=== PATIENT | female | born 2000 | race Caucasian/White ===

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

== ENCOUNTER → 2025-09-30 | Outpatient (CLI) | payer BC, SELFPAY | END | disposition home or self-care (01) | LOC: LABSPEC 15:58 | PROVIDERS: Referring Provider Urology; Visit Provider Urology | DX: N20.1 Calculus of ureter (principal) ==

== ENCOUNTER → 2025-09-30 | Outpatient (CLI) | payer BC, SELFPAY ==
--- NOTE | 2025-09-30 12:00 | CALC_PTH ---
PATIENT: MALIKA NAPOLES LOC: [facility] U#:[id number] AGE/SX: 24/F ROOM: RE09/30/[address]: Dr. Juan Mccarthy MD : 2000 BED: DIS: 09/30/2025 SPEC #: [id number] RECD: 09/30/25 15:07 STATUS: LYNDSEY REGucci #: [id number] SUSANNE: 09/30/25 12:[address]: Juan Mccarthy DEPT: SURGICAL PATHOLOGY RECD BY: Cliff Richardson ENTERED: 09/30/25 15:56 SP TYPE: Calculi OTHR DR: Justine Primary Care Phys Tissues: A - CALCULI Procedures: Surgery Specimen Level I HEADER OPERATION: Right ureteroscopy, laser of stone, possible ureteral stent placement PRE-OP DIAGNOSIS: Calculus of ureter, right TISSUE SUBMITTED: A- Right ureteral stone GROSS DIAGNOSIS A. Calculus, ureter, right, removal: - Urolithiasis (gross examination only), sent for stone analysis. COMMENT The calculus is submitted in its entirety for chemical stone analysis. The results from this study will be reported separately. GROSS DESCRIPTION A. Received fresh labeled the patient's name and date of . Designated as "R ureteral stone" is a 0.2 cm alston to light brown irregular calculus. No sections are submitted. The specimen is for gross examination only. The specimen is sent for stone analysis. RI 09/30/2025 CPT:84902
--- OUTSIDE RECORDS SUMMARY | 2025-09-30 16:48 | XMS RPT_ITS | CCD ---
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 MDW, ANEU, ADIFF, CMP #### [address] [address] MCH (RBC) [Entitic mass] 29.3 pg Normal 27.0-33.0 [facility] Comment on above: Performed By: #### G FR, CBC, LIP, MDW, ANEU, ADIFF, CMP #### [address] [address] MCHC 34.1 G/dL Normal 32.0-36.0 [facility] Comment on above: Performed By: #### G FR, CBC, LIP, MDW, ANEU, ADIFF, CMP #### [address] [address] MCV (RBC) [Entitic vol] 85.8 fL Normal 80.0-99.0 [facility] Comment on above: Performed By: #### G FR, CBC, LIP, MDW, ANEU, ADIFF, CMP #### [address] [address] Platelet 357 10 3/mcL Normal 150-450 [facility] Comment on above: Performed By: #### G FR, CBC, LIP, MDW, ANEU, ADIFF, CMP #### [address] [address] Platelet mean volume (Bld) [Entitic vol] 6.8 fL Normal 6.6-10.5 [facility] Comment on above: Performed By: #### G FR, CBC, LIP, MDW, ANEU, ADIFF, CMP #### [address] [address] RBC 4.63 10 6/mcL Normal 4.10-5.30 [facility] Comment on above: Performed By: #### G FR, CBC, LIP, MDW, ANEU, ADIFF, CMP #### [address] [address] WBC 10.8 10 3/mcL Normal 4.5-10.8 [facility] Comment on above: Performed By: #### G FR, CBC, LIP, MDW, ANEU, ADIFF, CMP #### [place] [address] [place], [place] [address] CMPon 09-16-2025 Albumin Level 3.8 G/dL Normal 3.5-5.0 [facility] Comment on above: Performed By: #### G FR, CBC, LIP, MDW, ANEU, ADIFF, CMP ####[facility] [place], [place] [address] Albumin/Globulin [Mass ratio] 1.0 {ratio} Low 1.1-2.5 [facility] Comment on above: Performed By: #### G FR, CBC, LIP, MDW, ANEU, ADIFF, CMP ####[facility] [place], [place] [address] ALP [Catalytic activity/Vol] 88 U/L Normal 40-135 [facility] Comment on above: Performed By: #### G FR, CBC, LIP, MDW, ANEU, ADIFF, CMP ####[facility] [place] [address] ALT [Catalytic activity/Vol] 23 U/L Normal 14-59 [facility] Comment on above: Performed By: #### G FR, CBC, LIP, MDW, ANEU, ADIFF, CMP ####[facility] [place], [place] [address] AST [Catalytic activity/Vol] 16 U/L Normal 10-40 [facility] Comment on above: Performed By: #### G FR, CBC, LIP, MDW, ANEU, ADIFF, CMP ####[place] [address] [place] [id number] Bili Total 0.4 mg/dL Normal 0.2-1.0 [facility] Comment on above: Result Comment: Use of this assay is not recommended for patients undergoing treatment with eltrombopag due to the potential for falsely elevated results. Performed By: #### G FR, CBC, LIP, MDW, ANEU, ADIFF, CMP ####[facility] [place], [place] [address] BUN/Creatinine Ratio 10 ratio Normal 7-27 [facility] Comment on above: Performed By: #### G FR, CBC, LIP, MDW, ANEU, ADIFF, CMP ####[place] [address] [place], [place] [address] Calcium [Mass/Vol] 9.1 mg/dL Normal 8.4-10.2 [facility] Comment on above: Performed By: #### G FR, CBC, LIP, MDW, ANEU, ADIFF, CMP ####[place] [address] [place] [phone] Chloride [Moles/Vol] 104 mmol/L Normal 98-107 [facility] Comment on above: Performed By: #### G FR, CBC, LIP, MDW, ANEU, ADIFF, CMP ####[place] [address] CO2 [Moles/Vol] 24 mmol/L Normal 22-29 [facility] Comment on above: Performed By: #### G FR, CBC, LIP, MDW, ANEU, ADIFF, CMP ####[place] [address] Creatinine [Mass/Vol] 0.77 mg/dL Normal 0.51-0.95 [facility] Comment on above: Performed By: #### G FR, CBC, LIP, MDW, ANEU, ADIFF, CMP ####[place] [id number] Electrolyte Balance 11.0 mEq/L Normal 4.0-15.0 [facility] Comment on above: Performed By: #### G FR, CBC, LIP, MDW, ANEU, ADIFF, CMP ####[place] [address] [place] [address] Globulin 3.7 G/dL Normal 2.7-4.4 [facility] Comment on above: Performed By: #### G FR, CBC, LIP, MDW, ANEU, ADIFF, CMP ####[facility] [place], [place] [address] Glucose [Mass/Vol] 93 mg/dL Normal 70-105 [facility] Comment on above: Performed By: #### G FR, CBC, LIP, MDW, ANEU, ADIFF, CMP ####[address] [place], [place] [address] Potassium [Moles/Vol] 3.2 mmol/L Low 3.5-5.1 [facility] Comment on above: Performed By: #### G FR, CBC, LIP, MDW, ANEU, ADIFF, CMP ####[address] [place], [place] [address] Sodium [Moles/Vol] 139 mmol/L Normal 136-145 [facility] Comment on above: Performed By: #### G FR, CBC, LIP, MDW, ANEU, ADIFF, CMP ####[address] [place], [place] [address] Total Protein 7.5 G/dL Normal 6.4-8.2 [facility] Comment on above: Performed By: #### G FR, CBC, LIP, MDW, ANEU, ADIFF, CMP ####[address] [place], [place] [address] Urea nitrogen [Mass/Vol] 8 mg/dL Normal 7-18 [facility] Comment on above: Performed By: #### G FR, CBC, LIP, MDW, ANEU, ADIFF, CMP ####[facility] [place], [place] [address] CT ABD/PELVIS W/ IV CONTRAST ONLYon 09-16-2025 CT ABD/PELVIS W/ IV CONTRAST ONLY ORIGINAL EXAMINATION: CT OF THE ABDOMEN AND PELVIS WITH HQJMEFLU72/7/2025 1:18 pm TECHNIQUE: CT of the abdomen and pelvis was performed with the administration of intravenous contrast. Multiplanar reformatted images are provided for review. Automated exposure control, iterative reconstruction, and/or weight based adjustment of the mA/kV was utilized to reduce the radiation dose to as low as reasonably achievable. COMPARISON: 08/23/2025 HISTORY: ORDERING SYSTEM PROVIDED HISTORY: Reason for Exam: Rt flank pain, N+V, burning pain with urination. Hx renal stone 3 weeks ago which pt believes she passed. SCANNED ADDITIONAL SERIES TO INCLUDE ALL LIVER. Abdominal pain, acute, nonlocalized FINDINGS: No acute abnormality in the visualized portions of the lower thorax. No aggressive osseous lesions. The liver, gallbladder, spleen, pancreas, and adrenal glands are unremarkable. Delayed right nephrogram with mild to moderate hydronephrosis. There is mild to moderate right-sided ureteral dilatation with a 3 mm stone still seen at the distal right ureter/UVJ. There is no left-sided hydronephrosis. There is no intra-abdominal free air or fluid. No pathologically enlarged lymph nodes. Thick the abdominal aorta is normal in caliber. No acute GI tract abnormality. The appendix is normal. No other contributory finding. IMPRESSION: 1. Similar appearing mild to moderate right hydroureteronephrosis which is due to a 3 mm obstructive stone at the distal right ureter/UVJ. I have personally reviewed the images of this examination and agree with the resident's finding and interpretation. Interpreted by: Oseas Bunch MD Preliminary Report By: Fabiano Busch Electronically signed By Oseas Bunch MD Dictated Date: 09/16/2025 1:23:37 PM Prelim Date: 09/16/2025 1:29:34 PM Sign Date: 09/16/2025 2:20:26 PM Ordering Provider: JAVAD RAMACHANDRAN Normal [facility] LABORATORYOrdered By: Rodrigo dickens on 09-16-2025 Color (U) Shackelford 2 *ABN* (09/16/25 12:54 PM) Invalid Interpretation Code Yellow AO Auto Urine SS Comment on above: Result Comment: Drug s given that cause changes in urine color may cause chemical analysis to demonstrate false positives. Glucose (U) [Mass/Vol] 100 mg/dL Invalid Interpretation Code Negative AO Auto Urine SS Ketones Ql (U) Negative Normal Negative AO Auto Urine SS UA Appear Slightly Cloudy *ABN* (09/16/25 12:54 PM) Invalid Interpretation Code Clear AO Auto Urine SS UA Bacteria Trace /HPF Invalid Interpretation Code Negative AO Auto Urine SS UA Bili Negative (09/16/25 12:54 PM) Normal Negative AO Auto Urine SS UA Blood Negative (09/16/25 12:54 PM) Normal Negative AO Auto Urine SS UA Leuk Est Trace (09/16/25 12:54 PM) Normal Negative AO Auto Urine SS UA Nitrite Positive *ABN* (09/16/25 12:54 PM) Invalid Interpretation Code Negative AO Auto Urine SS UA pH 6.0 (09/16/25 12:54 PM) Normal 5.0 - 8.0 AO Auto Urine SS UA Protein Trace mg/dL Normal Negative AO Auto Urine SS UA RBC 0-2 /HPF Normal 0-2 AO Auto Urine SS UA Spec Grav <=1.005 *ABN* (09/16/25 12:54 PM) Invalid Interpretation Code 1.015-1.02 5 AO Auto Urine SS UA Specimen Type Clean Catch (09/16/25 12:54 PM) Normal AO Auto Urine SS UA Squam Epithelial 10-20 /HPF Normal 0-20 AO Au to Urine SS UA Urobilinogen 4.0 E.U./dL Invalid Interpretation Code 0.2-1.0 AO Auto Urine SS UA WBC 3-5 /HPF Normal 0-5 AO Auto Urine SS HCG ( test) Ql Negative (09/16/25 12:30 PM) Normal AO Manual Urine SS test (u) int Not detected Invalid Interpretation Code AO Manual Urine SS LABORATORYOrdered By: SYSTEM SYSTEM on 09-16-2025 Albumin BCP dye [Mass/Vol] 3.8 G/dL Normal 3.5 - 5.0 G/dL AO ADM SS Albumin/Globulin [Mass ratio] 1.0 {ratio} Low 1.1 - 2.5 ratio AO ADM SS ALP [Catalytic activity/Vol] 88 U/L Normal 40 - 135 U/L AO ADM SS ALT With P-5'-P [Catalytic activity/Vol] 23 U/L Normal 14 - 59 U/L AO ADM SS AST With P-5'-P [Catalytic activity/Vol] 16 U/L Normal 10 - 40 U/L AO ADM SS Basophils (Bld) [#/Vol] 0.1 103/mcL Normal 0.0 - 0.3 10^3/mcL AO Workflow SS Basophils/100 WBC (Bld) 0.7 % Normal 0.0 - 2.5 % AO Workflow SS Bilirubin [Mass/Vol] 0.4 mg/dL Normal 0.2 - 1.0 mg/dL AO ADM SS Comment on above: Interpretive Data: U se of this assay is not recommended for patients undergoing treatment with eltrombopag due to the potential for falsely elevated results. Calcium [Mass/Vol] 9.1 mg/dL Normal 8.4 - 10. 2 mg/dL AO ADM SS Chloride [Moles/Vol] 104 mmol/L Normal 98 - 107 mmol/L AO ADM SS CO2 [Moles/Vol] 24 mmol/L Normal 22 - 29 mmol/L AO ADM SS Creatinine [Mass/Vol] 0.77 mg/dL Normal 0.51 - 0.95 mg/dL AO ADM SS Electrolyte Balance 11.0 mEq/L Normal 4.0 - 15 .0 mEq/L AO ADM SS Eosinophil, Absolute 0.1 103/mcL Normal 0.0 - 0.7 10^3/mcL AO Workflow SS Eosinophils/100 WBC (Bld) 0.8 % Normal 0.0 - 6.0 % AO Workflow SS Erythrocyte distribution width (RBC) [Ratio] 12.8 % Normal 11.5 - 15.5 % AO Workflow SS Globulin 3.7 G/dL Normal 2.7 - 4.4 G/dL AO ADM SS GLOMERULAR FILTRATION RATE/1.73 SQ M.PREDICTED:ARVRAT: PT:SER/PLAS/BLD:QN: CREATININE-BASED FORMULA (CKD-EPI 2020) 111 ml/min/1.73sqm Invalid Interpretation Code AO Chemistry S Comment on above: Interpretive Data: Stages of Chronic Kidney Disease (CKD) Stage Description eGFR(ml/min/1.73 sq.m.) CKD 1 Normal kidney function or >=90 normal kindney function with possible kidney damage (ex. Proteinuria) CKD 2 Kidney damage with mild loss 60-89 of kidney function CKD 3a Mild to moderate loss of kidney 45-59 function CKD 3b Moderate to severe loss of 30-44 of kindey function CKD 4 Severe loss of kidney function 15-29 CKD 5 Kidney failure <15 Note: (go live 2024) the eGFR calculation was updated to the 2020 CKD-EPI creatinine equation without a race factor to calculate the eGFR results. Glucose [Mass/Vol] 93 mg/dL Normal 70 - 105 mg/dL AO ADM SS Hematocrit (Bld) [Volume fraction] 39.7 % Normal 34.0 - 46.0 % AO Workflow SS Hemoglobin (Bld) [Mass/Vol] 13.5 G/dL Normal 12.0 - 16.0 G/dL AO Workflow SS Lipase [Catalytic activity/Vol] 43 U/L Normal 16 - 77 U/L AO ADM SS Lymphocytes (Bld) [#/Vol] 2.7 103/mcL Normal 0.9 - 4.3 10^3/mcL AO Workflow SS Lymphocytes/100 WBC (Bld) 25.1 % Normal 20.0 - 40.0 % AO Workflow SS MCH (RBC) [Entitic mass] 29.3 pg Normal 27.0 - 33.0 pg AO Workflow SS MCHC 34.1 G/dL Normal 32.0 - 36.0 G/dL AO Workflow SS MCV (RBC) [Entitic vol] 85.8 fL Normal 80.0 - 99.0 fL AO Workflow SS Monocyte distribution width Auto (Bld) [Entitic vol] 17.11 1 Normal 0.00 - 20.00 AO Workflow SS Comment on above: Result Comment: For ED adult patients suspected of sepsis, MDW<=20.0 does not rule out sepsis or risk of sepsis Monocytes (Bld) [#/Vol] 0.7 103/mcL Normal 0.1 - 1.4 10^3/mcL AO Workflow SS Monocytes/100 WBC (Bld) 6.8 % Normal 2.0 - 13.0 % AO Workflow SS Neutrophils (Bld) [#/Vol] 7.2 103/mcL Normal 2.3 - 8.1 10^3/mcL AO Workflow SS Neutrophils/100 WBC (Bld) 66.6 % Normal 50.0 - 75.0 % AO Workflow SS Platelet mean volume (Bld) [Entitic vol] 6.8 fL Normal 6.6 - 10.5 fL AO Workflow SS Platelets (Bld) [#/Vol] 357 103/mcL Normal 150 - 450 10^3/mcL AO Workflow SS Potassium [Moles/Vol] 3.2 mmol/L Low 3.5 - 5.1 mmol/L AO ADM SS Protein [Mass/Vol] 7.5 G/dL Normal 6.4 - 8.2 G/dL AO ADM SS RBC (Bld) [#/Vol] 4.63 106/mcL Normal 4.10 - 5.30 10^6/mcL AO Workflow SS Sodium [Moles/Vol] 139 mmol/L Normal 136 - 145 mmol/L AO ADM SS Urea nitrogen [Mass/Vol] 8 mg/dL Normal 7 - 18 mg/dL AO ADM SS Urea nitrogen/Creatinine [Mass ratio] 10 ratio Normal 7 - 27 ratio AO ADM SS WBC (Bld) [#/Vol] 10.8 103/mcL Normal 4.5 - 10.8 10^3/mcL AO Workflow SS LIPon 09-16-2025 Lipase Level 43 U/L Normal 16-77 [facility] Comment on above: Performed By: #### G FR, CBC, LIP, MDW, ANEU, ADIFF, CMP ####[facility] [place], [place] [address] PREGUon 09-16-2025 HCG ( test) Ql (U) Negative Normal [facility] Comment on above: Performed By: #### P REGU ####[facility] [place], [place] [address] test (u) int Not detected Invalid Interpretation Code [facility] Comment on above: Performed By: #### P REGU ####[facility] [place], [place] [address] SURESWAB(R) ADVANCED VAGINIT IS PLUS, TMAon 09-16-2025 BALBIR GLABRATA Not detected Normal NOT DETECTED [facility] Comment on above: Order Comment: 0 0 Result Comment: Balbir species C. albicans, C. tropicalis, C. parapsilosis, and/or C. dubliniensis can be detected, but not differentiated, in the Balbir spp. result. Performed By: #### 1 0120 #### [facility] [address] Cheese Maker: Terry Raya MD BALBIR SPECIES Not detected Normal NOT DETECTED [facility] Comment on above: Order Comment: 0 0 Performed By: #### 1 0120 #### [place] [address] Cheese Maker: Terry Raya MD CHLAMYDIA TRACHOMATIS RNA, TMA, UROGENITAL Not detected Normal NOT DETECTED [facility] Comment on above: Order Comment: 0 0 Performed By: #### 1 0120 #### [facility] [address] Cheese Maker: Terry Raya MD NEISSERIA GONORRHOEAE RNA, TMA, UROGENITAL Not detected Normal NOT DETECTED [facility] Comment on above: Order Comment: 0 0 Result Comment: For additional information, please refer to https://education.ImmusanT/faq/CPQ476 (This link is being provided for information/ educational purposes only.) Performed By: #### 1 0120 #### [facility] [address], [address] [place] [address] Cheese Maker: Terry Raya MD SURESWAB(R) ADV BACTERIAL VAGINOSIS (BV), TMA Negative Normal NEGATIVE [facility] Comment on above: Order Comment: 0 0 Performed By: #### 1 0120 #### [facility] [place] [address] Cheese Maker: Terry Raya MD TRICHOMONAS VAGINALIS (TV), TMA Not detected Normal NOT DETECTED [facility] Comment on above: Order Comment: 0 0 Performed By: #### 1 0120 #### [facility] [place] [address] Cheese Maker: Terry Raya MD [facility] 09-16-2025 Color (U) Shack[place]ord Abnormal Yellow [facility] Comment on above: Result Comment: Drug s given that cause changes in urine color may cause chemical analysis to demonstrate false positives. Performed By: #### U AMIC, UA ####[address] [place], [place] [address] Glucose (U) [Mass/Vol] 100 mg/dL Abnormal Negative [facility] Comment on above: Performed By: #### U AMIC, UA ####[address] [place], [place] [address] Ketones Ql (U) Negative Normal Negative [facility] Comment on above: Performed By: #### U AMIC, UA ####[address] [place], [place] [address] UA Appear Slightly Cloudy Abnormal Clear [facility] Comment on above: Performed By: #### U AMIC, UA ####[address] [place], [place] [address] UA Blood Negative Normal Negative [facility] Comment on above: Performed By: #### U AMIC, UA ####[address] [place] [place], [place] [address] UA Leuk Est Trace Normal Negative [facility] Comment on above: Performed By: #### U AMIC, UA ####[address] [place] [place] [address] UA Nitrite Positive Abnormal Negative [facility] Comment on above: Performed By: #### U AMIC, UA ####[address] [place] [address] UA pH 6.0 Normal 5.0 - 8.0 [facility] Comment on above: Performed By: #### U AMIC, UA ####[address] [place] [place] [address] UA Protein Trace Normal Negative [facility] Comment on above: Performed By: #### U AMIC, UA ####[address] [place] [place] [address] UA Spec Grav <=1.005 Abnormal 1.015-1.02 5 [facility] Comment on above: Performed By: #### U AMIC, UA ####[address] [place] [place], [place] [address] UA Specimen Type Clean Catch Normal [facility] Comment on above: Performed By: #### U AMIC, UA ####[address] [place] [place] [address] UA Urobilinogen 4.0 E.U./dL Abnormal 0.2-1.0 [facility] Comment on above: Performed By: #### U AMIC, UA ####[address] [place] [place] [address] Urobilinogen (U) [Mass/Vol] Negative Normal Negative [facility] Comment on above: Performed By: #### U AMIC, UA ####[address] [place] [address] UAMICon 09-16-2025 UA Bacteria Trace Abnormal Negative [facility] Comment on above: Performed By: #### A SYMONE PECK, ANEU, GFR, CMP, CBC, LIP #### [place] [address] [place], [place] [address] UA RBC 0-2 Normal 0-2 [facility] Comment on above: Performed By: #### A SYMONE PECK, ANEU, GFR, CMP, CBC, LIP #### [place] [address] [place], [place] [address] UA Squam Epithelial 10-20 Normal 0-20 [facility] Comment on above: Performed By: #### A SYMONE PECK, ANEU, GFR, CMP, CBC, LIP #### [place] [address] [place], [place] [address] UA WBC 3-5 Normal 0-5 [facility] Comment on above: Performed By: #### A SYMONE PECK, ANEU, GFR, CMP, CBC, LIP #### [place] [address] [place], [place] [address] No Panel Informationon 09-05 No significant sonog raphic abnormality of the kidneys. CLINICAL INFORMATION: Secondary amenorrhea. Transabdominal and transvaginal pelvic ultrasound with spectral color Doppler: The examination is limited by poor penetration of sound secondary to body habitus. The uterus is within normal limits in size and echogenicity measuring 8.8 x 5.8 x 3.5 cm (length, AP, width). The endometrial stripe measures 5 mm which is within normal limits.. There is a small amount of fluid in the endometrial canal. The right ovary is normal in size and echogenicity measuring 3.7 x 2.3 cm and contains a 1.9 x 1.3 x 1.6 cm follicle. The left ovary is mildly enlarged measuring 4.4 x 2.4 x 2.3 cm. No other cystic, solid or complex adnexal masses are identified. There is no free fluid within the cul-de-sac. IMPRESSION: 1. Nonspecific mild enlargement of the left ovary. 2. Small amount nonspecific fluid in the endometrial canal. 3. No other significant sonographic abnormality. Report Dictated on Electronically Signed By: Nehemias Peraza MD Electronically Signed Date/Time: 09/05/2025 4:00 PM EDT [facility] No Panel InformationOrdered By: Nehemias Peraza on 09-05-2025 [facility] Phone: US Kidney limitedon 09-05-20 Patient Name: RAMIRO KULKARNI : 2000 Exam Date/Time: 09/05/2025 13:05 Procedure: US RENAL LIMITED Ordering Provider: DE OLIVEIRA RACHEL Reason For Exam: hydroureteronephrosis CLINICAL INFORMATION: History of hydronephrosis. Ultrasound kidneys: The kidneys are within normal limits in size and cortical echogenicity. The right measures 11.5 x 6.3 x 5.8 cm and the left 12.1 x 6.5 x 6.4 cm. No hydronephrosis, calculus or solid renal mass is seen on either side. There is a well distended urinary bladder without obvious sonographic abnormality. Bilateral ureteral jets are demonstrated. [facility] Nehemias Peraza MD - 09/05/2025 Patient Name: RAMIRO NAPOLES : 2000 Exam Date/Time: 09/05/2025 13:05 Procedure: US RENAL LIMITED Ordering Provider: DE OLIVEIRA RACHEL Reason For Exam: hydroureteronephrosis CLINICAL INFORMATION: History of hydronephrosis. Ultrasound kidneys: The kidneys are within normal limits in size and cortical echogenicity. The right measures 11.5 x 6.3 x 5.8 cm and the left 12.1 x 6.5 x 6.4 cm. No hydronephrosis, calculus or solid renal mass is seen on either side. There is a well distended urinary bladder without obvious sonographic abnormality. Bilateral ureteral jets are demonstrated. IMPRESSION: No significant sonographic abnormality of the kidneys. CLINICAL INFORMATION: Secondary amenorrhea. Transabdominal and transvaginal pelvic ultrasound with spectral color Doppler: The examination is limited by poor penetration of sound secondary to body habitus. The uterus is within normal limits in size and echogenicity measuring 8.8 x 5.8 x 3.5 cm (length, AP, width). The endometrial stripe measures 5 mm which is within normal limits.. There is a small amount of fluid in the endometrial canal. The right ovary is normal in size and echogenicity measuring 3.7 x 2.3 cm and contains a 1.9 x 1.3 x 1.6 cm follicle. The left ovary is mildly enlarged measuring 4.4 x 2.4 x 2.3 cm. No other cystic, solid or complex adnexal masses are identified. There is no free fluid within the cul-de-sac. IMPRESSION: 1. Nonspecific mild enlargement of the left ovary. 2. Small amount nonspecific fluid in the endometrial canal. 3. No other significant sonographic abnormality. Report Dictated on Electronically Signed By: Nehemias Peraza MD Electronically Signed Date/Time: 09/05/2025 4:00 PM EDT [facility] Radiology Study observation (narrative) [facility] US NON-OB PELVIS TRANS ABD/V AGon 09-05-2025 US NON-OB PELVIS TRANS ABD/VAG Patient [facility] [place] : 2000 [id number] Exam Date/Time: 09/05/2025 12:30 Procedure: US NON-OB PELVIS TRANS ABD/VAG Ordering Provider: DE OLIVEIRA RACHEL Reason For Exam: amenorrhea CLINICAL INFORMATION: History of hydronephrosis. Ultrasound kidneys: The kidneys are within normal limits in size and cortical echogenicity. The right measures 11.5 x 6.3 x 5.8 cm and the left 12.1 x 6.5 x 6.4 cm. No hydronephrosis, calculus or solid renal mass is seen on either side. There is a well distended urinary bladder without obvious sonographic abnormality. Bilateral ureteral jets are demonstrated. IMPRESSION: No significant sonographic abnormality of the kidneys. CLINICAL INFORMATION: Secondary amenorrhea. Transabdominal and transvaginal pelvic ultrasound with spectral color Doppler: The examination is limited by poor penetration of sound secondary to body habitus. The uterus is within normal limits in size and echogenicity measuring 8.8 x 5.8 x 3.5 cm (length, AP, width). The endometrial stripe measures 5 mm which is within normal limits.. There is a small amount of fluid in the endometrial canal. The right ovary is normal in size and echogenicity measuring 3.7 x 2.3 cm and contains a 1.9 x 1.3 x 1.6 cm follicle. The left ovary is mildly enlarged measuring 4.4 x 2.4 x 2.3 cm. No other cystic, solid or complex adnexal masses are identified. There is no free fluid within the cul-de-sac. IMPRESSION: 1. Nonspecific mild enlargement of the left ovary. 2. Small amount nonspecific fluid in the endometrial canal. 3. No other significant sonographic abnormality. Report Dictated on Electronically Signed By: Nehemias Peraza MD Electronically Signed Date/Time: 09/05/2025 4:00 PM EDT [facility] US Pelvis transabdominal and transvaginalon 09-05-2025 Patient Name: RAMIRO KULKARNI : 2000 Exam Date/Time: 09/05/2025 12:30 Procedure: US NON-OB PELVIS TRANS ABD/VAG Ordering Provider: DE OLIVEIRA RACHEL Reason For Exam: amenorrhea CLINICAL INFORMATION: History of hydronephrosis. Ultrasound kidneys: The kidneys are within normal limits in size and cortical echogenicity. The right measures 11.5 x 6.3 x 5.8 cm and the left 12.1 x 6.5 x 6.4 cm. No hydronephrosis, calculus or solid renal mass is seen on either side. There is a well distended urinary bladder without obvious sonographic abnormality. Bilateral ureteral jets are demonstrated. [facility] Nehemias Peraza MD - 09/05/2025 Patient Name: RAMIRO NAPOLES : 2000 Exam Date/Time: 09/05/2025 12:30 Procedure: US NON-OB PELVIS TRANS ABD/VAG Ordering Provider: DE OLIVEIRA RACHEL Reason For Exam: amenorrhea CLINICAL INFORMATION: History of hydronephrosis. Ultrasound kidneys: The kidneys are within normal limits in size and cortical echogenicity. The right measures 11.5 x 6.3 x 5.8 cm and the left 12.1 x 6.5 x 6.4 cm. No hydronephrosis, calculus or solid renal mass is seen on either side. There is a well distended urinary bladder without obvious sonographic abnormality. Bilateral ureteral jets are demonstrated. IMPRESSION: No significant sonographic abnormality of the kidneys. CLINICAL INFORMATION: Secondary amenorrhea. Transabdominal and transvaginal pelvic ultrasound with spectral color Doppler: The examination is limited by poor penetration of sound secondary to body habitus. The uterus is within normal limits in size and echogenicity measuring 8.8 x 5.8 x 3.5 cm (length, AP, width). The endometrial stripe measures 5 mm which is within normal limits.. There is a small amount of fluid in the endometrial canal. The right ovary is normal in size and echogenicity measuring 3.7 x 2.3 cm and contains a 1.9 x 1.3 x 1.6 cm follicle. The left ovary is mildly enlarged measuring 4.4 x 2.4 x 2.3 cm. No other cystic, solid or complex adnexal masses are identified. There is no free fluid within the cul-de-sac. IMPRESSION: 1. Nonspecific mild enlargement of the left ovary. 2. Small amount nonspecific fluid in the endometrial canal. 3. No other significant sonographic abnormality. Report Dictated on Electronically Signed By: Nehemias Peraza MD Electronically Signed Date/Time: 09/05/2025 4:00 PM EDT [facility] Radiology Study observation (narrative) [facility] RENAL LIMITEDon 5 US RENAL LIMITED Patient Name: RAMIRO KULKARNI : 2000 Exam Date/Time: 09/05/2025 13:05 Procedure: US RENAL LIMITED Ordering Provider: DE OLIVEIRA RACHEL Reason For Exam: hydroureteronephrosis CLINICAL INFORMATION: History of hydronephrosis. Ultrasound kidneys: The kidneys are within normal limits in size and cortical echogenicity. The right measures 11.5 x 6.3 x 5.8 cm and the left 12.1 x 6.5 x 6.4 cm. No hydronephrosis, calculus or solid renal mass is seen on either side. There is a well distended urinary bladder without obvious sonographic abnormality. Bilateral ureteral jets are demonstrated. IMPRESSION: No significant sonographic abnormality of the kidneys. CLINICAL INFORMATION: Secondary amenorrhea. Transabdominal and transvaginal pelvic ultrasound with spectral color Doppler: The examination is limited by poor penetration of sound secondary to body habitus. The uterus is within normal limits in size and echogenicity measuring 8.8 x 5.8 x 3.5 cm (length, AP, width). The endometrial stripe measures 5 mm which is within normal limits.. There is a small amount of fluid in the endometrial canal. The right ovary is normal in size and echogenicity measuring 3.7 x 2.3 cm and contains a 1.9 x 1.3 x 1.6 cm follicle. The left ovary is mildly enlarged measuring 4.4 x 2.4 x 2.3 cm. No other cystic, solid or complex adnexal masses are identified. There is no free fluid within the cul-de-sac. IMPRESSION: 1. Nonspecific mild enlargement of the left ovary. 2. Small amount nonspecific fluid in the endometrial canal. 3. No other significant sonographic abnormality. Report Dictated on Electronically Signed By: Nehemias Peraza MD Electronically Signed Date/Time: 09/05/2025 4:00 PM EDT formerly [facility]) ADVANCED VAGINIT IS PLUS, [facility] BALBIR GLABRATA Not detected Normal NOT DETECTED [facility] Comment on above: Order Comment: 0 Result Comment: Balbir species C. albicans, C. tropicalis, C. parapsilosis, and/or C. dubliniensis can be detected, but not differentiated, in the Balbir spp. result. Performed By: #### 1 0120 #### [facility] [address], [address] [place] [id number] Cheese Maker: Terry Raya MD BALBIR SPECIES Not detected Normal NOT DETECTED [facility] Comment on above: Order Comment: 0 Performed By: #### 1 0120 #### [facility] [place] [address] Cheese Maker: Terry Raya MD CHLAMYDIA TRACHOMATIS RNA, TMA, UROGENITAL Detected Abnormal NOT DETECTED [facility] Comment on above: Order Comment: 0 Result Comment: If results do not correlate with clinical findings, testing using an alternate molecular target which amplifies different genetic sequences can be performed on the same sample for result confirmation within 7 days of sample receipt or per performing laboratory specimen retention policy. Alternate target testing is available; [address] (C. trachomatis) [place] [address] (N. gonorrhoeae). Performed By: #### 1 0120 #### [facility] [place] [address] Cheese Maker: Terry Raya MD NEISSERIA GONORRHOEAE RNA, TMA, UROGENITAL Not detected Normal NOT DETECTED [facility] Comment on above: Order Comment: 0 Result Comment: For additional information, please refer to https://education.ImmusanT/faq/JJM108 (This link is being provided for information/ educational purposes only.) Performed By: #### 1 0120 #### [facility] [place] [address] Cheese Maker: Terry Raya MD SURESWAB(R) ADV BACTERIAL VAGINOSIS (BV), TMA Negative Normal NEGATIVE [facility] Comment on above: Order Comment: 0 Performed By: #### 1 0120 #### [facility] [place] [address] Cheese Maker: Terry Raya MD TRICHOMONAS VAGINALIS (TV), TMA Not detected Normal NOT DETECTED [facility] Comment on above: Order Comment: 0 Performed By: #### 1 0120 #### [facility] [place] [address] Cheese Maker: Terry Raya MD .Auto Diffon 08-23-2025 Basophil, Absolute 0.0 10 3/mcL Normal 0.0-0.3 [facility] Comment on above: Performed By: #### A DIFF, MDW, ANEU, GFR, CMP, CBC, LIP #### [address] [address] Basophils/100 WBC (Bld) 0.5 % Normal 0.0-2.5 [facility] Comment on above: Performed By: #### A DIFF, MDW, ANEU, GFR, CMP, CBC, LIP #### [address] [address] Eosinophil, Absolute 0.1 10 3/mcL Normal 0.0-0.7 [facility] Comment on above: Performed By: #### A DIFF, MDW, ANEU, GFR, CMP, CBC, LIP #### [address] [address] Eosinophils/100 WBC (Bld) 1.4 % Normal 0.0-6.0 [facility] Comment on above: Performed By: #### A DIFF, MDW, ANEU, GFR, CMP, CBC, LIP #### [address] [address] Lymphocyte, Absolute 1.9 10 3/mcL Normal 0.9-4.3 [facility] Comment on above: Performed By: #### A DIFF, MDW, ANEU, GFR, CMP, CBC, LIP #### [address] [address] Lymphocytes/100 WBC (Bld) 24.4 % Normal 20.0-40.0 [facility] Comment on above: Performed By: #### A DIFF, MDW, ANEU, GFR, CMP, CBC, LIP #### [address] [address] Monocyte, Absolute 0.4 10 3/mcL Normal 0.1-1.4 [facility] Comment on above: Performed By: #### A DIFF, MDW, ANEU, GFR, CMP, CBC, LIP #### [address] [address] Monocytes/100 WBC (Bld) 5.4 % Normal 2.0-13.0 [facility] Comment on above: Performed By: #### A DIFF, MDW, ANEU, GFR, CMP, CBC, LIP #### [address] [address] Neutrophils/100 WBC (Bld) 68.3 % Normal 50.0-75.0 [facility] Comment on above: Performed By: #### A DIFF, MDW, ANEU, GFR, CMP, CBC, LIP #### [address] [address] .GFRon 08-23-2025 Estimated Glomerular Filtration Rate 108 ml/min/1.73sqm Normal [facility] Comment on above: Result Comment: Stages of Chronic Kidney Disease (CKD) Stage Description eGFR(ml/min/1.73 sq.m.) CKD 1 Normal kidney function or >=90 normal kindney function with possible kidney damage (ex. Proteinuria) CKD 2 Kidney damage with mild loss 60-89 of kidney function CKD 3a Mild to moderate loss of kidney 45-59 function CKD 3b Moderate to severe loss of 30-44 of kindey function CKD 4 Severe loss of kidney function 15-29 CKD 5 Kidney failure <15 Note: (go live 2024) the eGFR calculation was updated to the 2020 CKD-EPI creatinine equation without a race factor to calculate the eGFR results. Performed By: #### A DIFF, MDW, ANEU, GFR, CMP, CBC, LIP #### [address] [address] .MDWon 08-23-2025 Monocyte Distribution Width 20.64 High 0.00-20.00 [facility] Comment on above: Result Comment: For adults in ED, MDW>20.0 may be associated with a higher risk of sepsis during the first 12hrs of hospital admission Performed By: #### A DIFF, MDW, ANEU, GFR, CMP, CBC, LIP #### [address] [address] .NEUABSon 08-23-2025 Neutrophil, Absolute 5.2 10 3/mcL Normal 2.3-8.1 [facility] Comment on above: Performed By: #### A DIFF, MDW, ANEU, GFR, CMP, CBC, LIP #### [address] [address] CBCon 08-23-2025 Erythrocyte distribution width (RBC) [Ratio] 12.7 % Normal 11.5-15.5 [facility] Comment on above: Performed By: #### A SYMONE PECK, ANEU, GFR, CMP, CBC, LIP #### [place] [address] Hematocrit (Bld) [Volume fraction] 39.0 % Normal 34.0-46.0 [facility] Comment on above: Performed By: #### A DIFFSYMONE, ANEU, GFR, CMP, CBC, LIP #### [place] [address] Hgb 13.8 G/dL Normal 12.0-16.0 [facility] Comment on above: Performed By: #### A SYMONE EPCK, ANEU, GFR, CMP, CBC, LIP #### [address] [address] MCH (RBC) [Entitic mass] 30.1 pg Normal 27.0-33.0 [facility] Comment on above: Performed By: #### A SYMONE PECK, ANEU, GFR, CMP, CBC, LIP #### [address] [address] MCHC 35.3 G/dL Normal 32.0-36.0 [facility] Comment on above: Performed By: #### A SYMONE PECK, ANEU, GFR, CMP, CBC, LIP #### [address] [address] MCV (RBC) [Entitic vol] 85.3 fL Normal 80.0-99.0 [facility] Comment on above: Performed By: #### A DIFFSYMONE, ANEU, GFR, CMP, CBC, LIP #### [address] [address] Platelet 330 10 3/mcL Normal 150-450 [facility] Comment on above: Performed By: #### A DIFFSYMONE, ANEU, GFR, CMP, CBC, LIP #### [address] [address] Platelet mean volume (Bld) [Entitic vol] 7.4 fL Normal 6.6-10.5 [facility] Comment on above: Performed By: #### A SYMONE PECK, ANEU, GFR, CMP, CBC, LIP #### [address] [address] RBC 4.57 10 6/mcL Normal 4.10-5.30 [facility] Comment on above: Performed By: #### A SYMONE PECK, ANEU, GFR, CMP, CBC, LIP #### [address] [address] WBC 7.7 10 3/mcL Normal 4.5-10.8 [facility] Comment on above: Performed By: #### A SYMONE PECK, ANEU, GFR, CMP, CBC, LIP #### [address] [address] CMPon 08-23-2025 Albumin Level 3.8 G/dL Normal 3.5-5.0 [facility] Comment on above: Performed By: #### A SYMONE PECK, ANEU, GFR, CMP, CBC, LIP #### [address] [address] Albumin/Globulin [Mass ratio] 1.0 {ratio} Low 1.1-2.5 [facility] Comment on above: Performed By: #### A SYMONE PECK, ANEU, GFR, CMP, CBC, LIP #### [address] [address] ALP [Catalytic activity/Vol] 90 U/L Normal 40-135 [facility] Comment on above: Performed By: #### A SYMONE PECK, ANEU, GFR, CMP, CBC, LIP #### [address] [address] ALT [Catalytic activity/Vol] 36 U/L Normal 14-59 [facility] Comment on above: Performed By: #### A SYMONE PECK, ANEU, GFR, CMP, CBC, LIP #### [address] [address] AST [Catalytic activity/Vol] 15 U/L Normal 10-40 [facility] Comment on above: Performed By: #### A SYMONE PECK, ANEU, GFR, CMP, CBC, LIP #### [address] [address] Bili Total 0.5 mg/dL Normal 0.2-1.0 [facility] Comment on above: Result Comment: Use of this assay is not recommended for patients undergoing treatment with eltrombopag due to the potential for falsely elevated results. Performed By: #### A SYMONE PECK, ANEU, GFR, CMP, CBC, LIP #### [place] [id number] BUN/Creatinine Ratio 10 ratio Normal 7-27 [facility] Comment on above: Performed By: #### A SYMONE PECK, ANEU, GFR, CMP, CBC, LIP #### [place] [address] Calcium [Mass/Vol] 9.2 mg/dL Normal 8.4-10.2 [facility] Comment on above: Performed By: #### A SYMONE PECK, ANEU, GFR, CMP, CBC, LIP #### [address] [address] Chloride [Moles/Vol] 104 mmol/L Normal 98-107 [facility] Comment on above: Performed By: #### A SYMONE PECK, ANEU, GFR, CMP, CBC, LIP #### [address] [address] CO2 [Moles/Vol] 26 mmol/L Normal 22-29 [facility] Comment on above: Performed By: #### A SYMONE PECK, ANEU, GFR, CMP, CBC, LIP #### [address] [address] Creatinine [Mass/Vol] 0.79 mg/dL Normal 0.51-0.95 [facility] Comment on above: Performed By: #### A DIFF, MDW, ANEU, GFR, CMP, CBC, LIP #### [address] [address] Electrolyte Balance 7.0 mEq/L Normal 4.0-15.0 [facility] Comment on above: Performed By: #### A DIFF, MDW, ANEU, GFR, CMP, CBC, LIP #### [address] [address] Globulin 3.9 G/dL Normal 2.7-4.4 [facility] Comment on above: Performed By: #### A DIFF, MDW, ANEU, GFR, CMP, CBC, LIP #### [address] [address] Glucose [Mass/Vol] 102 mg/dL Normal 70-105 [facility] Comment on above: Performed By: #### A SYMONE PECK, ANEU, GFR, CMP, CBC, LIP #### [address] [address] Potassium [Moles/Vol] 3.7 mmol/L Normal 3.5-5.1 [facility] Comment on above: Performed By: #### A MD LIVW, ANEU, GFR, CMP, CBC, LIP #### [address] [address] Sodium [Moles/Vol] 137 mmol/L Normal 136-145 [facility] Comment on above: Performed By: #### A DIFFSYMONE, ANEU, GFR, CMP, CBC, LIP #### [address] [address] Total Protein 7.7 G/dL Normal 6.4-8.2 [facility] Comment on above: Performed By: #### A DIFFMDW, ANEU, GFR, CMP, CBC, LIP #### [address] [address] Urea nitrogen [Mass/Vol] 8 mg/dL Normal 7-18 [facility] Comment on above: Performed By: #### A DIFFMDW, ANEU, GFR, CMP, CBC, LIP #### [facility] [address] [place], [place] [address] CT ABD/PELVIS W/ IV CONTRAST ONLYon 08-23-2025 CT ABD/PELVIS W/ IV CONTRAST ONLY ORIGINAL EXAMINATION: CT OF THE ABDOMEN AND PELVIS WITH CONTRAST 08/23/2025 7:29 am TECHNIQUE: CT of the abdomen and pelvis was performed with the administration of intravenous contrast. Multiplanar reformatted images are provided for review. Automated exposure control, iterative reconstruction, and/or weight based adjustment of the mA/kV was utilized to reduce the radiation dose to as low as reasonably achievable. COMPARISON: None HISTORY: ORDERING SYSTEM PROVIDED HISTORY: Reason for Exam: RLQ pain sudden onset this morning Abdominal pain, acute, nonlocalized FINDINGS: Lower Chest: No acute abnormality is present at the lung bases. Organs: The liver, biliary tree, pancreas, spleen, adrenal glands, and the left kidney are normal. There is moderate left hydroureteronephrosis caused by a 3 mm stone obstructing the distal right ureter. No other urinary tract stone is detected. GI/Bowel: There is no intestinal obstruction or inflammation. The appendix is normal. There is no free intraperitoneal air or abnormal fluid collection in the abdomen. Pelvis: The urinary bladder is nearly empty and contains no stones. The uterus and adnexal structures are unremarkable. There is no abnormal fluid collection in the pelvis. Peritoneum/Retroperitoneum: No retroperitoneal lymph node enlargement is present. Abdominal aorta and inferior vena cava are normal. Bones/Soft Tissues: No acute findings. IMPRESSION: Moderate right hydroureteronephrosis caused by a 3 mm stone obstructing the distal right ureter. Interpreted by: Reji Marin MD Preliminary Report By: Reji Marin MD Electronically signed By Reji Marin MD Dictated Date: 08/23/2025 7:32:44 AM Prelim Date: 08/23/2025 7:36:44 AM Sign Date: 08/23/2025 7:36:44 AM Ordering Provider: JAVAD RAMACHANDRAN RP Normal [facility] LABORATORYOrdered By: SYSTEM SYSTEM on 08-23-2025 Albumin BCP dye [Mass/Vol] 3.8 G/dL Normal 3.5 - 5.0 G/dL AO ADM SS Albumin/Globulin [Mass ratio] 1.0 {ratio} Low 1.1 - 2.5 ratio AO ADM SS ALP [Catalytic activity/Vol] 90 U/L Normal 40 - 135 U/L AO ADM SS ALT With P-5'-P [Catalytic activity/Vol] 36 U/L Normal 14 - 59 U/L AO ADM SS AST With P-5'-P [Catalytic activity/Vol] 15 U/L Normal 10 - 40 U/L AO ADM SS Basophils (Bld) [#/Vol] 0.0 103/mcL Normal 0.0 - 0.3 10^3/mcL AO Workflow SS Basophils/100 WBC (Bld) 0.5 % Normal 0.0 - 2.5 % AO Workflow SS Bilirubin [Mass/Vol] 0.5 mg/dL Normal 0.2 - 1.0 mg/dL AO ADM SS Comment on above: Interpretive Data: U se of this assay is not recommended for patients undergoing treatment with eltrombopag due to the potential for falsely elevated results. Calcium [Mass/Vol] 9.2 mg/dL Normal 8.4 - 10. 2 mg/dL AO ADM SS Chloride [Moles/Vol] 104 mmol/L Normal 98 - 107 mmol/L AO ADM SS CO2 [Moles/Vol] 26 mmol/L Normal 22 - 29 mmol/L AO ADM SS Creatinine [Mass/Vol] 0.79 mg/dL Normal 0.51 - 0.95 mg/dL AO ADM SS Electrolyte Balance 7.0 mEq/L Normal 4.0 - 15 .0 mEq/L AO ADM SS Eosinophil, Absolute 0.1 103/mcL Normal 0.0 - 0.7 10^3/mcL AO Workflow SS Eosinophils/100 WBC (Bld) 1.4 % Normal 0.0 - 6.0 % AO Workflow SS Erythrocyte distribution width (RBC) [Ratio] 12.7 % Normal 11.5 - 15.5 % AO Workflow SS Globulin 3.9 G/dL Normal 2.7 - 4.4 G/dL AO ADM SS GLOMERULAR FILTRATION RATE/1.73 SQ M.PREDICTED:ARVRAT: PT:SER/PLAS/BLD:QN: CREATININE-BASED FORMULA (CKD-EPI 2020) 108 ml/min/1.73sqm Invalid Interpretation Code AO Chemistry S Comment on above: Interpretive Data: Stages of Chronic Kidney Disease (CKD) Stage Description eGFR(ml/min/1.73 sq.m.) CKD 1 Normal kidney function or >=90 normal kindney function with possible kidney damage (ex. Proteinuria) CKD 2 Kidney damage with mild loss 60-89 of kidney function CKD 3a Mild to moderate loss of kidney 45-59 function CKD 3b Moderate to severe loss of 30-44 of kindey function CKD 4 Severe loss of kidney function 15-29 CKD 5 Kidney failure <15 Note: (go live 2024) the eGFR calculation was updated to the 2020 CKD-EPI creatinine equation without a race factor to calculate the eGFR results. Glucose [Mass/Vol] 102 mg/dL Normal 70 - 105 mg/dL AO ADM SS Hematocrit (Bld) [Volume fraction] 39.0 % Normal 34.0 - 46.0 % AO Workflow SS Hemoglobin (Bld) [Mass/Vol] 13.8 G/dL Normal 12.0 - 16.0 G/dL AO Workflow SS Lipase [Catalytic activity/Vol] 41 U/L Normal 16 - 77 U/L AO ADM SS Lymphocytes (Bld) [#/Vol] 1.9 103/mcL Normal 0.9 - 4.3 10^3/mcL AO Workflow SS Lymphocytes/100 WBC (Bld) 24.4 % Normal 20.0 - 40.0 % AO Workflow SS MCH (RBC) [Entitic mass] 30.1 pg Normal 27.0 - 33.0 pg AO Workflow SS MCHC 35.3 G/dL Normal 32.0 - 36.0 G/dL AO Workflow SS MCV (RBC) [Entitic vol] 85.3 fL Normal 80.0 - 99.0 fL AO Workflow SS Monocyte distribution width Auto (Bld) [Entitic vol] 20.64 1 High 0.00 - 20.00 AO Workflow SS Comment on above: Result Comment: For adults in ED, MDW>20.0 may be associated with a higher risk of sepsis during the first 12hrs of hospital admission Monocytes (Bld) [#/Vol] 0.4 103/mcL Normal 0.1 - 1.4 10^3/mcL AO Workflow SS Monocytes/100 WBC (Bld) 5.4 % Normal 2.0 - 13.0 % AO Workflow SS Neutrophils (Bld) [#/Vol] 5.2 103/mcL Normal 2.3 - 8.1 10^3/mcL AO Workflow SS Neutrophils/100 WBC (Bld) 68.3 % Normal 50.0 - 75.0 % AO Workflow SS Platelet mean volume (Bld) [Entitic vol] 7.4 fL Normal 6.6 - 10.5 fL AO Workflow SS Platelets (Bld) [#/Vol] 330 103/mcL Normal 150 - 450 10^3/mcL AO Workflow SS Potassium [Moles/Vol] 3.7 mmol/L Normal 3.5 - 5.1 mmol/L AO ADM SS Protein [Mass/Vol] 7.7 G/dL Normal 6.4 - 8.2 G/dL AO ADM SS RBC (Bld) [#/Vol] 4.57 106/mcL Normal 4.10 - 5.30 10^6/mcL AO Workflow SS Sodium [Moles/Vol] 137 mmol/L Normal 136 - 145 mmol/L AO ADM SS Urea nitrogen [Mass/Vol] 8 mg/dL Normal 7 - 18 mg/dL AO ADM SS Urea nitrogen/Creatinine [Mass ratio] 10 ratio Normal 7 - 27 ratio AO ADM SS WBC (Bld) [#/Vol] 7.7 103/mcL Normal 4.5 - 10.8 10^3/mcL AO Workflow SS LABORATORYOrdered By: Tiffanie Bonner on 08-23-2025 Color (U) Yellow (08/23/25 6:32 AM) Normal Yellow AO Auto Urine SS Glucose (U) [Mass/Vol] Negative Normal Negative AO Auto Urine SS HCG ( test) Ql Negative (08/23/25 6:32 AM) Normal AO Manual Urine SS Ketones Ql (U) Negative Normal Negative AO Auto Urine SS test (u) int Not detected Invalid Interpretation Code AO Manual Urine SS UA Appear Clear (08/23/25 6:32 AM) Normal Clear AO Auto Urine SS UA Bili Small *ABN* (08/23/25 6:32 AM) Invalid Interpretation Code Negative AO Auto Urine SS UA Blood Negative (08/23/25 6:32 AM) Normal Negative AO Auto Urine SS UA Leuk Est Trace (08/23/25 6:32 AM) Normal Negative AO Auto Urine SS UA Nitrite Negative (08/23/25 6:32 AM) Normal Negative AO Auto Urine SS UA pH 6.0 (08/23/25 6:32 AM) Normal 5.0 - 8.0 AO Auto Urine SS UA Protein Negative Normal Negative AO Auto Urine SS UA Spec Grav 1.025 (08/23/25 6:32 AM) Normal 1.015-1.02 5 AO Auto Urine SS UA Specimen Type Clean Catch (08/23/25 6:32 AM) Normal AO Auto Urine SS UA Urobilinogen 0.2 E.U./dL Normal 0.2-1.0 AO Auto Urine SS LIPon 08-23-2025 Lipase Level 41 U/L Normal 16-77 [facility] Comment on above: Performed By: #### A DIFF, MDW, ANEU, GFR, CMP, CBC, LIP #### [place] [facility] [address] [place], [place] [address] PREGUon 08-23-2025 HCG ( test) Ql (U) Negative Normal [facility] Comment on above: Performed By: #### P REGU, UA ####[address] [place], [place] [address] test (u) int Not detected Invalid Interpretation Code [facility] Comment on above: Performed By: #### P REGU, UA ####[address] [place], [place] [address] UAon 08-23-2025 Color (U) Yellow Normal Yellow [facility] Comment on above: Performed By: #### P REGU, UA ####[address] [place], [place] [address] Glucose (U) [Mass/Vol] Negative Normal Negative [facility] Comment on above: Performed By: #### P REGU, UA ####[address] [address] Ketones Ql (U) Negative Normal Negative [facility] Comment on above: Performed By: #### P REGU, UA ####[place] [address] [place], [place] [address] UA Appear Clear Normal Clear [facility] Comment on above: Performed By: #### P REGU, UA ####[address] [place], [place] [address] UA Bili Small Abnormal Negative [facility] Comment on above: Performed By: #### P REGU, UA ####[address] [place] [address] UA Blood Negative Normal Negative [facility] Comment on above: Performed By: #### P REGU, UA ####[address] [place] [address] UA Leuk Est Trace Normal Negative [facility] Comment on above: Performed By: #### P REGU, UA ####[address] [place] [address] UA Nitrite Negative Normal Negative [facility] Comment on above: Performed By: #### P REGU, UA ####[address] [place] [address] UA pH 6.0 Normal 5.0 - 8.0 [facility] Comment on above: Performed By: #### P REGU, UA ####[address] [address] UA Protein Negative Normal Negative [facility] Comment on above: Performed By: #### P REGU, UA ####[address] [place] [address] UA Spec Grav 1.025 Normal 1.015-1.02 5 [facility] Comment on above: Performed By: #### P REGU, UA ####[address] [address] UA Urobilinogen 0.2 E.U./dL Normal 0.2-1.0 [facility] Comment on above: Performed By: #### P REGU, UA ####[address] [address] UA Specimen Type Clean Catch Normal [facility] Comment on above: Performed By: #### P REGU, UA ####[address] [address] CBC W Auto Differential pane l (Bld)on 04-07-2025 Basophils (Bld) [#/Vol] 0.1 10*3/uL 0.0 - 0.2 10*3/uL [facility] Basophils/100 WBC (Bld) 0.5 % 0.0 - 2.0 % [facility] Eosinophils (Bld) [#/Vol] 0.1 10*3/uL 0.0 - 0.5 10*3/uL [facility] Eosinophils/100 WBC (Bld) 1.2 % 0.0 - 6.0 % [facility] Erythrocyte distribution width (RBC) [Ratio] 12.1 % 11.5 - 15.0 % [facility] Hematocrit (Bld) [Volume fraction] 40.1 % 35.0 - 47.0 % [facility] Hemoglobin (Bld) [Mass/Vol] 14 g/dL 11.7 - 16.0 g/dL [facility] Immature granulocytes (Bld) [#/Vol] 0 10*3/uL NINF - 0.1 10*3/uL [facility] Immature granulocytes/100 WBC (Bld) 0.4 % 0.0 - 2.0 % [facility] Interpretation and review of laboratory results Abnormal [facility] Lymphocytes (Bld) [#/Vol] 3.2 10*3/uL 1.0 - 4.3 10*3/uL [facility] Lymphocytes/100 WBC (Bld) 30.9 % 15.0 - 45.0 % [facility] MCH (RBC) [Entitic mass] 29.8 pg 26.0 - 34.0 pg [facility] MCHC (RBC) [Mass/Vol] 34.9 % 30.5 - 36.0 % [facility] MCV (RBC) [Entitic vol] 85.3 fL 77.0 - 99.0 fL [facility] Monocytes (Bld) [#/Vol] 0.7 10*3/uL 0.0 - 0.9 10*3/uL [facility] Monocytes/100 WBC (Bld) 6.2 % 5.0 - 13.0 % [facility] Neutrophils (Bld) [#/Vol] 6.3 10*3/uL 1.8 - 7.5 10*3/uL [facility] Neutrophils/100 WBC (Bld) 60.8 % 38.0 - 82.0 % [facility] Nucleated RBC/100 WBC (Bld) [Ratio] 0 % [facility] Platelet mean volume (Bld) [Entitic vol] 8.8 fL Low 9.0 - 12.7 fL [facility] Comment on above: MPV is a calculated measurement using platelet volume ratio Platelets (Bld) [#/Vol] 379 10*3/uL 140 - 440 10*3/uL [facility] RBC (Bld) [#/Vol] 4.7 10*6/uL 3.80 - 5.20 10*6/uL [facility] WBC (Bld) [#/Vol] 10.4 10*3/uL 3.6 - 10.7 10*3/uL [facility] CBC WITH AUTO DIFFERENTIALon 04-07-2025 Basophils (Bld) [#/Vol] 0.1 10*3/uL Normal 0.0-0.2 [facility] Comment on above: Performed By: #### L [id number] ####Cheese Maker: MONICA JO ([phone])[facility] (SWRL[facility])[address] [place] [address] [place] Basophils/100 WBC (Bld) 0.5 % Normal 0.0-2.0 [facility] Comment on above: Performed By: #### L [id number] ####Cheese Maker: MONICA JO ([phone])[facility] ([facility])[address] [place] [address] [place] Eosinophils (Bld) [#/Vol] 0.1 10*3/uL Normal 0.0-0.5 [facility] Comment on above: Performed By: #### L [id number] ####Cheese Maker: MONICA JO ([phone])[facility] ([facility])[address] [place] [address] [place] Eosinophils/100 WBC (Bld) 1.2 % Normal 0.0-6.0 [facility] Comment on above: Performed By: #### L [id number] ####Cheese Maker: MONICA JO ([phone])[facility] ([facility])[address] [place] [address] [place] Erythrocyte distribution width (RBC) [Ratio] 12.1 % Normal 11.5-15.0 [facility] Comment on above: Performed By: #### L [id number] ####Cheese Maker: MONICA JO ([phone])[facility] [place] (SWRLAB)[address] [place] [address] Hematocrit (Bld) [Volume fraction] 40.1 % Normal 35.0-47.0 [facility] Comment on above: Performed By: #### L [id number] ####Cheese Maker: MONICA JO ([phone])[facility] [place] (SWRLAB)[address] [place] [address] Hemoglobin (Bld) [Mass/Vol] 14.0 g/dL Normal 11.7-16.0 [facility] Comment on above: Performed By: #### L [id number] ####Cheese Maker: MONICA JO ([phone])[facility] [place] (SWRL[place])[address] [place] [address] IMMATURE GRANS % 0.4 % Normal 0.0-2.0 [facility] Comment on above: Performed By: #### L [id number] ####Cheese Maker: MONICA JO ([phone])[facility] [place] (SWRL[place])[address] [place] [address] IMMATURE GRANS ABSOLUTE 0.0 10*3/uL Normal <0.1 [facility] Comment on above: Performed By: #### L [id number] ####Cheese Maker: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 Capillary Refill: Capillary refill takes less than 2 seconds. Neurological: Mental Status: She is alert and oriented to person, place, and time. Cranial Nerves: Cranial nerves 2-12 are intact. Sensory: Sensation is intact. Motor: Motor function is intact. Coordination: Coordination is intact. Gait: Gait is intact. Deep Tendon Reflexes: Reflexes are normal and symmetric. Psychiatric: Behavior: Behavior normal. Thought Content: Thought content normal. SCREENINGS Medical decision making DIAGNOSTIC RESULTS Procedures/EKG: Physician EKG interpretation can be found in [facility] if done RADIOLOGY : Radiologist results reviewed: CT maxillofacial wo IV contrast Final Result Normal maxillofacial CT. Report Dictated on Electronically Signed By: Thomas Briones MD Electronically Signed Date/Time: 12/19/2024 10:33 AM EST LABS: Labs Reviewed BASIC METABOLIC PANEL - Abnormal Result Value SODIUM 138 POTASSIUM 3.7 CHLORIDE 107 CARBON DIOXIDE 22 UREA NITROGEN 11 CREATININE 0.79 GLUCOSE 117 (*) CALCIUM 9.3 ANION GAP 9 eGFR >90.0 CBC WITH AUTO DIFFERENTIAL - Abnormal Auto WBC 12.4 (*) RBC 4.83 Hemoglobin 14.3 Hematocrit 41.0 MCV 84.9 MCH 29.6 MCHC 34.9 RDW 12.8 Platelets 322 MPV 9.0 nRBC 0.0 Neutrophils Relative 91.4 (*) Lymphocytes Relative 4.9 (*) Monocytes Relative 2.6 (*) Eosinophils Relative 0.8 Basophils Relative 0.1 Immature Grans % 0.2 Neutrophils Absolute 11.3 (*) Lymphocytes Absolute 0.6 (*) Monocytes Absolute 0.3 Eosinophils Absolute 0.1 Basophils Absolute 0.0 Immature Grans Absolute 0.0 BLOOD CULTURE - Normal Blood Culture Blood culture incubation started Narrative: Blood Collection Site: Right Arm MAGNESIUM - Normal MAGNESIUM 1.9 Narrative: Higher values can be expected in females during menses. THYROID STIMULATING HORMONE - Normal THYROID STIMULATING HORMONE 0.41 GASTROINTESTINAL PCR PANEL Medications ordered: Medications lactated ringers bolus 2,000 mL (0 mL IntraVENous Stopped 12/19/24 1220) prochlorperazine (Compazine) injection 5 mg (5 mg IntraVENous Given 12/19/24 1001) ketorolac (Toradol) injection 30 mg (30 mg IntraVENous Given 12/19/24 1001) lactated ringers bolus 1,000 mL (0 mL IntraVENous Stopped 12/19/24 1505) Diagnoses as of 12/19/24 1849 Vomiting and diarrhea * No order type specified * Our workup consisted of ordering/reviewing: Orders Placed This Encounter Procedures Blood culture Site #1 - Suspected Infection Gastrointestinal PCR Panel CT maxillofacial wo IV contrast Magnesium Basic metabolic panel TSH CBC auto differential Insert peripheral IV MDM: 23 y.o. presented with fever. Jaw pain The differential diagnosis considered: Viral illness, bacteremia, maxillofacial infection, TMJ dislocation, TMJ sprain, electrolytes derangement, thyroid problem,. CT ma (more content not included)... Normal [facility] Laboratory - Chemistry and C hemistry - challengeon 12-19-2024 TSH Qn 0.41 m[IU]/L [facility] Magnesium [Mass/Vol] 1.9 mg/dL 1.6 - 2.6 mg/dL [facility] MAGNESIUMon 12-19-2024 Magnesium [Mass/Vol] 1.9 mg/dL Normal 1.6-2.6 [facility] Comment on above: Result Comment: JACOB Barrett COMMENTS: Higher values can be expected in females during menses. Performed By: #### L [id number], [id number], [id number] ####Cheese Maker: MONICA JO ([id number])[facility] ([facility])[address] [place] [address] Magnesium [Mass/Vol]on 12-19 Interpretation and review of laboratory results Normal [facility] Higher values can be expected in females during menses. [facility] No Panel Informationon 12-19 [facility] THYROID STIMULATING HORMONEo n 12-19-2024 THYROID STIMULATING HORMONE 0.41 uIU/mL Normal 0.35-4.94 [facility] Comment on above: Performed By: #### L [id number], [id number], LAB15 ####Cheese Maker: MONICA JO ([id number])[facility] PABLITO Cloud TakeoffWEIS[facility] ([facility])[address] [place] [address] TSH Qnon 12-19-2024 Interpretation and review of laboratory results Normal [facility] TISSUE PATHOLOGYon 01-20-202 5 A DIAGNOSIS Normal [facility] Comment on above: Order Comment: 0 SKIN TAG RT ARM PIT AREA Result Comment: IRRITATED INTRADERMAL NEVUS Performed By: #### 3 542 #### [facility] [address], [address] [place], [place] [id number] Cheese Maker: Karen Rivera MD A GROSS DESCRIPTION Normal [facility] Comment on above: Order Comment: 0 SKIN TAG RT ARM PIT AREA Result Comment: Rece ived in 10% neutral buffered formalin is a biopsy of tissue measuring 5 x 4 x 2 mm. It was bisected and submitted into 1 tissue block. This gross description meets regulatory standards for positive identification using two patient identifiers. /amk/is Performed By: #### 3 542 #### [facility] [address], [place] [address] Cheese Maker: Karen Rivera MD A MICRO DESCRIPTION Normal [facility] Comment on above: Order Comment: 0 SKIN TAG RT ARM PIT AREA Result Comment: Lima nocytes displaying overall appropriate architectural arrangement and maturation are present within a focally fibrotic dermis with surrounding dilated and congested small blood vessels. /amk Performed By: #### 3 542 #### [facility] [address], [address] Cheese Maker: Karen Rivera MD A PROCEDURE BIOPSY Normal [facility] Comment on above: Order Comment: 0 SKIN TAG RT ARM PIT AREA Performed By: #### 3 542 #### [facility] [address], [address] [place] [phone] Cheese Maker: Karen Rivera MD A SOURCE Normal [facility] Comment on above: Order Comment: 0 SKIN TAG RT ARM PIT AREA Result Comment: RIGNiels David ARMPIT Performed By: #### 3 542 #### [facility] [address], [address] [place] [phone] Cheese Maker: Karen Rivera MD CLINICAL INFORMATION Normal [facility] Comment on above: Order Comment: 0 SKIN TAG RT ARM PIT AREA Result Comment: Skin tag; please evaluate tissue margins if positive Performed By: #### 3 542 #### [facility] [address], [address] [place] [address] Cheese Maker: Karen Rivera MD Pathologist Cyto stain Nom (Cvx/Vag) [ID] Normal [facility] Comment on above: Order Comment: 0 SKIN TAG RT ARM PIT AREA Result Comment: Lance Alejo MD Board certified in Dermatopathology and Anatomic Pathology (electronic signature). For questions regarding this report call [facility] at [phone]. Performed By: #### 3 542 #### [facility] [address], [place] [phone] Cheese Maker: Karen Rivera MD CNOVon 09-14-2024 CNOV Office Visit ([facility] ) RAMIRO NAPOLES ([id number]) 01 [facility] Date Time Provider Department 09/14/24 11:00 AM NEYDA KHAN During your visit today, we recorded the following information about you: Pulse Respiration Blood pressure Weight 89/minute 16/minute 118/65 106.7 kg Neyda Khan APRN.PLANT ENGINEERING MANAGER 09/14/2024 11:37 AM Signed Chief Complaint Patient presents with: Minor Injuries (Sprains, Strains, Minor Joint Pain): I fell down my stairs last night and my right knee is sore to the touch, tight and hard to walk up stairs. - slid down stairs lastnight. Hard to walk up an down stairs HPI Patient presents today for concerns for right knee pain. Reports she was walking down stairs, slipped down 5 stairs. [place] like knee hyperextended. Had some pain but was able to ambulate on it after a few minutes. Did not have much discomfort last night but when she woke up this morning, knee is stiff and sore. Just feels sore to walk. Painful to walk up and down stairs, feels like it is going to give out. Pain is over patellar tendon. Reports history of chronic right knee pain in same area. PAST MEDICAL HISTORY Diagnosis Date Depression Psychiatric disorder Syncope ALLERGIES No Known Allergies Review of Systems Review of Systems Musculoskeletal: Positive for arthralgias and joint swelling. BP 118/65 Pulse 89 Resp 16 Wt 106.7 kg (235 lb 3.7 oz) LMP (LMP Unknown) SpO2 96% BMI 33.75 kg/m? Physical Exam Vitals and nursing note reviewed. Constitutional: General: She is awake. She is not in acute distress. Appearance: Normal appearance. She is not ill-appearing or toxic-appearing. Cardiovascular: Rate and Rhythm: Normal rate. Pulmonary: Effort: Pulmonary effort is normal. Musculoskeletal: Right knee: Swelling (trace) present. No deformity, effusion, erythema, ecchymosis, lacerations, bony tenderness or crepitus. Normal range of motion. Tenderness present over the patellar tendon. Normal alignment and normal meniscus. Instability Tests: Anterior drawer test negative. Posterior drawer test negative. Anterior Acosta test negative. Medial Rosa test negative and lateral Rosa test negative. Right lower leg: Normal. No tenderness or bony tenderness. Comments: Full passive ROM but with some mild discomfort. Tenderness over patellar tendon, trace swelling in this area. Neurological: Mental Status: She is alert. Psychiatric: Behavior: Behavior is cooperative. Assessment and Plan 1. Acute pain of right knee - ICD9: 719.46, ICD10: M25.561 Full passive ROM but with some mild discomfort. Tenderness over patellar tendon, trace swelling in this area. Discussed likely sprain. No bony tenderness of lower leg. -Discussed supportive management and follow up precautions. - ELASTIC BANDAGE given from EC stock. -Relative rest, avoid activities that increase pain -ICE next 24-48 hours several times daily -Elevated as needed -Follow up with orthopedics for continued or worsening pain. Neyda Khan APRN.Neyda Powell APRN.CNP 09/14/2024 11:26 AM Signed -Relative rest, avoid activities that increase pain -ICE next 24-48 hours several times daily -Use Eliud wrap for support -Elevated as needed -Follow up with orthopedics as needed Referring Provider: SELF [200] Allergies As of Date: 09/14/2024 (No Known Allergies) Date Reviewed: 09/14/2024 Reviewed by: Neyda Khan APRN.PLANT ENGINEERING MANAGER - Fully Assessed Reason for Visit: Minor Injuries (Sprains, Strains, Minor Joint Pain) [4230] Cmt: I fell down my stairs last night and my right knee is sore to the touch, tight and hard to walk up stairs. - slid down stairs lastnight. Hard to walk up an down stairs Primary Visit Diagnosis:Acute pain of right knee [M25.561] Order(s):ELASTIC BANDAGE [[id number]] Order #: [id number] Prescriptions as of 09/14/2024 - traZODone (DESYREL) 50 mg tablet take 1 tablet by mouth at bedtime if needed for sleep / insomnia - medroxyPROGESTERone (DEPO-PROVERA) 150 mg/mL injection inject 1 milliliter intramuscularly every 3 MONTHS - guanFACINE (INTUNIV) 1 mg ER 24 hr tablet(s) Take by mouth. - DULoxetine (CYMBALTA) 30 mg capsule Take 1 capsule by mouth every afternoon. Problem List As Of Date: 09/14/2024 (None) Other instructions from your clinician: -Relative rest, avoid activities that increase pain -ICE next 24-48 hours several times daily -Use Eliud wrap for support -Elevated as needed -Follow up with orthopedics as needed Encounter Status:Closed by NEYAD KHAN on 09/14/24 Normal [facility] CNOVon 03-19-2024 CNOV Office Visit ([facility] ) RAMIRO NAPOLES ([id number]) 01 F [facility] Date Time Provider Department 03/19/24 1:55 PM SHIRLEY SHERWOOD UCMJAC During your visit today, we recorded the following information about you: Temperature Pulse Respiration Blood pressure 98.8 degrees 91/minute 17/minute 146/83 Weight 112.7 kg Shirley Sherwood MD 03/19/2024 4:19 PM Signed Ramiro Napoles is a 23 year old female who presents with right ankle injury (S/p fall down the steps weeks ago worse this last week ) and right knee injury (Pt states she fell down the stairs 2 weeks ago and hyperextended her right knee.) HPI patient is a 23-year-old female who presented to the [facility] this afternoon with complaint of the right ankle and right knee injury the symptoms started 2 weeks ago after the patient fall down the steps and hyperextended her right knee, patient has been taking lmjv-hyv-hiclohd medication however the pain persistent, patient rates the pain at dull achy in the right knee and sharp pain in the right ankle due to concern patient is here for further evaluation and recommendation PAST MEDICAL HISTORY Diagnosis Date Depression Psychiatric disorder Syncope There is no problem list on file for this patient. Current Outpatient Medications Medication Sig Dispense Refill traZODone (DESYREL) 50 mg tablet take 1 tablet by mouth at bedtime if needed for sleep / insomnia (Patient not taking: Reported on 11/24/2023) medroxyPROGESTERone (DEPO-PROVERA) 150 mg/mL injection inject 1 milliliter intramuscularly every 3 MONTHS (Patient not taking: Reported on 02/02/2024) guanFACINE (INTUNIV) 1 mg ER 24 hr tablet(s) Take by mouth. (Patient not taking: Reported on 11/24/2023) DULoxetine (CYMBALTA) 30 mg capsule Take 1 capsule by mouth every afternoon. (Patient not taking: Reported on 10/23/2023) No current facility-administered medications for this visit. Medications were reviewed and verified. Social History Tobacco Use Smoking status: Never Passive exposure: Past Smokeless tobacco: Never Vaping Use Vaping Use: Former Quit date: 02/01/2022 Substances: Nicotine, Flavoring Devices: Disposable, Pre-filled pod Substance Use Topics Alcohol use: Never Drug use: Never Alcohol Use: Never Tobacco Use: Never History reviewed. No pertinent family history. ROS Per HPI BP 146/83 Pulse 91 Temp (Src) 98.8 (Temporal) Resp 17 Wt 248 lb 6.4 oz (112.7kg) SpO2 99% Physical Exam Vitals and nursing note reviewed. Constitutional: Appearance: Normal appearance. Cardiovascular: Rate and Rhythm: Normal rate and regular rhythm. Pulses: Normal pulses. Heart sounds: Normal heart sounds. Pulmonary: Breath sounds: Normal breath sounds. Musculoskeletal: General: Tenderness (Right knee-tender with palpation lateral and medial side, no swollen or ecchymosis appreciated range of motion within normal limit. Right ankle tender with palpation lateral malleolus and right Achilles area, no swollen.) present. Cervical back: Normal range of motion and neck supple. Neurological: Sensory: No sensory deficit. ASSESSMENT/PLAN: 1. Sprain of ligament of right ankle, initial encounter - ICD9: 845.00, ICD10: S93.401A (primary diagnosis) Reviewed the right ankle x-ray result with patient with no acute abnormality was read and confirmed by radiology Complications of the disease were discussed with the patient. May take Tylenol if needed Instructed to follow up with primary care physician in 4 to 5 days for recheck - XR ANKLE GENERAL 3V AP/LAT/OBL RIGHT 2. Sprain of right knee, unspecified ligament, initial encounter - ICD9: 844.9, ICD10: S83.91XA Reviewed the right knee x-ray result with patient with no acute abnormality was read and confirmed by radiology Complications of the disease were discussed with the patient. May take Tylenol if needed Instructed to follow up with primary care physician in 4 to 5 days for recheck - XR KNEE LIMITED 2V AP/LAT RIGHT Son Nury Sherwood MD Referring Provider: SELF [200] Allergies As of Date: 03/19/2024 (No Known Allergies) Date Reviewed: 03/19/2024 Reviewed by: Shirley Sherwood MD - Fully Assessed Reason for Visit: right ankle injury [Other] Cmt: S/p fall down the steps weeks ago worse this last week right knee injury [Other] Cmt: Pt states she fell down the stairs 2 weeks ago and hyperextended her right knee. Primary Visit Diagnosis:Sprain of ligament of right ankle, initial encounter [S93.401A] Other Visit Diagnosis:Sprain of right knee, unspecified ligament, initial encounter [S83.91XA] Order(s):XR KNEE LIMITED 2V AP/LAT RIGHT [[id number]] Order #: [id number] FUTURE XR ANKLE GENERAL 3V AP/LAT/OBL RIGHT [[id number]] Order #: [id number] FUTURE Prescriptions as of 03/19/2024 - traZODone (DESYREL) 50 mg tablet take 1 tablet by mouth at bedtime if needed for slee (more content not included)... [facility] No Panel InformationOrdered By: Ccf Provider on 03-19-2024 [facility] No Panel Informationon 03-19 Radiology Study observation (narrative) [facility] XR ANKLE 3V AP/LAT/OBL RTon 03-19-2024 XR ANKLE 3V AP/LAT/OBL RT * * *Final Report* * * DATE OF EXAM: Mar 19 2024 2:52PM [id number] 5297 - XR ANKLE 3V AP/LAT/OBL RT / PROCEDURE REASON: Sprain of ligament of right ankle, initial encounter * * * * Physician Interpretation * * * * XR ANKLE 3V AP/LAT/OBL RT Ordering Physician: SHIRLEY Arrington KAELA 03/19/2024 2:52 PM RIGHT ANKLE Clinical Statement: Recent injury, pain FINDINGS: 3 images of the right ankle were obtained. There were no prior studies available for comparison. The ankle mortise is maintained. There are no acute fractures. The joint space is maintained. IMPRESSION: No acute fractures. Computer Drafter: [facility] Transcribe Date/Time: Mar 19 2024 2:53P Dictated by : ELEN LOZA MD This examination was interpreted and the report reviewed and electronically signed by: ELEN LOZA MD on Mar 19 2024 2:57PM EST [id number] [facility] XR Ankle - right AP and Late ral and obliqueon 03-19-2024 IMPRESSION: No acute fractures. Computer Drafter: [facility] Transcribe Date/Time: Mar 19 2024 2:53P Dictated by : ELEN LOZA MD This examination was interpreted and the report reviewed and electronically signed by: ELEN LOZA MD on Mar 19 2024 2:57PM [facility] * * *Final Report* * * DATE OF EXAM: Mar 19 2024 2:52PM [id number] 5297 - XR ANKLE 3V AP/LAT/OBL RT / PROCEDURE REASON: Sprain of ligament of right ankle, initial encounter * * * * Physician Interpretation * * * * XR ANKLE 3V AP/LAT/OBL RT Ordering Physician: SHIRLEY SHERWOOD 03/19/2024 2:52 PM RIGHT ANKLE Clinical Statement: Recent injury, pain FINDINGS: 3 images of the right ankle were obtained. There were no prior studies available for comparison. The ankle mortise is maintained. There are no acute fractures. The joint space is maintained. [facility] Provider, chichi Rodgers - 03/19/2024 * * *Final Report* * * DATE OF EXAM: Mar 19 2024 2:52PM RJX 5297 - XR ANKLE 3V AP/LAT/OBL RT / PROCEDURE REASON: Sprain of ligament of right ankle, initial encounter * * * * Physician Interpretation * * * * XR ANKLE 3V AP/LAT/OBL RT Ordering Physician: SHIRLEY SHERWOOD 03/19/2024 2:52 PM RIGHT ANKLE Clinical Statement: Recent injury, pain FINDINGS: 3 images of the right ankle were obtained. There were no prior studies available for comparison. The ankle mortise is maintained. There are no acute fractures. The joint space is maintained. IMPRESSION IMPRESSION: No acute fractures. Computer Drafter: [facility] Transcribe Date/Time: Mar 19 2024 2:53P Dictated by : ELEN LOZA MD This examination was interpreted and the report reviewed and electronically signed by: ELEN LOZA MD on Mar 19 2024 2:57PM [facility] XR KNEE 2V AP/LAT RTon 03-19 XR KNEE 2V AP/LAT RT * * *Final Report* * * DATE OF EXAM: Mar 19 2024 2:52PM RJX 5207 - XR KNEE 2V AP/LAT RT / PROCEDURE REASON: Sprain of right knee, unspecified ligament, initial encounter * * * * Physician Interpretation * * * * XR KNEE 2V AP/LAT RT Ordering Physician: SHIRLEY SHERWOOD 03/19/2024 2:52 PM RIGHT KNEE Clinical Statement: Recent injury, pain FINDINGS: 2 images of the right knee were obtained. There were no prior studies available for comparison. There are no acute fractures. The joint spaces are maintained. There is no joint effusion. There is a remote ossification involving the tibial tuberosity. IMPRESSION: No acute fractures. Computer Drafter: [facility] Transcribe Date/Time: Mar 19 2024 2:57P Dictated by : ELEN LOZA MD This examination was interpreted and the report reviewed and electronically signed by: ELEN LOZA MD on Mar 19 2024 2:58PM EST [id number] [facility] XR Knee - right AP and Later avila 03-19-2024 IMPRESSION: No acute fractures. Computer Drafter: [facility] Transcribe Date/Time: Mar 19 2024 2:57P Dictated by : ELEN LOZA MD This examination was interpreted and the report reviewed and electronically signed by: ELEN LOZA MD on Mar 19 2024 2:58PM [facility] * * *Final Report* * * DATE OF EXAM: Mar 19 2024 2:52PM RJX 5207 - XR KNEE 2V AP/LAT RT / PROCEDURE REASON: Sprain of right knee, unspecified ligament, initial encounter * * * * Physician Interpretation * * * * XR KNEE 2V AP/LAT RT Ordering Physician: SHIRLEY SHERWOOD 03/19/2024 2:52 PM RIGHT KNEE Clinical Statement: Recent injury, pain FINDINGS: 2 images of the right knee were obtained. There were no prior studies available for comparison. There are no acute fractures. The joint spaces are maintained. There is no joint effusion. There is a remote ossification involving the tibial tuberosity. [facility] Provider, Kashif Rodgers - 03/19/2024 * * *Final Report* * * DATE OF EXAM: Mar 19 2024 2:52PM RJX 5207 - XR KNEE 2V AP/LAT RT / PROCEDURE REASON: Sprain of right knee, unspecified ligament, initial encounter * * * * Physician Interpretation * * * * XR KNEE 2V AP/LAT RT Ordering Physician: SHIRLEY SHERWOOD 03/19/2024 2:52 PM RIGHT KNEE Clinical Statement: Recent injury, pain FINDINGS: 2 images of the right knee were obtained. There were no prior studies available for comparison. There are no acute fractures. The joint spaces are maintained. There is no joint effusion. There is a remote ossification involving the tibial tuberosity. IMPRESSION IMPRESSION: No acute fractures. Computer Drafter: [facility] Transcribe Date/Time: Mar 19 2024 2:57P Dictated by : ELEN LOZA MD This examination was interpreted and the report reviewed and electronically signed by: ELEN LOZA MD on Mar 19 2024 2:58PM [facility] CNOVon 02-02-2024 CNOV Office Visit (MMAS ) RAMIRO NAPOLES ([id number]) 01 [facility] Date Time Provider Department 02/02/24 10:10 AM BERTHA LEI [facility] During your visit today, we recorded the following information about you: Temperature Pulse Respiration Blood pressure 97.1 degrees 99/minute 18/minute 135/89 Weight 110.2 kg Bertha Lei DO 02/02/2024 10:32 AM Signed Ramiro Pressleye is a 23 year old FEMALE who presents with Cough (Started 5 days ago //Productive /), Breathing Problem (Started 5 days ago /SOB ), Sore Throat (Started 5 days ago ), and Ear Problem (Clogged ears /Started 5 days ago /) HPI PAST MEDICAL HISTORY Diagnosis Date Depression Psychiatric disorder Syncope There is no problem list on file for this patient. Current Outpatient Medications Medication Sig Dispense Refill amoxicillin (AMOXIL) 875 mg tablet Take 1 tablet by mouth two times a day for 10 days. 20 tablet 0 Pngaehjyxmsdncp-Dzggwnymv-MH (BROMFED DM) 2-30-10 mg/5 mL syrup Take 5 mL by mouth four times a day as needed for up to 7 days. 120 mL 0 ibuprofen (MOTRIN) 800 mg tablet Take 1 tablet by mouth three times a day as needed for pain or fever (specify temp.) for up to 7 days. 21 tablet 0 traZODone (DESYREL) 50 mg tablet take 1 tablet by mouth at bedtime if needed for sleep / insomnia (Patient not taking: Reported on 11/24/2023) medroxyPROGESTERone (DEPO-PROVERA) 150 mg/mL injection inject 1 milliliter intramuscularly every 3 MONTHS (Patient not taking: Reported on 02/02/2024) guanFACINE (INTUNIV) 1 mg ER 24 hr tablet(s) Take by mouth. (Patient not taking: Reported on 11/24/2023) DULoxetine (CYMBALTA) 30 mg capsule Take 1 capsule by mouth every afternoon. (Patient not taking: Reported on 10/23/2023) No current facility-administered medications for this visit. Social History Tobacco Use Smoking status: Never Passive exposure: Past Smokeless tobacco: Never Vaping Use Vaping Use: Former Quit date: 02/01/2022 Substances: Nicotine, Flavoring Devices: Disposable, Pre-filled pod Substance Use Topics Alcohol use: Never Drug use: Never Alcohol Use: Never Tobacco Use: Never History reviewed. No pertinent family history. Review of Systems Constitutional: Positive for chills, fever and malaise/fatigue. HENT: Positive for congestion, ear pain, sinus pain and sore throat. Respiratory: Positive for cough, sputum production and shortness of breath. Musculoskeletal: Positive for myalgias. Neurological: Positive for headaches. All other systems reviewed and are negative. BP 135/89 Pulse 99 Temp (Src) 97.1 (Temporal) Resp 18 Wt 243 lb (110.2kg) SpO2 98% Physical Exam Vitals and nursing note reviewed. Constitutional: Appearance: Normal appearance. HENT: Head: Normocephalic. Right Ear: Tympanic membrane normal. Left Ear: Tympanic membrane normal. Nose: Congestion and rhinorrhea present. Mouth/Throat: Pharynx: Posterior oropharyngeal erythema present. Eyes: Extraocular Movements: Extraocular movements intact. Conjunctiva/sclera: Conjunctivae normal. Pupils: Pupils are equal, round, and reactive to light. Cardiovascular: Rate and Rhythm: Regular rhythm. Pulses: Normal pulses. Heart sounds: Normal heart sounds. Pulmonary: Breath sounds: Wheezing and rhonchi present. Abdominal: General: Bowel sounds are normal. Musculoskeletal: General: Normal range of motion. Cervical back: Normal range of motion. Skin: General: Skin is warm. Capillary Refill: Capillary refill takes 2 to 3 seconds. Neurological: General: No focal deficit present. Psychiatric: Mood and Affect: Mood normal. ASSESSMENT/PLAN: 1. Sinobronchitis - ICD9: 473.9, 490, ICD10: J32.9, J40 - AMOXICILLIN 875 MG TABLET - BROMPHENIRAMINE-PSEUDOEPHEDRI NE-DM 2 MG-30 MG-10 MG/5 ML ORAL SYRUP - IBUPROFEN 800 MG TABLET Bertha Lei Referring Provider: SELF [200] Allergies As of Date: 02/02/2024 (No Known Allergies) Date Reviewed: 02/02/2024 Reviewed by: Cyndi Lainez LPN - Fully Assessed Reason for Visit: Cough [28] Cmt: Started 5 days ago Productive Breathing Problem [17] Cmt: Started 5 days ago SOB Sore Throat [200] Cmt: Started 5 days ago Ear Problem [38] Cmt: Clogged ears Started 5 days ago Primary Visit Diagnosis:Sinobronchitis [J32.9, J40] Order(s):amoxicillin (AMOXIL) 875 mg tabletTake 1 tablet by mouth two times a day for 10 days.Disp: 20 tabletRfl: 0 Eskxyxjkuotonmr-Hgifqkold-WL (BROMFED DM) 2-30-10 mg/5 mL syrupTake 5 mL by mouth four times a day as needed for up to 7 days.Disp: 120 mLRfl: 0 ibuprofen (MOTRIN) 800 mg tabletTake 1 tablet by mouth three times a day as needed for pain or fever (specify temp.) for up to 7 days.Disp: 21 tabletRfl: 0 Prescriptions as of 02/02/2024 - amoxicillin (AMOXIL) 875 mg tablet Take 1 tablet by mouth two times a day for 10 days. - B (more content not included)... [facility] XR Tibia and Fibula - left A P and Lateralon 11-25-2023 IMPRESSION: No acute fractures. Computer Drafter: [facility] Transcribe Date/Time: Nov 25 2023 8:28A Dictated by : ELEN LOZA MD This examination was interpreted and the report reviewed and electronically signed by: ELEN LOZA MD on Nov 25 2023 8:29AM EST [facility] * * *Final Report* * * DATE OF EXAM: Nov 24 2023 2:56PM [id number] [id number] - XR TIBIA FIBULA 2V AP/LAT LT / PROCEDURE REASON: Fall, initial encounter * * * * Physician Interpretation * * * * XR TIBIA FIBULA 2V AP/LAT LT Ordering Physician: BERTHA LEI 11/24/2023 2:56 PM LEFT TIBIA/FIBULA Clinical Statement: Injury with pain FINDINGS: 2 views of the left tibia/fibula were obtained. There were no prior studies available for comparison. The osseous structures are intact. There are no acute fractures. [facility] Provider, Kashif Rodgers - 11/25/2023 * * *Final Report* * * DATE OF EXAM: Nov 24 2023 2:56PM RMX [id number] - XR TIBIA FIBULA 2V AP/LAT LT / PROCEDURE REASON: Fall, initial encounter * * * * Physician Interpretation * * * * XR TIBIA FIBULA 2V AP/LAT LT Ordering Physician: BERTHA LEI 11/24/2023 2:56 PM LEFT TIBIA/FIBULA Clinical Statement: Injury with pain FINDINGS: 2 views of the left tibia/fibula were obtained. There were no prior studies available for comparison. The osseous structures are intact. There are no acute fractures. IMPRESSION IMPRESSION: No acute fractures. Computer Drafter: [facility] Transcribe Date/Time: Nov 25 2023 8:28A Dictated by : ELEN LOZA MD This examination was interpreted and the report reviewed and electronically signed by: ELEN LOZA MD on Nov 25 2023 8:29AM EST [facility] CNOVon 11-24-2023 CNOV Office Visit (UCMMAS ) RAMIRO LYNN ([id number]) 01 F [facility] Date Time Provider Department 11/24/23 12:50 PM BERTHA LEI [facility] During your visit today, we recorded the following information about you: Temperature Pulse Respiration Blood pressure 98.6 degrees 80/minute 16/minute 132/80 Weight Height 110.2 kg 1.778 m Bertha Lei, 11/24/2023 3:26 PM Signed Ramiro Lynn is a 22 year old FEMALE who presents with Leg Pain (Left leg pain slip and fall new pain starts above knee and moves down to ankle pain comes and goes but seems worse when goes from seated postion to standing) HPI PAST MEDICAL HISTORY Diagnosis Date Depression Psychiatric disorder Syncope There is no problem list on file for this patient. Current Outpatient Medications Medication Sig Dispense Refill medroxyPROGESTERone (DEPO-PROVERA) 150 mg/mL injection inject 1 milliliter intramuscularly every 3 MONTHS dexAMETHasone (DECADRON) 6 mg tablet Take 1 tablet by mouth once daily for 5 days. 5 tablet 0 traZODone (DESYREL) 50 mg tablet take 1 tablet by mouth at bedtime if needed for sleep / insomnia (Patient not taking: Reported on 11/24/2023) guanFACINE (INTUNIV) 1 mg ER 24 hr tablet(s) Take by mouth. (Patient not taking: Reported on 11/24/2023) DULoxetine (CYMBALTA) 30 mg capsule Take 1 capsule by mouth every afternoon. (Patient not taking: Reported on 10/23/2023) No current facility-administered medications for this visit. Social History Tobacco Use Smoking status: Never Smokeless tobacco: Never Vaping Use Vaping Use: Never used Substance Use Topics Alcohol use: Never Drug use: Never Alcohol Use: Never Tobacco Use: Never History reviewed. No pertinent family history. Review of Systems Musculoskeletal: Positive for joint pain. This is a 2-year-old female who states that on [place] she was walking in heels and slipped on the ice and is not quite sure how her leg twisted but she hit directly onto the left knee. She has had pain ever since then difficulty with steps difficulty with the strength in that leg and cannot get down on her knees and get back up again. Patient states that just walking on flat ground does not seem to hurt. But the pain is continued since and this is the 15th so she comes in today for further evaluation. 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 She has a tough job and has had to move quite a bit and walk on hard floors despite having this injury. All other systems reviewed and are negative. BP 132/80 Pulse 80 Temp 98.6 Resp 16 Ht 5' 10" (1.78m) Wt 243 lb (110.2kg) SpO2 98% BMI 34.87 kg/(m2). Physical Exam Vitals and nursing note reviewed. Musculoskeletal: General: Tenderness and signs of injury present. Comments: Examination of the left knee pulses are +2/4 and capillary refill less than 3 seconds normal motor neurovascular and sensory to the lower extremity. She has tenderness to palpation superior to the knee but it does not reproduce the type of pain that she says she has when its its worst. She has very minimal collateral or lateral tenderness or medial tenderness over the MCL or LCL. Patient has no gross deformity. Negative Apley grind. Negative anterior drawer. Negative quadriceps apprehension. X-rays obtained by my read it is negative for fracture or dislocation. We will have the radiologist review the films of the x-ray experts and I am a family doctor should there be any discrepancy we will notify them. Patient is going to be placed on crutches and given an Eliud wrap to put some compression on the knee elevate and ice. The patient is given a slip for work to have seated work only use the crutches and the wrap for the next week. She is released from restrictions on 12/01/2023. The patient was advised that if her symptoms have not resolved by this point she should see an orthopedist in follow-up. She will be given Decadron 6 mg once a day for 5 days. She was advised do not get while taking this medication. Take this medicine with food. Neurological: Mental Status: She is alert. ASSESSMENT/PLAN: 1. Fall, initial encounter - ICD9: E888.9, ICD10: W19.XXXA (primary diagnosis) - XR FEMUR DISTAL 2V AP/LAT LEFT - XR TIBIA FIBULA 2V AP/LAT LEFT - CRUTCHES - ELASTIC BANDAGE 2. Sprain of collateral ligament of left knee, initial encounter - ICD9: 844.1, ICD10: S83.402A - DEXAMETHASONE 6 MG TABLET - CRUTCHES - ELASTIC BANDAGE Marva Fernandes LPN 11/24/2023 3:26 PM Signed Eliud wrap applied to left knee, patient tolerated well. Patient fitted for crutches, patient instructed on proper use of crutches, patient demonstrated proper use of crutches.Marva Yanes LPN Referring Provider: SELF [200] Allergies As of Date: 11/24/2023 ( (more content not included)... [facility] No Panel Informationon 11-24 Radiology Study observation (narrative) [facility] XR FEMUR DISTAL 2V AP/LAT LT on 11-24-2023 XR FEMUR DISTAL 2V AP/LAT LT * * *Final Report* * * DATE OF EXAM: Nov 24 2023 2:56PM [id number] [id number] - XR FEMUR DISTAL 2V AP/LAT LT / PROCEDURE REASON: Fall, initial encounter * * * * Physician Interpretation * * * * XR FEMUR DISTAL 2V AP/LAT LT Ordering Physician: BERTHA LEI 11/24/2023 2:56 PM LEFT FEMUR Clinical Statement: Fell, pain FINDINGS: 4 images of the left femur were obtained. There were no prior studies available for comparison. The femoral head is in good position. There are no acute fractures. IMPRESSION: No acute fractures. Computer Drafter: [facility] Transcribe Date/Time: Nov 24 2023 3:45P Dictated by : ELEN LOZA MD This examination was interpreted and the report reviewed and electronically signed by: ELEN LOZA MD on Nov 24 2023 3:46PM EST [id number] [facility] XR Femur - left AP and Later avila 11-24-2023 IMPRESSION: No acute fractures. Computer Drafter: [facility] Transcribe Date/Time: Nov 24 2023 3:45P Dictated by : ELEN LOZA MD This examination was interpreted and the report reviewed and electronically signed by: ELEN LOZA MD on Nov 24 2023 3:46PM EST [facility] * * *Final Report* * * DATE OF EXAM: Nov 24 2023 2:56PM [id number] [id number] - XR FEMUR DISTAL 2V AP/LAT LT / PROCEDURE REASON: Fall, initial encounter * * * * Physician Interpretation * * * * XR FEMUR DISTAL 2V AP/LAT LT Ordering Physician: BERTHA LEI 11/24/2023 2:56 PM LEFT FEMUR Clinical Statement: Fell, pain FINDINGS: 4 images of the left femur were obtained. There were no prior studies available for comparison. The femoral head is in good position. There are no acute fractures. [facility] Provider, Kashif Rodgers - 11/24/2023 * * *Final Report* * * DATE OF EXAM: Nov 24 2023 2:56PM [id number] [id number] - XR FEMUR DISTAL 2V AP/LAT LT / PROCEDURE REASON: Fall, initial encounter * * * * Physician Interpretation * * * * XR FEMUR DISTAL 2V AP/LAT LT Ordering Physician: BERTHA LEI 11/24/2023 2:56 PM LEFT FEMUR Clinical Statement: Fell, pain FINDINGS: 4 images of the left femur were obtained. There were no prior studies available for comparison. The femoral head is in good position. There are no acute fractures. IMPRESSION IMPRESSION: No acute fractures. Computer Drafter: [facility] Transcribe Date/Time: Nov 24 2023 3:45P Dictated by : ELEN LOZA MD This examination was interpreted and the report reviewed and electronically signed by: ELEN LOZA MD on Nov 24 2023 3:46PM [facility] XR Femur - left AP and Later alOrdered By: [facility]cf Provider on 11-24-2023 [facility] XR TIBIA FIBULA 2V AP/LAT LT on 11-24-2023 XR TIBIA FIBULA 2V AP/LAT LT * * *Final Report* * * DATE OF EXAM: Nov 24 2023 2:56PM [id number] [id number] - XR TIBIA FIBULA 2V AP/LAT LT / PROCEDURE REASON: Fall, initial encounter * * * * Physician Interpretation * * * * XR TIBIA FIBULA 2V AP/LAT LT Ordering Physician: BERTHA LEI 11/24/2023 2:56 PM LEFT TIBIA/FIBULA Clinical Statement: Injury with pain FINDINGS: 2 views of the left tibia/fibula were obtained. There were no prior studies available for comparison. The osseous structures are intact. There are no acute fractures. IMPRESSION: No acute fractures. Computer Drafter: [facility] Transcribe Date/Time: Nov 25 2023 8:28A Dictated by : ELEN LOZA MD This examination was interpreted and the report reviewed and electronically signed by: ELEN LOZA MD on Nov 25 2023 8:29AM EST [id number] [facility] XR CHEST 1 VIEWon 10-30-2023 XR CHEST 1 VIEW ORIGINAL EXAMINATION: ONE XRAY VIEW OF THE CHEST 10/29/2023 10:40 pm COMPARISON: 12/12/2022 HISTORY: ORDERING SYSTEM PROVIDED HISTORY: Reason for Exam: (+) TB skin test, asymptomatic FINDINGS: The lungs are without acute focal process. There is no effusion or pneumothorax. The cardiomediastinal silhouette is without acute process. The osseous structures are without acute process. IMPRESSION: No acute process. Interpreted by: Mayito Heller Preliminary Report By: Mayito Heller Electronically signed By Mayito Heller Dictated Date: 10/29/2023 10:42:36 PM Prelim Date: 10/29/2023 10:46:03 PM Sign Date: 10/29/2023 10:46:03 PM Ordering Provider: BIGG MCKEON Pending Sale To [facility] ([place]) Foreign 10-23-2023 [facility] Office Visit (MMAS ) RAMIRO LYNN ([id number]) 01 F [facility] Date Time Provider Department 10/23/23 8:00 AM [facility]ERTHA LEI [facility] During your visit today, we recorded the following information about you: Temperature Pulse Respiration Blood pressure 97.8 degrees 76/minute 16/minute 133/80 Weight Last Period 110.2 kg 01/17/23 Do Berthaanmol Coy, DO 10/23/2023 8:26 AM Signed Ramiro Lynn is a 22 year old FEMALE who presents with Cough (Congestion ear pain 2 weeks) HPI PAST MEDICAL HISTORY Diagnosis Date Depression Psychiatric disorder Syncope There is no problem list on file for this patient. Current Outpatient Medications Medication Sig Dispense Refill traZODone (DESYREL) 50 mg tablet take 1 tablet by mouth at bedtime if needed for sleep / insomnia medroxyPROGESTERone (DEPO-PROVERA) 150 mg/mL injection inject 1 milliliter intramuscularly every 3 MONTHS guanFACINE (INTUNIV) 1 mg ER 24 hr tablet(s) Take by mouth. DULoxetine (CYMBALTA) 30 mg capsule Take 1 capsule by mouth every afternoon. (Patient not taking: Reported on 10/23/2023) No current facility-administered medications for this visit. Social History Tobacco Use Smoking status: Never Smokeless tobacco: Never Vaping Use Vaping Use: Never used Substance Use Topics Alcohol use: Never Drug use: Never Alcohol Use: Never Tobacco Use: Never History reviewed. No pertinent family history. Review of Systems Constitutional: Positive for chills, fever and malaise/fatigue. HENT: Positive for congestion, ear pain, sinus pain and sore throat. Respiratory: Positive for cough and sputum production. All other systems reviewed and are negative. BP 133/80 Pulse 76 Temp 97.8 Resp 16 Wt 243 lb (110.2kg) SpO2 97% LMP 01/17/2023 Physical Exam Vitals and nursing note reviewed. Constitutional: Appearance: Normal appearance. HENT: Head: Normocephalic. Right Ear: Tympanic membrane normal. Ears: Comments: Left TM is erythematous at 8 out of 10 Nose: Rhinorrhea present. Mouth/Throat: Pharynx: Posterior oropharyngeal erythema present. Eyes: Extraocular Movements: Extraocular movements intact. Pupils: Pupils are equal, round, and reactive to light. Cardiovascular: Rate and Rhythm: Normal rate and regular rhythm. Pulses: Normal pulses. Heart sounds: Normal heart sounds. Pulmonary: Effort: Pulmonary effort is normal. Breath sounds: Rhonchi present. Lymphadenopathy: Cervical: Cervical adenopathy present. Skin: General: Skin is warm. Capillary Refill: Capillary refill takes 2 to 3 seconds. Neurological: General: No focal deficit present. Psychiatric: Mood and Affect: Mood normal. ASSESSMENT/PLAN: 1. Sinobronchitis - ICD9: 473.9, 490, ICD10: J32.9, J40 (primary diagnosis) -AMOXIL 875 -TESSALON PERLES -CHLORPHENERAMINE 4 MG - MOTRIN 2. Acute otitis media, left - ICD9: 382.9, ICD10: H66.92 Bertha Lei Referring Provider: SELF [200] Allergies As of Date: 10/23/2023 (No Known Allergies) Date Reviewed: 10/23/2023 Reviewed by: Bertha Lei, - Fully Assessed Reason for Visit: Cough [28] Cmt: Congestion ear pain 2 weeks Primary Visit Diagnosis:Sinobronchitis [J32.9, J40] Other Visit Diagnosis:Acute otitis media, left [H66.92] Order(s):amoxicillin (AMOXIL) 875 mg tabletTake 1 tablet by mouth two times a day for 10 days.Disp: 20 tabletRfl: 0 chlorpheniramine (CHLORTRIMETON) 4 mg tabletTake 1 tablet by mouth every 6 hours as needed for up to 7 days.Disp: 28 tabletRfl: 0 benzonatate (TESSALON PERLES) 100 mg capsuleTake 2 capsules by mouth three times a day as needed for up to 7 days.Disp: 42 capsuleRfl: 0 ibuprofen (MOTRIN) 800 mg tabletTake 1 tablet by mouth every 8 hours as needed for pain or fever (specify temp.) for up to 10 days.Disp: 30 tabletRfl: 0 Prescriptions as of 10/30/2023 - amoxicillin (AMOXIL) 875 mg tablet Take 1 tablet by mouth two times a day for 10 days. - chlorpheniramine (CHLORTRIMETON) 4 mg tablet Take 1 tablet by mouth every 6 hours as needed for up to 7 days. - benzonatate (TESSALON PERLES) 100 mg capsule Take 2 capsules by mouth three times a day as needed for up to 7 days. - ibuprofen (MOTRIN) 800 mg tablet Take 1 tablet by mouth every 8 hours as needed for pain or fever (specify temp.) for up to 10 days. - traZODone (DESYREL) 50 mg tablet take 1 tablet by mouth at bedtime if needed for sleep / insomnia - medroxyPROGESTERone (DEPO-PROVERA) 150 mg/mL injection inject 1 milliliter intramuscularly every 3 MONTHS - guanFACINE (INTUNIV) 1 mg ER 24 hr tablet(s) Take by mouth. - DULoxetine (CYMBALTA) 30 mg capsule Take 1 capsule by mouth every afternoon. Problem List As Of Date: 10/23/2023 (None) Prescriptions ordered this encounter Disp Refills Start End AMOXICILLIN 875 MG TABLET 20 t* 0 10/23/2023 11/02/2023 Route: ORAL (more content not included)... [facility] CNOVon 10-10-2023 [facility] Office Visit (UCMMAS ) DEDRAPEDRITORAMIRO ([id number]) 01 F [facility] Date Time Provider Department 10/10/23 12:25 PM JOSEPH GLEZ [facility] During your visit today, we recorded the following information about you: Temperature Pulse Respiration Blood pressure 98 degrees 81/minute 20/minute 128/80 Joseph Glez PA-C 10/10/2023 1:02 PM Signed HPI: Ramiro Lynn is a 22 year old female who presents with Wrist/forearm Injury (Right wrist/hand injury fell 1 hour ago). PAST MEDICAL HISTORY Diagnosis Date Depression Psychiatric disorder Syncope There is no problem list on file for this patient. Current Outpatient Medications Medication Sig Dispense Refill traZODone (DESYREL) 50 mg tablet take 1 tablet by mouth at bedtime if needed for sleep / insomnia medroxyPROGESTERone (DEPO-PROVERA) 150 mg/mL injection inject 1 milliliter intramuscularly every 3 MONTHS guanFACINE (INTUNIV) 1 mg ER 24 hr tablet(s) Take by mouth. DULoxetine (CYMBALTA) 30 mg capsule Take 1 capsule by mouth every afternoon. No current facility-administered medications for this visit. Social History Tobacco Use Smoking status: Never Smokeless tobacco: Never Vaping Use Vaping Use: Never used Substance Use Topics Alcohol use: Never Drug use: Never Alcohol Use: Never Tobacco Use: Never History reviewed. No pertinent family history. Review of Systems HENT: Negative. Negative for congestion and sore throat. Eyes: Negative. Respiratory: Negative for cough, shortness of breath and wheezing. Cardiovascular: Negative for chest pain. Gastrointestinal: Negative for diarrhea, nausea and vomiting. Genitourinary: Negative. Musculoskeletal: Positive for joint pain. Skin: Negative. Neurological: Negative. Endo/Heme/Allergies: Negative. Psychiatric/Behavioral: Negative. All other systems reviewed and are negative. BP 128/80 Pulse 81 Temp 98 Resp 20 SpO2 98% LMP 01/17/2023 Physical Exam Vitals and nursing note reviewed. Constitutional: General: She is not in acute distress. Appearance: Normal appearance. She is normal weight. She is not ill-appearing or toxic-appearing. HENT: Head: Normocephalic and atraumatic. Right Ear: Tympanic membrane, ear canal and external ear normal. Left Ear: Tympanic membrane, ear canal and external ear normal. Nose: Nose normal. No congestion or rhinorrhea. Mouth/Throat: Mouth: Mucous membranes are moist. Pharynx: Oropharynx is clear. No oropharyngeal exudate or posterior oropharyngeal erythema. Eyes: Extraocular Movements: Extraocular movements intact. Conjunctiva/sclera: Conjunctivae normal. Pupils: Pupils are equal, round, and reactive to light. Cardiovascular: Rate and Rhythm: Normal rate and regular rhythm. Pulses: Normal pulses. Heart sounds: Normal heart sounds. Pulmonary: Effort: Pulmonary effort is normal. Breath sounds: Normal breath sounds. Abdominal: General: Abdomen is flat. Bowel sounds are normal. Palpations: Abdomen is soft. Musculoskeletal: General: Tenderness and signs of injury present. No swelling or deformity. Normal range of motion. Cervical back: Normal range of motion and neck supple. No tenderness. Lymphadenopathy: Cervical: No cervical adenopathy. Skin: General: Skin is warm and dry. Capillary Refill: Capillary refill takes less than 2 seconds. Neurological: General: No focal deficit present. Mental Status: She is alert and oriented to person, place, and time. Psychiatric: Mood and Affect: Mood normal. Behavior: Behavior normal. Clinical Impression ICD-10-CM 1. Sprain of right wrist, initial encounter S63.501A XR WRIST INJURY 4V PA/LAT/OBL/SCAPH RIGHT PLAN: X-rays identify no acute process or fracture per my interpretation. Patient was splinted, discharged with supportive care Joseph Glez PA-C This note was generated with voice recognition software and may contain errors, including spelling, grammar, syntax and misrecognition of what was dictated, that are not fully corrected. Marcy Khalil LPN 10/10/2023 1:09 PM Signed Splint to right hand/wrist, educated on use tolerated well. Marcy Khalil LPN Referring Provider: SELF [200] Allergies As of Date: 10/10/2023 (No Known Allergies) Date Reviewed: 10/10/2023 Reviewed by: Marcy Khalil LPN - Fully Assessed Reason for Visit: Wrist/forearm Injury [1749] Cmt: Right wrist/hand injury fell 1 hour ago Primary Visit Diagnosis:Sprain of right wrist, initial encounter [S63.501A] Order(s):XR WRIST INJURY 4V PA/LAT/OBL/SCAPH RIGHT [[id number]] Order #: [id number] FUTURE SPLINT [[id number]] Order #: [id number] Prescriptions as of 10/10/2023 - traZODone (DESYREL) 50 mg tablet take 1 tablet by mouth at bedtime if needed for sleep / insomnia - medroxyPROGESTERone (DEPO-PROVERA) 150 mg/mL injection inject 1 milliliter intramuscularly every 3 MONTHS - (more content not included)... [facility] XR WRIST 4V PA/LAT/OBL/SCAPH RTon 10-10-2023 XR WRIST 4V PA/LAT/OBL/SCAPH RT * * *Final Report* * * DATE OF EXAM: Oct 10 2023 1:14PM RMX 5273 - XR WRIST 4V PA/LAT/OBL/SCAPH RT / PROCEDURE REASON: Sprain of right wrist, initial encounter * * * * Physician Interpretation * * * * XR WRIST 4V PA/LAT/OBL/SCAPH RT Ordering Physician: JOSEPH GLEZ RIGHT WRIST 5 VIEWS Clinical Statement: Sprain of wrist, initial encounter FINDINGS: No fracture or dislocation. The osseous structures are intact. The alignment is normal. IMPRESSION: No osseous abnormality. Computer Drafter: PSCB Transcribe Date/Time: Oct 10 2023 2:25P Dictated by : DAPHNIE NOGUERA MD This examination was interpreted and the report reviewed and electronically signed by: DAPHNIE NOGUERA MD on Oct 10 2023 2:27PM EST [id number] Normal [facility] XR WRIST INJURY 4V PA/LAT/OB L/SCAPH RIGHTon 10-10-2023 [facility] XR Wrist - right 4 Viewson 1 12-11-2022 IMPRESSION: No osseous abnormality. Computer Drafter: [facility] Transcribe Date/Time: Oct 10 2023 2:25P Dictated by : DAPHNIE NOGUERA MD This examination was interpreted and the report reviewed and electronically signed by: DAPHNIE NOGUERA MD on Oct 10 2023 2:27PM [facility] * * *Final Report* * * DATE OF EXAM: Oct 10 2023 1:14PM RMX 5273 - XR WRIST 4V PA/LAT/OBL/SCAPH RT / PROCEDURE REASON: Sprain of right wrist, initial encounter * * * * Physician Interpretation * * * * XR WRIST 4V PA/LAT/OBL/SCAPH RT Ordering Physician: JOSEPH GLEZ RIGHT WRIST 5 VIEWS Clinical Statement: Sprain of wrist, initial encounter FINDINGS: No fracture or dislocation. The osseous structures are intact. The alignment is normal. [facility] Provider, Kashif Rodgers - 10/10/2023 * * *Final Report* * * DATE OF EXAM: Oct 10 2023 1:14PM RMX 5273 - XR WRIST 4V PA/LAT/OBL/SCAPH RT / PROCEDURE REASON: Sprain of right wrist, initial encounter * * * * Physician Interpretation * * * * XR WRIST 4V PA/LAT/OBL/SCAPH RT Ordering Physician: JOSEPH GLEZ RIGHT WRIST 5 VIEWS Clinical Statement: Sprain of wrist, initial encounter FINDINGS: No fracture or dislocation. The osseous structures are intact. The alignment is normal. IMPRESSION IMPRESSION: No osseous abnormality. Computer Drafter: HENRIQUE Transcribe Date/Time: Oct 10 2023 2:25P Dictated by : DAPHNIE NOGUERA MD This examination was interpreted and the report reviewed and electronically signed by: DAPHNIE NOGUERA MD on Oct 10 2023 2:27PM EST [facility] Rad[facility] Study observation (narrative) [facility] XR Wrist - right 4 ViewsOrde red By: Ccf Provider on 10-10-2023 [facility] CBC W Auto Differential pane l (Bld)on 08-03-2023 Basophils (Bld) [#/Vol] 0.04 10*3/uL Normal <0.11 [facility] Comment on above: Order Comment: Speci men Type: BLOOD SPECIMEN Ordering Facility: [facility] Address: [address] [place] [address] Performed By: #### 5 7021-8 #### [facility] CLIA [id number] [address] [place] [address] [place] Basophils/100 WBC (Bld) 0.2 % Normal [facility] Comment on above: Order Comment: Speci men Type: BLOOD SPECIMEN Ordering Facility: [facility] Address: [address] [place] [address] Performed By: #### 5 7021-8 #### [facility] CLIA [id number] [address] [place] [address] [place] Differential cell count method Nom (Bld) Auto Normal [facility] Comment on above: Order Comment: Speci men Type: BLOOD SPECIMEN Ordering Facility: [facility] Address: [address] [address] Performed By: #### 5 7021-8 #### [facility] CLIA [id number] [address] [place] [address] [place] Eosinophils (Bld) [#/Vol] 10*3/uL Normal <0.46 [facility] Comment on above: Order Comment: Speci men Type: BLOOD SPECIMEN Ordering Facility: [facility] Address: [address] [address] Performed By: #### 5 7021-8 #### [facility] CLIA [id number] [address] [place] [address] [place] Eosinophils/100 WBC (Bld) 0.1 % Normal [facility] Comment on above: Order Comment: Speci men Type: BLOOD SPECIMEN Ordering Facility: [facility] Address: [address] [place] [address] Performed By: #### 5 7021-8 #### [facility] CLIA [id number] [address] [place] [address] [place] Erythrocyte distribution width (RBC) [Ratio] 14.1 % Normal 11.5-15.0 [facility] Comment on above: Order Comment: Speci men Type: BLOOD SPECIMEN Ordering Facility: [facility] Address: [address] [place] [address] Performed By: #### 5 7021-8 #### [facility] CLIA [id number] [address] [place] [address] [place] Hematocrit (Bld) [Volume fraction] 42.2 % Normal 36.0-46.0 [facility] Comment on above: Order Comment: Speci men Type: BLOOD SPECIMEN Ordering Facility: [facility] Address: [address] [place] [address] Performed By: #### 5 7021-8 #### [facility] CLIA [id number] [address] [place] [address] [place] Hemoglobin (Bld) [Mass/Vol] 14.4 g/dL Normal 11.5-15.5 [facility] Comment on above: Order Comment: Speci men Type: BLOOD SPECIMEN Ordering Facility: [facility] Address: [address] [place] [address] Performed By: #### 5 7021-8 #### [facility] CLIA [id number] [address] [place] [address] [place] Immature granulocytes (Bld) [#/Vol] 0.08 10*3/uL Normal <0.10 [facility] Comment on above: Order Comment: Speci men Type: BLOOD SPECIMEN Ordering Facility: [facility] Address: [address] [address] Performed By: #### 5 7021-8 #### [facility] CLIA [id number] [address] [place] [address] [place] Immature granulocytes/100 WBC (Bld) 0.4 % Normal [facility] Comment on above: Order Comment: Speci men Type: BLOOD SPECIMEN Ordering Facility: [facility] Address: [address] [address] Performed By: #### 5 7021-8 #### [facility] CLIA [id number] [address] [place] [address] [place] Lymphocytes (Bld) [#/Vol] 0.83 10*3/uL Low 1.00-4.00 [facility] Comment on above: Order Comment: Speci men Type: BLOOD SPECIMEN Ordering Facility: [facility] Address: [address] [address] Performed By: #### 5 7021-8 #### [facility] CLIA [id number] [address] [place] [address] [place] Lymphocytes/100 WBC (Bld) 4.5 % Normal [facility] Comment on above: Order Comment: Speci men Type: BLOOD SPECIMEN Ordering Facility: [facility] Address: [address] [address] Performed By: #### 5 7021-8 #### [facility] CLIA [id number] [address] [place] [address] [place] MCH (RBC) [Entitic mass] 29.5 pg Normal 26.0-34.0 [facility] Comment on above: Order Comment: Speci men Type: BLOOD SPECIMEN Ordering Facility: [facility] Address: [address] [place] [address] Performed By: #### 5 7021-8 #### [facility] CLIA [id number] [address] [place] [address] [place] MCHC (RBC) [Mass/Vol] 34.1 g/dL Normal 30.5-36.0 [facility] Comment on above: Order Comment: Speci men Type: BLOOD SPECIMEN Ordering Facility: [facility] Address: [address] [address] Performed By: #### 5 7021-8 #### [facility] CLIA [id number] [address] [place] [address] [place] MCV (RBC) [Entitic vol] 86.5 fL Normal 80.0-100.0 [facility] Comment on above: Order Comment: Speci men Type: BLOOD SPECIMEN Ordering Facility: [facility] Address: [address] [address] Performed By: #### 5 7021-8 #### [facility] CLIA [id number] [address] [place] [address] [place] Monocytes (Bld) [#/Vol] 0.61 10*3/uL Normal <0.87 [facility] Comment on above: Order Comment: Speci men Type: BLOOD SPECIMEN Ordering Facility: [facility] Address: [address] [address] Performed By: #### 5 7021-8 #### [facility] CLIA [id number] [address] [place] [address] [place] Monocytes/100 WBC (Bld) 3.3 % Normal [facility] Comment on above: Order Comment: Speci men Type: BLOOD SPECIMEN Ordering Facility: [facility] Address: [address] Performed By: #### 5 7021-8 #### [facility] CLIA [id number] [address] [place] [address] [place] Neutrophils (Bld) [#/Vol] 16.76 10*3/uL High 1.45-7.50 [facility] Comment on above: Order Comment: Speci men Type: BLOOD SPECIMEN Ordering Facility: [facility] Address: [address] [place], [place] [id number] Performed By: #### 5 7021-8 #### [facility] CLIA [id number] [address] [place] [address] [place] Neutrophils/100 WBC (Bld) 91.5 % Normal [facility] Comment on above: Order Comment: Speci men Type: BLOOD SPECIMEN Ordering Facility: [facility] Address: [address] [place] [address] Performed By: #### 5 7021-8 #### [facility] CLIA [id number] [address] [place] [address] [place] Nucleated RBC (Bld) [#/Vol] 10*3/uL Normal <0.01 [facility] Comment on above: Order Comment: Speci men Type: BLOOD SPECIMEN Ordering Facility: [facility] Address: [address] [place] [address] Performed By: #### 5 7021-8 #### [facility] CLIA [id number] [address] [place] [address] [place] Nucleated RBC/100 WBC (Bld) [Ratio] 0.0 /100 WBC Normal [facility] Comment on above: Order Comment: Speci men Type: BLOOD SPECIMEN Ordering Facility: [facility] Address: [address] [place] [address] Performed By: #### 5 7021-8 #### [facility] CLIA [id number] [address] [place] [address] [place] Platelet mean volume (Bld) [Entitic vol] 8.8 fL Low 9.0-12.7 [facility] Comment on above: Order Comment: Speci men Type: BLOOD SPECIMEN Ordering Facility: [facility] Address: [address] [place] [address] Performed By: #### 5 7021-8 #### [facility] CLIA [id number] [address] [place] [address] [place] Platelets (Bld) [#/Vol] 352 10*3/uL Normal 150-400 [facility] Comment on above: Order Comment: Speci men Type: BLOOD SPECIMEN Ordering Facility: [facility] Address: [address] Performed By: #### 5 7021-8 #### [facility] CLIA [id number] [address] [place] [address] OF [facility] RBC (Bld) [#/Vol] 4.88 10*6/uL Normal 3.90-5.20 [facility] Comment on above: Order Comment: Speci men Type: BLOOD SPECIMEN Ordering Facility: [facility] Address: Lizzy [address] Performed By: #### 5 7021-8 #### [facility] CLIA [id number] [address] [place], [place] [id number] [facility] OF IRON WBC (Bld) [#/Vol] 18.33 10*3/uL High 3.70-11.00 [facility] Comment on above: Order Comment: Speci men Type: BLOOD SPECIMEN Ordering Facility: [facility] Address: [address] [place] [address] Performed By: #### 5 7021-8 #### [facility] CLIA [id number] [address] [place] [address] ABD/PEL W IVCONon 023 CT ABD/PEL W IVCON * * *Final Report* * * DATE OF EXAM: Aug 03 2023 2:19PM [facility] 0530 - CT ABD/PEL W IVCON / PROCEDURE REASON: Nausea/vomiting * * * * Physician Interpretation * * * * EXAMINATION: CT ABDOMEN AND PELVIS WITH IV CONTRAST CLINICAL HISTORY: Nausea and vomiting TECHNIQUE: CT of the abdomen and pelvis was performed using standard technique, scanning from just above the dome of the diaphragm to the symphysis pubis. MQ: CTAP_3 Contrast: IV: 100 ml of Isovue 370 CT Radiation dose: Integrated Dose-length product (DLP) for this visit = 985.40 mGy*cm. CT Dose Reduction Employed: Automated exposure control(AEC) and iterative recon COMPARISON: None. RESULT: Liver: No mass. Biliary: No bile duct dilation. Gallbladder is unremarkable. Spleen: No mass. No splenomegaly. Pancreas: No mass or duct dilation. Adrenals: No mass. Kidneys: No mass, calculus or hydronephrosis. GI tract: No dilation or wall thickening. Normal appendix. Lymph nodes: No abdominal or pelvic lymphadenopathy. Mesentery/Peritoneum: No ascites or mass. Retroperitoneum: No mass. Vasculature: Unremarkable. Pelvis: No mass, ascites or fluid collection. Bones/Soft Tissues: No acute bony abnormality. Lower thorax: Unremarkable. Pop Singer (topogram) images: No additional findings. IMPRESSION: No acute abnormality identified in the abdomen or pelvis. Computer Drafter: [employer] Transcribe Date/Time: Aug 03 2023 2:22P Dictated by : MILDRED NAVARRETE MD This examination was interpreted and the report reviewed and electronically signed by: MILDRED NAVARRETE MD on Aug 03 2023 2:30PM EST [id number] Normal [facility] Comprehensive metabolic 2000 panelon 08-03-2023 Albumin [Mass/Vol] 4.4 g/dL Normal 3.2-5.0 [facility] Comment on above: Order Comment: Torrie sanchez Type: BLOOD SPECIMEN Ordering Facility: [facility] Address: [address] [id number] Performed By: #### H TACOS, 70837-5, 3040-3 #### [facility] CLIA [id number] [address] [place] [address] [place] ALP [Catalytic activity/Vol] 115 U/L Normal 45-117 [facility] Comment on above: Order Comment: Torrie sanchez Type: BLOOD SPECIMEN Ordering Facility: [facility] Address: [address] [id number] Performed By: #### [place], [address]-4, 3040-3 #### [facility] CLIA [id number] [address] [place] [address] [place] ALT [Catalytic activity/Vol] 26 U/L Normal 13-61 [facility] Comment on above: Order Comment: Torrie sanchez Type: BLOOD SPECIMEN Ordering Facility: [facility] Address: [address] [id number] Result Comment: Resu lts may be falsely depressed after the administration of Sulfasalazine and/or Sulfapyridine. Performed By: #### Niels BALDERRAMA, 86062-6, 0-3 #### [facility] CLIA [id number] [address] [place], [place] [id number] [place] Anion gap [Moles/Vol] 9 mmol/L Normal 5-16 [facility] Comment on above: Order Comment: Speci men Type: BLOOD SPECIMEN Ordering Facility: [facility] Address: [address] [place] [address] Performed By: #### Niels BALDERRAMA, 02625-6, 3039-3 #### [facility] CLIA [id number] [address] [place] [address] [place] AST [Catalytic activity/Vol] 24 U/L Normal 8-34 [facility] Comment on above: Order Comment: Speci men Type: BLOOD SPECIMEN Ordering Facility: [facility] Address: [address] [place] [address] Result Comment: Resu lts may be falsely depressed after the administration of Sulfasalazine and/or Sulfapyridine. Performed By: #### Niels BALDERRAMA, , 3039-3 #### [facility] CLIA [id number] [address] [place] [address] [place] Bilirubin [Mass/Vol] 0.8 mg/dL Normal 0.2-1.0 [facility] Comment on above: Order Comment: Speci men Type: BLOOD SPECIMEN Ordering Facility: [facility] Address: [address] [address] Performed By: #### Niels BALDERRAMA, 22711-5, 0-3 #### [facility] CLIA [id number] [address] [place] [address] [place] Calcium [Mass/Vol] 9.7 mg/dL Normal 8.5-10.5 [facility] Comment on above: Order Comment: Speci men Type: BLOOD SPECIMEN Ordering Facility: [facility] Address: [address] [place] [address] Performed By: #### Niels BALDERRAMA, , 3039-3 #### [facility] CLIA [id number] [address] [place] [address] [place] Chloride [Moles/Vol] 110 mmol/L High 98-107 [facility] Comment on above: Order Comment: Speci men Type: BLOOD SPECIMEN Ordering Facility: [facility] Address: [address] [place] [address] Performed By: #### Niels BALDERRAMA, 49332-2, 3039-3 #### [facility] CLIA [id number] [address] [place] [address] [place] CO2 [Moles/Vol] 25 mmol/L Normal 21-32 [facility] Comment on above: Order Comment: Speci men Type: BLOOD SPECIMEN Ordering Facility: [facility] Address: [address] [place] [address] Performed By: #### Niels BALDERRAMA, , 3039-3 #### [facility] CLIA [id number] [address] [place] [address] [place] Creatinine [Mass/Vol] 0.73 mg/dL Normal 0.51-0.95 [facility] Comment on above: Order Comment: Speci men Type: BLOOD SPECIMEN Ordering Facility: [facility] Address: [address] [place] [address] Result Comment: Rubai ents receiving either N-Acetylcysteine (NAC) or Metamizole prior to venipuncture, may have falsely depressed results. Performed By: #### Niels BALDERRAMA, 04319-7, 3039-3 #### [facility] CLIA [id number] [address] [place] [address] [place] Creatinine and Glomerular filtration rate.predicted panel (S/P/Bld) 120 mL/min/1.73m??? Normal >=60 [facility] Comment on above: Order Comment: Speci men Type: BLOOD SPECIMEN Ordering Facility: [facility] Address: [address] [place] [address] Result Comment: Annmarie mated Glomerular Filtration Rate (eGFR) is calculated using the 2020 CKD-EPI creatinine equation. This equation utilizes serum creatinine, sex, and age as parameters. The creatinine assay has traceable calibration to isotope dilution-mass spectrometry. Refer to KDIGO guidelines for clinical interpretation. In patients with unstable renal function, e.g. those with acute kidney injury, the eGFR may not accurately reflect actual GFR. Performed By: #### H TACOS, 78057-7, 3039-3 #### [facility] CLIA [id number] [address] [place], [place] [id number] [place] Glucose [Mass/Vol] 120 mg/dL High 70-100 [facility] Comment on above: Order Comment: Torrie sanchez Type: BLOOD SPECIMEN Ordering Facility: [facility] Address: [address] [place], [place] [address] Result Comment: The [place] Diabetes Association (ADA) provides guidance for cutoff values for fasting glucose and random glucose. The ADA defines fasting as no caloric intake for at least 8 hours. Fasting plasma glucose results between 100 to 125 mg/dL indicate increased risk for diabetes (prediabetes). Fasting plasma glucose results greater than or equal to 126 mg/dL meet the criteria for diagnosis of diabetes. In the absence of unequivocal hyperglycemia, results should be confirmed by repeat testing. In a patient with classic symptoms of hyperglycemia or hyperglycemic crisis, random plasma glucose results greater than or equal to 200 mg/dL meet the criteria for diagnosis of diabetes. Reference: Standards of Medical Care in Diabetes 2016, [place] Diabetes Association. Diabetes Care. 2016.39(Suppl 1). Results may be falsely elevated after the administration of Sulfapyridine. Results may be falsely depressed after the administration of Sulfasalazine. Performed By: #### H TACOS, , 3039-3 #### [facility] CLIA [id number] [address] [place], [place] [id number] [place] Potassium [Moles/Vol] 4.4 mmol/L Normal 3.5-5.1 [facility] Comment on above: Order Comment: Torrie sanchez Type: BLOOD SPECIMEN Ordering Facility: [facility] Address: [address] [place] [address] Performed By: #### H TACOS, 91861-1, 3039-3 #### [facility] CLIA [id number] [address] [place] [address] [place] Protein [Mass/Vol] 7.6 g/dL Normal 6.0-8.5 [facility] Comment on above: Order Comment: Speci men Type: BLOOD SPECIMEN Ordering Facility: [facility] Address: [address] [place] [address] Performed By: #### H CG, 66225-0, 3040-3 #### [facility] CLIA [id number] [address] [place], [place] [address] [place] Sodium [Moles/Vol] 144 mmol/L Normal 136-145 [facility] Comment on above: Order Comment: Speci men Type: BLOOD SPECIMEN Ordering Facility: [facility] Address: [address] [place] [address] Performed By: #### H CG, 35017-7, 3040-3 #### [facility] CLIA [id number] [address] [place] [address] [place] Urea nitrogen [Mass/Vol] 9 mg/dL Normal 7-26 [facility] Comment on above: Order Comment: Speci men Type: BLOOD SPECIMEN Ordering Facility: [facility] Address: [address] [place] [address] Performed By: #### H CG, 68944-2, 3040-3 #### [facility] CLIA [id number] [address] [place], [place] [address] [place] ECG COMPLETEon 08-03-2023 ECG COMPLETE Ventricular Rate : 1 00 BPM Atrial Rate : 100 BPM P-R Interval : 156 ms QRS Duration : 72 ms Q-T Interval : 358 ms QTC Calculation(Bazett) : 461 ms Calculated P [employer] : 41 degrees Calculated R [employer] [place] : 35 degrees Calculated T [employer] [place] : 48 degrees Normal sinus rhythm Normal ECG When compared with ECG of 03-FEB-2023 09:36, No significant change was found Confirmed by SUELLEN BOURGEOIS MD ([id number]) on 08/03/2023 9:09:38 PM NAME : YESIKARAMIRO GOLDSMITH PID : [id number] : 2000 Gender : Female Race : ORD : [id number] Procedure Date : Aug 03 2023 13:19:15 Edit Date : Aug 03 2023 21:09:39 Diagnosis: Normal sinus rhythm Normal ECG When compared with ECG of 03-FEB-2023 09:36, No significant change was found Confirmed by SUELLEN BOURGEIOS MD ([id number]) on 08/03/2023 9:09:38 PM Test Reason : STAT Location : 0 : ED 5 Overread By : SUELLEN BOURGEOIS MD Edited By : SUELLEN BOURGEOIS MD Referred By : , Acquired by : [facility], [facility] ED NOTEon 08-03-2023 ED NOTE HNO ID: [id number] Author: Johanny Kimbrough RN Service: ? Author Type: Registered Nurse Type: ED Notes Filed: 08/03/2023 2:59 PM Note Text: Pt tolerates PO fluids well without difficulty. [facility] ED NOTE HNO ID: [id number] Author: Johanny Kimbrough RN Service: ? Author Type: Registered Nurse Type: ED Notes Filed: 08/03/2023 1:11 PM Note Text: Pt medicated per orders, given update on plan of care and upcoming testing. Pt acknowledges the need for urine and stool sample. [facility] ED NOTE HNO ID: [id number] Author: Josefa Billy RN Service: ? Author Type: Registered Nurse Type: ED Notes Filed: 08/03/2023 12:28 PM Note Text: States she has n/v/d for about a day and has had one syncopal episode [facility] ED PROV NOTEon 08-03-2023 ED PROV NOTE HNO ID: [id number] Author: Esperanza Mcfarland PA-C Service: ? Author Type: Physician Supervisor [place] Type: ED Provider Notes Filed: 08/03/2023 3:53 PM Note Text: ED Provider Note Patient Name: Ramiro Napoles : 2000 SERVICE DATE: 08/03/23 History Patient presents with: Nausea AND Vomiting: N/v since 0300 HPI Ramiro Napoles is a 22 year old female who presents to the ED for vomiting and diarrhea. Began last night. No fever or chills. No urinary symptoms. No history of C. difficile. No recent antibiotic use. Multiple family members have been sick with similar symptoms. Family was negative for COVID however when family member did test positive for flu. She is complaining of some abdominal "burning", no pain. Abdominal surgeries include . No urinary symptoms. No cough or congestion. Earlier today she went to stand up and she passed out for a few seconds. She felt that this was due to dehydration. No chest pain, shortness of breath, palpitations, prior to this. No other complaints. No other pertinent HPI ROS Review of Systems Gastrointestinal: Positive for diarrhea, nausea and vomiting. All other systems reviewed and are negative. All systems reviewed and negative except noted in HPI PAST MEDICAL HISTORY Diagnosis Date Depression Psychiatric disorder Syncope PAST SURGICAL HISTORY Procedure Laterality Date SECTION HX TONSILLECTOMY HX No family history on file. Social History Tobacco Use Smoking status: Never Smokeless tobacco: Never Vaping Use Vaping Use: Never used Substance and Sexual Activity Alcohol use: Never Drug use: Never Sexual activity: Not on file ALLERGIES No Known Allergies Records on file/review of medical records: Nursing/triage notes and assessments as well as vitals were reviewed and incorporated Records on file reviewed: N/A Physical Exam Vitals [08/03/23 1225] BP Pulse Temp Temp src Resp SpO2 Weight Height 147/81 (!) 124 37.2 ?C (99 ?F) Oral 18 98 % 90.7 kg (200 lb) 1.778 m (5' 10") Physical Exam General: alert, speaking in full sentences, does not appear ill HEENT: EOMI, eyes equal and reactive to light, no scleral injection or tearing, head and face atraumatic. Nasal mucous membranes appear dry. Chest: no respiratory distress normal breath sounds throughout, Cardiac: no rubs, tachycardic regular rhythm Abdomen: atraumatic, no rebound or peritoneal findings, soft, nontender. No guarding or rigidity. Negative Loza's McBurney's Rovsing psoas sign. Extremities: atraumatic, no joint effusions, no edema Skin: warm, dry, no rashes Neuro: alert and oriented x 3, no lateralized deficits, no gross weakness Psyc: normal mood/affect, normal judgment/memory Diagnostic Testing ED Labs Ordered and Reviewed COMP METABOLIC PANEL - Abnormal; Notable for the following components: Result Value Ref Range Glucose 120 (*) 70 - 100 mg/dL Chloride 110 (*) 98 - 107 mmol/L All other components within normal limits CBC + DIFF - Abnormal; Notable for the following components: WBC 18.33 (*) 3.70 - 11.00 k/uL MPV 8.8 (*) 9.0 - 12.7 fL Abs Neut 16.76 (*) 1.45 - 7.50 k/uL Abs Lymph 0.83 (*) 1.00 - 4.00 k/uL All other components within normal limits URINALYSIS WITH MICROSCOPIC, REFLEX CULTURE - Abnormal; Notable for the following components: Protein, Urine 1+ (*) Negative Bacteria Rare (*) None Seen /HPF All other components within normal limits LIPASE BLD - Normal HIGH SENSITIVITY TROPONIN I - Normal HCG QUAL BLD - Normal COVID AND INFLUENZA A/B AND RSV NAAT, EXPEDITED - Normal Narrative: This test has been authorized by FDA under an Emergency Use Authorization (EUA). STOOL GASTROINTESTINAL PANEL C. DIFFICILE PCR Radiology/images: CT ABD/PEL W IVCON Final Result IMPRESSION: No acute abnormality identified in the abdomen or pelvis. Computer Drafter: HENRIQUE Transcribe Date/Time: Aug 03 2023 2:22P Dictated by : MILDRED NAVARRETE MD This examination was interpreted and the report reviewed and electronically signed by: MILDRED NAVARRETE MD on Aug 03 2023 2:30PM EST I reviewed images as well as radiologist interpretation(s) Procedures: Procedures ED Course / Clinical Impression ED Course as of 08/03/23 1552 Esperanza Mcfarland's Documentation Sun Aug 03, 2023 1359 WBC(!): 18.33 Secondary to hyperemesis. Patient states she has had excessive vomiting since 3 AM. Does not appear toxic. Afebrile. No bandemia. Clinical Impressions as of 08/03/23 1552 Vomiting and diarrhea Leukocytosis, unspecified type Vasovagal syncope COVID-19 test performed per [facility] [place] policy for suspected COVID community exposure. Medications received in ED Medications iv contrast (radiology procedure) (has no administration in time range) NaCl 0.9% 2,000 mL iv bolus (0 mL INTRAVENOUS Infusion Complete 08/03/23 1434) ondansetron (PF) 4 mg injection (ZOFRAN) (4 mg INTRAVENOUS Given 08/03/23 (more content not included)... Normal [facility] FLUABV+SARS-CoV-2+RSV Pnl Re sp APRIL+probeon 08-03-2023 FLUABV+SARS-CoV-2+R SV Pnl Resp APRIL+probe COVID 19 RESULT: Not detected The method used is RT-PCR or an equivalent NAAT method. Reference Range(the expected result in uninfected individuals): Not detected INFLUENZA A PCR: Not detected INFLUENZA B PCR: Not detected RSV PCR: Not detected Normal [facility] Comment on above: Performed By: #### 5 7021-8 #### [facility] CLIA [id number] [address] [place] [address] [place] HCG QUAL BLDon 08-03-2023 HCG, QUALITATIVE Negative Normal Negative [facility] Comment on above: Order Comment: Torrie sanchez Type: BLOOD SPECIMEN Ordering Facility: [facility] Address: [address] [place] [address] Performed By: #### H CG, 74483-2, 3040-3 #### [facility] CLIA [id number] [address] [place] [address] [place] HIGH SENSITIVITY TROPONIN Io n 08-03-2023 Tropinin I.cardiac panel High sensitivity method <2.5 Normal 0.0-34.0 [facility] Comment on above: Order Comment: Torrie sanchez Type: BLOOD SPECIMEN Ordering Facility: [facility] Address: [address] [place] [address] Result Comment: This assay uses different antibodies than our current assay, and assays, even by the same resource economist may recognize different regions of the antibody and cannot be used interchangeably. Expect results of this assay to run higher than the previous assay. Performed By: #### H STROP #### [facility] CLIA [id number] [address] [place] [address] [place] Lipase SerPl-cCncon 08-03-20 23 Lipase [Catalytic activity/Vol] 29 U/L Normal 12-60 [facility] Comment on above: Order Comment: Torrie sanchez Type: BLOOD SPECIMEN Ordering Facility: [facility] Address: [address] [place], [place] [address] Performed By: #### H CG, 88961-6, 3040-3 #### [facility] CLIA [id number] [address] [place] [address] Urinalysis complete panel (U )on 08-03-2023 Bacteria LM.HPF (Urine sed) [#/Area] Rare Abnormal None Seen [facility] Comment on above: Order Comment: Speci men Type: URINE SPECIMEN Ordering Facility: [facility] Address: [address] [place] [address] Performed By: #### 2 4356-8 #### [facility] CLIA [id number] [address] [place] [address] [place] Bilirubin Ql (U) Negative Normal Negative [facility] Comment on above: Order Comment: Speci men Type: URINE SPECIMEN Ordering Facility: [facility] Address: [address] [address] Performed By: #### 2 4356-8 #### [facility] CLIA [id number] [address] [place] [address] [place] Clarity (Unsp spec) Clear Normal Clear [facility] Comment on above: Order Comment: Speci men Type: URINE SPECIMEN Ordering Facility: [facility] Address: [address] [address] Performed By: #### 2 4356-8 #### [facility] CLIA [id number] [address] [place] [address] OF [facility] Color (U) Yellow Normal Yellow [facility] Comment on above: Order Comment: Speci men Type: URINE SPECIMEN Ordering Facility: [facility] Address: [address] [address] Performed By: #### 2 4356-8 #### [facility] CLIA [id number] [address] [place] [address] [place] Epithelial cells LM.HPF (Urine sed) [#/Area] Few Normal [facility] Comment on above: Order Comment: Speci men Type: URINE SPECIMEN Ordering Facility: [facility] Address: [address] [address] Performed By: #### 2 4356-8 #### [facility] CLIA [id number] [address] [place] [address] [place] Glucose Test strip (U) [Mass/Vol] Negative Normal Negative [facility] Comment on above: Order Comment: Speci men Type: URINE SPECIMEN Ordering Facility: [facility] Address: [address] [address] Performed By: #### 2 4356-8 #### [facility] CLIA [id number] [address] [place] [address] [place] Hemoglobin Ql (U) Negative Normal Negative [facility] Comment on above: Order Comment: Speci men Type: URINE SPECIMEN Ordering Facility: [facility] Address: [address] [place] [address] Performed By: #### 2 4356-8 #### [facility] CLIA [id number] [address] [place] [address] [place] Ketones Ql (U) Negative Normal Negative [facility] Comment on above: Order Comment: Speci men Type: URINE SPECIMEN Ordering Facility: [facility] Address: [address] [place] [address] Performed By: #### 2 4356-8 #### [facility] CLIA [id number] [address] [place] [address] [place] Leukocyte esterase Test strip Ql (U) Negative Normal Negative [facility] Comment on above: Order Comment: Speci men Type: URINE SPECIMEN Ordering Facility: [facility] Address: [address] [address] Performed By: #### 2 4356-8 #### [facility] CLIA [id number] [address] [place] [address] [place] Nitrite Ql (U) Negative Normal Negative [facility] Comment on above: Order Comment: Speci men Type: URINE SPECIMEN Ordering Facility: [facility] Address: [address] [place] [address] Performed By: #### 2 4356-8 #### [facility] CLIA [id number] [address] [place] [address] [place] pH (U) 7.0 [pH] Normal 5.0-8.0 [facility] Comment on above: Order Comment: Speci men Type: URINE SPECIMEN Ordering Facility: [facility] Address: [address] [place] [address] Performed By: #### 2 4356-8 #### [facility] CLIA [id number] [address] [place] [address] [place] Protein (U) [Mass/Vol] 1+ Abnormal Negative [facility] Comment on above: Order Comment: Speci men Type: URINE SPECIMEN Ordering Facility: [facility] Address: [address] [place] [address] Performed By: #### 2 4356-8 #### [facility] CLIA [id number] [address] [place] [address] [place] RBC LM.HPF (Urine sed) [#/Area] 0-3 /HPF Normal 0-3 /HPF [facility] Comment on above: Order Comment: Speci men Type: URINE SPECIMEN Ordering Facility: [facility] Address: [address] [place] [address] Performed By: #### 2 4356-8 #### [facility] CLIA [id number] [address] [place] [address] [place] Specific gravity (U) [Rel density] 1.023 Normal 1.005-1.03 0 [facility] Comment on above: Order Comment: Speci men Type: URINE SPECIMEN Ordering Facility: [facility] Address: [address] [place] [address] Performed By: #### 2 4356-8 #### [facility] CLIA [id number] [address] [place] [address] [place] Urobilinogen Ql (U) Negative Normal Negative [facility] Comment on above: Order Comment: Speci men Type: URINE SPECIMEN Ordering Facility: [facility] Address: [address] [place] [address] Performed By: #### 2 4356-8 #### [facility] CLIA [id number] [address] [place] [address] [place] WBC LM.HPF (Urine sed) [#/Area] 0-5 /HPF Normal 0-5 /HPF [facility] Comment on above: Order Comment: Speci men Type: URINE SPECIMEN Ordering Facility: [facility] Address: [address] [id number] Performed By: #### 2 4356-8 #### [facility] CLIA [id number] [address] [place] [address] [place] .Auto Diffon 05-04-2023 Basophil, Absolute 0.1 10 3/mcL Normal 0.0-0.2 [facility] ([place]) Comment on above: Performed By: #### G FR, BMP, ANEU, MDW, ADIFF, CBC #### [address] [address] Basophils/100 WBC (Bld) 0.9 % Normal 0.0-2.5 [facility] ([place]) Comment on above: Performed By: #### G FR, BMP, ANEU, MDW, ADIFF, CBC #### [address] [address] Eosinophil, Absolute 0.1 10 3/mcL Normal 0.0-0.4 [facility] ([place]) Comment on above: Performed By: #### G FR, BMP, ANEU, MDW, ADIFF, CBC #### [address] [address] Eosinophils/100 WBC (Bld) 0.6 % Normal 0.0-7.0 [facility] ([place]) Comment on above: Performed By: #### G FR, BMP, ANEU, MDW, ADIFF, CBC #### [address] [address] Lymphocyte, Absolute 2.6 10 3/mcL Normal 0.8-3.9 [facility] ([place]) Comment on above: Performed By: #### G FR, BMP, ANEU, MDW, ADIFF, CBC #### [address] [address] Lymphocytes/100 WBC (Bld) 19.7 % Normal 10.0-50.0 [facility] ([place]) Comment on above: Performed By: #### G FR, BMP, ANEU, MDW, ADIFF, CBC #### [address] [address] Monocyte, Absolute 0.9 10 3/mcL Normal 0.2-1.0 [facility] ([place]) Comment on above: Performed By: #### G FR, BMP, ANEU, MDW, ADIFF, CBC #### [address] [address] Monocytes/100 WBC (Bld) 6.7 % Normal 1.7-13.0 [facility] ([place]) Comment on above: Performed By: #### G FR, BMP, ANEU, MDW, ADIFF, CBC #### [address] [address] Neutrophils/100 WBC (Bld) 72.1 % Normal 37.0-80.0 [facility] ([place]) Comment on above: Performed By: #### G FR, BMP, ANEU, MDW, ADIFF, CBC #### [address] [address] .GFRon 05-04-2023 GFR 100 ml/min/1.73sqm Normal [facility] ([place]) Comment on above: Result Comment: GFR Population mean for , Non- Americans Ages 20-29 = 116 mL/min/1.73 sq.m. Ages 30-39 = 107 mL/min/1.73 sq.m. Ages 40-49 = 99 mL/min/1.73 sq.m. Ages 50-59 = 93 mL/min/1.73 sq.m. Ages 60-69 = 85 mL/min/1.73 sq.m. Ages 70+ = 75 mL/min/1.73 sq.m. Chronic Kidney Disease: Less than 60 mL/min/1.73 square meters End Stage Renal Disease: Less than 15 mL/min/1.73 square meters Performed By: #### T RVAMP #### [address] [address] GFR Non- 82 ml/min/1.73sqm Normal [facility] ([place]) Comment on above: Result Comment: GFR Population mean for , Non- Americans Ages 20-29 = 116 mL/min/1.73 sq.m. Ages 30-39 = 107 mL/min/1.73 sq.m. Ages 40-49 = 99 mL/min/1.73 sq.m. Ages 50-59 = 93 mL/min/1.73 sq.m. Ages 60-69 = 85 mL/min/1.73 sq.m. Ages 70+ = 75 mL/min/1.73 sq.m. Chronic Kidney Disease: Less than 60 mL/min/1.73 square meters End Stage Renal Disease: Less than 15 mL/min/1.73 square meters Performed By: #### T RVAMP #### [place] [address] .MDWon 05-04-2023 Monocyte Distribution Width 16.67 Normal 0.00-20.00 [facility] ([place]) Comment on above: Result Comment: For ED adult patients suspected of sepsis, MDW<=20.0 does not rule out sepsis or risk of sepsis Performed By: #### T RVAMP #### [address] [address] .NEUABSon 05-04-2023 Neutrophil, Absolute 9.5 10 3/mcL High 2.9-6.2 [facility] ([place]) Comment on above: Performed By: #### T RVAMP #### [address] [address] .Urinalysis Microscopic (AO) on 05-04-2023 UA Bacteria 2+ /hpf Abnormal [facility] ([place]) Comment on above: Performed By: #### P REGU, [place]AM[place], UA #### [address] [address] UA Mucous 4+ /hpf Normal [facility] ([place]) Comment on above: Performed By: #### P REGU, [place]AM[place], UA #### [address] [address] UA RBC None Seen Normal None Seen [facility] ([place]) Comment on above: Performed By: #### P REGU, UAMICAO, UA #### [address] [address] UA Squam Epithelial 5-10 Abnormal None Seen [facility] ([place]) Comment on above: Performed By: #### P REGU, UAMICAO, UA #### [address] [address] UA WBC 0-5 Abnormal None Seen [facility] ([place]) Comment on above: Performed By: #### P REGU, UAMICAO, UA #### [address] [address] BMPon 05-04-2023 BUN/Creatinine Ratio 13 ratio Normal 7-27 [facility] ([place]) Comment on above: Performed By: #### T RVAMP #### [address] [address] Calcium [Mass/Vol] 10.0 mg/dL Normal 8.4-10.2 [facility] ([place]) Comment on above: Performed By: #### T RVAMP #### [address] [address] Chloride [Moles/Vol] 103 mmol/L Normal 98-107 [facility] ([place]) Comment on above: Performed By: #### T RVAMP #### [address] [address] CO2 [Moles/Vol] 24 mmol/L Normal 22-29 [facility] ([place]) Comment on above: Performed By: #### T RVAMP #### [address] [address] Creatinine [Mass/Vol] 0.87 mg/dL Normal 0.55-1.02 [facility] ([place]) Comment on above: Performed By: #### T RVAMP #### [address] [address] Electrolyte Balance 13.0 mEq/L Normal 4.0-15.0 [facility] ([place]) Comment on above: Performed By: #### T RVAMP #### [address] [address] Glucose [Mass/Vol] 83 mg/dL Normal 70-105 [facility] ([place]) Comment on above: Performed By: #### T RVAMP #### [address] [address] Potassium [Moles/Vol] 3.8 mmol/L Normal 3.5-5.1 [facility] ([place]) Comment on above: Performed By: #### T RVAMP #### [place] [id number] Sodium [Moles/Vol] 140 mmol/L Normal 136-145 [facility] ([place]) Comment on above: Performed By: #### T RVAMP #### [address] [address] Urea nitrogen [Mass/Vol] 11 mg/dL Normal 7-18 [facility] ([place]) Comment on above: Performed By: #### T RVAMP #### [address] [address] CBCon 05-04-2023 Erythrocyte distribution width (RBC) [Ratio] 14.1 % Normal 11.5-14.5 [facility] ([place]) Comment on above: Performed By: #### G UMU EWING ANEU, MDW, AUBRIE, CBC #### [address] [address] Hematocrit (Bld) [Volume fraction] 40.3 % Normal 37.0-47.0 [facility] ([place]) Comment on above: Performed By: #### G , UMU, SPRING, SYMONE, AUBRIE, CBC #### [address] [address] Hgb 13.7 G/dL Normal 12.0-16.0 [facility] ([place]) Comment on above: Performed By: #### G FR, BMP, ANEU, MDW, ADIFF, CBC #### [place] [id number] MCH (RBC) [Entitic mass] 28.9 pg Normal 27.0-31.2 [facility] ([place]) Comment on above: Performed By: #### G FR, BMP, ANEU, MDW, ADIFF, CBC #### [place] [address] MCHC 34.1 G/dL Normal 33.0-37.0 [facility] ([place] Comment on above: Performed By: #### G FR, BMP, ANEU, MDW, ADIFF, CBC #### [place] [address] MCV (RBC) [Entitic vol] 84.7 fL Normal 80.0-94.0 [facility] ([place]) Comment on above: Performed By: #### G FR, BMP, ANEU, MDW, ADIFF, CBC #### [place] [address] Platelet 378 10 3/mcL Normal 130-400 [facility] ([place]) Comment on above: Performed By: #### G FR, BMP, ANEU, MDW, ADIFF, CBC #### [place] [address] Platelet mean volume (Bld) [Entitic vol] 7.4 fL Normal 7.4-10.4 [facility] ([place]) Comment on above: Performed By: #### G FR, BMP, ANEU, MDW, ADIFF, CBC #### [place] [address] RBC 4.76 10 6/mcL Normal 4.20-5.40 [facility] ([place]) Comment on above: Performed By: #### G FR, BMP, ANEU, MDW, ADIFF, CBC #### [place] [address] WBC 13.2 10 3/mcL High 4.6-10.8 [facility] ([place]) Comment on above: Performed By: #### G , UMU, SYMONE LONDONO, NIYAH ALFRED #### [place] [id number] [place], [place] [address] CT ABD/PELVIS W/ IV CONTRAST ONLYon 05-04-2023 CT ABD/PELVIS W/ IV CONTRAST ONLY ORIGINAL EXAMINATION: CT OF THE ABDOMEN AND PELVIS WITH CONTRAST 05/03/2023 11:27 pm TECHNIQUE: CT of the abdomen and pelvis was performed with the administration of intravenous contrast. Multiplanar reformatted images are provided for review. Automated exposure control, iterative reconstruction, and/or weight based adjustment of the mA/kV was utilized to reduce the radiation dose to as low as reasonably achievable. COMPARISON: None. HISTORY: ORDERING SYSTEM PROVIDED HISTORY: Reason for Exam: Right lower quadrant pain FINDINGS: The lung bases are unremarkable. Bilateral fat containing Bochdalek hernias. No focal hepatic lesion. The spleen, adrenal glands, and pancreas are unremarkable. The gallbladder is unremarkable. The kidneys appear to enhance symmetrically without obstructive uropathy. The bladder is nondistended. Nondistended loops of small bowel. A normal appendix is identified. The colon demonstrates no acute process. No adnexal masses. No free intraperitoneal fluid gas. No lymphadenopathy. Nonaneurysmal abdominal aorta. No acute osseous abnormality. Mild levocurvature of the lumbar spine. IMPRESSION: No acute process within the abdomen/pelvis. Specifically, normal appendix. I have personally reviewed the images of this examination, and agree with the resident's findings and interpretation. Interpreted by: Reji Marin MD Preliminary Report By: Debbie Patel Electronically signed By Reji Marin MD Dictated Date: 05/03/2023 11:33:00 PM Prelim Date: 05/03/2023 11:36:57 PM Sign Date: 05/04/2023 12:31:17 AM Ordering Provider: ASHLYN EPPERSON Normal [facility] ([place]) PREGUon 05-04-2023 HCG ( test) Ql (U) Negative Normal [facility] ([place]) Comment on above: Performed By: #### P REGU, UAMICAO, UA #### [address] [address] test (u) int Not detected Invalid Interpretation Code [facility] ([place]) Comment on above: Performed By: #### P REGU, UAMICAO, UA #### [address] [address] UAon 05-04-2023 Color (U) Yellow Normal [facility] ([place]) Comment on above: Performed By: #### P REGU, UAMICAO, UA #### [address] [address] Glucose (U) [Mass/Vol] Negative Normal Negative [facility] ([place]) Comment on above: Performed By: #### P REGU, UAMICAO, UA #### [address] [address] Ketones Ql (U) Negative Normal Negative [facility] ([place] Comment on above: Performed By: #### P REGU, UAMICAO, UA #### [address] [address] UA Appear Slightly Cloudy Abnormal Clear [facility] ([place] Comment on above: Performed By: #### P REGU, UAMICAO, UA #### [address] [address] UA Blood Negative Normal Negative [facility] ([place] Comment on above: Performed By: #### P REGU, UAMICAO, UA #### [address] [address] UA Leuk Est Negative Normal Negative [facility] ([place]) Comment on above: Performed By: #### P REGU, UAMICAO, UA #### [address] [address] UA Nitrite Negative Normal Negative [facility] ([place]) Comment on above: Performed By: #### P REGU, UAMICAO, UA #### [address] [address] UA pH 6.0 Normal 5.0 - 8.0 [facility] ([place]) Comment on above: Performed By: #### P REGU, UAMICAO, UA #### [address] [address] UA Protein Negative Normal Negative [facility]) Comment on above: Performed By: #### P REGU, UAMICAO, UA #### [address] [address] UA Spec Grav >=1.030 Abnormal 1.015-1.02 5 [facility]) Comment on above: Performed By: #### P REGU, UAMICAO, UA #### [place] [address] UA Specimen Type Clean Catch Normal [facility]) Comment on above: Performed By: #### P REGU, UAMICAO, UA #### [place] [id number] UA Urobilinogen 0.2 E.U./dL Normal 0.2-1.0 [facility]) Comment on above: Performed By: #### P REGU, UAMICAO, UA #### [place] [address] Urobilinogen (U) [Mass/Vol] Negative Normal Negative [facility]) Comment on above: Performed By: #### P REGU, UAMICAO, UA #### [place] [address] LABORATORYOrdered By: Katerina Torrez on 05-03-2023 Appearance (U) Slightly Cloudy *ABN* (05/03/23 10:09 PM) Invalid Interpretation Code Clear AO Auto Urine SS Bacteria LM.HPF (Urine sed) [#/Area] 2 /[HPF] Invalid Interpretation Code AO Auto Urine SS Basophil, Absolute 0.1 103/mcL Invalid Interpretation Code 0.0 - 0.2 10^3/mcL AO Workflow SS Basophils/100 WBC (Bld) 0.9 % Invalid Interpretation Code 0.0 - 2.5 % AO Workflow SS Bilirubin Ql (U) Negative (05/03/23 10:09 PM) Invalid Interpretation Code Negative AO Auto Urine SS Color (U) Yellow (05/03/23 10:09 PM) Invalid Interpretation Code AO Auto Urine SS Eosinophil, Absolute 0.1 103/mcL Invalid Interpretation Code 0.0 - 0.4 10^3/mcL AO Workflow SS Eosinophils/100 WBC (Bld) 0.6 % Invalid Interpretation Code 0.0 - 7.0 % AO Workflow SS Erythrocyte distribution width (RBC) [Ratio] 14.1 % Invalid Interpretation Code 11.5 - 14.5 % AO Workflow SS Glucose Test strip (U) [Mass/Vol] Negative Invalid Interpretation Code Negativemg /dL AO Auto Urine SS HCG ( test) Ql Negative (05/03/23 10:09 PM) Invalid Interpretation Code AO Manual Urine SS Hematocrit (Bld) [Volume fraction] 40.3 % Invalid Interpretation Code 37.0 - 47.0 % AO Workflow SS Hemoglobin (Bld) [Mass/Vol] 13.7 G/dL Invalid Interpretation Code 12.0 - 16.0 G/dL AO Workflow SS Hemoglobin Auto test strip (U) [Mass/Vol] Negative (05/03/23 10:09 PM) Invalid Interpretation Code Negative AO Auto Urine SS Ketones Ql (U) Negative Invalid Interpretation Code Negativemg /dL AO Auto Urine SS Lymphocyte, Absolute 2.6 103/mcL Invalid Interpretation Code 0.8 - 3.9 10^3/mcL AO Workflow SS Lymphocytes/100 WBC (Bld) 19.7 % Invalid Interpretation Code 10.0 - 50.0 % AO Workflow SS MCH (RBC) [Entitic mass] 28.9 pg Invalid Interpretation Code 27.0 - 31.2 pg AO Workflow SS MCHC 34.1 G/dL Invalid Interpretation Code 33.0 - 37.0 G/dL AO Workflow SS MCV (RBC) [Entitic vol] 84.7 fL Invalid Interpretation Code 80.0 - 94.0 fL AO Workflow SS Monocyte distribution width Auto (Bld) [Entitic vol] 16.67 Invalid Interpretation Code 0.00 - 20.00 AO Workflow SS Comment on above: Result Comment: For ED adult patients suspected of sepsis, MDW<=20.0 does not rule out sepsis or risk of sepsis Monocyte, Absolute 0.9 103/mcL Invalid Interpretation Code 0.2 - 1.0 10^3/mcL AO Workflow SS Monocytes/100 WBC (Bld) 6.7 % Invalid Interpretation Code 1.7 - 13.0 % AO Workflow SS Neutrophil, Absolute 9.5 103/mcL Invalid Interpretation Code 2.9 - 6.2 10^3/mcL AO Workflow SS Neutrophils/100 WBC (Bld) 72.1 % Invalid Interpretation Code 37.0 - 80.0 % AO Workflow SS Platelet mean volume (Bld) [Entitic vol] 7.4 fL Invalid Interpretation Code 7.4 - 10.4 fL AO Workflow SS Platelets (Bld) [#/Vol] 378 103/mcL Invalid Interpretation Code 130 - 400 10^3/mcL AO Workflow SS test (u) int Not detected Invalid Interpretation Code AO Manual Urine SS RBC (Bld) [#/Vol] 4.76 106/mcL Invalid Interpretation Code 4.20 - 5.40 10^6/mcL AO Workflow SS UA Leuk Est Negative (05/03/23 10:09 PM) Invalid Interpretation Code Negative AO Auto Urine SS UA Mucous 4+ /HPF Invalid Interpretation Code AO Auto Urine SS UA Nitrite Negative (05/03/23 10:09 PM) Invalid Interpretation Code Negative AO Auto Urine SS UA pH 6.0 (05/03/23 10:09 PM) Invalid Interpretation Code 5.0 - 8.0 AO Auto Urine SS UA Protein Negative Invalid Interpretation Code Negativemg /dL AO Auto Urine SS UA RBC None Seen /HPF Invalid Interpretation Code None Seen/HPF AO Auto Urine SS UA Spec Grav >=1.030 *ABN* (05/03/23 10:09 PM) Invalid Interpretation Code 1.015-1.02 5 AO Auto Urine SS UA Specimen Type Clean Catch (05/03/23 10:09 PM) Invalid Interpretation Code AO Auto Urine SS UA Squam Epithelial 5-10 /HPF Invalid Interpretation Code None Seen/HPF AO Auto Urine SS UA Urobilinogen 0.2 E.U./dL Invalid Interpretation Code 0.2-1.0E.U ./dL AO Auto Urine SS WBC (Bld) [#/Vol] 13.2 103/mcL Invalid Interpretation Code 4.6 - 10.8 10^3/mcL AO Workflow SS WBC LM.HPF (Urine sed) [#/Area] 0-5 /HPF Invalid Interpretation Code None Seen/HPF AO Auto Urine SS LABORATORYOrdered By: SYSTEM SYSTEM on 05-03-2023 Calcium [Mass/Vol] 10.0 mg/dL Invalid Interpretation Code 8.4 - 10.2 mg/dL AO ADM SS Chloride [Moles/Vol] 103 mmol/L Invalid Interpretation Code 98 - 107 mmol/L AO ADM SS CO2 [Moles/Vol] 24 mmol/L Invalid Interpretation Code 22 - 29 mmol/L AO ADM SS Creatinine [Mass/Vol] 0.87 mg/dL Invalid Interpretation Code 0.55 - 1.02 mg/dL AO ADM SS Electrolyte Balance 13.0 mEq/L Invalid Interpretation Code 4.0 - 15.0 mEq/L AO ADM SS GFR/1.73 sq M.predicted among blacks MDRD (S/P/Bld) [Vol rate/Area] 100 ml/min/1.73sqm Invalid Interpretation Code AO Chemistry S GFR/1.73 sq M.predicted among non-blacks MDRD (S/P/Bld) [Vol rate/Area] 82 ml/min/1.73sqm Invalid Interpretation Code AO Chemistry S Glucose [Mass/Vol] 83 mg/dL Invalid Interpretation Code 70 - 105 mg/dL AO ADM SS Potassium [Moles/Vol] 3.8 mmol/L Invalid Interpretation Code 3.5 - 5.1 mmol/L AO ADM SS Sodium [Moles/Vol] 140 mmol/L Invalid Interpretation Code 136 - 145 mmol/L AO ADM SS Urea nitrogen [Mass/Vol] 11 mg/dL Invalid Interpretation Code 7 - 18 mg/dL AO ADM SS Urea nitrogen/Creatinine [Mass ratio] 13 ratio Invalid Interpretation Code 7 - 27 ratio AO ADM SS RPRon 04-26-2023 Reagin Ab RPR Ql (S) Non-Reactive Normal Non-Reacti [facility] ([place]) Comment on above: Result Comment: The RPR test is a non-treponemal assay useful as an aid in the diagnosis of primary and secondary syphilis. It converts to positive generally within 2 weeks after the appearance of a lesion. This test is also useful for monitoring response to antibiotic therapy. A positive RPR screening test will be followed by the FTA ABS test. False positive RPR tests may occur in 1) patients with underlying autoimmune disorders, 2) elderly patients, 3) , and 4) other conditions with abnormal serum globulins. Performed By: #### R TX, HCV1, HIV #### [place] [address] HCVon 04-25-2023 Hep C Ab Non-Reactive Normal Non-Reacti ve [facility] ([place]) Comment on above: Performed By: #### R TX, HCV1, HIV #### [place] [address] Hep C Ab Int Normal [facility] ([place]) Comment on above: Result Comment: Nonr eactive: Samples with a value < 0.80 are considered nonreactive (negative) for antibodies to HCV. A negative test result does not exclude the possibility of exposure to or infection with HCV. HCV antibodies may be undetectable in some stages of the infection and in some clinical conditions. See Interp Performed By: #### R TX, HCV1, HIV #### [place] [address] HIVon 04-25-2023 HIV 1/2 Ab Normal Non-Reacti [facility] ([place]) Comment on above: Result Comment: Non- Reactive Specimen is negative for anti-HIV-1 and anti-HIV-2. Performed By: #### R TX, HCV1, HIV #### [place] [address] LABORATORYOrdered By: Manasa Nick on 04-25-2023 HCV Ab IA Ql Non-Reactive (04/25/23 2:21 PM) Invalid Interpretation Code Non-Reacti ve ADM SS HCV Ab IA Ql Nonreactive: Samples with a value < 0.80 are considered nonreactive (negative) for antibodies to HCV.A negative test result does not exclude the possibility of exposure to or infection with HCV. HCV antibodies may be undetectable in some stages of the infection and in some clinical conditions. Invalid Interpretation Code AH Chemistry S HIV 1+2 Ab IA Ql Negative Invalid Interpretation Code Chemistry S HIV 1/2 Ab Non-Reactive (04/25/23 2:21 PM) Invalid Interpretation Code Non-Reacti ve ADM SS LABORATORYOrdered By: Marya Ochoa on 04-25-2023 Trichomonas Vaginalis Amp Source Urine (04/25/23 2:21 PM) Invalid Interpretation Code AO Sendouts SS LABORATORYOrdered By: Pratibha Gutiérrez on 04-25-2023 Trichomonas Vaginalis Amplification No results rece Invalid Interpretation Code AO Sendouts SS TRVAMPon 04-25-2023 Trichomonas Vaginalis Amplification No results rece Normal [facility] ([place]) Comment on above: Performed By: #### T RVAMP #### [address] [address] Trichomonas Vaginalis Amp Source Urine Normal [facility] ([place]) Comment on above: Performed By: #### T RVAMP #### [facility] [address] [place], [place] [address] XR ELBOW MINIMUM 3 VIEWS [facility] 03-16-2023 XR ELBOW MINIMUM 3 VIEWS RIGHT ORIGINAL EXAMINATION: THREE XRAY VIEWS OF THE RIGHT ELBOW 03/16/2023 6:56 pm COMPARISON: None. HISTORY: ORDERING SYSTEM PROVIDED HISTORY: Reason for Exam: Elbow pain. Limited range of motion. FINDINGS: No acute fracture or dislocation. No elevation of the elbow fat pads to suggest effusion. No radiopaque foreign body. IMPRESSION: No acute fracture or dislocation. I have personally reviewed the images of this examination and agree with the resident's findings and interpretation. Interpreted by: Milton Wilburn Preliminary Report By: Dylan Thomas Electronically signed By Milton Wilburn Dictated Date: 03/16/2023 7:01:43 PM Prelim Date: 03/16/2023 7:02:32 PM Sign Date: 03/16/2023 7:10:08 PM Ordering Provider: LIZZETTE SAHU [facility]) XR HAND AND WRIST 6 VIEWS EDVIN [facility] 03-16-2023 XR HAND AND WRIST 6 VIEWS RIGHT ORIGINAL EXAMINATION: 3 XRAY VIEWS OF THE RIGHT HAND AND WRIST each 03/16/2023 6:57 pm COMPARISON: None. HISTORY: ORDERING SYSTEM PROVIDED HISTORY: Reason for Exam: Right hand and wrist pain. FINDINGS: No acute fracture or dislocation. Carpal arcs are maintained. No aggressive osseous lesion. Incidental mild negative ulnar variance. No associated sclerosis or cystic change of the lunate. No radiopaque foreign body. IMPRESSION: No acute osseous abnormality. I have personally reviewed the images of this examination and agree with the resident's findings and interpretation. Interpreted by: Milton Wilburn Preliminary Report By: Dylan Thomas Electronically signed By Milton Wilburn Dictated Date: 03/16/2023 7:03:38 PM Prelim Date: 03/16/2023 7:06:07 PM Sign Date: 03/16/2023 7:11:54 PM Ordering Provider: LIZZETTE SAHU [facility] ([place]) XR SHOULDER MINIMUM 2 VIEWS RIGHTon 03-16-2023 XR SHOULDER MINIMUM 2 VIEWS RIGHT ORIGINAL EXAMINATION: TWO XRAY VIEWS OF THE RIGHT SHOULDER 03/16/2023 6:55 pm COMPARISON: Chest radiograph on 11/11/2022. HISTORY: ORDERING SYSTEM PROVIDED HISTORY: Reason for Exam: Shoulder pain. Limited range of motion. FINDINGS: No acute fracture or dislocation. Humeral head is seated appropriately within the glenoid. Coracoclavicular and acromioclavicular spaces are maintained. No acute abnormality in the included thoracic structures. IMPRESSION: No fracture or dislocation. I have personally reviewed the images of this examination and agree with the resident's findings and interpretation. Interpreted by: Milton Wilburn Preliminary Report By: Dylan Thomas Electronically signed By Milton Wilburn Dictated Date: 03/16/2023 7:02:40 PM Prelim Date: 03/16/2023 7:03:31 PM Sign Date: 03/16/2023 7:10:38 PM Ordering Provider: LIZZETTE SAHU [facility] ([place]) Filter Press Supervisor Cytology Reporton 2022 Filter Press Supervisor Cytology Report . Pathology Reports Accession: Collected Date/Time: Received Date/Time: Pathologist: [id number] 02/26/2023 09:09 EDT 02/26/2023 18:00 EDT Filter Press Supervisor Cytology Report SPECIMEN: Specimen Description: Liquid Prep Reflex ASCUS+ Specimen: Cervical/Endocervical Screening or Diagnostic: Screening RELEVANT HISTORY: LMP: 01/12/2023 : Yes SPECIMEN ADEQUACY: SATISFACTORY FOR EVALUATION Endocervical/Transformational zone component present INTERPRETATION/RESULTS: NEGATIVE FOR INTRAEPITHELIAL LESION OR MALIGNANCY COMMENT: This Pap Test was successfully processed and evaluated with the assistance of the [employer] Test Imaging System. Electronically Signed by Pathology report verified by [facility] Screened by: YUNG Electronically signed by Sobia MCKEON (ASCP) Sign-Out Date: 03/05/2023 12:53 Performing Lab: [facility], [address] [place] [address] Pathology Dept Disclaimer The Pap test is a screening test for cervical cancer. As evidenced by published data, it is subject to both inherent false negative and false positive results. Your patient's results should be interpreted in context with pertinent clinical history including gynecological examination. Normal [facility] ([place]) CTPCRon 02-28-2023 C. trachomatis Interp Normal See CT Interp N [facility] ([place]) Comment on above: Result Comment: C. t rachomatis DNA not detected. Specimen is presumptive negative for C. trachomatis. A negative result does not preclude C. trachomatis infection because results depend on adequate specimen collection, absence of inhibitors, and sufficient DNA to be detected. See CT Interp N Performed By: #### T RVAMP #### [address] [address] C.trachomatis PCR Negative Normal Negative [facility] ([place]) Comment on above: Result Comment: Valadez sport tube received with two swabs. Review collection procedure. Inappropriate collection may cause aberrant results. Molecular (PCR) assay performed on the Op[employer] Roselia 4800 system. Performed By: #### T RVAMP #### [address] [address] Chlam Source Cervix Normal [facility] ([place]) Comment on above: Performed By: #### T RVAMP #### [address] [address] [id number] 02-28-2023 GC PCR Source Cervix Normal [facility] ([place]) Comment on above: Performed By: #### T RVAMP #### [address] [address] N. gonorrhoeae (PCR) Negative Normal Negative [facility] ([place]) Comment on above: Result Comment: Valadez sport tube received with two swabs. Review collection procedure. Inappropriate collection may cause aberrant results. Molecular (PCR) assay performed on the [employer] 4800 System. Performed By: #### T RVAMP #### [address] [address] N. gonorrhoeae Interp Normal See NG Interp N [facility] ([place]) Comment on above: Result Comment: N. g onorrhoeae DNA not detected. Specimen is presumptive negative for N. gonorrhoeae. A negative result does not preclude Neisseria gonorrhoeae infection because results depend on adequate specimen collection, absence of inhibitors, and sufficient DNA to be detected. See NG Interp N Performed By: #### T RVAMP #### R[address] [place], [place] [address] LABORATORYOrdered By: Maria Dolores Albarado on 02-26-2023 C. trachomatis DNA APRIL+probe Ql (Unsp spec) Negative 2 (02/26/23 9:09 AM) Invalid Interpretation Code Negative Auto Viro/Sero SS Comment on above: Result Comment: Valadez sport tube received with two swabs. Review collection procedure. Inappropriate collection may cause aberrant results. C. trachomatis DNA APRIL+probe Ql (Unsp spec) C. trachomatis DNA not detected. Specimen is presumptive negative forC. trachomatis.A negative result does not preclude C. trachomatis infection becauseresults depend on adequate specimen collection, absence of inhibitors,and sufficient DNA to be detected. Invalid Interpretation Code See CT Interp N Auto Viro/Sero SS N. gonorrhoeae DNA APRIL+probe Ql (Unsp spec) Negative 1 (02/26/23 9:09 AM) Invalid Interpretation Code Negative AH Auto Viro/Sero SS Comment on above: Result Comment: Valadez sport tube received with two swabs. Review collection procedure. Inappropriate collection may cause aberrant results. N. gonorrhoeae DNA APRIL+probe Ql (Unsp spec) N. gonorrhoeae DNA not detected. Specimen is presumptive negative forN. gonorrhoeae. A negative result does not preclude Neisseria gonorrhoeaeinfection because results depend on adequate specimen collection, absenceof inhibitors, and sufficient DNA to be detected. Invalid Interpretation Code See NG Interp N Auto Viro/Sero SS Laboratory - Specimen inform ationOrdered By: Maria Dolores Albarado on 02-26-2023 Specimen source Nom (Unsp spec) Cervix (02/26/23 9:09 AM) Invalid Interpretation Code AH Auto Viro/Sero SS XR Elbow - right AP and Late ral and obliqueon 01-30-2023 IMPRESSION: No acute abnormalities. Computer Drafter: PSCB Transcribe Date/Time: Jan 30 2023 9:19A Dictated by : ELEN LOZA MD This examination was interpreted and the report reviewed and electronically signed by: ELEN LOZA MD on Jan 30 2023 9:20AM EST [facility] * * *Final Report* * * DATE OF EXAM: Jan 30 2023 9:05AM RMX 5325 - XR ELBOW 3V AP/LAT/OTHER RT / PROCEDURE REASON: Pain in joint of right elbow * * * * Physician Interpretation * * * * XR ELBOW 3V AP/LAT/OTHER RT Ordering Physician: STEVE ELLSWORTH 01/30/2023 9:05 AM RIGHT ELBOW Clinical Statement: Elbow pain after injury FINDINGS: 4 views of the right elbow were obtained. There were no prior studies available for comparison. The fat pads are within normal limits. There are no acute fractures. The joint spaces are maintained. [facility] Provider, Kashif Rodgers - 01/30/2023 * * *Final Report* * * DATE OF EXAM: Jan 30 2023 9:05AM RMX 5325 - XR ELBOW 3V AP/LAT/OTHER RT / PROCEDURE REASON: Pain in joint of right elbow * * * * Physician Interpretation * * * * XR ELBOW 3V AP/LAT/OTHER RT Ordering Physician: STEVE ELLSWORTH 01/30/2023 9:05 AM RIGHT ELBOW Clinical Statement: Elbow pain after injury FINDINGS: 4 views of the right elbow were obtained. There were no prior studies available for comparison. The fat pads are within normal limits. There are no acute fractures. The joint spaces are maintained. IMPRESSION IMPRESSION: No acute abnormalities. Computer Drafter: PSCB Transcribe Date/Time: Jan 30 2023 9:19A Dictated by : ELEN LOZA MD This examination was interpreted and the report reviewed and electronically signed by: ELEN LOZA MD on Jan 30 2023 9:20AM EST [facility] Radiology Study observation (narrative) [facility] XR Elbow - right AP and Late ral and obliqueOrdered By: Ccf Provider on 01-30-2023 [facility] .Auto Diffon 11-26-2022 Basophil, Absolute 0.0 10 3/mcL Normal 0.0-0.2 [facility] ([place]) Comment on above: Performed By: #### T RVAMP #### [address] [address] Basophils/100 WBC (Bld) 0.3 % Normal 0.0-2.5 [facility] ([place]) Comment on above: Performed By: #### T RVAMP #### [address] [address] Eosinophil, Absolute 0.1 10 3/mcL Normal 0.0-0.4 [facility] ([place]) Comment on above: Performed By: #### T RVAMP #### [address] [address] Eosinophils/100 WBC (Bld) 0.7 % Normal 0.0-7.0 [facility] ([place]) Comment on above: Performed By: #### T RVAMP #### [address] [address] Lymphocyte, Absolute 2.2 10 3/mcL Normal 0.8-3.9 [facility] ([place]) Comment on above: Performed By: #### T RVAMP #### [address] [address] Lymphocytes/100 WBC (Bld) 19.7 % Normal 10.0-50.0 [facility] ([place]) Comment on above: Performed By: #### T RVAMP #### [address] [address] Monocyte, Absolute 0.5 10 3/mcL Normal 0.2-1.0 [facility] ([place]) Comment on above: Performed By: #### T RVAMP #### [address] [address] Monocytes/100 WBC (Bld) 4.4 % Normal 1.7-13.0 [facility] ([place]) Comment on above: Performed By: #### T RVAMP #### [address] [address] Neutrophils/100 WBC (Bld) 74.9 % Normal 37.0-80.0 [facility] ([place]) Comment on above: Performed By: #### T RVAMP #### Renee Chamberlain [address] [place], [place] [address] .GFRon 11-26-2022 GFR 121 ml/min/1.73sqm Normal [facility] ([place]) Comment on above: Result Comment: GFR Population mean for , Non- Americans Ages 20-29 = 116 mL/min/1.73 sq.m. Ages 30-39 = 107 mL/min/1.73 sq.m. Ages 40-49 = 99 mL/min/1.73 sq.m. Ages 50-59 = 93 mL/min/1.73 sq.m. Ages 60-69 = 85 mL/min/1.73 sq.m. Ages 70+ = 75 mL/min/1.73 sq.m. Chronic Kidney Disease: Less than 60 mL/min/1.73 square meters End Stage Renal Disease: Less than 15 mL/min/1.73 square meters Performed By: #### R TX, HCV1, HIV #### [address] [address] GFR Non- 100 ml/min/1.73sqm Normal [facility] ([place]) Comment on above: Result Comment: GFR Population mean for , Non- Americans Ages 20-29 = 116 mL/min/1.73 sq.m. Ages 30-39 = 107 mL/min/1.73 sq.m. Ages 40-49 = 99 mL/min/1.73 sq.m. Ages 50-59 = 93 mL/min/1.73 sq.m. Ages 60-69 = 85 mL/min/1.73 sq.m. Ages 70+ = 75 mL/min/1.73 sq.m. Chronic Kidney Disease: Less than 60 mL/min/1.73 square meters End Stage Renal Disease: Less than 15 mL/min/1.73 square meters Performed By: #### R TX, HCV1, HIV #### [address] [address] .NEUABSon 11-26-2022 Neutrophil, Absolute 8.4 10 3/mcL High 2.9-6.2 [facility] ([place]) Comment on above: Performed By: #### T RVAMP #### [address] [address] A1Con 11-26-2022 HbA1c (Bld) [Mass fraction] 5.3 % Normal 4.3-6.4 [facility] ([place]) Comment on above: Performed By: #### R TX, HCV1, HIV #### [facility] [address] [place] [address] CBCon 11-26-2022 Erythrocyte distribution width (RBC) [Ratio] 13.2 % Normal 11.5-14.5 [facility] ([place]) Comment on above: Performed By: #### T RVAMP #### [address] [address] Hematocrit (Bld) [Volume fraction] 35.8 % Low 37.0-47.0 [facility] ([place]) Comment on above: Performed By: #### T RVAMP #### [address] [address] Hgb 12.0 G/dL Normal 12.0-16.0 [facility] ([place]) Comment on above: Performed By: #### T RVAMP #### [address] [address] MCH (RBC) [Entitic mass] 28.1 pg Normal 27.0-31.2 [facility] ([place]) Comment on above: Performed By: #### T RVAMP #### [address] [address] MCHC 33.5 G/dL Normal 33.0-37.0 [facility] ([place] Comment on above: Performed By: #### T RVAMP #### [address] [address] MCV (RBC) [Entitic vol] 83.9 fL Normal 80.0-94.0 [facility] ([place]) Comment on above: Performed By: #### T RVAMP #### [address] [address] Platelet 414 10 3/mcL High 130-400 [facility] ([place]) Comment on above: Performed By: #### T RVAMP #### [place] [address] [place], [place] [address] Platelet mean volume (Bld) [Entitic vol] 7.4 fL Normal 7.4-10.4 [facility] ([place]) Comment on above: Performed By: #### T RVAMP #### [place] [address] [place], [place] [address] RBC 4.27 10 6/mcL Normal 4.20-5.40 [facility] ([place]) Comment on above: Performed By: #### T RVAMP #### [address] [address] WBC 11.3 10 3/mcL High 4.6-10.8 [facility] ([place] Comment on above: Performed By: #### T RVAMP #### [address] [address] CMPon 11-26-2022 Albumin Level 3.7 G/dL Normal 3.5-5.0 [facility] ([place]) Comment on above: Performed By: #### R TX, HCV1, HIV #### [address] [address] Albumin/Globulin [Mass ratio] 1.0 {ratio} Low 1.1-2.5 [facility] ([place]) Comment on above: Performed By: #### R TX, HCV1, HIV #### [address] [address] ALP [Catalytic activity/Vol] 107 U/L Normal 40-135 [facility] ([place]) Comment on above: Performed By: #### R TX, HCV1, HIV #### [facility] [address] [place] [address] ALT [Catalytic activity/Vol] 36 U/L Normal 14-59 [facility] ([place]) Comment on above: Performed By: #### R TX, HCV1, HIV #### [facility] [address] [place] [address] AST [Catalytic activity/Vol] 19 U/L Normal 10-40 [facility] ([place]) Comment on above: Performed By: #### R TX, HCV1, HIV #### [address] [address] Bili Total 0.3 mg/dL Normal 0.2-1.0 [facility] ([place]) Comment on above: Result Comment: Use of this assay is not recommended for patients undergoing treatment with eltrombopag due to the potential for falsely elevated results. Performed By: #### R TX, HCV1, HIV #### [place] [id number] BUN/Creatinine Ratio 15 ratio Normal 7-27 [facility] ([place]) Comment on above: Performed By: #### R TX, HCV1, HIV #### [place] [id number] Calcium [Mass/Vol] 9.1 mg/dL Normal 8.4-10.2 [facility] ([place]) Comment on above: Performed By: #### R TX, HCV1, HIV #### [place] [id number] Chloride [Moles/Vol] 103 mmol/L Normal 98-107 [facility] ([place]) Comment on above: Performed By: #### R TX, HCV1, HIV #### [place] [id number] CO2 [Moles/Vol] 25 mmol/L Normal 22-29 [facility] ([place]) Comment on above: Performed By: #### R TX, HCV1, HIV #### [place] [id number] Creatinine [Mass/Vol] 0.74 mg/dL Normal 0.55-1.02 [facility] ([place]) Comment on above: Performed By: #### R TX, HCV1, HIV #### [place] [id number] Electrolyte Balance 10.0 mEq/L Normal 4.0-15.0 [facility] ([place]) Comment on above: Performed By: #### R TX, HCV1, HIV #### [place] [id number] Globulin 3.6 G/dL Normal [facility] ([place] Comment on above: Performed By: #### R TX, HCV1, HIV #### [address] [address] Glucose [Mass/Vol] 115 mg/dL High 70-105 [facility] ([place]) Comment on above: Performed By: #### R TX, HCV1, HIV #### [address] [address] Potassium [Moles/Vol] 4.3 mmol/L Normal 3.5-5.1 [facility] ([place]) Comment on above: Performed By: #### R TX, HCV1, HIV #### [address] [address] Sodium [Moles/Vol] 138 mmol/L Normal 136-145 [facility] ([place]) Comment on above: Performed By: #### R TX, HCV1, HIV #### [place] [address] Total Protein 7.3 G/dL Normal 6.4-8.2 [facility] ([place]) Comment on above: Performed By: #### R TX, HCV1, HIV #### [place] [id number] Urea nitrogen [Mass/Vol] 11 mg/dL Normal 7-18 [facility] ([place]) Comment on above: Performed By: #### R TX, HCV1, HIV #### [address] [address] FESon 11-26-2022 Iron [Mass/Vol] 42 ug/dL Low 50-170 [facility] ([place]) Comment on above: Performed By: #### R TX, HCV1, HIV #### [address] [address] Iron Sat 9 % Normal [facility] ([place]) Comment on above: Performed By: #### R TX, HCV1, HIV #### [place] [id number] TIBC 457 mcg/dL High 250-450 [facility] ([place]) Comment on above: Performed By: #### R TX, HCV1, HIV #### [facility] [address] [place] [address] FT4on 11-26-2022 Free T4 [Mass/Vol] 1.20 ng/dL Normal 0.76-1.46 [facility] ([place]) Comment on above: Performed By: #### R TX, HCV1, HIV #### [address] [address] LABORATORYOrdered By: SYSTEM SYSTEM on 11-26-2022 Albumin BCP dye [Mass/Vol] 3.7 G/dL Invalid Interpretation Code 3.5 - 5.0 G/dL AO ADM SS Albumin/Globulin [Mass ratio] 1.0 {ratio} Invalid Interpretation Code 1.1 - 2.5 ratio AO ADM SS ALP [Catalytic activity/Vol] 107 U/L Invalid Interpretation Code 40 - 135 U/L AO ADM SS ALT With P-5'-P [Catalytic activity/Vol] 36 U/L Invalid Interpretation Code 14 - 59 U/L AO ADM SS AST With P-5'-P [Catalytic activity/Vol] 19 U/L Invalid Interpretation Code 10 - 40 U/L AO ADM SS Bilirubin [Mass/Vol] 0.3 mg/dL Invalid Interpretation Code 0.2 - 1.0 mg/dL AO ADM SS Calcium [Mass/Vol] 9.1 mg/dL Invalid Interpretation Code 8.4 - 10.2 mg/dL AO ADM SS Chloride [Moles/Vol] 103 mmol/L Invalid Interpretation Code 98 - 107 mmol/L AO ADM SS CO2 [Moles/Vol] 25 mmol/L Invalid Interpretation Code 22 - 29 mmol/L AO ADM SS Creatinine [Mass/Vol] 0.74 mg/dL Invalid Interpretation Code 0.55 - 1.02 mg/dL AO ADM SS Electrolyte Balance 10.0 mEq/L Invalid Interpretation Code 4.0 - 15.0 mEq/L AO ADM SS Free T4 [Mass/Vol] 1.20 ng/dL Invalid Interpretation Code 0.76 - 1.46 ng/dL AO ADM SS GFR 121 ml/min/1.73sqm Invalid Interpretation Code AO Chemistry S GFR Non- 100 ml/min/1.73sqm Invalid Interpretation Code AO Chemistry S Globulin 3.6 G/dL Invalid Interpretation Code AO ADM SS Glucose [Mass/Vol] 115 mg/dL Invalid Interpretation Code 70 - 105 mg/dL AO ADM SS HbA1c (Bld) [Mass fraction] 5.3 % Invalid Interpretation Code 4.3 - 6.4 % AO ADM SS Iron [Mass/Vol] 42 ug/dL Invalid Interpretation Code 50 - 170 mcg/dL AO ADM SS Iron binding capacity [Mass/Vol] 457 mcg/dL Invalid Interpretation Code 250 - 450 mcg/dL AO ADM SS Iron Sat 9 1 Invalid Interpretation Code AO ADM SS Potassium [Moles/Vol] 4.3 mmol/L Invalid Interpretation Code 3.5 - 5.1 mmol/L AO ADM SS Protein [Mass/Vol] 7.3 G/dL Invalid Interpretation Code 6.4 - 8.2 G/dL AO ADM SS Sodium [Moles/Vol] 138 mmol/L Invalid Interpretation Code 136 - 145 mmol/L AO ADM SS TSH Qn 1.47 m[IU]/L Invalid Interpretation Code 0.36 - 3.74 mcIU/mL AO ADM SS Urea nitrogen [Mass/Vol] 11 mg/dL Invalid Interpretation Code 7 - 18 mg/dL AO ADM SS Urea nitrogen/Creatinine [Mass ratio] 15 ratio Invalid Interpretation Code 7 - 27 ratio AO ADM SS Vit. D 25-Hydroxy 19.8 ng/mL Invalid Interpretation Code AO ADM SS LABORATORYOrdered By: Zoya Cuenca on 11-26-2022 Basophil, Absolute 0.0 103/mcL Invalid Interpretation Code 0.0 - 0.2 10^3/mcL AO Workflow SS Basophils/100 WBC (Bld) 0.3 % Invalid Interpretation Code 0.0 - 2.5 % AO Workflow SS Eosinophil, Absolute 0.1 103/mcL Invalid Interpretation Code 0.0 - 0.4 10^3/mcL AO Workflow SS Eosinophils/100 WBC (Bld) 0.7 % Invalid Interpretation Code 0.0 - 7.0 % AO Workflow SS Erythrocyte distribution width (RBC) [Ratio] 13.2 % Invalid Interpretation Code 11.5 - 14.5 % AO Workflow SS Hematocrit (Bld) [Volume fraction] 35.8 % Invalid Interpretation Code 37.0 - 47.0 % AO Workflow SS Hemoglobin (Bld) [Mass/Vol] 12.0 G/dL Invalid Interpretation Code 12.0 - 16.0 G/dL AO Workflow SS Lymphocyte, Absolute 2.2 103/mcL Invalid Interpretation Code 0.8 - 3.9 10^3/mcL AO Workflow SS Lymphocytes/100 WBC (Bld) 19.7 % Invalid Interpretation Code 10.0 - 50.0 % AO Workflow SS MCH (RBC) [Entitic mass] 28.1 pg Invalid Interpretation Code 27.0 - 31.2 pg AO Workflow SS MCHC 33.5 G/dL Invalid Interpretation Code 33.0 - 37.0 G/dL AO Workflow SS MCV (RBC) [Entitic vol] 83.9 fL Invalid Interpretation Code 80.0 - 94.0 fL AO Workflow SS Monocyte, Absolute 0.5 103/mcL Invalid Interpretation Code 0.2 - 1.0 10^3/mcL AO Workflow SS Monocytes/100 WBC (Bld) 4.4 % Invalid Interpretation Code 1.7 - 13.0 % AO Workflow SS Neutrophil, Absolute 8.4 103/mcL Invalid Interpretation Code 2.9 - 6.2 10^3/mcL AO Workflow SS Neutrophils/100 WBC (Bld) 74.9 % Invalid Interpretation Code 37.0 - 80.0 % AO Workflow SS Platelet mean volume (Bld) [Entitic vol] 7.4 fL Invalid Interpretation Code 7.4 - 10.4 fL AO Workflow SS Platelets (Bld) [#/Vol] 414 103/mcL Invalid Interpretation Code 130 - 400 10^3/mcL AO Workflow SS RBC (Bld) [#/Vol] 4.27 106/mcL Invalid Interpretation Code 4.20 - 5.40 10^6/mcL AO Workflow SS WBC (Bld) [#/Vol] 11.3 103/mcL Invalid Interpretation Code 4.6 - 10.8 10^3/mcL AO Workflow SS LABORATORYOrdered By: Pratibha Gonsalez on 11-26-2022 Cholesterol [Mass/Vol] 188 mg/dL Invalid Interpretation Code 0 - 200 mg/dL AO ADM SS Cholesterol in HDL [Mass/Vol] 45 mg/dL Invalid Interpretation Code 40 - 60 mg/dL AO ADM SS Cholesterol in LDL [Mass/Vol] 114 mg/dL Invalid Interpretation Code 0 - 130 mg/dL AO ADM SS Triglyceride [Mass/Vol] 146 mg/dL Invalid Interpretation Code 0 - 150 mg/dL AO ADM SS LABORATORYOrdered By: Katerina Torrez on 11-26-2022 HCG ( test) Ql (U) Negative (11/26/22 4:39 PM) Invalid Interpretation Code AO Rapid Testing SS test (s) int Not detected Invalid Interpretation Code AO Rapid Testing SS LIPIDon 11-26-2022 Cholesterol [Mass/Vol] 188 mg/dL Normal 0-200 [facility] ([place]) Comment on above: Result Comment: Chol esterol Reference Interval: Less than 200 Desirable 200-239 Borderline high risk 240 and above High risk Performed By: #### R TX, HCV1, HIV #### [address] [address] Cholesterol in HDL [Mass/Vol] 45 mg/dL Normal 40-60 [facility] ([place]) Comment on above: Performed By: #### R TX, HCV1, HIV #### [address] [address] Cholesterol in LDL [Mass/Vol] 114 mg/dL Normal 0-130 [facility] ([place]) Comment on above: Performed By: #### R TX, HCV1, HIV #### [address] [address] Triglyceride [Mass/Vol] 146 mg/dL Normal 0-150 [facility] ([place]) Comment on above: Result Comment: Trig lyceride Reference Interval: Less than 150 Normal 150-199 Borderline high risk 200-499 High risk 500 or higher Very high risk Performed By: #### R TX, HCV1, HIV #### [address] [address] PREGSon 11-26-2022 test (s) Negative Normal [facility] ([place]) Comment on above: Performed By: #### T RVAMP #### [address] [address] test (s) int Not detected Invalid Interpretation Code [facility] ([place]) Comment on above: Performed By: #### T RVAMP #### [address] [address] TSHon 11-26-2022 TSH Qn 1.47 m[IU]/L Normal 0.36-3.74 [facility] ([place]) Comment on above: Performed By: #### R TX, HCV1, HIV #### [place] [id number] VIDHon 11-26-2022 Vit. D 25-Hydroxy 19.8 ng/mL Normal [facility] ([place]) Comment on above: Result Comment: Inte rpretive Values Based on Total 25(OH) Vitamin D: Deficient <20 ng/mL Insufficient 20 - <30 ng/mL Sufficient 30-100 ng/mL Performed By: #### R TX, HCV1, HIV #### [facility] [address] [place] [address] XR CHEST 2 VIEWSon 3 XR CHEST 2 VIEWS ORIGINAL EXAMINATION: TWO XRAY VIEWS OF THE CHEST11/11/2022 10:10 am COMPARISON: 04/26/2022 HISTORY: ORDERING SYSTEM PROVIDED HISTORY: Reason for Exam: Chest Pain FINDINGS: The heart size is normal. There is no pulmonary consolidation. No pneumothorax or pleural effusion. No aggressive osseous lesions identified. IMPRESSION: No acute radiographic findings. Interpreted by: Stephen Christina MD Preliminary Report By: Stephen Christina MD Electronically signed By Stephen Christina MD Dictated Date: 11/11/2022 10:18:42 AM Prelim Date: 11/11/2022 10:19:13 AM Sign Date: 11/11/2022 10:19:13 AM Ordering Provider: STEPHEN VOGEL Normal [facility] ([place]) Hepatitis B Surf AB - EMPon 09-03-2022 HEP B Surf Ab Non-Reactive Normal [facility] Comment on above: Result Comment: Non Reactive: Inconsistent with immunity less than <10 mIU/mL Reactive: Consistent with immunity greater than or equal to 10 mIU/mL Performed By: #### L 3100.0539 #### [facility] [address] [place], [address] JSon 12-17-2021 [facility] REPORT Normal [facility] DATE OF SERVICE: 05/2022 HISTORY OF PRESENT ILLNESS: This is a 20-year-old female, apparently says that She has a 2-day duration of sore throat, ear pain, congestion, feels kind of clogged up. She is not vaccinated for COVID. No fever, no cough, no body aches, no obvious exposure. She wants to see if she has an ear infection or other causes that could cause this. PAST MEDICAL HISTORY: History of depression, wisdom tooth surgery. SOCIAL HISTORY: No alcohol or smoking. FAMILY HISTORY: Noncontributory. ALLERGIES: BLUE DYE. CURRENT MEDICATIONS: 1. BuSpar. 2. Lexapro. 3. Depo shot. REVIEW OF SYSTEMS: Sore throat, ear discomfort Described pain, congestion. Rates the pain 7-8. [facility] PATIENT NAME: [facility]ES [facility] REC #: [id number] [place] [id number] [facility] PHYSICIAN PHYSICAL EXAMINATION: She looks well though. TMs are normal despite her pain. There is no external auditory canal infection, obstruction. There are no signs of acute otitis media. Normal pharynx. Nasally congested. Clear rhinorrhea. No tender cervical lymphadenopathy. No signs of strep throat. Lungs are clear. Cardiovascular regular rate and rhythm. Diagnosis of viral syndrome. I did offer her respiratory panel through the right nasopharynx. She agreed with this. We will let her know if she does have a virus or possibly COVID based on her symptoms. I told her to quarantine until further notice. Supportive measures are recommended. I did not see any findings to warrant an antibiotic, and she will follow up as needed. Agustín Jerome MD /[id number] [facility] PATIENT NAME: RAMIRO NAPOLES Kylie Pacheco MEDICAL REC #: [id number] [place] [address] [facility]YSICIAN SSI File#: [id number] END OF DOCUMENT / CHANGE LOG FOLLOWS Last Edited By Elec. Signed By Roxanne Jerome MD #IBRKH Roxanne Jerome MD #IBRKH on 12/20/2021 07:50 ET on 12/20/2021 07:50 ET Revision Number - 2 Verified/Reviewed by 12/20/21 0750 [address] [facility] PATIENT NAME: RAMIRO NAPOLES [address] Pacheco MEDICAL REC #: [id number] [place] [address] [facility]ICIAN Normal [facility] RESP/COVID PCRon 12-17-2021 ADENOVIRUS PCR Not detected Normal NOT DETECTD [facility] Comment on above: Order Comment: Rafaela s: ALEJANDRA Performed By: #### L [id number] #### [facility] [address] [place] [address] B PARA PCR Not detected Normal NOT DETECTD [facility] Comment on above: Order Comment: Rafaela s: AliyaK Performed By: #### L [id number] #### [facility] [address] [place] [address] B PERTUSSIS PCR Not detected Normal NOT DETECTD [facility] Comment on above: Order Comment: Rafaela sol: AliyaK Performed By: #### L [id number] #### [facility] [address] [place] [address] C PNEUMONIA PCR Not detected Normal NOT DETECTD [facility] Comment on above: Order Comment: Rafaela sol: AliyaK Performed By: #### L [id number] #### [facility] [address] [place] [address] CORONAVIR 229E Not detected Normal NOT DETECTD [facility] Comment on above: Order Comment: Rafaela sol: ALEJANDRA Performed By: #### L [id number] #### [facility] [address] [place] [address] CORONAVIR HKU1 Not detected Normal NOT DETECTD [facility] Comment on above: Order Comment: Rafaela sol: ALEJANDRA Performed By: #### L [id number] #### [facility] [address] [place] [address] CORONAVIR NL63 Not detected Normal NOT DETECTD [facility] Comment on above: Order Comment: Rafaela sol: ALEJANDRA Performed By: #### L [id number] #### [facility] [address] [place] [address] CORONAVIR OC43 Not detected Normal NOT DETECTD [facility] Comment on above: Order Comment: Rafaela sol: ALEJANDRA Performed By: #### L [id number] #### [facility] [address] [place] [address] FLU A NO SUBTYP Not detected Normal NOT DETECTD [facility] Comment on above: Order Comment: Rafaela sol: ALEJANDRA Performed By: #### L [id number] #### [facility] [address] [place] [address] HUMAN METAPNEUM Not detected Normal NOT DETECTD [facility] Comment on above: Order Comment: Rafaela sol: ALEJANDRA Performed By: #### L [id number] #### [facility] [address] [place] [address] INFLUENZA A H1 Not detected Normal NOT DETECTD [facility] Comment on above: Order Comment: Rafaela sol: ALEJANDRA Performed By: #### L 770.16833 #### [facility] [address] [place] [address] INFLUENZA A H3 Not detected Normal NOT DETECTD [facility] Comment on above: Order Comment: Rafaela sol: ALEJANDRA Performed By: #### L 770.97728 #### [facility] [place] [address] INFLUENZA B PCR Not detected Normal NOT DETECTD [facility] Comment on above: Order Comment: Rafaela sol: ALEJANDRA Performed By: #### L 770.33765 #### [facility] [address] [place] [address] M PNEUMONIA PCR Not detected Normal NOT DETECTD [facility] Comment on above: Order Comment: Rafaela sol: ALEJANDRA Performed By: #### L 770.27356 #### [facility] [address] [place] [address] PARAINFLUENZA 1 Not detected Normal NOT DETECTD [facility] Comment on above: Order Comment: Rafaela sol: ALEJANDRA Performed By: #### L 770.47802 #### [facility] [address] [place] [address] PARAINFLUENZA 2 Not detected Normal NOT DETECTD [facility] Comment on above: Order Comment: Rafaela sol: ALEJANDRA Performed By: #### L 770.89338 #### [facility] [address] [place] [address] PARAINFLUENZA 3 Not detected Normal NOT DETECTD [facility] Comment on above: Order Comment: Campu s: JK Performed By: #### L 770.53299 #### [facility] [address] [place] [address] PARAINFLUENZA 4 Not detected Normal NOT DETECTD [facility] Comment on above: Order Comment: Rafaela s: JK Performed By: #### L 770.45820 #### [facility] [address] [place], [place] [address] RHINO/ENTERO Not detected Normal NOT DETECTD [facility] Comment on above: Order Comment: Rafaela s: JK Performed By: #### L 770.61160 #### [facility] [address] [place] [address] RSV Not detected Normal NOT DETECTD [facility] Comment on above: Order Comment: Rafaela s: JK Performed By: #### L 770.89640 #### [facility] [address] [place] [address]# [phone] SARS-CoV-2 (COVID-19) RNA APRIL+probe Ql (Unsp spec) Not detected Normal NOT DETECTD [facility] Comment on above: Order Comment: Rafaela sol: ALEJANDRA Result Comment: Nega tive results do not preclude SARS-CoV-2 infection and should not be used as the sole basis for treatment or other patient management decisions. Negative results must be combined with clinical observation, patient history, and epidemiological information. This test was performed by PCR. Performed By: #### L 770.35942 #### [facility] [address] [place], [place] [address] [facility] 11-08-2021 [facility] REPORT Normal [facility] DATE OF SERVICE: REASON FOR VISIT: Back pain. HISTORY OF PRESENT ILLNESS: This is a 20-year-old female who fell down at home on the stairs 2 weeks ago. She hit her back on the edge of the steps. Since then, she has been having this back pain. She did not get herself checked at that time, but since then the pain has been persistent. She also has some pain in the right shoulder blade area. She can walk, but it hurts. No tingling, numbness or weakness. No radiation of the pain. No breathing difficulty. REVIEW OF SYSTEMS: Normal. ALLERGIES: BLUE DYE. MEDICATIONS: 1. Lexapro. 2. Buspirone. 3. Depo-Provera. 4. PHYSICAL EXAMINATION: She is awake, alert, not in distress, no dyspnea. Temperature is 98.6, blood pressure 122/79, pulse 80, respirations 18, pulse oximetry 99%. Pain score is 9/10 but does not correlate with the clinical appearance. HEENT: [facility] PATIENT NAME: RAMIRO NAPOLES [address] [facility] [address] Pacheco MEDICAL REC #: [id number] [place] [address] [facility] RE[facility] Unremarkable. Chest: Clear to auscultation. Heart: Regular rate and rhythm. On exam of the back, she has tenderness along the upper and mid thoracic spine, but no deformity. No significant tenderness in the paraspinal area. No significant tenderness of the right scapula. Shoulder motions are normal. Neurovascular status is normal. Sensation normal. Examination of the thoracic spine does not show any acute tenderness or injury. ASSESSMENT: Thoracic spine. PLAN: Discussed the findings with the patient in detail. She says her symptoms have been going on for the last 2 weeks. I decided to treat her with a Medrol Dosepak as directed, 1 pack with no refills, and Flexeril 10 mg at bedtime, 14 tablets with no refills. She should not do any heavy duty. Use ice pack or heating pad. Tylenol as needed. She needs to see orthopedics for further evaluation and care if there is no improvement. I advised her to go to [facility] if there is no improvement. The patient understands and agrees. Steve Ellsworth MD /[id number] [facility] PATIENT NAME: RAMIRO NAPOLES Kylie Pacheco MEDICAL REC #: [id number] [place] [address] [facility] REPORT [facility]YSICIAN S[facility] File#: [id number] END OF DOCUMENT / CHANGE LOG FOLLOWS Last Edited By Elec. Signed By Steve Ellsworth MD #PAWPR Steve Ellsworth MD #PAWPR on 11/14/2021 14:54 ET on 11/14/2021 14:54 ET Revision Number - 2 Verified/Reviewed by 11/14/21 1455 PAWPR [facility] PATIENT NAME: RAMIRO NAPOLES Kylie Pacheco MEDICAL REC #: [id number] [place] [address] [facility] RE[facility]YSICIAN Normal [facility] [place] THORACIC SPINE 3 VIEWSon THORACIC SPINE 3 VIEWS THORACIC SPINE 3 VIEWS Ordering Physician: Steve Ellsworth MD 11/08/2021 5:09 PM THORACIC SPINE SERIES 3 VIEWS Clinical Statement: Pain status post injury. FINDINGS: No fractures identified. The alignment is normal. No paraspinal soft tissue swelling. No significant degenerative change. IMPRESSION: No osseous abnormality This report was electronically signed by Daphnie Noguera MD 11/09/2021 6:39 AM Reported By: DAPHNIE NOGUERA M.D. Signed By: DAPHNIE NOGUERA M.D. [facility] REPORT Normal [facility] DATE OF SERVICE: HISTORY OF PRESENT ILLNESS: The patient is a 20-year-old female presenting to [facility] today for cough, congestion, bilateral ear pain, and having some chest tightness, shortness of breath. Symptoms originally started 2 weeks ago. No known COVID exposure. She reports that she has done 2 rapid COVID tests at home which both came back negative. There have been no fevers. No nausea, vomiting, or diarrhea. PAST MEDICAL HISTORY: Depression. ALLERGIES: BLUE DYE NO. 1. MEDICATIONS: 1. Zoloft. 2. Depo-Provera shot. PHYSICAL EXAMINATION: Blood pressure 157/90, pulse 104, respiration rate 23, temperature 97.8, pulse oximetry 99%. General: Well-appearing, nontoxic, no apparent distress. Cardiovascular: Regular rate and rhythm, no murmurs. Respiratory: Lung sounds clear to auscultation bilaterally, no respiratory distress. No wheezing, rales, or rhonchi. Non-congested cough present. HEENT: Bilateral TMs clear, noninjected. Nasal mucosa erythema, edema, clear rhinorrhea. Posterior [facility] PATIENT NAME: RAMIRO NAPOLES H [address] [facility] [address] Pacheco MEDICAL REC #: [id number] [place] [address] [facility] REPORT [facility] PHYSICIAN pharynx postnasal drip. No tonsillar hypertrophy or exudates present. Patient has bilateral maxillary sinus tenderness, left greater than right. CLINICAL IMPRESSION: Acute sinusitis. PLAN: Prescriptions for Augmentin and albuterol sent to pharmacy. Discussed Tylenol, ibuprofen, increased oral hydration, finishing antibiotic until complete. She is agreeable with plan, has no other questions or concerns. Kevon Tillman CNP /[id number] [facility] File#: [id number] END OF DOCUMENT / CHANGE LOG FOLLOWS Last Edited By Randal. Signed By Kevon Tillman PLANT ENGINEERING MANAGER #MOYCO Kevon Tillman CNP #MOYCO on 10/07/2021 09:22 ET on 10/07/2021 09:22 ET Revision Number - 2 Verified/Reviewed by 10/07/21921 LEVI [facility] PATIENT NAME: RAMIRO NAPOLES [address] [facility] [address] Pacheco MEDICAL REC #: [id number] [place] [address] [facility] REPORT [facility]ARE PHYSICIAN Normal [facility] [place] T-SPOT TBon 08-25-2021 T-SPOT RESULT Negative Normal NEGATIVE [facility] [place] Comment on above: Order Comment: T-SPO T SENT TO [facility] 08/22/21 1011 [address] [place] Result Comment: A ne gative test result does not exclude the possibility of exposure to or infection with Mycobacterium tuberculosis (M. tuberculosis). Patients with recent exposure to TB infected individuals exhibiting a negative T-SPOT.TB result should be considered for retesting within 6 weeks or if other relevant clinical symptoms indicate. Results from T_SPOT.TB testing must be used in conjunction with each individual's epidemiological history, current medical status, and results of other diagnostic evaluations. The T-SPOT.TB test is qualitative and results are reported as positive, borderline or negative, given that the test controls perform as expected. In line with the Centers for Disease Control and Prevention's 2010 recommendation to report quantitative measurements alongside the qualitative results, the laboratory provides spot counts for informational purposes only. The T-SPOT.TB test should not be interpreted as a quantitative test. TESTING PERFORMED AT [facility] [address] TESTING PERFORMED BY [facility], [address] [place] [address]. Performed By: #### L 700.36615 ####[facility] [id number] [place], [place] [address]Hq# [phone] MUMPS IGG ABon 08-23-2021 [facility]GG AB 218.0 AU/mL Normal Immune >10.9 [facility] Comment on above: Order Comment: Rafaela s: NC Result Comment: Nega tive <9.0 Equivocal 9.0 - 10.9 Positive >10.9 A positive result generally indicates past exposure to Mumps virus or previous vaccination. Performed By: #### L 750.69977, L750.67493, L750.44181 #### [facility] [address] [place] [address] # [phone] RUBEOLA IGG ABon 08-23-2021 RUBEOLA IGG AB > 300.0 Normal Immune >16.4 [facility] [place] Comment on above: Order Comment: Rafaela s: NC Result Comment: Nega tive <13.5 Equivocal 13.5 - 16.4 Positive >16.4 Presence of antibodies to Rubeola is presumptive evidence of immunity except when acute infection is suspected. Performed At: [facility] [address] [place], [place] [id number] Sridevi Hooks PhD [id number] Performed By: #### L 750.45152, L750.87110, L750.37367 #### [facility] [address] [place] [address] V ZOSTER IGG ABon 08-23-2021 V ZOSTER IGG AB 833 index Normal Immune >165 [facility] Comment on above: Order Comment: Rafaela s: NC Result Comment: Nega tive <135 Equivocal 135 - 165 Positive >165 A positive result generally indicates exposure to the pathogen or administration of specific immunoglobulins, but it is not indication of active infection or stage of disease. Performed By: #### L 750.91155, L750.23825, L750.02173 #### [facility] [address] [place] [address] # [phone] HEP B AB QUANTon 08-21-2021 HEP B AB QUANT 5.9 MIU/ML Normal 0.00-9.99 [facility] Comment on above: Order Comment: Rafaela s: NCSPECIMEN SOURCE: BLOOD Result Comment: STAT US OF IMMUNITY Protective Immunity: greater than or equal to 10 mIU/mL (Traceable to WHO International Reference Preparation) No Protective Immuniity: less than 10 mIU/mL Note: The magnitude of the measured result above the cutoff is not indicative of the total amount of antibody present. Performed By: #### L 540.93877 ####[facility] [id number] [place], [place] [address]Si# [phone] RUBELLA IGG ABon 08-21-2021 RUBELLA IGG AB IMMUNE Normal [facility] Comment on above: Order Comment: Rafaela s: NC Result Comment: <5 I U/ML- Non-Immune for IgG antibodies to Rubella Virus. >= 5-9.9 IU/ML- Equivocal for IgG antibodies to Rubella Virus. Obtain a new specimen and test using Centaur Rubella IgG assay. >= 10 IU/ML- Immune for IgG antibodies to Rubella Virus. <5 IU/ML- Non-Immune for IgG antibodies to Rubella Virus. >= 5-9.9 IU/ML- Equivocal for IgG antibodies to Rubella Virus. Obtain a new specimen and test using Centaur Rubella IgG assay. >= 10 IU/ML- Immune for IgG antibodies to Rubella Virus. Performed By: #### L 705.49439 #### [facility] [place] [address] # [phone] HAND COMP MIN 3 VWS RTon HAND COMP MIN 3 VWS RT HAND COMP MIN 3 VWS RT Ordering Physician: Nila Nevarez 06/20/2021 10:59 AM RIGHT HAND THREE VIEWS Clinical Statement: Right hand pain. Comparison 03/13/2021 FINDINGS: No fracture or dislocation. No erosions or significant degenerative change. IMPRESSION: Normal study ---- Electronic Signature on File ---- Signed By: Daphnie Noguera MD [email or web address] Dictated: 06/20/2021 11:30 AM Signed: 06/20/2021 11:31 AM Reported By: DAPHNIE NOGUERA M.D. Signed By: DAPHNIE NOGUERA M.D. [facility] 06-20-2021 [facility] DATE OF SERVICE: 09/2021 CHIEF COMPLAINT: A 20-year-old female with chief complaint of right hand and wrist pain with range of motion and when waking up. HISTORY OF PRESENT ILLNESS: A 20-year-old female who presents to [facility] with complaints of right hand and wrist pain with any range of motion and when she wakes up in the morning. She denies any injury. She states that the pain sometimes shoots into the base of the wrist with movement. She states that these symptoms may go on for 2 weeks. She has been moving her sons car seat in and out of the car more lately than usual the last 2 weeks, and this is when she started noticing the pain. She denies any numbness or tingling to that right hand. She has done no self-treatment measures. REVIEW OF SYSTEMS: She denies any ecchymotic areas. She denies any soft tissue swelling. She states that most of her pain is in the 2nd, 3rd, and 4th metacarpals, and sometimes it will shoot to the base of that wrist. She states that she is able to make a fist. She denies any pain in her forearm. Denies any numbness or [facility] PATIENT NAME: RAMIRO NAPOLES [address] K[address]ie [address] [facility] REC #: [id number] [place] [id number] [facility] PHYSICIAN tingling. She denies that this wakes her up in the middle of the night. She denies any weakness with that right hand. All other system are addressed and negative. ALLERGIES: BLUE DYE. MEDICATIONS: 1. Zoloft. 2. Omeprazole. 3. Depo shot. PAST MEDICAL HISTORY: Depression. SOCIAL HISTORY: Nontobacco or alcohol user. PHYSICAL EXAMINATION: Vital Signs: 100/68. 96, 16, 97.9, 98% on room air. She reports her pain as an 8 out of 10. General: She is in no acute distress. Her right hand has positive sensation. Capillary refill less than 3, and a strong radial pulse, and it is equal bilaterally. There is no ecchymosis or soft tissue swelling noted to the metacarpals or the wrist. There is negative Tinel, negative Phalen test. Flexion and extension of that right wrist did produce a little bit of pain on the 2nd, 3rd, and 4th metacarpals, and any medial or lateral movement of that right [facility] PATIENT NAME: RAMIRO NAPOLES [address] MEDICAL REC #: [id number] [place] [address] [facility] PHYSICIAN hand did produce that same pain. No clicking, popping, or crepitus was noted. Hand strength was 5/5 and equal bilaterally. TESTS: I did do a right hand x-ray. There was a comparison film of that right hand from March 13, 2021. I interpreted the x-ray today as no acute or obvious bone injury. It did look similar to the film back on March 132020, which there was no fracture there as well. She had that x-ray done because she slammed her hand in a freezer door. IMPRESSION: Right wrist sprain, pending radiologist review. PLAN: I put her on a wrist brace on that right hand. I do not want her sleeping in it to avoid any stiffness. She should take it off during the day once and gently do some range of motion. Ice it, Tylenol and Motrin for discomfort. Diagnosis instructions were given. She is going to follow up if she is no better. Patient agreed and understood the plan. Nila Nevarez, [facility]/[id number] [facility] PATIENT NAME: RAMIRO NAPOLES [address] [facility] REC #: [id number] [place] [address] [facility] RE[facility] PHYSICIAN [facility] File#: [id number] END OF DOCUMENT / CHANGE LOG FOLLOWS Last Edited By Randal. Signed By Nila Nevarez PLANT ENGINEERING MANAGER #[email or web address] Nila Nevarez PLANT ENGINEERING MANAGER #[email or web address] on 07/04/2021 09:17 ET on 07/04/2021 09:17 ET Revision Number - 2 Verified/Reviewed by 07/04/21916 SCHCA2 [facility] PATIENT NAME: RAMIRO NAPOLES [address] [facility] [address] Pacheco MEDICAL REC #: [id number] [place] [address] [facility] REPORT [facility] PHYSICIAN [facility] REPORT Normal [facility] DATE OF SERVICE: REASON FOR VISIT: Burning sensation of the abdomen and right wrist pain. HISTORY OF PRESENT ILLNESS: This is a 20-year-old female presented with burning sensation in the upper part of her abdomen for the last 3 days. She denied any pain coming up her chest or throat. No radiation of the pain. No history of vomiting or diarrhea. Patient stated that she has been on vacation and has been eating a lot of junk food and fried food. No fever or chills. Appetite is normal. She also has pain in the right wrist. Patient stated that she injured this wrist 2 months ago. She was seen at another [facility] and had an x-ray done. I checked the report. It was unremarkable. She was prescribed with the wrist brace and was told to follow at work health and safety office because it was a work-related injury. She did not follow up at that place, but she stated that she took off the brace too early and now the pain has been persistent, although she can move and use her wrist, but it is sometimes painful. No other problem at this visit. REVIEW OF SYSTEMS: Review of other systems normal. PAST MEDICAL HISTORY, FAMILY HISTORY, AND SOCIAL HISTORY: Reviewed. [facility] MED[facility] REC #: [id number] [place] [address] [facility] REPORT [facility]ARE PHYSICIAN ALLERGIES: NKA. MEDICATIONS: 1. Zoloft. 2. Depo shot. PHYSICAL EXAMINATION: She is awake, alert, not in distress. No dyspnea. Temperature 97.8, blood pressure 122/85, pulse 80, respirations 16, pulse oximetry 97% on room air. Pain score 5/10. HEENT: Unremarkable. Chest: Clear to auscultation. Heart: Regular rate and rhythm. Abdomen: Soft. She has mild discomfort in epigastric area, but no tenderness, no guarding, no rebound tenderness. Liver and spleen were not palpable. Bowel sounds were active. Right wrist: Examination of the right wrist: There was no swelling or deformity. She has mild tenderness on the dorsal aspect of the wrist. Full range of motion of the wrist. ASSESSMENT: 1. Gastritis. 2. Right wrist plan. PLAN: Clinical plan was discussed with patient in detail. I explained to her that the burning symptom is most likely gastritis due to hyperacidity in her stomach. I gave her Prilosec 40 mg 1 capsule daily for 1 months, instructed her to watch her [facility] PATIENT NAME: RAMIRO NAPOLES Kylie Pacheco MEDICAL REC #: [id number] [place] [address] [facility] REPORT [facility] PHYSICIAN diet, avoid any greasy food or spicy food, avoid any big meals, and not to lie down after eating. She needs to follow with her family doctor for evaluation and care. If there is no improvement, she may need further workup with a farm reporter. Regarding the wrist, I explained to her that it appears that she has ongoing pain from her previous injury. She should go back to put on the wrist brace. Because this is a work-related injury, she needs to follow up at the work health and safety office for continuity of care and further evaluation and recommendations as needed. I want her to call and get an appointment to be seen at the work health and safety office as soon as possible, not to do any heavy duty, and use her wrist brace again. Patient understood and agreed. Her questions were answered to her satisfaction. Steve Ellsworth MD PP/[id number] [facility] File#: [id number] [facility] PATIENT NAME: RAMIRO NAPOLES [address] [facility] [address] Pacheco MEDICAL REC #: [id number] [place] [address] [facility] REPORT [facility] PHYSICIAN END OF DOCUMENT / CHANGE LOG FOLLOWS Last Edited By Elec. Signed By Steve Ellsworth MD #PAWPR Steve Ellsworth MD #PAWPR on 06/13/2021 13:38 ET on 06/13/2021 13:38 ET Revision Number - 2 Verified/Reviewed by 06/13/21 Yulissa GARVEYPR [facility] PATIENT NAME: RAMIRO NAPOLES [address] [facility] [address] Pacheco MEDICAL REC #: [id number] [place] [address] [facility] REPORT [facility] PHYSICIAN [facility] REPORT [facility] DATE OF SERVICE: 06/2021 HISTORY OF PRESENT ILLNESS: This is a 20-year-old female with a sore throat. Symptoms started April 14, 2021. ALLERGIES: BLUE DYE and this just started since she was . MEDICATIONS: Depo-Provera. PAST MEDICAL HISTORY: Positive for frequent headaches, depression. She has had abdominal, ear, nose, and throat surgery and oral surgery. FAMILY HISTORY: Positive for high blood pressure and stroke. SOCIAL HISTORY: She is a nonsmoker, nondrinker. PHYSICAL EXAMINATION: Weight: 219 pounds. Blood pressure 125/75, pulse 95, respiratory rate 16, temperature 97.7, pulse oximetry 99% on room air. She is a 20-year-old female. HEENT: Pharynx is inflamed. No exudate. Neck, supple with positive anterior, negative posterior cervical lymphadenopathy. Heart, regular rate and rhythm. Lungs are clear. Extremities/Neuro: Grossly, intact. IMPRESSION: Pharyngitis. PLAN: The patient is placed off work April 17 and April 18. Return on April 19, 2021 with no restrictions. She is given Amoxil 75-mg twice a day with [facility] PATIENT NAME: RAMIRO NAPOLES [address] [facility] [address] Pacheco MEDICAL REC #: [id number] [place] [address] [facility] REPORT [facility] PHYSICIAN food and Decadron 4-mg one a day with food. Rest, fluids, and finish all medicines. Follow in 7 to 10 days or sooner for complications or problems arise. Bertha Lei DO /[id number] [facility] File#: [id number] END OF DOCUMENT / CHANGE LOG FOLLOWS Last Edited By Randal. Signed By Bertha Lei DO #Bertha Wan on 04/30/2021 08:40 ET on 04/30/2021 08:40 ET Revision Number - 2 Verified/Reviewed by 04/30/21839 [facility] PATIENT NAME: RAMIRO NAPOLES [address] [facility] [address] Pacheco MEDICAL REC #: [id number] [place] [address] [facility] REPORT STATCARE PHYSICIAN [facility] VWS RTon HAND COMP MIN 3 VWS RT HAND COMP MIN 3 VWS RT Ordering Physician: Anmol Jerome MD 03/13/2021 5:01 PM RIGHT HAND THREE VIEWS Clinical Statement: Hand crushed in freezer. Comparison: None. FINDINGS: Three views of the right hand were obtained. Bone mineralization is normal. The joint spaces are maintained. No osseous erosions, periostitis or fracture. The soft tissues are unremarkable. IMPRESSION: Unremarkable examination of the right hand. ---- Electronic Signature on File ---- Signed By: Oseas Mireles MD [email or web address] Dictated: 03/13/2021 6:06 PM Signed: 03/13/2021 6:07 PM Reported By: OSEAS MIRELES M.D. Signed By: OSEAS MIRELES M.D. [facility] 03-13-2021 [facility] DATE OF SERVICE: 02/2021 HISTORY OF PRESENT ILLNESS: This is a 20-year-old female with apparently a work-related injury. She worked at [employer] and apparently today at around 2:30 her hand accidentally got shut in a commercial metal freezer. It crushed her right hand and she is having pain in her hand around the 4th and 5th knuckles that shoots up her arm. She is unable to move her fingers due to the amount of pain she is having and thus came in for further assessment. PAST MEDICAL/SURGICAL HISTORY: 1. Depression. 2. [place] tooth surgery. HABITS: No alcohol. No smoking. FAMILY HISTORY: High blood pressure, stroke. ALLERGIES: None. CURRENT MEDICATIONS: 1. Zoloft. 2. Iron. REVIEW OF SYSTEMS: No fever or chills. No bladder or bowel [facility] PATIENT NAME: RAMIRO NAPOLES [address] [place] MEDICAL REC #: [id number] [place] [address] [facility] REPORT STATCARE PHYSICIAN dysfunction. She is just essentially having pain in her knuckles and says it is more in the 4th and 5th knuckles that is causing her pain, and that is causing her to be unable to move and sharepoint admin. PHYSICAL EXAMINATION: Blood pressure 108/80, pulse 92, respiratory rate 16, temperature 97.8, pulse oximetry 100% on room air. The patient has pain more in the 3rd, 4th, and 5th metacarpals. There is just minimal bruising and swelling, and just diffuse pain there. It limits her range of motion, flexion, and extension of the digits due to pain there. Wrist has full range of motion. X-ray reviewed by myself did not reveal any definite fracture of the 3rd, 4th, and 5th metacarpals which is essentially where the patient is having pain. Await radiologist's read. DIAGNOSIS: Right hand crush injury. Right metacarpal splint was administered by the nurse to stabilize this. Light-duty restrictions, not to use her hand for a few days was recommended. She will follow up with Work Health and Safety for further management. [id number] are recommended for pain. The patient agrees with [facility] PATIENT NAME: RAMIRO NAPOLES [address] [place] MEDICAL REC #: [id number] [place] [address] [facility] REPORT STAT[facility]ARE PHYSICIAN plan, has no further questions. MD LEONARDO Zuniga/[id number] [facility] File#: [id number] END OF DOCUMENT / CHANGE LOG FOLLOWS Last Edited By Elec. Signed By Roxanne Jerome MD #IBRKH Roxanne Jerome MD #IBRKH on 03/19/2021 08:32 ET on 03/19/2021 08:32 ET Revision Number - 2 Verified/Reviewed by 03/19/21 0832 MILES [facility] PATIENT NAME: RAMIRO NAPOLES [address] [place] MEDICAL REC #: [id number] [place] [address] [facility] RE[facility] STAT[facility] PHYSICIAN Normal [facility] Vital Signs Date Time Vital Sign Value Performing Clinician Facility 09-16-2025 14:10-0500 Diastolic Blood Pressure Non-Invasive 72 mm[Hg] JAVAD FROMNuhookT DO [facility] 09-16-2025 14:10-0500 Heart rate 75 /min JAVAD FROMNuhookT DO [facility] 09-16-2025 14:10-0500 Respiratory rate 18 /min JAVAD FROMNuhookT DO [facility] 09-16-2025 14:10-0500 Systolic Blood Pressure Non-Invasive 116 mm[Hg] JAVAD FROMMELT DO [facility] 09-16-2025 13:16-0500 Diastolic Blood Pressure Non-Invasive 74 mm[Hg] JAVAD FROMNuhookT DO [facility] 09-16-2025 13:16-0500 Heart rate 86 /min JAVAD FROMNuhookT DO [facility] 09-16-2025 13:16-0500 Respiratory rate 24 /min JAVAD MILEST DO [facility] 09-16-2025 13:16-0500 Systolic Blood Pressure Non-Invasive 135 mm[Hg] JAVAD FROMMELT DO [facility] 09-16-2025 11:57-0500 Body temperature 98.6 [degF] JAVAD FROMMELT DO [facility] 09-16-2025 11:57-0500 Diastolic Blood Pressure Non-Invasive 78 mm[Hg] JAVAD MILEST DO [facility] 09-16-2025 11:57-0500 Heart rate 96 /min JAVAD MILEST DO [facility] 09-16-2025 11:57-0500 Respiratory rate 22 /min JAVAD MILEST DO [facility] 09-16-2025 11:57-0500 Systolic Blood Pressure Non-Invasive 136 mm[Hg] JAVAD MILEST DO [facility] 08-23-2025 08:18-0400 Blood Pressure Location TONI CABELLO DO [facility] 08-23-2025 08:18-0400 Blood Pressure Method TONI CABELLO DO [facility] 08-23-2025 08:18-0400 Diastolic Blood Pressure Non-Invasive 75 mm[Hg] TONI CABELLO DO [facility] 08-23-2025 08:18-0400 Heart rate 88 /min TONI CABELLO DO [facility] 08-23-2025 08:18-0400 Respiratory rate 18 /min TONI IRINEO DO [facility] 08-23-2025 08:18-0400 Systolic Blood Pressure Non-Invasive 112 mm[Hg] TONI CABELLO DO [facility] 08-23-2025 06:10-0400 Body temperature 96.98 [degF] TONI CABELLO DO [facility] 08-23-2025 06:10-0400 Body weight 109.1 kg TONI CABELLO DO [facility] 08-23-2025 06:10-0400 Diastolic Blood Pressure Non-Invasive 84 mm[Hg] TONI CABELLO DO [facility] 08-23-2025 06:10-0400 Heart rate 94 /min TONI CABELLO DO [facility] 08-23-2025 06:10-0400 Respiratory rate 18 /min TONI CABELLO DO [facility] 08-23-2025 06:10-0400 Systolic Blood Pressure Non-Invasive 120 mm[Hg] TONI CABELLO DO [facility] 04-06-2025 23:56-0400 SaO2% (BldA) [Mass fraction] 98 % Leny Galarza DO Work Phone: [facility] 04-06-2025 23:49-0400 Diastolic blood pressure 90 mm[Hg] Leny Galarza DO Work Phone: [facility] 04-06-2025 23:49-0400 Systolic blood pressure 123 mm[Hg] Leny Galarza DO Work Phone: [facility] 04-06-2025 23:47-0400 Body height 172.7 cm Leny Galarza DO Work Phone: [facility] 04-06-2025 23:47-0400 Body mass index (BMI) [Ratio] 34.97 kg/m2 Leny Galarza DO Work Phone: [facility] 04-06-2025 23:47-0400 Body temperature 98.1 [degF] Leny Galarza DO Work Phone: [facility] 04-06-2025 23:47-0400 Body weight 104.33 kg Leny Galarza DO Work Phone: [facility] 04-06-2025 23:47-0400 Heart rate 128 /min Lenyyuki Galarza DO Work Phone: [facility] Comment on above: pt worked up and crying 04-06-2025 23:47-0400 Respiratory rate 14 /min Leny Galarza DO Work Phone: [facility] 12-19-2024 13:55-0500 Diastolic blood pressure 59 mm[Hg] Surendra Hearn MD Work Phone: [facility] 12-19-2024 13:55-0500 Heart rate 89 /min Surendra Hearn MD Work Phone: [facility] 12-19-2024 13:55-0500 Respiratory rate 14 /min Surendra Hearn MD Work Phone: [facility] 12-19-2024 13:55-0500 SaO2% (BldA) [Mass fraction] 100 % Surendra Hearn MD Work Phone: [facility] 12-19-2024 13:55-0500 Systolic blood pressure 101 mm[Hg] Surendra Hearn MD Work Phone: [facility] 12-19-2024 09:52-0500 Body temperature 98.71 [degF] Surendra Hearn MD Work Phone: [facility] 12-19-2024 09:35-0500 Body height 177.8 cm Surendra Hearn MD Work Phone: [facility] 12-19-2024 09:35-0500 Body mass index (BMI) [Ratio] 31.57 kg/m2 Surendra Hearn MD Work Phone: [facility] 12-19-2024 09:35-0500 Body weight 99.79 kg Surendra Hearn MD Work Phone: [facility] 09-14-2024 11:06-0500 Body mass index (BMI) [Ratio] 33.75 kg/m2 Neyda Calhoun ANHYDROUS AMMONIA PRODUCTION SUPERVISOR.PLANT ENGINEERING MANAGER Work Phone: [facility] 09-14-2024 11:06-0500 Body weight 106.7 kg Neyda Calhoun ANHYDROUS AMMONIA PRODUCTION SUPERVISOR.PLANT ENGINEERING MANAGER Work Phone: [facility] 09-14-2024 11:06-0500 Diastolic blood pressure 65 mm[Hg] Neyda Maira ANHYDROUS AMMONIA PRODUCTION SUPERVISOR.PLANT ENGINEERING MANAGER Work Phone: [facility] 09-14-2024 11:06-0500 Heart rate 89 /min Neyda Maira ANHYDROUS AMMONIA PRODUCTION SUPERVISOR.PLANT ENGINEERING MANAGER Work Phone: [facility] 09-14-2024 11:06-0500 Respiratory rate 16 /min Neyda Maira ANHYDROUS AMMONIA PRODUCTION SUPERVISOR.PLANT ENGINEERING MANAGER Work Phone: [facility] 09-14-2024 11:06-0500 SaO2% (BldA) [Mass fraction] 96 % Neyda Calhoun ANHYDROUS AMMONIA PRODUCTION SUPERVISOR.PLANT ENGINEERING MANAGER Work Phone: [facility] 09-14-2024 11:06-0500 Systolic blood pressure 118 mm[Hg] Neyda Maira ANHYDROUS AMMONIA PRODUCTION SUPERVISOR.PLANT ENGINEERING MANAGER Work Phone: [facility] 03-19-2024 14:11-0400 Body mass index (BMI) [Ratio] 35.64 kg/m2 Shirley Sherwood MD Work Phone: [facility] 03-19-2024 14:11-0400 Body temperature 98.8 [degF] Shirley Sherwood MD Work Phone: [facility] 03-19-2024 14:11-0400 Body weight 112.67 kg Shirley Sherwood MD Work Phone: [facility] 03-19-2024 14:11-0400 Diastolic blood pressure 83 mm[Hg] Shirley Sherwood MD Work Phone: [facility] 03-19-2024 14:11-0400 Heart rate 91 /min Shirley Sherwood MD Work Phone: [facility] 03-19-2024 14:11-0400 Respiratory rate 17 /min Shirley Sherwood MD Work Phone: [facility] 03-19-2024 14:11-0400 SaO2% (BldA) [Mass fraction] 99 % Shirley Sherwood MD Work Phone: [facility] 03-19-2024 14:11-0400 Systolic blood pressure 146 mm[Hg] Shirley Sherwood MD Work Phone: [facility] 02-02-2024 10:17-0400 Body temperature 97.11 [degF] Bertha Lei DO Work Phone: [facility] 02-02-2024 10:17-0400 Body weight 110.22 kg Bertha Lei DO Work Phone: [facility] 02-02-2024 10:17-0400 Diastolic blood pressure 89 mm[Hg] Bertha Lei DO Work Phone: [facility] 02-02-2024 10:17-0400 Heart rate 99 /min Bertha Lei DO Work Phone: [facility] 02-02-2024 10:17-0400 Respiratory rate 18 /min Bertha Lei DO Work Phone: [facility] 02-02-2024 10:17-0400 SaO2% (BldA) [Mass fraction] 98 % Bertha Lei DO Work Phone: [facility] 02-02-2024 10:17-0400 Systolic blood pressure 135 mm[Hg] Bertha Lei DO Work Phone: [facility] 10-29-2023 22:05-0500 Blood Pressure Location BIGG MCKEON MD [facility] 10-29-2023 22:05-0500 Blood Pressure Method BIGG MCKEON MD [facility] 10-29-2023 22:05-0500 Body height 177.8 cm BIGG MCKEON MD [facility] 10-29-2023 22:05-0500 Body temperature 98.78 [degF] BIGG MCKEON MD [facility] 10-29-2023 22:05-0500 Body weight 100 kg BIGG MCKEON MD [facility] 10-29-2023 22:05-0500 Diastolic Blood Pressure Non-Invasive 66 mm[Hg] BIGG MCKEON MD [facility] 10-29-2023 22:05-0500 Heart rate 98 /min BIGG MCKEON MD [facility] 10-29-2023 22:05-0500 Respiratory rate 16 /min BIGG MCKEON MD [facility] 10-29-2023 22:05-0500 Systolic Blood Pressure Non-Invasive 140 mm[Hg] BIGG MCKEON MD [facility] 10-10-2023 12:33-0500 Body temperature 98.01 [degF] Joseph Dyko PA-C Work Phone: [facility] 10-10-2023 12:33-0500 Diastolic blood pressure 80 mm[Hg] Joseph Dyko PA-C Work Phone: [facility] 10-10-2023 12:33-0500 Heart rate 81 /min Joseph Dyko PA-C Work Phone: [facility] 10-10-2023 12:33-0500 Respiratory rate 20 /min Joseph Dyko PA-C Work Phone: [facility] 10-10-2023 12:33-0500 SaO2% (BldA) [Mass fraction] 98 % Joseph Glez PA-C Work Phone: [facility] 10-10-2023 12:33-0500 Systolic blood pressure 128 mm[Hg] Joseph Glez PA-C Work Phone: [facility] 05-04-2023 00:27-0400 Diastolic Blood Pressure Non-Invasive 64 1 ASHLYN EPPERSON MD [facility] 05-04-2023 00:27-0400 Heart rate 86 /min ASHLYN EPPERSON MD [facility] 05-04-2023 00:27-0400 Respiratory rate 18 /min ASHLYN EPPERSON MD [facility] 05-04-2023 00:27-0400 Systolic Blood Pressure Non-Invasive 131 1 ASHLYN EPPERSON MD [facility] 05-03-2023 21:22-0400 Body height 177 cm ASHLYN EPPERSON MD [facility] 05-03-2023 21:22-0400 Body temperature 98.42 [degF] ASHLYN EPPERSON MD [facility] 05-03-2023 21:22-0400 Body weight 106 kg ASHLYN EPPERSON MD [facility] 05-03-2023 21:22-0400 Diastolic Blood Pressure Non-Invasive 83 1 ASHLYN EPPERSON MD [facility] 05-03-2023 21:22-0400 Heart rate 95 /min ASHLYN EPPERSON MD [facility] 05-03-2023 21:22-0400 Respiratory rate 22 /min ASHLYN EPPERSON MD [facility] 05-03-2023 21:22-0400 Systolic Blood Pressure Non-Invasive 157 1 ASHLYN EPPERSON MD [facility] 03-16-2023 21:15-0400 Diastolic Blood Pressure Non-Invasive [address] RONNIE GO MD [facility] 03-16-2023 21:15-0400 Heart rate 89 /min DR RONNIE GO MD [facility] 03-16-2023 21:15-0400 Respiratory rate 16 /min DR RONNIE GO MD [facility] 03-16-2023 21:15-0400 Systolic Blood Pressure Non-Invasive [address] RONNIE GO MD [facility] 03-16-2023 18:18-0400 Body temperature 98.96 [degF] DR RONNIE GO MD [facility] 03-16-2023 18:18-0400 Diastolic Blood Pressure Non-Invasive [address] RONNIE GO MD [facility] 03-16-2023 18:18-0400 Heart rate 111 /min DR RONNIE GO MD [facility] 03-16-2023 18:18-0400 Respiratory rate 16 /min DR RONNIE GO MD [facility] 03-16-2023 18:18-0400 Systolic Blood Pressure Non-Invasive [address] RONNIE GO MD [facility] 11-11-2022 09:19-0500 Body height 177.8 cm VOGEL DO [facility] 11-11-2022 09:19-0500 Body temperature 97.7 [degF] VOGEL DO [facility] 11-11-2022 09:19-0500 Body weight 109.1 kg VOGEL DO [facility] 11-11-2022 09:19-0500 Diastolic Blood Pressure Non-Invasive 84 1 VOGEL DO [facility] 11-11-2022 09:19-0500 Heart rate 93 /min VOGEL DO [facility] 11-11-2022 09:19-0500 Respiratory rate 18 /min VOGEL DO [facility] 11-11-2022 09:19-0500 Systolic Blood Pressure Non-Invasive 129 1 VOGEL DO [facility] 10-05-2022 23:03-0500 Blood Pressure Location HOME GERARD MD [facility] 10-05-2022 23:03-0500 Blood Pressure Method HOME GERARD MD [facility] 10-05-2022 23:03-0500 Body temperature 99.32 [degF] HOME GERARD MD [facility] 10-05-2022 23:03-0500 Body weight 111.4 kg HOME GERARD MD [facility] 10-05-2022 23:03-0500 Diastolic Blood Pressure Non-Invasive 78 1 OHME GERARD MD [facility] 10-05-2022 23:03-0500 Heart rate 79 /min HOME GERARD MD [facility] 10-05-2022 23:03-0500 Reason For Taking VItal Signs HOME GERARD MD [facility] 10-05-2022 23:03-0500 Respiratory rate 18 /min HOME GERARD MD [facility] 10-05-2022 23:03-0500 Systolic Blood Pressure Non-Invasive 123 1 HOME GERARD MD [facility] 09-06-2022 10:35-0400 Body temperature 97.3 [degF] [place] Jaylene DO Work Phone: [facility] 09-06-2022 10:35-0400 Body weight 112.04 kg Jordon Jaylene DO Work Phone: [facility] 09-06-2022 10:35-0400 Diastolic blood pressure 89 mm[Hg] Jordon Jayleen DO Work Phone: [facility] 09-06-2022 10:35-0400 Heart rate 89 /min Jordon Jaylene DO Work Phone: [facility] 09-06-2022 10:35-0400 Respiratory rate 16 /min [place] Jaylene DO Work Phone: [facility] 09-06-2022 10:35-0400 SaO2% (BldA) [Mass fraction] 98 % Jordon Jaylene DO Work Phone: [facility] 09-06-2022 10:35-0400 Systolic blood pressure 129 mm[Hg] [place] Jaylene DO Work Phone: [facility] 04-26-2022 20:32-0400 Body temperature 97.88 [degF] ELEN GO MD [facility] 04-26-2022 20:32-0400 Body weight 109 kg ELEN GO MD [facility] 04-26-2022 20:32-0400 Diastolic blood pressure 98 mm[Hg] ELEN GO MD [facility] 04-26-2022 20:32-0400 Heart rate 104 /min ELEN GO MD [facility] 04-26-2022 20:32-0400 Respiratory rate 18 /min ELEN GO MD [facility] 04-26-2022 20:32-0400 Systolic blood pressure 151 mm[Hg] ELEN GO MD [facility] Encounters Encounter Date Encounter Type Care Provider Facility Start: 09-16-2025 End: 09-16-2025 Emergency department patient visit JAVAD RAMACHANDRAN DO [facility] Start: 09-05-2025 End: 09-05-2025 ambulatory [facility] Start: 09-05-2025 End: 09-05-2025 Subsequent hospital visit by physician Dariel De Oliveira MD Work Phone: [facility] Comment on above: Unspecified hydronep hrosis Amenorrhea, unspecif ied Start: 08-23-2025 End: 08-23-2025 Emergency department patient visit TONI CABELLO DO [facility] Start: 04-06-2025 End: 04-07-2025 Emergency department patient visit Leny Galarza DO Work Phone: [facility] Comment on above: Acute nonintractable headache, unspecified headache type (Primary Dx); Acute pain of right knee; Left elbow pain; Alcoholic intoxication without complication (CMS/HCC) (HCC) Start: 12-19-2024 End: 12-19-2024 Subsequent hospital visit by physician [facility] Exam Room [address] [facility] [address] Comment on above: Arrived Start: 12-19-2024 End: 12-19-2024 Emergency department patient visit Surendra Hearn MD Work Phone: [facility] Comment on above: Vomiting and diarrhe a (Primary Dx) Start: 09-14-2024 End: 09-14-2024 ambulatory Facility:[facility] Start: 09-14-2024 End: 09-14-2024 Patient encounter procedure Neyda Augustinome ANHYDROUS AMMONIA PRODUCTION SUPERVISOR.PLANT ENGINEERING MANAGER Work Phone: [facility] Comment on above: Acute pain of right knee (Primary Dx) Start: 03-19-2024 End: 03-19-2024 ambulatory SHIRLEY SHERWOOD Facility:[id number] Start: 03-19-2024 End: 03-19-2024 Subsequent hospital visit by physician Bruce Billy Work Phone: [facility] Comment on above: RT ANKLE PAIN FROM A FALL DOWN STAIRS 2 WEEKS AGO Start: 03-19-2024 End: 03-19-2024 Patient encounter procedure Shirley Sherwood MD Work Phone: [facility] Comment on above: Sprain of ligament o f right ankle, initial encounter (Primary Dx); Sprain of right knee, unspecified ligament, initial encounter Start: 02-02-2024 End: 02-02-2024 ambulatory SELF Facility:[id number] Start: 02-02-2024 End: 02-02-2024 Patient encounter procedure Bertha Lei DO Work Phone: [facility] Comment on above: Sinobronchitis (Prim sofia Dx) Start: 11-24-2023 ambulatory BERTHA LEI Facili ty:[id number] Start: 11-24-2023 End: 11-24-2023 ambulatory BERTHA LEI Facility:[id number] Start: 11-24-2023 End: 11-24-2023 Subsequent hospital visit by physician [facility] Work Phone: [facility] Comment on above: Fall, initial encoun ter [W19.XXXA] Start: 10-29-2023 End: 10-30-2023 Emergency department patient visit BIGG MCKEON MD Facility:B Start: 10-29-2023 End: 10-29-2023 Emergency department patient visit BIGG MCKEON MD [facility] Start: 10-23-2023 End: 10-23-2023 ambulatory BERTHA LEI Facility:[id number] Start: 10-10-2023 End: 10-10-2023 ambulatory JOSEPH GLEZ Facility:[id number] Start: 10-10-2023 End: 10-10-2023 Subsequent hospital visit by physician [facility] Work Phone: [facility] Comment on above: Sprain of right wris t, initial encounter [S63.501A] Start: 10-10-2023 End: 10-10-2023 Patient encounter procedure Joseph GONZALES-C Work Phone: [facility] Comment on above: Sprain of right wris t, initial encounter (Primary Dx) Start: 08-03-2023 End: 08-03-2023 Emergency department patient visit JAYLEEN OROZCO Facility:[id number] Start: 05-03-2023 End: 05-04-2023 Emergency department patient visit MICHELLE CHRISTINA APRN-PLANT ENGINEERING MANAGER Facility:B Start: 05-03-2023 End: 05-04-2023 Emergency department patient visit ASHLYN EPPERSON MD [facility] Start: 04-25-2023 End: 04-26-2023 ambulatory MICHELLE CHRISTINA APRN-PLANT ENGINEERING MANAGER Facility:B Start: 04-25-2023 End: 04-25-2023 Patient encounter procedure MICHELLE CHRISTINA ANHYDROUS AMMONIA PRODUCTION SUPERVISOR-PLANT ENGINEERING MANAGER [facility] Start: 03-16-2023 End: 03-16-2023 Emergency department patient visit MICHELLE A SANFORD ANHYDROUS AMMONIA PRODUCTION SUPERVISOR-PLANT ENGINEERING MANAGER Facility:B Start: 03-16-2023 End: 03-16-2023 Emergency department patient visit DR RONNIE GO MD [facility] Start: 02-26-2023 End: 03-03-2023 ambulatory MICHELLE A SANFORD ANHYDROUS AMMONIA PRODUCTION SUPERVISOR-PLANT ENGINEERING MANAGER Facility:B Start: 02-26-2023 End: 03-02-2023 Outreach Lab MICHELLE Corea [place] ANHYDROUS AMMONIA PRODUCTION SUPERVISOR-PLANT ENGINEERING MANAGER [facility] Start: 01-30-2023 End: 01-30-2023 Subsequent hospital visit by physician [facility] Work Phone: [facility] Comment on above: Pain in joint of rig ht elbow [M25.521] Start: 01-11-2023 End: 01-11-2023 Emergency department patient visit MICHELLE A SANFORD ANHYDROUS AMMONIA PRODUCTION SUPERVISOR-PLANT ENGINEERING MANAGER Facility:A Start: 11-26-2022 End: 11-27-2022 ambulatory MICHELLE A SANFORD ANHYDROUS AMMONIA PRODUCTION SUPERVISOR-PLANT ENGINEERING MANAGER Facility:B Start: 11-26-2022 End: 11-26-2022 Patient encounter procedure MICHELLE A SANFORD ANHYDROUS AMMONIA PRODUCTION SUPERVISOR-PLANT ENGINEERING MANAGER [facility] Start: 11-26-2022 End: 11-26-2022 Well adult monitoring check done MICHELLE Anmol [place] ANHYDROUS AMMONIA PRODUCTION SUPERVISOR-PLANT ENGINEERING MANAGER [facility] Start: 11-18-2022 ambulatory NONE PHYSICIAN Facility :B Start: 11-11-2022 End: 11-11-2022 Emergency department patient visit MICHELLE A SANFORD ANHYDROUS AMMONIA PRODUCTION SUPERVISOR-PLANT ENGINEERING MANAGER Facility:B Start: 11-11-2022 End: 11-11-2022 Emergency department patient visit STEPHEN VOGEL DO [facility] Start: 10-05-2022 End: 10-05-2022 Emergency department patient visit HOME GERARD MD [facility] Start: 09-06-2022 End: 09-06-2022 Office outpatient visit 25 minutes Jordon Shi DO Work Phone: [facility] Comment on above: Laceration of right foot, initial encounter (Primary Dx) Start: 09-03-2022 ambulatory Health Risk Assessment Facility:[facility] Start: 04-26-2022 End: 04-27-2022 Emergency department patient visit ELEN GO MD [facility] Start: 12-17-2021 End: 12-17-2021 Subsequent hospital visit by physician [facility] Provider [facility] Comment on above: SORE THROAT,BILATERA L EAR PAIN AND CONGESTION Start: 10-03-2021 Patient encounter procedure Kevon Tillman ANHYDROUS AMMONIA PRODUCTION SUPERVISOR.PLANT ENGINEERING MANAGER Work Phone: [facility] Start: 10-03-2021 Progress Note Kevon Tillman APR N.PLANT ENGINEERING MANAGER Work Phone: [facility] Start: 06-20-2021 Patient encounter procedure Nila Nevarez ANHYDROUS AMMONIA PRODUCTION SUPERVISOR.PLANT ENGINEERING MANAGER Work Phone: [facility] Start: 06-20-2021 Progress Note Nila Nevarez A PRN.PLANT ENGINEERING MANAGER Work Phone: IF [facility] Start: 06-11-2021 Patient encounter procedure Steve Ellsworth MD Work Phone: [facility] Start: 06-11-2021 Progress Note Steve Ellsworth MD Work Phone: [facility] Start: 03-15-2021 Patient encounter procedure Roxanne Jerome MD Work Phone: [facility] Start: 03-15-2021 Progress Note Roxanne panda MD Work Phone: IF [facility] Start: 10-06-2020 Patient encounter procedure Bertha Anneliese Lei DO Work Phone: [facility] Start: 10-06-2020 Progress Note Bertha mercado DO Work Phone: IF [facility] Procedures Date Procedure Procedure Detail Performing Clinician Start: 09-05-2025 Us retroperitoneal r eal time w/image limited Dariel De Oliveira MD Work Phone: Start: 09-05-2025 Us transvaginal Dariel De Oliveira MD Work Phone: Start: 04-07-2025 Ct abdomen & pelvis w/o contrast material Leny Michell DO Work Phone: Start: 04-07-2025 Ct cervical spine w/ o contrast material Leny Michell DO Work Phone: Start: 04-07-2025 Ct head/brain w/o co ntrast material Leny Michell DO Work Phone: Start: 04-07-2025 End: 04-07-2025 Radex elbow 2 views Leny Michell DO Work Phone: Start: 04-07-2025 Comprehensive metabo lic panel Leny Michell DO Work Phone: Start: 12-19-2024 Ct maxillofacial w/o contrast material Surendra Hearn MD Work Phone: Start: 12-19-2024 Bacteria identified in Blood by Culture Surendra Hearn MD Work Phone: Start: 12-19-2024 Basic metabolic pane l calcium total Surendra Hearn MD Work Phone: Start: 03-19-2024 Radex ankle complete minimum 3 views Shirley Sherwood MD Work Phone: Start: 11-24-2023 Radiologic examinati on femur minimum 2 views Bertha Lei DO Work Phone: Start: 10-10-2023 Radex wrist complete minimum 3 views Joseph Glez PA-C Work Phone: Start: 01-30-2023 Radex elbow complete minimum 3 views Steve Ellsworth MD Work Phone: Start: 02-09-2021 section 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 ELEN GO MD Plan of Treatment Date Care Activity Detail Author Start: 2076 RSV Immunization for Adults (1 - 1-dose 75+ series) RSV Immunization for Adults (1 - 1-dose 75+ series) [facility] Start: 2051 Zoster Vaccines (1 of 2) Zoster Vacc destiny (1 of 2) [facility] Start: 07-11-2025 COVID-19 Vaccine ( season) COVID-19 Vaccine ( season) [facility] Start: 07-11-2025 Influenza vaccination Influenz a Vaccine (Season Ended) [facility] Start: 07-11-2024 Covid-19 Vaccine ( season) Covid-19 Vaccine ( season) [facility] Start: 07-11-2024 Covid-19 Vaccine ( season) Covid-19 Vaccine ( season) [facility] Start: 07-11-2024 Influenza vaccination C [facility] Start: 03-14-2024 DTaP/Tdap/Td Vaccine s (4 - Td or Tdap) DTaP/Tdap/Td Vaccines (4 - Td or Tdap) [facility] Start: 03-14-2024 Urine microalbumin profile DTaP,Tdap,Td Vaccine (4 - Td or Tdap) [facility] Start: 11-10-2023 Behavioral Health Screening Behavioral Health Screening [facility] Start: 11-10-2023 Depression Assessment Depression Ass essment [facility] Start: 07-11-2023 Covid-19 Vaccine ( season) Covid-19 Vaccine ( season) [facility] Start: 07-11-2023 Influenza vaccination Influenza Vacc ine (#1) [facility] Start: 2022 Pap Testing Pap Testing [facility] Start: 2022 Screening for malign ant neoplasm of cervix [facility] Start: 11-18-2022 Hepatitis B Vaccine (3 of 3 - 3-dose series) Hepatitis B Vaccine (3 of 3 - 3-dose series) [facility] Start: 11-18-2022 Hepatitis B Vaccines (3 of 3 - 3-dose series) Hepatitis B Vaccines (3 of 3 - 3-dose series) [facility] Start: 11-10-2022 Depression Assessment Depression Ass [facility] Start: 07-11-2022 Influenza vaccination [facility] Start: 11-10-2021 DEPRESSION ASSESSMENT DEPRESSION ASS ESSMENT [facility] Start: 07-11-2021 Influenza vaccination INFLUENZA (#1) [facility] Start: 2020 DTaP/Tdap/Td Vaccine s (1 - Tdap) DTaP/Tdap/Td Vaccines (1 - Tdap) [facility] Start: 2020 Hepatitis B Vaccines (1 of 3 - 19+ 3-dose series) Hepatitis B Vaccines (1 of 3 - 19+ 3-dose series) [facility] Start: 2020 Urine microalbumin profile DTAP,TDAP,TD (1 - Tdap) [facility] Start: 2019 Anxiety Screening Anxiety Screening [facility] Start: 2019 CHLAMYDIA SCREENING (18-24) CHLAMYDIA SCREENING (18-24) [facility] Start: 2019 Depression Screening Depression Scre ening [facility] Start: 2019 GC (GONORRHEA) SCREE LISA (18-24) GC (GONORRHEA) SCREENING (18-24) [facility] Start: 2019 HEPATITIS C SCREENING HEPATITIS C [facility] Start: 2019 Hepatitis C screening Hepatitis C [facility] Start: 2019 HIV SCREENING HIV SCREENING [facility] Start: 2019 HIV screening HIV Screening [facility] Start: 2019 Screening for Chlamy tono trachomatis Chlamydia Screening (18-24) [facility] Start: 2017 Meningococcal B Vacc ine (1 of 2 - Standard) Meningococcal B Vaccine (1 of 2 - Standard) [facility] Start: 2017 Meningococcal B Vacc ine: Consider Based On Risk (1 of 2 - Patient Seeks Protection) Meningococcal B Vaccine: Consider Based On Risk (1 of 2 - Patient Seeks Protection) [facility] Start: 2016 HPV Vaccine (1 - 3-d ose series) HPV Vaccine (1 - 3-dose series) [facility] Start: 2016 HPV Vaccines (1 - 3- dose series) HPV Vaccines (1 - 3-dose series) [facility] Start: 2015 PEDS TO ADULT TRANSI TION ANNUAL ASSESSMENT PEDS TO ADULT TRANSITION ANNUAL ASSESSMENT [facility] Start: 2014 Varicella vaccination Varicell a Vaccines (1 of 2 - 13+ 2-dose series) [facility] Start: 2013 Adult depression screening assessment DEPRESSION SCREENING [facility] Start: 2013 [facility] Start: 2013 PEDS TO ADULT TRANSI TION INITIAL DISCUSSION PEDS TO ADULT TRANSITION INITIAL DISCUSSION [facility] Start: 2012 HPV VACCINE (1 - 2-d ose series) HPV VACCINE (1 - 2-dose series) 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 Start: 2010 HPV Vaccine (1 - 2-d ose series) HPV Vaccine (1 - 2-dose series) [facility] Start: 03-19-2007 Varicella vaccination Varicell a Vaccines (2 of 2 - 2-dose childhood series) [facility] Start: 01-22-2007 IPV Vaccines (2 of 3 - 4-dose series) IPV Vaccines (2 of 3 - 4-dose series) [facility] Start: 2006 COVID-19 VACCINE (#1) COVID-19 VACCI NE (#1) [facility] Start: 2006 COVID-19 VACCINE (1) COVID-19 VACCIN E (1) [facility] Start: 2002 MMR Vaccines (1 of 1 - Standard series) MMR Vaccines (1 of 1 - Standard series) [facility] Start: 06-21-2002 COVID-19 VACCINE (#1) COVID-19 VACCI NE (#1) [facility] Start: 2001 HEPATITIS B (1 of 3 - 3-dose series) HEPATITIS B (1 of 3 - 3-dose series) [facility] Start: 2001 HIV screening [facility] Start: 2001 Lipid panel Lipid Panel [facility] Start: 2001 Screening for Chlamy tono trachomatis Chlamydia and Gonorrhea Screening [facility] Bacteria identified in Blood by Culture Blood culture Site #1 - Suspected Infection Microbiology STAT 12/19/2024 9:54 AM EST [facility] End: 12-19-2024 Gastrointestinal pathogens panel - Stool by APRIL with probe detection Gastrointestinal PCR Panel Microbiology STAT Once (Lab) for 1 Occurrences starting 12/19/2024 until 12/19/2024 [facility] Work Phone: Comment on above: Once (Lab) for 1 Occ urrences starting 12/19/2024 until 12/19/2024 End: 09-05-2025 XR Abdomen Supine and Lateral-decubitus [facility] Work Phone: Comment on above: Once for 1 Occurrenc es starting 09/05/2025 until 09/05/2025 [facility] Immunizations Immunization Date Immunization Notes Care Provider Fa harsh 09-03-2022 influenza virus vacc ine, unspecified formulation Joseph Glze PA-C Work Phone: [facility] 12-25-2006 poliovirus vaccine, unspecified formulation Dariel De Oliveira MD Work Phone: [facility] 12-25-2006 varicella virus vaccine Namita De Oliveira MD Work Phone: [facility] Payers Date Payer Category Payer Rodolfo rodriguez Managed Care - [facility] MICHAEL [employer]UE [employer]OSS [id number] 2025 Unknown [id number] 2024 Private Health Insurance [id number] 2023 Unknown [id number] 2023 Commercial Managed C [facility] UMR OPT [id number] 2023 Unknown [id number] 2022 Unknown [id number] 2022 Unknown [id number] 2022 Unknown [id number] 2022 Unknown [id number] 2022 Self-pay 2020 Medicaid [employer] [id number] 2020-Present [phone] [address] [place] [address] Medicaid [id number] 2020 Medicaid [id number] 2001 Unknown [id number] 627 2001 Unknown [id number]. 627 2001 Unknown [id number]. 627 2001 Unknown [id number]. 627 2001 Unknown [id number]. 627 2001 Unknown [id number] [id number]. 627 2001 Unknown [id number]. 627 2001 Unknown [id number] [id number]. 627 2001 Unknown [id number]. 627 2001 Unknown [id number] [id number]. 627 2001 Unknown [id number] [id number]. 627 Unknown [id number] 462 Social History Date Type Detail Facility Start: 12-19-2024 Tobacco smoking status NVIS Tobacco smoking consumption unknown [facility] Start: 2001 Sex Assigned At Not on file C [facility] Start: 04-23-2021 End: 09-06-2022 Exposure to SARS-CoV-2 (event) Not sure [facility] Start: 06-07-2020 End: 04-06-2025 Tobacco smoking status Never smoked tobacco (finding) [facility] Sex Assigned At Female [facility] Start: 09-06-2022 End: 04-06-2025 Tobacco use and exposure Smokeless tobacco non-user [facility] Start: 10-10-2023 End: 03-19-2024 Alcohol intake Lifetime non-drinker (finding) [facility] Start: 10-10-2023 End: 04-06-2025 History of [address] function [facility] Start: 10-10-2023 End: 04-06-[address] [facility] Start: 08-23-2025 End: 09-16-2025 Adult Depression Screening Assessment 0 [facility] History of tobacco use Passive smoker [facility] Start: 06-10-2022 End: 08-23-2025 Sex Female (finding) [facility] Start: 04-06-2025 Alcoholic beverage intake Current drinker of alcohol (finding) [facility] Tobacco smoking status [facility] NEGATED: Highlighted rowStart: NINF History of tobacco use Passive smoker [facility] Medical Equipment Procedure Code Equipment Code Equipment Origin al Text Equipment Identifier Dates See Instructions , Glucose test strips to test blood sugars once daily for hypoglycemia., # 100 EA, 3 Refill(s), Pharmacy: [facility] #[id number], Low blood sugar, 177.8, cm, 01/31/23 16:52:00 EDT, Height, 116.2 Start: 01-31-2023 See Instructions , Lancets to check blood sugars once daily for hypoglycemia., # 100 EA, 3 Refill(s), Pharmacy: [facility] #[id number], Low blood sugar, 177.8, cm, 01/31/23 16:52:00 EDT, Height, 116.2 Start: 01-31-2023 See Instructions , Glucose test strips to test blood sugars once daily for hypoglycemia., # 100 EA, 3 Refill(s), Pharmacy: [facility] #[id number], Low blood sugar, 177.8, cm, 01/31/23 16:52:00 EDT, Height, 116.2 Start: 01-31-2023 See Instructions , Lancets to check blood sugars once daily for hypoglycemia., # 100 EA, 3 Refill(s), Pharmacy: [facility] #[id number], Low blood sugar, 177.8, cm, 01/31/23 16:52:00 EDT, Height, 116.2 Start: 01-31-2023 See Instructions , Glucose test strips to test blood sugars once daily for hypoglycemia., # 100 EA, 3 Refill(s), Pharmacy: [facility] #[id number], Low blood sugar, 177.8, cm, 01/31/23 16:52:00 EDT, Height, 116.2 Start: 01-31-2023 See Instructions , Lancets to check blood sugars once daily for hypoglycemia., # 100 EA, 3 Refill(s), Pharmacy: [facility] #[id number], Low blood sugar, 177.8, cm, 01/31/23 16:52:00 EDT, Height, 116.2 Start: 01-31-2023 See Instructions , Glucose test strips to test blood sugars once daily for hypoglycemia., # 100 EA, 3 Refill(s), Pharmacy: [facility] #[id number], Low blood sugar, 177.8, cm, 01/31/23 16:52:00 EDT, Height, 116.2 Start: 01-31-2023 See Instructions , Lancets to check blood sugars once daily for hypoglycemia., # 100 EA, 3 Refill(s), Pharmacy: [facility] #[id number], Low blood sugar, 177.8, cm, 01/31/23 16:52:00 EDT, Height, 116.2 Start: 01-31-2023 See Instructions , Glucose test strips to test blood sugars once daily for hypoglycemia., # 100 EA, 3 Refill(s), Pharmacy: [facility] #[id number], Low blood sugar, 177.8, cm, 01/31/23 16:52:00 EDT, Height, 116.2 Start: 01-31-2023 See Instructions , Lancets to check blood sugars once daily for hypoglycemia., # 100 EA, 3 Refill(s), Pharmacy: [facility] #[id number], Low blood sugar, 177.8, cm, 01/31/23 16:52:00 EDT, Height, 116.2 Start: 01-31-2023 Functional Status Date Assessment Result Facility 09-16-2025 Functional Status Independent [facility] 09-16-2025 [facility] 09-16-2025 Functional Status ID band on, Allergy Band on, Call device within reach, Bed in low position, Wheels locked, Safety level maintained [facility] 08-23-2025 Functional Status Independent [facility] 08-23-2025 Functional Status Awake [facility] 08-23-2025 [facility] 10-29-2023 Functional Status ID band on, Call device within reach, Bed in low position, Wheels locked, personal items within reach [facility] 05-04-2023 Functional Status Independent [facility] 03-16-2023 [facility] Functional Status Standard Safet y ID band on, Call device within reach, Bed in low position, Wheels locked, Visitor at bedside, Safety level maintained [facility] 11-11-2022 Functional Status Independent [facility] 11-11-2022 Functional Status ID band on, Call device within reach, Bed in low position, Wheels locked, Upper/Half-Length side-rails up [facility] 10-05-2022 Functional Status Ambulating in hernández, Awake [facility] Mental Status Date Assessment Result Facility 09-16-2025 Mental Status Orientation Oriented x 4 [facility] 09-16-2025 Mental Status [facility] 08-23-2025 Mental Status Orientation Oriented x 4 [facility] 08-23-2025 Mental Status [facility] 10-29-2023 Mental Status Oriented x 4 [facility] 05-04-2023 Mental Status Orientation Oriented x 4 [facility] 03-16-2023 Mental Status Orientation Oriented x 4 [facility] 03-16-2023 Mental Status [facility] 11-11-2022 Mental Status Oriented x 4 [facility] 11-11-2022 [facility] 10-05-2022 Mental Status Orientation Oriented x 4 [facility] Clinical Notes 10-06-2020 to 09-16-2025 Note Date & Type Note Facility 09-16-2025 Hospital Discharg e instructions Patient Education 09/16/2025 13:51:14 Kidney Stone w/ Colic Kidney Stone with Pain The sharp cramping pain on either side of your lower back and nausea/vomiting that you have are because of a small stone that has formed in the kidney. It is now passing down a narrow tube (ureter) on its way to your bladder. Once the stone reaches your bladder, the pain will often stop. But it may come back as the stone continues to pass out of the bladder and through the urethra. The stone may pass in your urine stream in one piece. The size may be 1/16 inch to 1/4 inch (1 mm to 6 mm). Or, the stone may break up into zac fragments that you may not even notice. Once you have had a kidney stone, you are at risk of getting another one in the future. There are 4 types of kidney stones. Eighty percent are calcium stones mostly calcium oxalate but also some with calcium phosphate. The other 3 types include uric acid stones, struvite stones (from a preceding infection), and rarely, cystine stones. Most stones will pass on their own, but may take from a few hours to a few days. Sometimes the stone is too large to pass by itself. In that case, the healthcare provider will need to use other ways to remove the stone. These techniques include: Lithotripsy. This uses ultrasound waves to break up the stone. Ureteroscopy. This pushes a basket-like instrument through the urethra and bladder and into the ureter to pull out the stone. Various types of direct surgery through the skin Home care The following are general care guidelines: Drink plenty of fluids. This means at least 12, 8-ounce glasses of fluid mostly water a day. Each time you urinate, do so in a jar. Pour the urine from the jar through the strainer and into the toilet. Continue doing this until 24 hours after your pain stops. By then, if there was a kidney stone, it should pass from your bladder. Some stones dissolve into sand-like particles and pass right through the strainer. In that case, you won t ever see a stone. Save any stone that you find in the strainer and bring it to your healthcare provider to look at. It may be possible to stop certain types of stones from forming. For this reason, it is important to know what kind of stone you have. Try to stay as active as possible. This will help the stone pass. Don't stay in bed unless your pain keeps you from getting up. You may notice a red, pink, or brown color to your urine. This is normal while passing a kidney stone. If you develop pain, you may take ibuprofen or naproxen for pain, unless another medicine was prescribed. If you have chronic liver or kidney disease, talk with your healthcare provider before taking these medicines. Also talk with your provider if you've had a stomach ulcer or GI bleeding. Preventing stones Each year for the next 5 to 7 years, you are at risk that a new stone will form. Your risk is a 50% chance over this time period. The risk is higher if you have a family history of kidney stones or have certain chronic illnesses like hypertension, obesity, or diabetes. But you can make changes to your lifestyle and diet that can lower your risk for another stone. Most kidney stones are made of calcium. The following is advice for preventing another calcium stone. If you don t know the type of stone you have, follow this advice until the cause of your stone is found. Things that help: The most important thing you can do is to drink plenty of fluids each day. See home care above. Eat foods that contain phytates. These include wheat, rice, rye, barley, and beans. Phytates are substances that may lower your risk for any type of stone to form. Eat more fruits and vegetables. Choose those that are high in potassium. Eat foods high in natural citrate like fruit and low-sugar fruit juices. Having too little calcium in your diet can put you at risk for calcium kidney stones. Eat a normal amount of calcium in your diet and talk with your healthcare provider if you are taking calcium supplements. Cutting back on your calcium intake may raise your risk. New research shows that eating calcium-rich and oxalate-rich foods together lowers your risk for stones by binding the minerals in the stomach and intestines before they can reach the kidneys. Limit salt intake to 2 grams (1 teaspoon) per day. Use limited amounts when cooking, and don t add salt at the table. Processed and canned foods are usually high in salt. Spinach, rhubarb, peanuts, cashews, almonds, grapefruit, and grapefruit juice are all high oxalate foods. You should limit how much of these you eat. Or eat them with calcium-rich foods. These include dairy products, dark leafy greens, soy products, and calcium-enriched foods. Reducing the amount of animal meat and high protein foods in your diet may lower your risk for uric acid stones. Avoid excess sugar (sucrose) and fructose (sweetener in many soft drinks) in your diet. If you take vitamin C as a supplement, don't take more than 1,000 mg a day. A dietitian or your healthcare provider can give you information about changes in your diet that will help prevent more kidney stones from forming. Follow-up care Follow up with your healthcare provider, or as advised, if the pain lasts more than 48 hours. Talk with your provider about urine and blood tests to find out the cause of your stone. If you had an X-ray, CT scan, or other diagnostic test, you will be told of any new findings that may affect your care. Call 911 Call 911 if you have any of these: Weakness, dizziness, or fainting When to seek medical advice Call your healthcare provider right away if any of these occur: Pain that is not controlled by the medicine given Repeated vomiting or unable to keep down fluids Fever of 100.4 F (38 C) or higher, or as directed by your healthcare provider Passage of solid red or brown urine (can't see through it) or urine with lots of blood clots Foul-smelling or cloudy urine Unable to pass urine for 8 hours and increasing bladder pressure [phone] [facility]. [address] [place] [address], [place] [address]. All rights reserved. This information is not intended as a substitute for professional medical care. Always follow your healthcare professional's instructions. Follow Up Care 09/16/2025 11:53:32 With:GILA MARTÍNEZ MD, Urology Service Address: [address] [place] [address] Urology [place], [place] [id number]- [phone] When:2-4 days [facility] 09-16-2025 Note Discharge Instructions Thank you for allowing [facility] to assist you with your healthcare needs. The following is important discharge information regarding your hospital visit. Diagnosis from Today's Visit Kidney stone What to Do Next Instructions from Your Care Team No qualifying data available. Post Acute Orders No qualifying data available. You Need to Schedule the Following Appointments Follow Up with GILA MARTÍNEZ MD, Urology Service When:Within 2-4 days Where:[address] [place] [address] [address] [place] [address]- [phone] Allergies sulfamethoxazole Medications Please ask your primary doctor or pharmacist before taking any other medication not listed, including over the counter drugs, herbal medications, vitamins and or supplements as they may interact with your home medications. What How Much When Why Instructions Last Dose New acetaminophen-hydrocodone ([place] 325- 5 mg oral tablet) 1 tab(s) by mouth Every 6 hours as needed for as needed for pain Kidney stone Duration: 3 Days Printed Prescription New ondansetron (ondansetron 4 mg oral tablet, disintegrating) 1 tab(s) by mouth Every 6 hours as needed for Nausea/Vomiting Duration: 4 Days Printed Prescription Please take this list to your next doctor s visit. Bring all medications you take, including over the counter medications, herbals and other supplements with you to your doctor s visit. Patients and families are reminded to discard old lists and to update any records with all medication providers or retail pharmacies. Education Materials Kidney Stone with Pain The sharp cramping pain on either side of your lower back and nausea/vomiting that you have are because of a small stone that has formed in the kidney. It is now passing down a narrow tube (ureter) on its way to your bladder. Once the stone reaches your bladder, the pain will often stop. But it may come back as the stone continues to pass out of the bladder and through the urethra. The stone may pass in your urine stream in one piece. The size may be 1/16 inch to 1/4 inch (1 mm to 6 mm). Or, the stone may break up into zac fragments that you may not even notice. Once you have had a kidney stone, you are at risk of getting another one in the future. There are 4 types of kidney stones. Eighty percent are calcium stones mostly calcium oxalate but also some with calcium phosphate. The other 3 types include uric acid stones, struvite stones (from a preceding infection), and rarely, cystine stones. Most stones will pass on their own, but may take from a few hours to a few days. Sometimes the stone is too large to pass by itself. In that case, the healthcare provider will need to use other ways to remove the stone. These techniques include: Lithotripsy. This uses ultrasound waves to break up the stone. Ureteroscopy. This pushes a basket-like instrument through the urethra and bladder and into the ureter to pull out the stone. Various types of direct surgery through the skin Home care The following are general care guidelines: Drink plenty of fluids. This means at least 12, 8-ounce glasses of fluid mostly water a day. Each time you urinate, do so in a jar. Pour the urine from the jar through the strainer and into the toilet. Continue doing this until 24 hours after your pain stops. By then, if there was a kidney stone, it should pass from your bladder. Some stones dissolve into sand-like particles and pass right through the strainer. In that case, you won t ever see a stone. Save any stone that you find in the strainer and bring it to your healthcare provider to look at. It may be possible to stop certain types of stones from forming. For this reason, it is important to know what kind of stone you have. Try to stay as active as possible. This will help the stone pass. Don't stay in bed unless your pain keeps you from getting up. You may notice a red, pink, or brown color to your urine. This is normal while passing a kidney stone. If you develop pain, you may take ibuprofen or naproxen for pain, unless another medicine was prescribed. If you have chronic liver or kidney disease, talk with your healthcare provider before taking these medicines. Also talk with your provider if you've had a stomach ulcer or GI bleeding. Preventing stones Each year for the next 5 to 7 years, you are at risk that a new stone will form. Your risk is a 50% chance over this time period. The risk is higher if you have a family history of kidney stones or have certain chronic illnesses like hypertension, obesity, or diabetes. But you can make changes to your lifestyle and diet that can lower your risk for another stone. Most kidney stones are made of calcium. The following is advice for preventing another calcium stone. If you don t know the type of stone you have, follow this advice until the cause of your stone is found. Things that help: The most important thing you can do is to drink plenty of fluids each day. See home care above. Eat foods that contain phytates. These include wheat, rice, rye, barley, and beans. Phytates are substances that may lower your risk for any type of stone to form. Eat more fruits and vegetables. Choose those that are high in potassium. Eat foods high in natural citrate like fruit and low-sugar fruit juices. Having too little calcium in your diet can put you at risk for calcium kidney stones. Eat a normal amount of calcium in your diet and talk with your healthcare provider if you are taking calcium supplements. Cutting back on your calcium intake may raise your risk. New research shows that eating calcium-rich and oxalate-rich foods together lowers your risk for stones by binding the minerals in the stomach and intestines before they can reach the kidneys. Limit salt intake to 2 grams (1 teaspoon) per day. Use limited amounts when cooking, and don t add salt at the table. Processed and canned foods are usually high in salt. Spinach, rhubarb, peanuts, cashews, almonds, grapefruit, and grapefruit juice are all high oxalate foods. You should limit how much of these you eat. Or eat them with calcium-rich foods. These include dairy products, dark leafy greens, soy products, and calcium-enriched foods. Reducing the amount of animal meat and high protein foods in your diet may lower your risk for uric acid stones. Avoid excess sugar (sucrose) and fructose (sweetener in many soft drinks) in your diet. If you take vitamin C as a supplement, don't take more than 1,000 mg a day. A dietitian or your healthcare provider can give you information about changes in your diet that will help prevent more kidney stones from forming. Follow-up care Follow up with your healthcare provider, or as advised, if the pain lasts more than 48 hours. Talk with your provider about urine and blood tests to find out the cause of your stone. If you had an X-ray, CT scan, or other diagnostic test, you will be told of any new findings that may affect your care. Call 911 Call 911 if you have any of these: Weakness, dizziness, or fainting When to seek medical advice Call your healthcare provider right away if any of these occur: Pain that is not controlled by the medicine given Repeated vomiting or unable to keep down fluids Fever of 100.4 F (38 C) or higher, or as directed by your healthcare provider Passage of solid red or brown urine (can't see through it) or urine with lots of blood clots Foul-smelling or cloudy urine Unable to pass urine for 8 hours and increasing bladder pressure [phone] [facility]. [address] [place] [address]. All rights reserved. This information is not intended as a substitute for professional medical care. Always follow your healthcare professional's instructions. Additional Information VACCINATE! IT SAVES LIVES! Members of the community who have not yet received the COVID-19 vaccine and would like to receive it can visit one of [facility] vaccine clinics. There are many vaccine clinic locations within the [facility]. For locations and available times, please visit [email or web address] [email or web address] It is important to note that some COVID mobile vaccine clinics are held outdoors and may be canceled in rainy or stormy conditions. To learn more about pediatric vaccinations (ages 5-11), we invite you to visit the [facility] webpage. https://www.[email or web address].org/p ages/3950-Vptyo-Jckzoxscenh-Freq wnmwgf-Pbaut-Gseomdqfq.html To learn more about the COVID-19 vaccine, we invite you to visit the CDC website for a list of frequently asked questions. https://www.cdc.gov/coronavirus/ 2019-ncov/vaccines/faq.html [facility]Chart Patient Portal Access Instructions: Stay connected with your healthcare team and access your personal medical information anytime with the [facility]Chart Patient Portal. If you would like a full copy of your medical records please contact the [facility] Medical Records Department Friday through Friday between 8a.m. and 4:30p.m. Please follow the directions below to access the portal: 1.Access the email account you provided upon registration to the [facility].2.Look for an invitation email from [facility].3.Open the email and access the invitation link: Accept Invitation to [employer]4.Fill in the required raines to create your account. To access your account, visit [employer] or scan the iKONVERSE code above. Click the blue button labeled "Access Patient Portal" and then log in with the username and password that you created in the steps above. You can then view a summary of results, a summary of your visits, and the ability to download your summaries to your computer or send the information securely to a physician. Remember that your healthcare information is confidential, so carefully consider who you will allow to register on the [employer] Patient Portal for access to your information. You can also access the [employer] Patient Portal on the [employer]. Simply click on "Health Records" under "Health Data" and then click on the [employer] logo. HOW TO SAFELY DISPOSE OF PRESCRIPTION MEDICATIONS Please use one of the following methods to safely dispose of your unused medications. 1.Use a drug disposal kit: the drug disposal pouch allows you to safely discard your old and unused drugs. Ask your nurse to give you one when you are discharged.2.Visit a local take-back location: Many local pharmacies and police departments have programs that collect old and unwanted prescription drugs. Call your local pharmacy or go to http://[employer] Mobile.Zymetis/3G3Ux5g to find one close to you.3.Make use of household items: Use cat litter or old coffee grounds to dispose medications if other options are not available. Mix your drugs with these household products, seal them in an airtight container and throw it into the garbage. Call [facility]: [phone] to be sure your drugs can be disposed of in this way. Some medicines may require a different approach.4.Never flush your medications down the toilet. IF YOU HAVE BEEN PRESCRIBED AN OPIOIDS FOR PAIN If you have been prescribed an opioid (such as hydrocodone, oxycodone or morphine), it is critical to understand the possible side effects and risks of opioid pain medications. Even when taken as directed, opioids can have several side effects including: Tolerance, meaning you might need to take more of a medication for the same pain relief. Nausea, vomiting and/or constipation. Sleepiness, dizziness, dry mouth, confusion, depression or itching. Physical dependence, meaning you have withdrawal symptoms when a medication is stopped ? this can develop within a few days. KNOW YOUR RESPONSIBILITIES It is important to know exactly how much and how often to take the opioid pain medications you are prescribed. Never take opioids in higher amounts or more often than prescribed. Do not combine opioids with alcohol or other drugs that cause drowsiness, such as benzodiazepines, also known as benzos, including diazepam and alprazolam, muscle relaxants or sleep aids. Never sell or share prescription opioids. This is illegal. Store opioids in a secure place and out of reach of others (including children, family, friends and visitors). The last page(s) of this document has been signed and retained as a CHART COPY Signatures Patient Education Materials Kidney Stone w/ Colic Medication Leaflets My discharge plan and instructions have been reviewed and explained to me and I,RAMIRO NAPOLES understand my current condition and have read and understand these discharge instructions. I have received a written copy of the plan/instructions. If I have questions, I am aware that I should contact my doctor. Patient/Metal Bumper Signature: Date/Time: Relationship to Patient: Witness Name/Signature: Date/Time: [facility] 09-16-2025 Note Exam Date Time Procedure Performing Provider Status 09/16/25 1:[address] Abd/Pelvis w/ IV Contrast Only OSEAS POON MD; Auth (Verified) [id number] ORIGINAL EXAMINATION: CT OF THE ABDOMEN AND PELVIS WITH UQJLPBTK10/7/2025 1:18 pm TECHNIQUE: CT of the abdomen and pelvis was performed with the administration of intravenous contrast. Multiplanar reformatted images are provided for review. Automated exposure control, iterative reconstruction, and/or weight based adjustment of the mA/kV was utilized to reduce the radiation dose to as low as reasonably achievable. COMPARISON: 08/23/2025 HISTORY: ORDERING SYSTEM PROVIDED HISTORY: Reason for Exam: Rt flank pain, N+V, burning pain with urination. Hx renal stone 3 weeks ago which pt believes she passed. SCANNED ADDITIONAL SERIES TO INCLUDE ALL LIVER. Abdominal pain, acute, nonlocalized FINDINGS: No acute abnormality in the visualized portions of the lower thorax. No aggressive osseous lesions. The liver, gallbladder, spleen, pancreas, and adrenal glands are unremarkable. Delayed right nephrogram with mild to moderate hydronephrosis. There is mild to moderate right-sided ureteral dilatation with a 3 mm stone still seen at the distal right ureter/UVJ. There is no left-sided hydronephrosis. There is no intra-abdominal free air or fluid. No pathologically enlarged lymph nodes. Thick the abdominal aorta is normal in caliber. No acute GI tract abnormality. The appendix is normal. No other contributory finding. IMPRESSION: 1. Similar appearing mild to moderate right hydroureteronephrosis which is due to a 3 mm obstructive stone at the distal right ureter/UVJ. I have personally reviewed the images of this examination and agree with the resident's finding and interpretation. Interpreted by: Oseas Bunch MD Preliminary Report By: Fabiano Busch Electronically signed By Oseas Bunch MD Dictated Date: 09/16/2025 1:23:37 PM Prelim Date: 09/16/2025 1:29:34 PM Sign Date: 09/16/2025 2:20:26 PM Ordering Provider: JAVAD RAMACHANDRAN RP [facility]10-14-2025 Hospital Discharge instructions Patient Education 08/23/2025 07:52:44 Kidney Stone w/ Colic Kidney Stone with Pain The sharp cramping pain on either side of your lower back and nausea/vomiting that you have are because of a small stone that has formed in the kidney. It is now passing down a narrow tube (ureter) on its way to your bladder. Once the stone reaches your bladder, the pain will often stop. But it maycome back as the stone continues to pass out of the bladder and through the urethra. The stone may pass in your urine stream in one piece. The size may be 1/16 inch to 1/4 inch (1 mm to 6 mm). Or, the stone may break up into zac fragments that you may not even notice. Once you have had a kidney stone, you are at risk of getting another one in the future. There are 4types of kidney stones. Eighty percent are calcium stones mostly calcium oxalate but also some withcalcium phosphate. The other 3 types include uric acid stones, struvite stones (from a preceding infection), and rarely, cystine stones. Most stones will pass on their own, but may take from a few hours to a few days. Sometimes the stone is too large to pass by itself. In that case, the healthcare provider will need to use other ways to remove the stone. These techniques include: Lithotripsy. This uses ultrasound waves to break up the stone. Ureteroscopy. This pushes a basket-like instrument through the urethra and bladder and into the ureter to pull out the stone. Various types of direct surgery through the skin Home care The following are general care guidelines: Drink plenty of fluids. This means at least 12, 8-ounce glasses of fluid mostly water a day. Each time you urinate, do so in a jar. Pour the urine from the jar through the strainer and into the toilet. Continue doing this until 24 hours after your pain stops. By then, if there was a kidney stone, it should pass from your bladder. Some stones dissolve into sand-like particles and pass rightthrough the strainer. In that case, you won t ever see a stone. Save any stone that you find in the strainer and bring it to your healthcare provider to look at. It may be possible to stop certain types of stones from forming. For this reason, it is important to know what kind of stone you have. Try to stay as active as possible. This will help the stone pass. Don't stay in bed unless your pain keeps you from getting up. You may notice a red, pink, or brown color to your urine. This is normal while passing a kidney stone. If you develop pain, you may take ibuprofen or naproxen for pain, unless another medicine was prescribed. If you have chronic liver or kidney disease, talk with your healthcare provider before takingthese medicines. Also talk with your provider if you've had a stomach ulcer or GI bleeding. Preventing stones Each year for the next 5 to 7 years, you are at risk that a new stone will form. Your risk is a 50%chance over this time period. The risk is higher if you have a family history of kidney stones or have certain chronic illnesses like hypertension, obesity, or diabetes. But you can make changes to your lifestyle and diet that can lower your risk for another stone. Most kidney stones are made of calcium. The following is advice for preventing another calcium stone. If you don t know the type of stone you have, follow this advice until the cause of your stone isfound. Things that help: The most important thing you can do is to drink plenty of fluids each day. See home care above. Eat foods that contain phytates. These include wheat, rice, rye, barley, and beans. Phytates are substances that may lower your risk for any type of stone to form. Eat more fruits and vegetables. Choose those that are high in potassium. Eat foods high in natural citrate like fruit and low-sugar fruit juices. Having too little calcium in your diet can put you at risk for calcium kidney stones. Eat a normal amount of calcium in your diet and talk with your healthcare provider if you are taking calcium supplements. Cutting back on your calcium intake may raise your risk. New research shows that eating calcium-rich and oxalate-rich foods together lowers your risk for stones by binding the minerals in thestomach and intestines before they can reach the kidneys. Limit salt intake to 2 grams (1 teaspoon) per day. Use limited amounts when cooking, and don t add salt at the table. Processed and canned foods are usually high in salt. Spinach, rhubarb, peanuts, cashews, almonds, grapefruit, and grapefruit juice are all high oxalate foods. You should limit how much of these you eat. Or eat them with calcium-rich foods. These include dairy products, dark leafy greens, soy products, and calcium-enriched foods. Reducing the amount of animal meat and high protein foods in your diet may lower your risk for uricacid stones. Avoid excess sugar (sucrose) and fructose (sweetener in many soft drinks) in your diet. If you take vitamin C as a supplement, don't take more than 1,000 mg a day. A dietitian or your healthcare provider can give you information about changes in your diet that will help prevent more kidney stones from forming. Follow-up care Follow up with your healthcare provider, or as advised, if the pain lasts more than 48 hours. Talk with your provider about urine and blood tests to find out the cause of your stone. If you had an X-ray, CT scan, or other diagnostic test, you will be told of any new findings that may affect your care. Call 911 Call 911 if you have any of these: Weakness, dizziness, or fainting When to seek medical advice Call your healthcare provider right away if any of these occur: Pain that is not controlled by the medicine given Repeated vomiting or unable to keep down fluids Fever of 100.4 F (38 C) or higher, or as directed by your healthcare provider Passage of solid red or brown urine (can't see through it) or urine with lots of blood clots Foul-smelling or cloudy urine Unable to pass urine for 8 hours and increasing bladder pressure [id number] [facility]. [address] [place] [address], [place] [address]. All rights reserved. This information is not intended as a substitute for professional medical care. Always follow yourhealthcare professional's instructions. Follow Up Care 08/23/2025 05:58:16 With:GILA MARTÍNEZ MD, Urology Service Address: [address] [place] [address] [address] [facility] [place] [address]- [phone] When:5 to 7 days With:Go to emergency room if symptoms worsen Address:Unknown When:2-4 days With:Follow up with primary care provider Address:Unknown When:2-4 days [facility] 10-14-2025 Note Discharge Instructions Thank you for allowing [facility] to assist you with your healthcare needs. The following is importantdischarge information regarding your hospital visit. Diagnosis from Today's Visit Kidney stone on right side What to Do Next Instructions from Your Care Team You are prescribed pain and nausea medications as well as a different antibiotic as you were endorsing continued UTI symptoms although your urinalysis here is without persistent UTI. Please take medication as prescribed. The pain medication is for breakthrough pain, can cause constipation thus I dorecommend taking MiraLAX or other stool softener if taking this medication. It can cause drowsinessdo not drive or operate any heavy machinery while taking this medication. Can alternate Motrin and Tylenol as well for discomfort. You were provided follow-up with urology and please follow-up with your primary care provider. If symptoms acutely worsen or you have any other acute concerns please return to the emergency department for further evaluation and management. The medication Flomax as discussed is not required as the stone that you have is 3 mm and will pass on its own. Flomax is a sulfa-based medication and can have cross-reactivity with your allergy history to sulfa meds and thus was not prescribed. No qualifying data available. Post Acute Orders No qualifying data available. You Need to Schedule the Following Appointments Follow Up with GILA MARTÍNEZ MD, Urology Service When:Within 5 to 7 days Where:[address] [place] [address] [address] [facility] [place] [address]- [phone] Follow Up with Go to emergency room if symptoms worsen When:Within 2-4 days Follow Up with Follow up with primary care provider When:Within 2-4 days Allergies sulfamethoxazole Medications Please ask your primary doctor or pharmacist before taking any other medication not listed, including over the counter drugs, herbal medications, vitamins and or supplements as they may interact withyour home medications. What How Much When Why Instructions Last Dose New acetaminophen-oxyCODONE (Percocet 5 mg-325 mg oral tablet) 1 tab(s) by mouth Every 6 hours as needed for for pain Kidney stone on right side Duration: 3 Days Printed Prescription New cephalexin (cephalexin 500 mg oral capsule) 1 cap by mouth Four (4) times a day Duration: 10 Days Printed Prescription New ondansetron (ondansetron 4 mg oral tablet, disintegrating) 1 tab(s) by mouth Every 6 hours as needed for Nausea/Vomiting Printed Prescription Please take this list to your next doctor s visit. Bring all medications you take, including over the counter medications, herbals and other supplements with you to your doctor s visit. Patients and families are reminded to discard old lists and to update any records with all medication providers or retail pharmacies. Medication Leaflets ondansetron (oral) (on JUAN se facundo) What is the most important information I should know about ondansetron? Tell your doctor about all your other medicines. Some drugs should not be used with ondansetron. What is ondansetron? Ondansetron is used to prevent nausea and vomiting that may happen with certain cancer medicines (chemotherapy), or after surgery, or radiation treatment . Ondansetron may be used for purposes not listed in this medication guide. What should I discuss with my health care provider before taking ondansetron? You should not use ondansetron if you are allergic to it or similar medicines (dolasetron, granisetron, palonosetron). Some drugs should not be used with ondansetron. Your treatment plan may change if you also use apomorphine. Tell your doctor if you have or have ever had: an electrolyte imbalance (such as low blood levels of potassium or magnesium); congestive heart failure, slow heartbeats; heart rhythm disorder such as long QT syndrome (in you or a family member); an obstruction in the stomach or intestines, a change in bowel habits; a surgery on your stomach or intestines; or severe liver disease. The orally disintegrating tablet may contain phenylalanine and could be harmful if you have phenylketonuria (PKU). Tell your doctor if you also use stimulant medicine, opioid medicine, herbal products, or medicine for depression, mental illness, Parkinson's disease, migraine headaches, serious infections, or prevention of nausea and vomiting. An interaction with ondansetron could cause a serious condition called serotonin syndrome. Tell your doctor if you are or . Ondansetron is not approved for use by anyone younger than 4 years old. How should I take ondansetron? Follow all directions on your prescription label and read all medication guides or instruction sheets. Use the medicine exactly as directed. Ondansetron is usually taken just before surgery, chemotherapy, or radiation treatment. Follow yourdoctor's dosing instructions very carefully. Measure liquid medicine with the supplied measuring device (not a kitchen spoon). To take the orally disintegrating tablet: Keep the tablet in its blister pack until you are ready to take it. Open the package and peel back the foil. Use dry hands to remove the orally disintegrating tablet and place it in your mouth. Do not push a tablet through the foil or you may damage the tablet. Allow the orally disintegrating tablet to dissolve in your mouth without chewing. Do not swallow whole. Store in the original container at room temperature away from moisture, heat, and light. Store liquid medicine in an upright position. What happens if I miss a dose? Ondansetron is used when needed. If you are on a dosing schedule, skip any missed dose. Do not use two doses at one time. What happens if I overdose? Seek emergency medical attention or call the Poison Help line at . What should I avoid while taking ondansetron? Follow your doctor's instructions about any restrictions on food, beverages, or activity. What are the possible side effects of ondansetron? Get emergency medical help if you have signs of an allergic reaction: hives, difficult breathing, swelling of your face, lips, tongue, or throat. Seek medical attention right away if you have symptoms of serotonin syndrome such as: agitation, hallucinations, fever, sweating, shivering, fast heart rate, muscle stiffness, twitching, loss of coordination, nausea, vomiting, or diarrhea. Seek emergency medical help if you have signs of a heart attack: chest pain that spreads to your jaw or shoulder, nausea, and sweating. Call your doctor at once if you have: severe stomach pain, bloating, constipation, or any change in bowel habits; or dizziness, feeling lightheaded, fainting, slow, fast, or uneven heartbeats. Common side effects may include: diarrhea or constipation; headache; shortness of breath, rapid breathing, fast heartbeats; or feeling unwell, tiredness. This is not a complete list of side effects and others may occur. Call your doctor for medical advice about side effects. You may report side effects to FDA at 7-105-ZZK-3206. What other drugs will affect ondansetron? Ondansetron can cause a serious heart problem. Your risk may be higher if you also use certain other medicines for infections, asthma, heart problems, high blood pressure, depression, mental illness,cancer, malaria, or HIV. Many drugs can affect ondansetron. This includes prescription and cusv-pfb-ugnavnl medicines, vitamins, and herbal products. Not all possible interactions are listed here. Tell your doctor about all other medicines you use. Where can I get more information? Your doctor or pharmacist can provide more information about ondansetron. Remember, keep this and all other medicines out of the reach of children, never share your medicines with others, and use this medication only for the indication prescribed. Every effort has been made to ensure that the information provided by [employer] is accurate, up-to-date, and complete, but no guarantee is made to that effect. Drug information contained herein may be time sensitive. [employer] information has been compiled for use by healthcare practitioners and consumers in the [place] and therefore [employer] does not warrant that uses outside of the [place] are appropriate, unless specifically indicated otherwise. [employer] drug information does not endorse drugs, diagnose patients or recommend therapy. [employer] drug information isan informational resource designed to assist licensed healthcare practitioners in caring for their p atients and/or to serve consumers viewing this service as a supplement to, and not a substitute for, the expertise, skill, knowledge and judgment of healthcare practitioners. The absence of a warningfor a given drug or drug combination in no way should be construed to indicate that the drug or drug combination is safe, effective or appropriate for any given patient. [facility] does not assume any responsibility for any aspect of healthcare administered with the aid of information [employer] provides. The information contained herein is not intended to cover all possible uses, directions, precautions, warnings, drug interactions, allergic reactions, or adverse effects. If you have questions about the drugs you are taking, check with your doctor, nurse or pharmacist. Copyright 3778-1415 [facility] [employer]. Version: 17.. Revision Date: 08/03/2024. cephalexin (sef a JUAREZ in) What is the most important information I should know about cephalexin? You should not use this medicine if you are allergic to cephalexin or to similar antibiotics, such as Ceftin, Cefzil, Omnicef, and others. Tell your doctor if you are allergic to any drugs, especially penicillins or other antibiotics. What is cephalexin? Cephalexin is a cephalosporin (SEF a low spor in) antibiotic that is used to treat bacterial infections of the lungs, ear, skin, bones, bladder, and kidneys. Cephalexin is used to treat infections in adults and children who are at least 1 year old. Cephalexin may also be used for purposes not listed in this medication guide. What should I discuss with my healthcare provider before taking cephalexin? You should not use this medicine if you are allergic to cephalexin or any other cephalosporin antibiotic (cefdinir, cefadroxil, cefoxitin, cefprozil, ceftriaxone, cefuroxime, Omnicef, and others). Tell your doctor if you have ever had: an allergy to any drug (especially penicillin); liver or kidney disease; or intestinal problems, such as colitis. The liquid form of cephalexin may contain sugar. This may affect you if you have diabetes. Tell your doctor if you are or breast-feeding. How should I take cephalexin? Follow all directions on your prescription label and read all medication guides or instruction sheets. Use the medicine exactly as directed. Do not use cephalexin to treat any condition that has not been checked by your doctor. Measure liquid medicine carefully. Use the dosing syringe provided, or use a medicine dose-measuring device (not a kitchen spoon). Use this medicine for the full prescribed length of time, even if your symptoms quickly improve. Skipping doses can increase your risk of infection that is resistant to medication. Cephalexin will not treat a viral infection such as the flu or a common cold. Do not share cephalexin with another person, even if they have the same symptoms you have. This medicine can affect the results of certain medical tests. Tell any doctor who treats you that you are using cephalexin. Store the tablets and capsules at room temperature away from moisture, heat, and light. Store the liquid medicine in the refrigerator. Throw away any unused liquid after 14 days. What happens if I miss a dose? Take the medicine as soon as you can, but skip the missed dose if it is almost time for your next dose. Do not take two doses at one time. What happens if I overdose? Seek emergency medical attention or call the Poison Help line at . Overdose symptoms may include nausea, vomiting, stomach pain, diarrhea, and blood in your urine. What should I avoid while taking cephalexin? Antibiotic medicines can cause diarrhea, which may be a sign of a new infection. If you have diarrhea that is watery or bloody, call your doctor before using anti-diarrhea medicine. What are the possible side effects of cephalexin? Get emergency medical help if you have signs of an allergic reaction (hives, difficult breathing, swelling in your face or throat) or a severe skin reaction (fever, sore throat, burning eyes, skin pain, red or purple skin rash with blistering and peeling). Call your doctor at once if you have: severe stomach pain, diarrhea that is watery or bloody (even if it occurs months after your last dose); unusual tiredness, feeling light-headed or short of breath; easy bruising, unusual bleeding, purple or red spots under your skin; a seizure; pale skin, cold hands and feet; yellowed skin, dark colored urine; fever, weakness; or pain in your side or lower back, painful urination. Common side effects may include: diarrhea; nausea, vomiting; indigestion, stomach pain; or vaginal itching or discharge. This is not a complete list of side effects and others may occur. Call your doctor for medical advice about side effects. You may report side effects to FDA at 2-473-XSB-3251. What other drugs will affect cephalexin? Tell your doctor about all your other medicines, especially: metformin; or probenecid. This list is not complete. Other drugs may affect cephalexin, including prescription and uqic-jhw-wfnhlmp medicines, vitamins, and herbal products. Not all possible drug interactions are listed here. Where can I get more information? Your pharmacist can provide more information about cephalexin. Remember, keep this and all other medicines out of the reach of children, never share your medicines with others, and use this medication only for the indication prescribed. Every effort has been made to ensure that the information provided by [employer] is accurate, up-to-date, and complete, but no guarantee is made to that effect. Drug information contained herein may be time sensitive. [employer] information has been compiled for use by healthcare practitioners and consumers in the [place] and therefore [employer] does not warrant that uses outside of the [place] are appropriate, unless specifically indicated otherwise. [employer] drug information does not endorse drugs, diagnose patients or recommend therapy. [employer] drug information isan informational resource designed to assist licensed healthcare practitioners in caring for their p atients and/or to serve consumers viewing this service as a supplement to, and not a substitute for, the expertise, skill, knowledge and judgment of healthcare practitioners. The absence of a warningfor a given drug or drug combination in no way should be construed to indicate that the drug or drug combination is safe, effective or appropriate for any given patient. [employer] does not assume any responsibility for any aspect of healthcare administered with the aid of information [employer] provides. The information contained herein is not intended to cover all possible uses, directions, precautions, warnings, drug interactions, allergic reactions, or adverse effects. If you have questions about the drugs you are taking, check with your doctor, nurse or pharmacist. Copyright [id number] [employer]. Version: 12.. Revision Date: 06/11/2023. acetaminophen and oxycodone (a SEET a MIN oh fen and OX i KOE done) Endocet 10/325, Endocet 2.5/325, Endocet 5/325, Endocet 7.5/325, Nalocet, Percocet, Prolate What is the most important information I should know about acetaminophen and oxycodone? MISUSE OF OPIOID MEDICINE CAN CAUSE ADDICTION, OVERDOSE, OR . Keep the medication in a place where others cannot get to it. Taking opioid medicine during may cause life-threatening withdrawal symptoms in the . Fatal side effects can occur if you use opioid medicine with alcohol, or with other drugs that cause drowsiness or slow your breathing. Stop taking this medicine and call your doctor right away if you have skin redness or a rash that spreads and causes blistering and peeling. What is acetaminophen and oxycodone? Acetaminophen and oxycodone is a combination medicine used to relieve moderate to severe pain. Acetaminophen and oxycodone contains an opioide medicine and may be habit-forming. Acetaminophen and oxycodone may also be used for purposes not listed in this medication guide. What should I discuss with my healthcare provider before taking acetaminophen and oxycodone? You should not use this medicine if you are allergic to acetaminophen or oxycodone, or if you have: severe asthma or breathing problems; or a blockage in your stomach or intestines. Tell your doctor if you have ever had: breathing problems, sleep apnea; liver disease; a drug or alcohol addiction; kidney disease; a head injury or seizures; urination problems; or problems with your thyroid, pancreas, or gallbladder. If you use opioid medicine while you are , your baby could become dependent on the drug. This can cause life-threatening withdrawal symptoms in the baby after it is born. Babies born dependent on opioids may need medical treatment for several weeks. Ask a doctor before using opioid medicine if you are . Tell your doctor if you notice severe drowsiness or slow breathing in the nursing baby. How should I take acetaminophen and oxycodone? Follow all directions on your prescription label. Never take this medicine in larger amounts, or for longer than prescribed. An overdose can damage your liver or cause . Tell your doctor if you feel an increased urge to use more of this medicine. Never share opioid medicine with another person, especially someone with a history of drug abuse oraddiction. MISUSE CAN CAUSE ADDICTION, OVERDOSE, OR . Keep the medicine in a place where others cannot get to it. Selling or giving away opioid medicine is against the law. Measure liquid medicine carefully. Use the dosing syringe provided, or use a medicine dose-measuring device (not a kitchen spoon). If you need surgery or medical tests, tell the doctor ahead of time that you are using this medicine. You should not stop using this medicine suddenly. Follow your doctor's instructions about tapering your dose. Store at room temperature away from moisture and heat. Keep track of your medicine. You should be aware if anyone is using it improperly or without a prescription. Do not keep leftover opioid medication. Just one dose can cause in someone using this medicine accidentally or improperly. Ask your pharmacist where to locate a drug take-back disposal program.If there is no take-back program, flush the unused medicine down the toilet. What happens if I miss a dose? Since this medicine is used for pain, you are not likely to miss a dose. Skip any missed dose if itis almost time for your next dose. Do not use two doses at one time. What happens if I overdose? Seek emergency medical attention or call the Poison Help line at . An overdose of this medicine can be fatal, especially in a child or other person using the medicine without a prescription. Overdose symptoms may include nausea, vomiting, sweating, severe drowsiness, pinpoint pupils, slow breathing, or no breathing. Your doctor may recommend you get naloxone (a medicine to reverse an opioid overdose) and keep it with you at all times. A person caring for you can give the naloxone if you stop breathing or don't wake up. Your caregiver must still get emergency medical help and may need to perform CPR (cardiopulmonary resuscitation) on you while waiting for help to arrive. Anyone can buy naloxone from a pharmacy or local health department. Make sure any person caring foryou knows where you keep naloxone and how to use it. What should I avoid while taking acetaminophen and oxycodone? Avoid driving or operating machinery until you know how this medicine will affect you. Dizziness ordrowsiness can cause falls, accidents, or severe injuries. Do not drink alcohol. Dangerous side effects or could occur. Ask a doctor or pharmacist before using any other medicine that may contain acetaminophen (sometimes abbreviated as APAP). Taking certain medications together can lead to a fatal overdose. What are the possible side effects of acetaminophen and oxycodone? Get emergency medical help if you have signs of an allergic reaction: hives; difficulty breathing; swelling of your face, lips, tongue, or throat. Opioid medicine can slow or stop your breathing, and may occur. A person caring for you should give naloxone and/or seek emergency medical attention if you have slow breathing with long pauses,blue colored lips, or if you are hard to wake up. In rare cases, acetaminophen may cause a severe skin reaction that can be fatal. This could occur even if you have taken acetaminophen in the past and had no reaction. Stop taking this medicine and call your doctor right away if you have skin redness or a rash that spreads and causes blistering andpeeling. Call your doctor at once if you have: noisy breathing, sighing, shallow breathing, breathing that stops; a light-headed feeling, like you might pass out; weakness, tiredness, fever, unusual bruising or bleeding; confusion, unusual thoughts or behavior; problems with urination; liver problems--nausea, upper stomach pain, tiredness, loss of appetite, dark urine, sharona-colored stools, jaundice (yellowing of the skin or eyes); low cortisol levels-- nausea, vomiting, loss of appetite, dizziness, worsening tiredness or weakness; or high levels of serotonin in the body--agitation, hallucinations, fever, sweating, shivering, fast heart rate, muscle stiffness, twitching, loss of coordination, nausea, vomiting, diarrhea. Serious breathing problems may be more likely in older adults and in those who are debilitated or have wasting syndrome or chronic breathing disorders. Common side effects include: dizziness, drowsiness, feeling tired; feelings of extreme happiness or sadness; nausea, vomiting, stomach pain; constipation; or headache. This is not a complete list of side effects and others may occur. Call your doctor for medical advice about side effects. You may report side effects to FDA at 6-799-BKZ-1378. What other drugs will affect acetaminophen and oxycodone? You may have breathing problems or withdrawal symptoms if you start or stop taking certain other medicines. Tell your doctor if you also use an antibiotic, antifungal medication, heart or blood pressure medication, seizure medication, or medicine to treat HIV or hepatitis C. Opioid medication can interact with many other drugs and cause dangerous side effects or . Be sure your doctor knows if you also use: cold or allergy medicines, bronchodilator asthma/COPD medication, or a diuretic ('water pill'); medicines for motion sickness, irritable bowel syndrome, or overactive bladder; other opioids--opioid pain medicine or prescription cough medicine; a sedative like Valium--diazepam, alprazolam, lorazepam, Xanax, Klonopin, Versed, and others; drugs that make you sleepy or slow your breathing--a sleeping pill, muscle relaxer, medicine to treat mood disorders or mental illness; drugs that affect serotonin levels in your body--a stimulant, or medicine for depression, Parkinson's disease, migraine headaches, serious infections, or nausea and vomiting. This list is not complete. Other drugs may affect acetaminophen and oxycodone, including prescription and ndxg-ueb-zychfdm medicines, vitamins, and herbal products. Not all possible interactions are listed here. Where can I get more information? Your doctor or pharmacist can provide more information about acetaminophen and oxycodone. Remember, keep this and all other medicines out of the reach of children, never share your medicines with others, and use this medication only for the indication prescribed. Every effort has been made to ensure that the information provided by [employer] is accurate, up-to-date, and complete, but no guarantee is made to that effect. Drug information contained herein may be time sensitive. [employer] information has been compiled for use by healthcare practitioners and consumers in the [place] and therefore [employer] does not warrant that uses outside of the [place] are appropriate, unless specifically indicated otherwise. [employer] drug information does not endorse drugs, diagnose patients or recommend therapy. [employer] drug information isan informational resource designed to assist licensed healthcare practitioners in caring for their p atients and/or to serve consumers viewing this service as a supplement to, and not a substitute for, the expertise, skill, knowledge and judgment of healthcare practitioners. The absence of a warningfor a given drug or drug combination in no way should be construed to indicate that the drug or drug combination is safe, effective or appropriate for any given patient. [facility] does not assume any responsibility for any aspect of healthcare administered with the aid of information [facility] provides. The information contained herein is not intended to cover all possible uses, directions, precautions, warnings, drug interactions, allergic reactions, or adverse effects. If you have questions about the drugs you are taking, check with your doctor, nurse or pharmacist. Copyright [id number] [facility] [employer]. Version: 22.01. Revision Date: 06/12/2023. Education Materials Kidney Stone with Pain The sharp cramping pain on either side of your lower back and nausea/vomiting that you have are because of a small stone that has formed in the kidney. It is now passing down a narrow tube (ureter) on its way to your bladder. Once the stone reaches your bladder, the pain will often stop. But it maycome back as the stone continues to pass out of the bladder and through the urethra. The stone may pass in your urine stream in one piece. The size may be 1/16 inch to 1/4 inch (1 mm to 6 mm). Or, the stone may break up into zac fragments that you may not even notice. Once you have had a kidney stone, you are at risk of getting another one in the future. There are 4types of kidney stones. Eighty percent are calcium stones mostly calcium oxalate but also some withcalcium phosphate. The other 3 types include uric acid stones, struvite stones (from a preceding infection), and rarely, cystine stones. Most stones will pass on their own, but may take from a few hours to a few days. Sometimes the stone is too large to pass by itself. In that case, the healthcare provider will need to use other ways to remove the stone. These techniques include: Lithotripsy. This uses ultrasound waves to break up the stone. Ureteroscopy. This pushes a basket-like instrument through the urethra and bladder and into the ureter to pull out the stone. Various types of direct surgery through the skin Home care The following are general care guidelines: Drink plenty of fluids. This means at least 12, 8-ounce glasses of fluid mostly water a day. Each time you urinate, do so in a jar. Pour the urine from the jar through the strainer and into the toilet. Continue doing this until 24 hours after your pain stops. By then, if there was a kidney stone, it should pass from your bladder. Some stones dissolve into sand-like particles and pass rightthrough the strainer. In that case, you won t ever see a stone. Save any stone that you find in the strainer and bring it to your healthcare provider to look at. It may be possible to stop certain types of stones from forming. For this reason, it is important to know what kind of stone you have. Try to stay as active as possible. This will help the stone pass. Don't stay in bed unless your pain keeps you from getting up. You may notice a red, pink, or brown color to your urine. This is normal while passing a kidney stone. If you develop pain, you may take ibuprofen or naproxen for pain, unless another medicine was prescribed. If you have chronic liver or kidney disease, talk with your healthcare provider before takingthese medicines. Also talk with your provider if you've had a stomach ulcer or GI bleeding. Preventing stones Each year for the next 5 to 7 years, you are at risk that a new stone will form. Your risk is a 50%chance over this time period. The risk is higher if you have a family history of kidney stones or have certain chronic illnesses like hypertension, obesity, or diabetes. But you can make changes to your lifestyle and diet that can lower your risk for another stone. Most kidney stones are made of calcium. The following is advice for preventing another calcium stone. If you don t know the type of stone you have, follow this advice until the cause of your stone isfound. Things that help: The most important thing you can do is to drink plenty of fluids each day. See home care above. Eat foods that contain phytates. These include wheat, rice, rye, barley, and beans. Phytates are substances that may lower your risk for any type of stone to form. Eat more fruits and vegetables. Choose those that are high in potassium. Eat foods high in natural citrate like fruit and low-sugar fruit juices. Having too little calcium in your diet can put you at risk for calcium kidney stones. Eat a normal amount of calcium in your diet and talk with your healthcare provider if you are taking calcium supplements. Cutting back on your calcium intake may raise your risk. New research shows that eating calcium-rich and oxalate-rich foods together lowers your risk for stones by binding the minerals in thestomach and intestines before they can reach the kidneys. Limit salt intake to 2 grams (1 teaspoon) per day. Use limited amounts when cooking, and don t add salt at the table. Processed and canned foods are usually high in salt. Spinach, rhubarb, peanuts, cashews, almonds, grapefruit, and grapefruit juice are all high oxalate foods. You should limit how much of these you eat. Or eat them with calcium-rich foods. These include dairy products, dark leafy greens, soy products, and calcium-enriched foods. Reducing the amount of animal meat and high protein foods in your diet may lower your risk for uricacid stones. Avoid excess sugar (sucrose) and fructose (sweetener in many soft drinks) in your diet. If you take vitamin C as a supplement, don't take more than 1,000 mg a day. A dietitian or your healthcare provider can give you information about changes in your diet that will help prevent more kidney stones from forming. Follow-up care Follow up with your healthcare provider, or as advised, if the pain lasts more than 48 hours. Talk with your provider about urine and blood tests to find out the cause of your stone. If you had an X-ray, CT scan, or other diagnostic test, you will be told of any new findings that may affect your care. Call 911 Call 911 if you have any of these: Weakness, dizziness, or fainting When to seek medical advice Call your healthcare provider right away if any of these occur: Pain that is not controlled by the medicine given Repeated vomiting or unable to keep down fluids Fever of 100.4 F (38 C) or higher, or as directed by your healthcare provider Passage of solid red or brown urine (can't see through it) or urine with lots of blood clots Foul-smelling or cloudy urine Unable to pass urine for 8 hours and increasing bladder pressure [id number] [facility]. [address] [place] [address], [place] [address]. All rights reserved. This information is not intended as a substitute for professional medical care. Always follow yourhealthcare professional's instructions. Additional Information VACCINATE! IT SAVES LIVES! Members of the community who have not yet received the COVID-19 vaccine and would like to receive it can visit one of [facility] vaccine clinics. There are many vaccine clinic locations within the [facility]. For locations and available times, please visit www.[email or web address].[place].gov/. It is important to note that some COVID mobile vaccine clinics are held outdoors and may be canceled in rainy or stormy conditions. To learn more about pediatric vaccinations (ages 5-11), we invite you to visit the [facility] webpage. [email or web address] learn more about the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 TO: [facility] ED [address] [facility] [id number] As needed, If symptoms worsen DISCHARGE MEDICATIONS: New Prescriptions No medications on file (Comment: Please note this report has been produced using speech recognition software and may contain errors related to that system including errors in grammar, punctuation, and spelling, as well as words and phrases that may be inappropriate. If there are any questions or concerns please feel freeto contact the dictating provider for clarification.) Leny Galarza DO (electronically signed) Emergency Medicine Provider [1] History reviewed. No pertinent past medical history. [2] History reviewed. No pertinent surgical history. [3] No family history on file. [4] Social History Socioeconomic History Marital status: Single Tobacco Use Smoking status: Never Passive exposure: Never Smokeless tobacco: Never Vaping Use Vaping status: Every Day Substances: Flavoring Devices: Disposable Substance and Sexual Activity Alcohol use: Yes Alcohol/week: 4.0 standard drinks of alcohol Types: 2 Shots of liquor, 2 Standard drinks or equivalent per week Drug use: Never Sexual activity: Yes Partners: Male control/protection: None Comment: pt is engaged. 1 male partner. Leny Galarza DO 04/07/25211 [id number] Discharge instructions* Discharge Instructions* Surendra Hearn MD - 12/19/2024 2:08 PM EST use peptobismol and bananas for diarrheal illness. Avoid milk products while having diarrhea documented in this [facility]02-09-2025 Emergency department Note* Surendra Hearn MD - 12/19/2024 9:30 AM EST EMERGENCY DEPARTMENT ENCOUNTER Pt Name: Ramiro Napoles Birthdate 2000 Date of evaluation: 12/19/2024 CHIEF COMPLAINT Chief Complaint Patient presents with Vomiting HISTORY OF PRESENT ILLNESS HPI Ramiro Napoles is a 23 y.o. female who presents to the emergency department with nausea, vomiting, fever of at least 101 F. Chills. She reports during the vomiting episodes she thinks she popped her jaw on the right side out. Having bodyaches muscle aches. Jaw aching. Constant pain. She has not taken any medicine for relief. REVIEW OF SYSTEMS Review of Systems There is no problem list on file for this patient. CURRENT MEDICATIONS Discharge Medication List as of 12/19/2024 2:09 PM ALLERGIES Patient has no known allergies. SOCIAL HISTORY Social History Tobacco Use Smoking status: Unknown PHYSICAL EXAM Vitals: 12/19/24 0937 12/19/24 0952 12/19/24 1110 12/19/24 1355 BP: 124/76 99/59 101/59 Pulse: (!) 120 86 89 Resp: 14 14 Temp: 37.1 C (98.7 F) TempSrc: SpO2: 100% 100% Weight: Height: Physical Exam Vitals and nursing note reviewed. Constitutional: General: She is in acute distress. Appearance: She is ill-appearing. HENT: Head: Jaw: There is normal jaw occlusion. No trismus, swelling or malocclusion. Right Ear: Tympanic membrane and ear canal normal. Left Ear: Tympanic membrane and ear canal normal. Nose: No rhinorrhea. Mouth/Throat: Lips: [place]. Dentition: No dental abscesses. Tongue: No lesions. Palate: No mass and lesions. Pharynx: Uvula midline. No oropharyngeal exudate. Eyes: Extraocular Movements: Extraocular movements intact. Conjunctiva/sclera: Conjunctivae normal. Pupils: Pupils are equal, round, and reactive to light. Cardiovascular: Rate and Rhythm: Normal rate and regular rhythm. Heart sounds: Normal heart sounds. Pulmonary: Effort: Pulmonary effort is normal. Breath sounds: Normal breath sounds. Musculoskeletal: Cervical back: Normal range of motion. Skin: General: Skin is warm and dry. Capillary Refill: Capillary refill takes less than 2 seconds. Neurological: Mental Status: She is alert and oriented to person, place, and time. Cranial Nerves: Cranial nerves 2-12 are intact. Sensory: Sensation is intact. Motor: Motor function is intact. Coordination: Coordination is intact. Gait: Gait is intact. Deep Tendon Reflexes: Reflexes are normal and symmetric. Psychiatric: Behavior: Behavior normal. Thought Content: Thought content normal. SCREENINGS Medical decision making DIAGNOSTIC RESULTS Procedures/EKG: Physician EKG interpretation can be found in [facility] if done RADIOLOGY : Radiologist results reviewed: CT maxillofacial wo IV contrast Final Result Normal maxillofacial CT. Report Dictated on Electronically Signed By: Thomas Briones MD Electronically Signed Date/Time: 12/19/2024 10:33 AM EST LABS: Labs Reviewed BASIC METABOLIC PANEL - Abnormal Result Value SODIUM 138 POTASSIUM 3.7 CHLORIDE 107 CARBON DIOXIDE 22 UREA NITROGEN 11 CREATININE 0.79 GLUCOSE 117 (*) CALCIUM 9.3 ANION GAP 9 eGFR >90.0 CBC WITH AUTO DIFFERENTIAL - Abnormal Auto WBC 12.4 (*) RBC 4.83 Hemoglobin 14.3 Hematocrit 41.0 MCV 84.9 MCH 29.6 MCHC 34.9 RDW 12.8 Platelets 322 MPV 9.0 nRBC 0.0 Neutrophils Relative 91.4 (*) Lymphocytes Relative 4.9 (*) Monocytes Relative 2.6 (*) Eosinophils Relative 0.8 Basophils Relative 0.1 Immature Grans % 0.2 Neutrophils Absolute 11.3 (*) Lymphocytes Absolute 0.6 (*) Monocytes Absolute 0.3 Eosinophils Absolute 0.1 Basophils Absolute 0.0 Immature Grans Absolute 0.0 BLOOD CULTURE - Normal Blood Culture Blood culture incubation started Narrative: Blood Collection Site: Right Arm MAGNESIUM - Normal MAGNESIUM 1.9 Narrative: Higher values can be expected in females during menses. THYROID STIMULATING HORMONE - Normal THYROID STIMULATING HORMONE 0.41 GASTROINTESTINAL PCR PANEL Medications ordered: Medications lactated ringers bolus 2,000 mL (0 mL IntraVENous Stopped 12/19/24 1220) prochlorperazine (Compazine) injection 5 mg (5 mg IntraVENous Given 12/19/24 1001) ketorolac (Toradol) injection 30 mg (30 mg IntraVENous Given 12/19/24 1001) lactated ringers bolus 1,000 mL (0 mL IntraVENous Stopped 12/19/24 1505) Diagnoses as of 12/19/24 184 Vomiting and diarrhea * No order type specified * Our workup consisted of ordering/reviewing: Orders Placed This Encounter Procedures Blood culture Site #1 - Suspected Infection Gastrointestinal PCR Panel CT maxillofacial wo IV contrast Magnesium Basic metabolic panel TSH CBC auto differential Insert peripheral IV MDM: 23 y.o. presented with fever. Jaw pain The differential diagnosis considered: Viral illness, bacteremia, maxillofacial infection, TMJ dislocation, TMJ sprain, electrolytes derangement, thyroid problem,. CT maxillofacial interpreted by me: No jaw dislocation no dental abscess no acute disease. REVAL: CRITICAL CARE TIME PROCEDURES: Procedures FINAL IMPRESSION 1. Vomiting and diarrhea DISPOSITION/PLAN DISPOSITION Discharge 12/19/2024 02:06:19 PM PATIENT REFERRED TO: Cayla Ramos [phone] [address], [place] [phone] Call in 1 day I prescribed: Discharge Medication List as of 12/19/2024 2:09 PM START taking these medications Details ondansetron ODT (Zofran-ODT) 4 MG disintegrating tablet Take 1 tablet (4 mg) by mouth every 8 hoursas needed for nausea or vomiting., Starting 12/19/2024, Normal (Comment: this report has been produced using speech recognition software and may contain errors related to that system including errors in grammar, punctuation, and spelling, as well as words and phrases that may be inappropriate) Surendra Hearn MD (electronically signed) Surendra Haern MD 12/19/241848 * Neyda Hines RN - 12/19/2024 9:30 AM EST C/o vomiting since yesterday. Also has generalized belly pain and pain to right jaw. documented in this [facility]02-09-2025 Emergency department Triage note* Neyda Hines RN - 12/19/2024 9:30 AM EST C/o vomiting since yesterday. Also has generalized belly pain and pain to right jaw. [facility] [id number] Physician Emergency department Note* Surendra Hearn MD - 12/19/2024 9:30 AM EST EMERGENCY DEPARTMENT ENCOUNTER Pt Name: Ramiro Napoles Birthdate 2000 Date of evaluation: 12/19/2024 CHIEF COMPLAINT Chief Complaint Patient presents with Vomiting HISTORY OF PRESENT ILLNESS HPI Ramiro Napoles is a 23 y.o. female who presents to the emergency department with nausea, vomiting, fever of at least 101 F. Chills. She reports during the vomiting episodes she thinks she popped her jaw on the right side out. Having bodyaches muscle aches. Jaw aching. Constant pain. She has not taken any medicine for relief. REVIEW OF SYSTEMS Review of Systems There is no problem list on file for this patient. CURRENT MEDICATIONS Discharge Medication List as of 12/19/2024 2:09 PM ALLERGIES Patient has no known allergies. SOCIAL HISTORY Social History Tobacco Use Smoking status: Unknown PHYSICAL EXAM Vitals: 12/19/24 0937 12/19/24 0952 12/19/24 1110 12/19/24 1355 BP: 124/76 99/59 101/59 Pulse: (!) 120 86 89 Resp: 14 14 Temp: 37.1 C (98.7 F) TempSrc: SpO2: 100% 100% Weight: Height: Physical Exam Vitals and nursing note reviewed. Constitutional: General: She is in acute distress. Appearance: She is ill-appearing. HENT: Head: Jaw: There is normal jaw occlusion. No trismus, swelling or malocclusion. Right Ear: Tympanic membrane and ear canal normal. Left Ear: Tympanic membrane and ear canal normal. Nose: No rhinorrhea. Mouth/Throat: Lips: [place]. Dentition: No dental abscesses. Tongue: No lesions. Palate: No mass and lesions. Pharynx: Uvula midline. No oropharyngeal exudate. Eyes: Extraocular Movements: Extraocular movements intact. Conjunctiva/sclera: Conjunctivae normal. Pupils: Pupils are equal, round, and reactive to light. Cardiovascular: Rate and Rhythm: Normal rate and regular rhythm. Heart sounds: Normal heart sounds. Pulmonary: Effort: Pulmonary effort is normal. Breath sounds: Normal breath sounds. Musculoskeletal: Cervical back: Normal range of motion. Skin: General: Skin is warm and dry. Capillary Refill: Capillary refill takes less than 2 seconds. Neurological: Mental Status: She is alert and oriented to person, place, and time. Cranial Nerves: Cranial nerves 2-12 are intact. Sensory: Sensation is intact. Motor: Motor function is intact. Coordination: Coordination is intact. Gait: Gait is intact. Deep Tendon Reflexes: Reflexes are normal and symmetric. Psychiatric: Behavior: Behavior normal. Thought Content: Thought content normal. SCREENINGS Medical decision making DIAGNOSTIC RESULTS Procedures/EKG: Physician EKG interpretation can be found in [facility] if done RADIOLOGY : Radiologist results reviewed: CT maxillofacial wo IV contrast Final Result Normal maxillofacial CT. Report Dictated on Electronically Signed By: Thomas Briones MD Electronically Signed Date/Time: 12/19/2024 10:33 AM EST LABS: Labs Reviewed BASIC METABOLIC PANEL - Abnormal Result Value SODIUM 138 POTASSIUM 3.7 CHLORIDE 107 CARBON DIOXIDE 22 UREA NITROGEN 11 CREATININE 0.79 GLUCOSE 117 (*) CALCIUM 9.3 ANION GAP 9 eGFR >90.0 CBC WITH AUTO DIFFERENTIAL - Abnormal Auto WBC 12.4 (*) RBC 4.83 Hemoglobin 14.3 Hematocrit 41.0 MCV 84.9 MCH 29.6 MCHC 34.9 RDW 12.8 Platelets 322 MPV 9.0 nRBC 0.0 Neutrophils Relative 91.4 (*) Lymphocytes Relative 4.9 (*) Monocytes Relative 2.6 (*) Eosinophils Relative 0.8 Basophils Relative 0.1 Immature Grans % 0.2 Neutrophils Absolute 11.3 (*) Lymphocytes Absolute 0.6 (*) Monocytes Absolute 0.3 Eosinophils Absolute 0.1 Basophils Absolute 0.0 Immature Grans Absolute 0.0 BLOOD CULTURE - Normal Blood Culture Blood culture incubation started Narrative: Blood Collection Site: Right Arm MAGNESIUM - Normal MAGNESIUM 1.9 Narrative: Higher values can be expected in females during menses. THYROID STIMULATING HORMONE - Normal THYROID STIMULATING HORMONE 0.41 GASTROINTESTINAL PCR PANEL Medications ordered: Medications lactated ringers bolus 2,000 mL (0 mL IntraVENous Stopped 12/19/24 1220) prochlorperazine (Compazine) injection 5 mg (5 mg IntraVENous Given 12/19/24 1001) ketorolac (Toradol) injection 30 mg (30 mg IntraVENous Given 12/19/24 1001) lactated ringers bolus 1,000 mL (0 mL IntraVENous Stopped 12/19/24 1505) Diagnoses as of 12/19/24 1849 Vomiting and diarrhea * No order type specified * Our workup consisted of ordering/reviewing: Orders Placed This Encounter Procedures Blood culture Site #1 - Suspected Infection Gastrointestinal PCR Panel CT maxillofacial wo IV contrast Magnesium Basic metabolic panel TSH CBC auto differential Insert peripheral IV MDM: 23 y.o. presented with fever. Jaw pain The differential diagnosis considered: Viral illness, bacteremia, maxillofacial infection, TMJ dislocation, TMJ sprain, electrolytes derangement, thyroid problem,. CT maxillofacial interpreted by me: No jaw dislocation no dental abscess no acute disease. REVAL: CRITICAL CARE TIME PROCEDURES: Procedures FINAL IMPRESSION 1. Vomiting and diarrhea DISPOSITION/PLAN DISPOSITION Discharge 12/19/2024 02:06:19 PM PATIENT REFERRED TO: Cayla Ramos [phone], [place] [phone] Call in 1 day I prescribed: Discharge Medication List as of 12/19/2024 2:09 PM START taking these medications Details ondansetron ODT (Zofran-ODT) 4 MG disintegrating tablet Take 1 tablet (4 mg) by mouth every 8 hoursas needed for nausea or vomiting., Starting 12/19/2024, Normal (Comment: this report has been produced using speech recognition software and may contain errors related to that system including errors in grammar, punctuation, and spelling, as well as words and phrases that may be inappropriate) Surendra Hearn MD (electronically signed) Surendra Hearn MD 12/19/241848 [facility] [id number] Instructions* Patient Instructions* Neyda Khan APRN.CNP - 09/14/2024 11:26 AM EST -Relative rest, avoid activities that increase pain -ICE next 24-48 hours several times daily -Use Eliud wrap for support -Elevated as needed -Follow up with orthopedics as needed [facility] NoteHNO ID: [id number] Author: NEYDA KHAN APRN.CNP Service: ? Author Type: Nurse Practitioner Type: Progress Notes Filed: 09/14/2024 11:37 Note Text: Chief Complaint Patient presents with: Minor Injuries (Sprains, Strains, Minor Joint Pain): I fell down my stairs last night and my right knee is sore to the touch, tight and hard to walk up stairs. - slid down stairs lastnight. Hard to walk up an down stairs HPI Patient presents today for concerns for right knee pain. Reports she was walking down stairs, slipped down 5 stairs. [place] like knee hyperextended. Had some pain but was able to ambulate on it after a few minutes. Did not have much discomfort last night but when she woke up this morning, knee is stiff and sore. Just feels sore to walk. Painful to walk up and down stairs, feels like it is going to give out. Pain is over patellar tendon. Reports history of chronic right knee pain in same area. PAST MEDICAL HISTORY Diagnosis Date Depression Psychiatric disorder Syncope ALLERGIES No Known Allergies Review of Systems Review of Systems Musculoskeletal: Positive for arthralgias and joint swelling. BP 118/65 Pulse 89 Resp 16 Wt 106.7 kg (235 lb 3.7 oz) LMP (LMP Unknown) SpO2 96% BMI 33.75 kg/m? Physical Exam Vitals and nursing note reviewed. Constitutional: General: She is awake. She is not in acute distress. Appearance: Normal appearance. She is not ill-appearing or toxic-appearing. Cardiovascular: Rate and Rhythm: Normal rate. Pulmonary: Effort: Pulmonary effort is normal. Musculoskeletal: Right knee: Swelling (trace) present. No deformity, effusion, erythema, ecchymosis, lacerations, bony tenderness or crepitus. Normal range of motion. Tenderness present over the patellar tendon. Normal alignment and normal meniscus. Instability Tests: Anterior drawer test negative. Posterior drawer test negative. Anterior [place]osta test negative. Medial Rosa test negative and lateral Rosa test negative. Right lower leg: Normal. No tenderness or bony tenderness. Comments: Full passive ROM but with some mild discomfort. Tenderness over patellar tendon, trace swelling in this area. Neurological: Mental Status: She is alert. Psychiatric: Behavior: Behavior is cooperative. Assessment and Plan 1. Acute pain of right knee - ICD9: 719.46, ICD10: M25.561 Full passive ROM but with some mild discomfort. Tenderness over patellar tendon, trace swelling in this area. Discussed likely sprain. No bony tenderness of lower leg. -Discussed supportive management and follow up precautions. - ELASTIC BANDAGE given from [employer] stock. -Relative rest, avoid activities that increase pain -ICE next 24-48 hours several times daily -Elevated as needed -Follow up with orthopedics for continued or worsening pain. Nedya Khan APRN.[facility]11-05-2024 History of Present illness Narrative* Neyda Khan APRN.[facility] - 09/14/2024 11:10 AM EST Chief Complaint Patient presents with: Minor Injuries (Sprains, Strains, Minor Joint Pain): I fell down my stairs last night and my right knee is sore to the touch, tight and hard to walk up stairs. - slid down stairs lastnight. Hard to walk up an down stairs HPI Patient presents today for concerns for right knee pain. Reports she was walking down stairs, slipped down 5 stairs. [place] like knee hyperextended. Had some pain but was able to ambulate on it after afew minutes. Did not have much discomfort last night but when she woke up this morning, knee is stiff and sore. Just feels sore to walk. Painful to walk up and down stairs, feels like it is going to give out. Pain is over patellar tendon. Reports history of chronic right knee pain in same area. PAST MEDICAL HISTORY Diagnosis Date Depression Psychiatric disorder Syncope ALLERGIES No Known Allergies Review of Systems Review of Systems Musculoskeletal: Positive for arthralgias and joint swelling. BP 118/65 Pulse 89 Resp 16 Wt 106.7 kg (235 lb 3.7 oz) LMP (LMP Unknown) SpO2 96% BMI 33.75 kg/m Physical Exam Vitals and nursing note reviewed. Constitutional: General: She is awake. She is not in acute distress. Appearance: Normal appearance. She is not ill-appearing or toxic-appearing. Cardiovascular: Rate and Rhythm: Normal rate. Pulmonary: Effort: Pulmonary effort is normal. Musculoskeletal: Right knee: Swelling (trace) present. No deformity, effusion, erythema, ecchymosis, lacerations, bony tenderness or crepitus. Normal range of motion. Tenderness present over the patellar tendon. Normal alignment and normal meniscus. Instability Tests: Anterior drawer test negative. Posterior drawer test negative. Anterior [place]osta test negative. Medial Rosa test negative and lateral Rosa test negative. Right lower leg: Normal. No tenderness or bony tenderness. Comments: Full passive ROM but with some mild discomfort. Tenderness over patellar tendon, trace swelling in this area. Neurological: Mental Status: She is alert. Psychiatric: Behavior: Behavior is cooperative. Assessment and Plan 1. Acute pain of right knee - ICD9: 719.46, ICD10: M25.561 Full passive ROM but with some mild discomfort. Tenderness over patellar tendon, trace swelling in this area. Discussed likely sprain. No bony tenderness of lower leg. -Discussed supportive management and follow up precautions. - ELASTIC BANDAGE given from [facility] [employer]. -Relative rest, avoid activities that increase pain -ICE next 24-48 hours several times daily -Elevated as needed -Follow up with orthopedics for continued or worsening pain. Neyda Khan APRN.PLANT ENGINEERING MANAGER documented in this encounterSt. [facility]24 NoteHNO ID: [id number] Author: FATMATA SANTA RT(R) Service: Radiology Author Type: Technologist Type: Progress Notes Filed: 03/19/2024 14:50 Note Text: Radiology Service Progress Note PATIENT NAME: Ramiro Napoles DATE OF SERVICE: March 19, 2024 TIME: 2:50 PM PATIENT IDENTITY VERIFICATION COMPLETED USING TWO (2) IDENTIFIERS: Name and Date of confirmed by patient verbally. FALL SCREENING: Has the patient had 2 falls in the last year or 1 fall with injury or currently using an Ambulatory Assistive Device (Walker, Cane, Wheelchair, Crutches, etc.)? No PATIENT GENDER DATA: Female. status: : No status: N/A PATIENT RELEVANT IMPLANT DATA REVIEWED: Not Applicable PATIENT PRESENTS WITH AN IMPLANTABLE OR ATTACHED FIRE FIGHTER AIRPORT: No RADIOLOGY DEPARTMENT: General X-ray: Exam(s) Completed: Lower Extremity X-Ray(s): Knee, AP / LAT Right and Ankle, Right PERIPHERAL IV DATA: Not applicable SIGNED BY: RT Jey(R) March 19, 2024 2:50 [facility] NoteHNO ID: [id number] Author: SHIRLEY SHERWOOD MD Service: ? Author Type: Physician Type: Progress Notes Filed: 03/19/2024 16:19 Note Text: Ramiro Napoles is a 23 year old female who presents with right ankle injury (S/p fall down the steps weeks ago worse this last week ) and right knee injury (Pt states she fell down the stairs 2 weeks ago and hyperextended her right knee.) HPI patient is a 23-year-old female who presented to the [facility] this afternoon with complaint of the right ankle and right knee injury the symptoms started 2 weeks ago after the patient fall down the steps and hyperextended her right knee, patient has been taking rart-dbm-hvyfynp medication however the pain persistent, patient rates the pain at dull achy in the right knee and sharp pain in the right ankle due to concern patient is here for further evaluation and recommendation PAST MEDICAL HISTORY Diagnosis Date Depression Psychiatric disorder Syncope There is no problem list on file for this patient. Current Outpatient Medications Medication Sig Dispense Refill traZODone (DESYREL) 50 mg tablet take 1 tablet by mouth at bedtime if needed for sleep / insomnia (Patient not taking: Reported on 11/24/2023) medroxyPROGESTERone (DEPO-PROVERA) 150 mg/mL injection inject 1 milliliter intramuscularly every 3 MONTHS (Patient not taking: Reported on 02/02/2024) guanFACINE (INTUNIV) 1 mg ER 24 hr tablet(s) Take by mouth. (Patient not taking: Reported on 11/24/2023) DULoxetine (CYMBALTA) 30 mg capsule Take 1 capsule by mouth every afternoon. (Patient not taking: Reported on 10/23/2023) No current facility-administered medications for this visit. Medications were reviewed and verified. Social History Tobacco Use Smoking status: Never Passive exposure: Past Smokeless tobacco: Never Vaping Use Vaping Use: Former Quit date: 02/01/2022 Substances: Nicotine, Flavoring Devices: Disposable, Pre-filled pod Substance Use Topics Alcohol use: Never Drug use: Never Alcohol Use: Never Tobacco Use: Never History reviewed. No pertinent family history. ROS Per HPI BP 146/83 Pulse 91 Temp (Src) 98.8 (Temporal) Resp 17 Wt 248 lb 6.4 oz (112.7kg) SpO2 99% Physical Exam Vitals and nursing note reviewed. Constitutional: Appearance: Normal appearance. Cardiovascular: Rate and Rhythm: Normal rate and regular rhythm. Pulses: Normal pulses. Heart sounds: Normal heart sounds. Pulmonary: Breath sounds: Normal breath sounds. Musculoskeletal: General: Tenderness (Right knee-tender with palpation lateral and medial side, no swollen or ecchymosis appreciated range of motion within normal limit. Right ankle tender with palpation lateral malleolus and right Achilles area, no swollen.) present. Cervical back: Normal range of motion and neck supple. Neurological: Sensory: No sensory deficit. ASSESSMENT/PLAN: 1. Sprain of ligament of right ankle, initial encounter - ICD9: 845.00, ICD10: S93.401A (primary diagnosis) Reviewed the right ankle x-ray result with patient with no acute abnormality was read and confirmed by radiology Complications of the disease were discussed with the patient. May take Tylenol if needed Instructed to follow up with primary care physician in 4 to 5 days for recheck - XR ANKLE GENERAL 3V AP/LAT/OBL RIGHT 2. Sprain of right knee, unspecified ligament, initial encounter - ICD9: 844.9, ICD10: S83.91XA Reviewed the right knee x-ray result with patient with no acute abnormality was read and confirmed by radiology Complications of the disease were discussed with the patient. May take Tylenol if needed Instructed to follow up with primary care physician in 4 to 5 days for recheck - XR KNEE LIMITED 2V AP/LAT RIGHT [facility] of Present illness Narrative* Fatmata Santa RT(R) - 03/19/2024 2:35 PM EDT Radiology Service Progress Note PATIENT NAME: Ramiro Napoles DATE OF SERVICE: March 19, 2024 TIME: 2:50 PM PATIENT IDENTITY VERIFICATION COMPLETED USING TWO (2) IDENTIFIERS: Name and Date of confirmedby patient verbally. FALL SCREENING: Has the patient had 2 falls in the last year or 1 fall with injury or currently using an Ambulatory Assistive Device (Walker, Cane, Wheelchair, Crutches, etc.)? No PATIENT GENDER DATA: Female. 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 [facility]-10-[facility] History of Present illness Narrative* Shirley Sherwood MD [place] - 03/19/2024 2:26 PM EDT Ramiro Napoles is a 23 year old female who presents with right ankle injury (S/p fall down the steps weeks ago worse this last week ) and right knee injury (Pt states she fell down the stairs 2 weeks ago and hyperextended her right knee.) HPI patient is a 23-year-old female who presented to the [facility] this afternoon with complaint of the right ankle and right knee injury the symptoms started 2 weeks ago after the patient fall down the steps and hyperextended her right knee, patient has been taking rfbr-xij-buehwej medication however the pain persistent, patient rates the pain at dull achy in the right knee and sharp katlyn n in the right ankle due to concern patient is here for further evaluation and recommendation PAST MEDICAL HISTORY Diagnosis Date Depression Psychiatric disorder Syncope There is no problem list on file for this patient. Current Outpatient Medications Medication Sig Dispense Refill traZODone (DESYREL) 50 mg tablet take 1 tablet by mouth at bedtime if needed for sleep / insomnia (Patient not taking: Reported on 11/24/2023) medroxyPROGESTERone (DEPO-PROVERA) 150 mg/mL injection inject 1 milliliter intramuscularly every 3 MONTHS (Patient not taking: Reported on 02/02/2024) guanFACINE (INTUNIV) 1 mg ER 24 hr tablet(s) Take by mouth. (Patient not taking: Reported on 11/24/2023) DULoxetine (CYMBALTA) 30 mg capsule Take 1 capsule by mouth every afternoon. (Patient not taking: Reported on 10/23/2023) No current facility-administered medications for this visit. Medications were reviewed and verified. Social History Tobacco Use Smoking status: Never Passive exposure: Past Smokeless tobacco: Never Vaping Use Vaping Use: Former Quit date: 02/01/2022 Substances: Nicotine, Flavoring Devices: Disposable, Pre-filled pod Substance Use Topics Alcohol use: Never Drug use: Never Alcohol Use: Never Tobacco Use: Never History reviewed. No pertinent family history. ROS Per HPI BP 146/83 Pulse 91 Temp (Src) 98.8 (Temporal) Resp 17 Wt 248 lb 6.4 oz (112.7kg) SpO2 99% Physical Exam Vitals and nursing note reviewed. Constitutional: Appearance: Normal appearance. Cardiovascular: Rate and Rhythm: Normal rate and regular rhythm. Pulses: Normal pulses. Heart sounds: Normal heart sounds. Pulmonary: Breath sounds: Normal breath sounds. Musculoskeletal: General: Tenderness (Right knee-tender with palpation lateral and medial side, no swollen or ecchymosis appreciated range of motion within normal limit. Right ankle tender with palpation lateral malleolus and right Achilles area, no swollen.) present. Cervical back: Normal range of motion and neck supple. Neurological: Sensory: No sensory deficit. ASSESSMENT/PLAN: 1. Sprain of ligament of right ankle, initial encounter - ICD9: 845.00, ICD10: S93.401A (primary diagnosis) Reviewed the right ankle x-ray result with patient with no acute abnormality was read and confirmedby radiology Complications of the disease were discussed with the patient. May take Tylenol if needed Instructed to follow up with primary care physician in 4 to 5 days for recheck - XR ANKLE GENERAL 3V AP/LAT/OBL RIGHT 2. Sprain of right knee, unspecified ligament, initial encounter - ICD9: 844.9, ICD10: S83.91XA Reviewed the right knee x-ray result with patient with no acute abnormality was read and confirmed by radiology Complications of the disease were discussed with the patient. May take Tylenol if needed Instructed to follow up with primary care physician in 4 to 5 days for recheck - XR KNEE LIMITED 2V AP/LAT RIGHT Son [place] Sherwood MD documented in this encounterSt. [facility]03-25-[facility]24 NoteHNO ID: [id number] Author: BERTHA LEI, DO Service: ? Author Type: Physician Type: Progress Notes Filed: 02/02/2024 10:32 Note Text: Ramiro Napoles is a 23 year old FEMALE who presents with Cough (Started 5 days ago //Productive /), Breathing Problem (Started 5 days ago /SOB ), Sore Throat (Started 5 days ago ), and Ear Problem (Clogged ears /Started 5 days ago /) HPI PAST MEDICAL HISTORY Diagnosis Date Depression Psychiatric disorder Syncope There is no problem list on file for this patient. Current Outpatient Medications Medication Sig Dispense Refill amoxicillin (AMOXIL) 875 mg tablet Take 1 tablet by mouth two times a day for 10 days. 20 tablet 0 Uwelgrrqkelntlj-Qglkjrscg-YF (BROMFED DM) 2-30-10 mg/5 mL syrup Take 5 mL by mouth four times a day as needed for up to 7 days. 120 mL 0 ibuprofen (MOTRIN) 800 mg tablet Take 1 tablet by mouth three times a day as needed for pain or fever (specify temp.) for up to 7 days. 21 tablet 0 traZODone (DESYREL) 50 mg tablet take 1 tablet by mouth at bedtime if needed for sleep / insomnia (Patient not taking: Reported on 11/24/2023) medroxyPROGESTERone (DEPO-PROVERA) 150 mg/mL injection inject 1 milliliter intramuscularly every 3 MONTHS (Patient not taking: Reported on 02/02/2024) guanFACINE (INTUNIV) 1 mg ER 24 hr tablet(s) Take by mouth. (Patient not taking: Reported on 11/24/2023) DULoxetine (CYMBALTA) 30 mg capsule Take 1 capsule by mouth every afternoon. (Patient not taking: Reported on 10/23/2023) No current facility-administered medications for this visit. Social History Tobacco Use Smoking status: Never Passive exposure: Past Smokeless tobacco: Never Vaping Use Vaping Use: Former Quit date: 02/01/2022 Substances: Nicotine, Flavoring Devices: Disposable, Pre-filled pod Substance Use Topics Alcohol use: Never Drug use: Never Alcohol Use: Never Tobacco Use: Never History reviewed. No pertinent family history. Review of Systems Constitutional: Positive for chills, fever and malaise/fatigue. HENT: Positive for congestion, ear pain, sinus pain and sore throat. Respiratory: Positive for cough, sputum production and shortness of breath. Musculoskeletal: Positive for myalgias. Neurological: Positive for headaches. All other systems reviewed and are negative. BP 135/89 Pulse 99 Temp (Src) 97.1 (Temporal) Resp 18 Wt 243 lb (110.2kg) SpO2 98% Physical Exam Vitals and nursing note reviewed. Constitutional: Appearance: Normal appearance. HENT: Head: Normocephalic. Right Ear: Tympanic membrane normal. Left Ear: Tympanic membrane normal. Nose: Congestion and rhinorrhea present. Mouth/Throat: Pharynx: Posterior oropharyngeal erythema present. Eyes: Extraocular Movements: Extraocular movements intact. Conjunctiva/sclera: Conjunctivae normal. Pupils: Pupils are equal, round, and reactive to light. Cardiovascular: Rate and Rhythm: Regular rhythm. Pulses: Normal pulses. Heart sounds: Normal heart sounds. Pulmonary: Breath sounds: Wheezing and rhonchi present. Abdominal: General: Bowel sounds are normal. Musculoskeletal: General: Normal range of motion. Cervical back: Normal range of motion. Skin: General: Skin is warm. Capillary Refill: Capillary refill takes 2 to 3 seconds. Neurological: General: No focal deficit present. Psychiatric: Mood and Affect: Mood normal. ASSESSMENT/PLAN: 1. Sinobronchitis - ICD9: 473.9, 490, ICD10: J32.9, J40 - AMOXICILLIN 875 MG TABLET - HBYTLCBMPESKKRW-TMAPHWMUVWHOQRJ-[id number] 2 MG-30 MG-10 MG/5 ML ORAL SYRUP - IBUPROFEN 800 MG TABLET Bertha Alexandria [facility]03-25-2024 History of Present illness Narrative * Do Berthaanmol Coy, DO - 02/02/2024 10:31 AM EDT Ramiro Napoles is a 23 year old FEMALE who presents with Cough (Started 5 days ago //Productive/), Breathing Problem (Started 5 days ago /SOB ), Sore Throat (Started 5 days ago ), and Ear Problem (Clogged ears /Started 5 days ago /) HPI PAST MEDICAL HISTORY Diagnosis Date Depression Psychiatric disorder Syncope There is no problem list on file for this patient. Current Outpatient Medications Medication Sig Dispense Refill amoxicillin (AMOXIL) 875 mg tablet Take 1 tablet by mouth two times a day for 10 days. 20 tablet 0 Ogemkqbvialigwk-Iqvpuisni-QI (BROMFED DM) 2-30-10 mg/5 mL syrup Take 5 mL by mouth four times a dayas needed for up to 7 days. 120 mL 0 ibuprofen (MOTRIN) 800 mg tablet Take 1 tablet by mouth three times a day as needed for pain or fever (specify temp.) for up to 7 days. 21 tablet 0 traZODone (DESYREL) 50 mg tablet take 1 tablet by mouth at bedtime if needed for sleep / insomnia (Patient not taking: Reported on 11/24/2023) medroxyPROGESTERone (DEPO-PROVERA) 150 mg/mL injection inject 1 milliliter intramuscularly every 3 MONTHS (Patient not taking: Reported on 02/02/2024) guanFACINE (INTUNIV) 1 mg ER 24 hr tablet(s) Take by mouth. (Patient not taking: Reported on 11/24/2023) DULoxetine (CYMBALTA) 30 mg capsule Take 1 capsule by mouth every afternoon. (Patient not taking: Reported on 10/23/2023) No current facility-administered medications for this visit. Social History Tobacco Use Smoking status: Never Passive exposure: Past Smokeless tobacco: Never Vaping Use Vaping Use: Former Quit date: 02/01/2022 Substances: Nicotine, Flavoring Devices: Disposable, Pre-filled pod Substance Use Topics Alcohol use: Never Drug use: Never Alcohol Use: Never Tobacco Use: Never History reviewed. No pertinent family history. Review of Systems Constitutional: Positive for chills, fever and malaise/fatigue. HENT: Positive for congestion, ear pain, sinus pain and sore throat. Respiratory: Positive for cough, sputum production and shortness of breath. Musculoskeletal: Positive for myalgias. Neurological: Positive for headaches. All other systems reviewed and are negative. BP 135/89 Pulse 99 Temp (Src) 97.1 (Temporal) Resp 18 Wt 243 lb (110.2kg) SpO2 98% Physical Exam Vitals and nursing note reviewed. Constitutional: Appearance: Normal appearance. HENT: Head: Normocephalic. Right Ear: Tympanic membrane normal. Left Ear: Tympanic membrane normal. Nose: Congestion and rhinorrhea present. Mouth/Throat: Pharynx: Posterior oropharyngeal erythema present. Eyes: Extraocular Movements: Extraocular movements intact. Conjunctiva/sclera: Conjunctivae normal. Pupils: Pupils are equal, round, and reactive to light. Cardiovascular: Rate and Rhythm: Regular rhythm. Pulses: Normal pulses. Heart sounds: Normal heart sounds. Pulmonary: Breath sounds: Wheezing and rhonchi present. Abdominal: General: Bowel sounds are normal. Musculoskeletal: General: Normal range of motion. Cervical back: Normal range of motion. Skin: General: Skin is warm. Capillary Refill: Capillary refill takes 2 to 3 seconds. Neurological: General: No focal deficit present. Psychiatric: Mood and Affect: Mood normal. ASSESSMENT/PLAN: 1. Sinobronchitis - ICD9: 473.9, 490, ICD10: J32.9, J40 - AMOXICILLIN 875 MG TABLET - MOTBHENVAPQHUIG-YJDUGIQVTARIZUU-ZS 2 MG-30 MG-10 MG/5 ML ORAL SYRUP - IBUPROFEN 800 MG TABLET Bertha Lei documented in this encounterSt. [facility]24 NoteHNO ID: [id number] Author: MARVA YANES LPN Service: ? Author Type: LICENSED NURSE Type: Progress Notes Filed: 11/24/2023 15:26 Note Text: Eliud wrap applied to left knee, patient tolerated well. Patient fitted for crutches, patient instructed on proper use of crutches, patient demonstrated proper use of crutches.Marva Yanes, [facility]01-15-2024 Note HNO ID: [id number] Author: BERTHA LEI, DO Service: ? Author Type: Physician Type: Progress Notes Filed: 11/24/2023 15:26 Note Text: Ramiro Lynn is a 22 year old FEMALE who presents with Leg Pain (Left leg pain slip and fall new pain starts above knee and moves down to ankle pain comes and goes but seems worse when goes from seated postion to standing) HPI PAST MEDICAL HISTORY Diagnosis Date Depression Psychiatric disorder Syncope There is no problem list on file for this patient. Current Outpatient Medications Medication Sig Dispense Refill medroxyPROGESTERone (DEPO-PROVERA) 150 mg/mL injection inject 1 milliliter intramuscularly every 3 MONTHS dexAMETHasone (DECADRON) 6 mg tablet Take 1 tablet by mouth once daily for 5 days. 5 tablet 0 traZODone (DESYREL) 50 mg tablet take 1 tablet by mouth at bedtime if needed for sleep / insomnia (Patient not taking: Reported on 11/24/2023) guanFACINE (INTUNIV) 1 mg ER 24 hr tablet(s) Take by mouth. (Patient not taking: Reported on 11/24/2023) DULoxetine (CYMBALTA) 30 mg capsule Take 1 capsule by mouth every afternoon. (Patient not taking: Reported on 10/23/2023) No current facility-administered medications for this visit. Social History Tobacco Use Smoking status: Never Smokeless tobacco: Never Vaping Use Vaping Use: Never used Substance Use Topics Alcohol use: Never Drug use: Never Alcohol Use: Never Tobacco Use: Never History reviewed. No pertinent family history. Review of Systems Musculoskeletal: Positive for joint pain. This is a 2-year-old female who [place] she was walking in heels and slipped on the ice and is not quite sure how her leg twisted but she hit directly onto the left knee. She has had pain ever since then difficulty with steps difficulty with the strength in that leg and cannot get down on her knees and get back up again. Patient states that just walking on flat ground does not seem to hurt. But the pain is continued since and this is the 15th so she comes in today for further evaluation. 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 She has a tough job and has had to move quite a bit and walk on hard floors despite having this injury. All other systems reviewed and are negative. BP 132/80 Pulse 80 Temp 98.6 Resp 16 Ht 5' 10" (1.78m) Wt 243 lb (110.2kg) SpO2 98% BMI 34.87 kg/(m2). Physical Exam Vitals and nursing note reviewed. Musculoskeletal: General: Tenderness and signs of injury present. Comments: Examination of the left knee pulses are +2/4 and capillary refill less than 3 seconds normal motor neurovascular and sensory to the lower extremity. She has tenderness to palpation superior to the knee but it does not reproduce the type of pain that she says she has when its its worst. She has very minimal collateral or lateral tenderness or medial tenderness over the MCL or LCL. Patient has no gross deformity. Negative Apley grind. Negative anterior drawer. Negative quadriceps apprehension. X-rays obtained by my read it is negative for fracture or dislocation. We will have the radiologist review the films of the x-ray experts and I am a family doctor should there be any discrepancy we will notify them. Patient is going to be placed on crutches and given an Eliud wrap to put some compression on the knee elevate and ice. The patient is given a slip for work to have seated work only use the crutches and the wrap for the next week. She is released from restrictions on 12/01/2023. The patient was advised that if her symptoms have not resolved by this point she should see an orthopedist in follow-up. She will be given Decadron 6 mg once a day for 5 days. She was advised do not get while taking this medication. Take this medicine with food. Neurological: Mental Status: She is alert. ASSESSMENT/PLAN: 1. Fall, initial encounter - ICD9: E888.9, ICD10: W19.XXXA (primary diagnosis) - XR FEMUR DISTAL 2V AP/LAT LEFT - XR TIBIA FIBULA 2V AP/LAT LEFT - CRUTCHES - ELASTIC BANDAGE 2. Sprain of collateral ligament of left knee, initial encounter - ICD9: 844.1, ICD10: S83.402A - DEXAMETHASONE 6 MG TABLET - CRUTCHES - ELASTIC BANDAGE Bertha Ibrahim [facility]01-15-[facility]24 NoteHNO ID: [id number] Author: GALE DIAS RT(R) Service: ? Author Type: Technologist Type: Progress Notes Filed: 11/24/2023 14:57 Note Text: Radiology Service Progress Note PATIENT NAME: Ramiro Lynn DATE OF SERVICE: November 24, 2023 TIME: 2:57 PM PATIENT IDENTITY VERIFICATION COMPLETED USING TWO (2) IDENTIFIERS: Name and Date of confirmed by patient verbally. FALL SCREENING: Has the patient had 2 falls in the last year or 1 fall with injury or currently using an Ambulatory Assistive Device (Walker, Cane, Wheelchair, Crutches, etc.)? No PATIENT GENDER DATA: Female. status: : No status: NO. PATIENT RELEVANT IMPLANT DATA REVIEWED: Not Applicable RADIOLOGY DEPARTMENT: General X-ray: Exam(s) Completed: Lower Extremity X-Ray(s): Femur, Left and Tibia Fibula, Left PERIPHERAL IV DATA: Not applicable SIGNED BY: RT Tito(R) November 24, 2023 2:57 [facility] History of Present illness Narrative* Gale Dias RT(R) - 11/24/2023 2:20 PM EST Radiology Service Progress Note PATIENT NAME: Ramiro Lynn DATE OF SERVICE: November 24, 2023 TIME: 2:57 PM PATIENT IDENTITY VERIFICATION COMPLETED USING TWO (2) IDENTIFIERS: Name and Date of confirmedby patient verbally. FALL SCREENING: Has the patient had 2 falls in the last year or 1 fall with injury or currently using an Ambulatory Assistive Device (Walker, Cane, Wheelchair, Crutches, etc.)? No PATIENT GENDER DATA: Female. status: : No status: NO. PATIENT RELEVANT IMPLANT DATA REVIEWED: Not Applicable RADIOLOGY DEPARTMENT: General X-ray: Exam(s) Completed: Lower Extremity X- Ray(s): Femur, Left and Tibia Fibula, Left PERIPHERAL IV DATA: Not applicable SIGNED BY: RT Tito(R) November 24, 2023 2:57 PM documented in this encounterSt. [facility] Hospital12-21-2023 Hospital Discharge instructions Patient Education 10/29/2023 22:52:03 TB Screening (Skin) TB Screening (Skin) Does this test have other names? Tuberculin test, TST, Mantoux, PPD (purified protein derivative) What is this test? This test shows if you have been infected with tuberculosis (TB). TB is a very contagious bacterialinfection that is spread through the air. It's possible to have inactive (latent) TB and not feel sick or have noticeable symptoms. Or you can have active TB disease with symptoms. People with latentTB are not contagious. Why do I need this test? You may need this test if you have recently been exposed to someone who has TB. Or you may need it if your healthcare provider thinks you may have a TB infection. Symptoms of TB may include: Cough Fever Night sweats Unexplained weight loss Coughing up blood Chest pain Fatigue Shortness of breath TB usually affects the lungs. But it can spread to other parts of your body, including your joints,spine, brain, and kidneys, and cause other symptoms. You also might have this test if you: Have HIV or another disease that weakens your immune system Use illegal drugs Live or work in a place with a higher rate of TB infection, such as a fpc or fpc Need to start a medicine that suppresses your immune system Recently emigrated or traveled to areas where TB is more common, such as some Eastern or [place] countries Are a healthcare worker, and need this test as part of your facility's infection control program Are and having routine care tests What other tests might I have along with this test? If you test positive on a TB skin test, you will also likely need a chest X-ray, sputum smear (a test on mucus you cough up), and TB culture. These tests are to find out if you have active or latent TB. A blood screening test is also available for TB, but only one screening test will be recommendedby your healthcare provider, based on your case. What do my test results mean? Test results may vary depending on your age, gender, health history, the method used for the test, and other things. Your test results may not mean you have a problem. Ask your healthcare provider what your test results mean for you. A positive test result means you may have been infected with TB at some point. It does not mean youhave an active TB infection. The test may be seen as positive if the skin where you were injected is hard, raised, red, and swollen. But redness alone is not considered a positive test result. In many cases, a healthy immune system will surround the TB bacteria soon after you are infected. This means you will not go on to have an active TB infection. You will need more tests to see if you have active or inactive TB. If you have no reaction, the skin test is negative, and you are not likely to have inactive TB or TB disease. How is this test done? A small amount of fluid called tuberculin is injected into the skin on your inner forearm. A circleis drawn around the injection site with long-lasting ink. You need to return to the testing site after 48 to 72 hours to be examined by a healthcare worker. Does this test pose any risks? When the needle pricks your arm, you may feel a slight sting or pain. Afterward, the site may be sore. You cannot get TB from the skin test. What might affect my test results? If you have been vaccinated against tuberculosis with Bacilli Calmette-Suzanna (BCG), you can have apositive reaction to the skin test even if you never had a TB infection. You might have a false negative test if you are: Malnourished On steroid therapy Taking medicines that can affect your immune system, such as medicine for AIDS or cancer How do I get ready for this test? You don't need to prepare for this test. Be sure your healthcare provider knows about all medicines, herbs, vitamins, and supplements you are taking. This includes medicines that don't need a prescription and any illegal drugs you may use. 7359-0802 [facility]. [address] [place] [address]. All rights reserved. This information is not intended as a substitute for professional medical care. Always follow yourhealthcare professional's instructions. Follow Up Care 10/29/2023 22:00:20 With:MICHELLE CHRISTINA Address: [address] [place] [address] [place] [address]- [phone] Business (1) When:2-4 days Comments:Follow-up as needed.Return to the ED if symptoms worsen. [facility] 12-20-2023 Note Discharge Instructions Thank you for allowing [facility] to assist you with your healthcare needs. The following is importantdischarge information regarding your hospital visit. Diagnosis from Today's Visit positive TB skin test What to Do Next Instructions from Your Care Team No qualifying data available. Post Acute Orders No qualifying data available. You Need to Schedule the Following Appointments Follow Up with MICHELLE CHRISTINA When Within 2-4 days Why: Follow-up as needed. Return to the ED if symptoms worsen. Where: [address] [place] [phone]- [phone] Business (1) Allergies NKA Medications Please ask your primary doctor or pharmacist before taking any other medication not listed, including over the counter drugs, herbal medications, vitamins and or supplements as they may interact withyour home medications. What How Much When Why Instructions Last Dose Unchanged DME (Alcohol Swabs) See instructions Low blood sugar qs for 1 month supply, check blood sugars once daily for hypoglycemia. Unchanged DME (DME MISCellaneous) See instructions Low blood sugar Glucometer to check blood sugars once daily for hypoglycemia. Please provide insurance preferred brand. Unchanged DME (DME MISCellaneous) See instructions Low blood sugar Lancets to check blood sugars once daily for hypoglycemia. Unchanged DME (DME MISCellaneous) See instructions Low blood sugar Glucose test strips to test blood sugars once daily for hypoglycemia. Unchanged DULoxetine (Cymbalta 30 mg oral delayed release capsule) 1 cap by mouth Once a day Anxiety Duration: 30 Days Unchanged medroxyPROGESTERone (medroxyPROGESTERone 150 mg/ mL intramuscular suspension) 1 Milliliter Intramuscular Every 3 months Encounter for control Unchanged traZODone (traZODone 50 mg oral tablet) 1 tab(s) by mouth Daily at bedtime Insomnia Duration: 30 Days short term in lieu of provider absence Please take this list to your next doctor s visit. Bring all medications you take, including over the counter medications, herbals and other supplements with you to your doctor s visit. Patients and families are reminded to discard old lists and to update any records with all medication providers or retail pharmacies. Education Materials TB Screening (Skin) Does this test have other names? Tuberculin test, TST, Mantoux, PPD (purified protein derivative) What is this test? This test shows if you have been infected with tuberculosis (TB). TB is a very contagious bacterialinfection that is spread through the air. It's possible to have inactive (latent) TB and not feel sick or have noticeable symptoms. Or you can have active TB disease with symptoms. People with latentTB are not contagious. Why do I need this test? You may need this test if you have recently been exposed to someone who has TB. Or you may need it if your healthcare provider thinks you may have a TB infection. Symptoms of TB may include: Cough Fever Night sweats Unexplained weight loss Coughing up blood Chest pain Fatigue Shortness of breath TB usually affects the lungs. But it can spread to other parts of your body, including your joints,spine, brain, and kidneys, and cause other symptoms. You also might have this test if you: Have HIV or another disease that weakens your immune system Use illegal drugs Live or work in a place with a higher rate of TB infection, such as a fpc or fpc Need to start a medicine that suppresses your immune system Recently emigrated or traveled to areas where TB is more common, such as some Eastern or [place] countries Are a healthcare worker, and need this test as part of your facility's infection control program Are and having routine care tests What other tests might I have along with this test? If you test positive on a TB skin test, you will also likely need a chest X-ray, sputum smear (a test on mucus you cough up), and TB culture. These tests are to find out if you have active or latent TB. A blood screening test is also available for TB, but only one screening test will be recommendedby your healthcare provider, based on your case. What do my test results mean? Test results may vary depending on your age, gender, health history, the method used for the test, and other things. Your test results may not mean you have a problem. Ask your healthcare provider what your test results mean for you. A positive test result means you may have been infected with TB at some point. It does not mean youhave an active TB infection. The test may be seen as positive if the skin where you were injected is hard, raised, red, and swollen. But redness alone is not considered a positive test result. In many cases, a healthy immune system will surround the TB bacteria soon after you are infected. This means you will not go on to have an active TB infection. You will need more tests to see if you have active or inactive TB. If you have no reaction, the skin test is negative, and you are not likely to have inactive TB or TB disease. How is this test done? A small amount of fluid called tuberculin is injected into the skin on your inner forearm. A circleis drawn around the injection site with long-lasting ink. You need to return to the testing site after 48 to 72 hours to be examined by a healthcare worker. Does this test pose any risks? When the needle pricks your arm, you may feel a slight sting or pain. Afterward, the site may be sore. You cannot get TB from the skin test. What might affect my test results? If you have been vaccinated against tuberculosis with Bacilli Calmette-Suzanna (BCG), you can have apositive reaction to the skin test even if you never had a TB infection. You might have a false negative test if you are: Malnourished On steroid therapy Taking medicines that can affect your immune system, such as medicine for AIDS or cancer How do I get ready for this test? You don't need to prepare for this test. Be sure your healthcare provider knows about all medicines, herbs, vitamins, and supplements you are taking. This includes medicines that don't need a prescription and any illegal drugs you may use. [phone] [facility]. [address] [place] [address]. All rights reserved. This information is not intended as a substitute for professional medical care. Always follow yourhealthcare professional's instructions. Additional Information VACCINATE! IT SAVES LIVES! Members of the community who have not yet received the COVID-19 vaccine and would like to receive it can visit one of [facility] vaccine clinics. There are many vaccine clinic locations within the [facility]. For locations and available times, please visit www.[email or web address].[place].gov/. It is important to note that some COVID mobile vaccine clinics are held outdoors and may be canceled in rainy or stormy conditions. To learn more about pediatric vaccinations (ages 5-11), we invite you to visit the [facility] webpage. [email or web address]/[email or web address]-[email or web address] [email or web address] learn more about the COVID-19 vaccine, we invite you to visit the CDC website for a list of frequently asked questions. https://www.cdc.gov/coronavirus/2019-ncov/vaccines/faq.html [facility] Patient Portal Access Instructions: Stay connected with your healthcare team and access your personal medical information anytime with the [facility] Patient Portal. If you would like a full copy of your medical records please contact the [facility] Medical Records Department Friday through Friday between 8a.m. and 4:30p.m. Please follow the directions below to access the portal: 1.Access the email account you provided upon registration to the [facility].2.Look for an invitation email from [facility].3.Open the email and access the invitation link: Accept Invitation to [facility]4.Fill in the required raines to create your account. Sign into [email or web address].[employer] with your username and password that you created in the above steps to stay up to date. You can then view a summary of results, a summary of your visits, and the ability to download your summaries to your computer or send the information securely to a physician. Remember that your healthcare information is confidential, so carefully consider who you will allow to register on the [facility] Patient Portal for access to your information. You can also access the [facility] Patient Portal on the [employer]. Simply click on "Health Records" under "HealthData" and then click on the [facility] logo. HOW TO SAFELY DISPOSE OF PRESCRIPTION MEDICATIONS Please use one of the following methods to safely dispose of your unused medications. 1.Use a drug disposal kit: the drug disposal pouch allows you to safely discard your old and unuseddrugs. Ask your nurse to give you one when you are discharged.2.Visit a local take-back location: Many local pharmacies and police departments have programs that collect old and unwanted prescriptiondrugs. Call your local pharmacy or go to http://bit.Zymetis/3K8Pl8e to find one close to you.3.Make use of household items: Use cat litter or old coffee grounds to dispose medications if other options arenot available. Mix your drugs with these household products, seal them in an airtight container andthrow it into the garbage. Call [facility]: [phone] to be sure your drugs can be disposed of in this way. Some medicines may require a different approach.4.Never flush your medications down the toilet. IF YOU HAVE BEEN PRESCRIBED AN OPIOIDS FOR PAIN If you have been prescribed an opioid (such as hydrocodone, oxycodone or morphine), it is critical to understand the possible side effects and risks of opioid pain medications. Even when taken as directed, opioids can have several side effects including: Tolerance, meaning you might need to take more of a medication for the same pain relief. Nausea, vomiting and/or constipation. Sleepiness, dizziness, dry mouth, confusion, depression or itching. Physical dependence, meaning you have withdrawal symptoms when a medication is stopped ? this can develop within a few days. KNOW YOUR RESPONSIBILITIES It is important to know exactly how much and how often to take the opioid pain medications you are prescribed. Never take opioids in higher amounts or more often than prescribed. Do not combine opioids with alcohol or other drugs that cause drowsiness, such as benzodiazepines, also known as benzos,including diazepam and alprazolam, muscle relaxants or sleep aids. Never sell or share prescriptionopioids. This is illegal. Store opioids in a secure place and out of reach of others (including children, family, friends and visitors). The last page(s) of this document has been signed and retained as a CHART COPY Signatures Patient Education Materials TB Screening (Skin) Medication Leaflets My discharge plan and instructions have been reviewed and explained to me and I,RAMIRO LYNN understand my current condition and have read and understand these discharge instructions. I have received a written copy of the plan/instructions. If I have questions, I am aware that I should contact my doctor. Patient/Metal Bumper Signature: Date/Time: Relationship to Patient: Witness Name/Signature: Date/Time: [facility]12-20-2023 Note ORIGINAL EXAMINATION: ONE XRAY VIEW OF THE CHEST 10/29/2023 10:40 pm COMPARISON: 12/12/2022 HISTORY: ORDERING SYSTEM PROVIDED HISTORY: Reason for Exam: (+) TB skin test, asymptomatic FINDINGS: The lungs are without acute focal process. There is no effusion or pneumothorax. The cardiomediastinal silhouette is without acute process. The osseous structures are without acute process. IMPRESSION: No acute process. Interpreted by: Mayito Heller Preliminary Report By: Mayito Heller Electronically signed By Mayito Heller Dictated Date: 10/29/2023 10:42:36 PM Prelim Date: 10/29/2023 10:46:03 PM Sign Date: 10/29/2023 10:46:03 PM Ordering Provider: [facility]G [facility]12-14-2023 Note HNO ID: [id number] Author: Bertha Lei, DO Service: ? Author Type: Physician Type: Progress Notes Filed: 10/23/2023 8:26 AM Note Text: Ramiro Lynn is a 22 year old FEMALE who presents with Cough (Congestion ear pain 2 weeks) HPI PAST MEDICAL HISTORY Diagnosis Date Depression Psychiatric disorder Syncope There is no problem list on file for this patient. Current Outpatient Medications Medication Sig Dispense Refill traZODone (DESYREL) 50 mg tablet take 1 tablet by mouth at bedtime if needed for sleep / insomnia medroxyPROGESTERone (DEPO-PROVERA) 150 mg/mL injection inject 1 milliliter intramuscularly every 3 MONTHS guanFACINE (INTUNIV) 1 mg ER 24 hr tablet(s) Take by mouth. DULoxetine (CYMBALTA) 30 mg capsule Take 1 capsule by mouth every afternoon. (Patient not taking: Reported on 10/23/2023) No current facility-administered medications for this visit. Social History Tobacco Use Smoking status: Never Smokeless tobacco: Never Vaping Use Vaping Use: Never used Substance Use Topics Alcohol use: Never Drug use: Never Alcohol Use: Never Tobacco Use: Never History reviewed. No pertinent family history. Review of Systems Constitutional: Positive for chills, fever and malaise/fatigue. HENT: Positive for congestion, ear pain, sinus pain and sore throat. Respiratory: Positive for cough and sputum production. All other systems reviewed and are negative. BP 133/80 Pulse 76 Temp 97.8 Resp 16 Wt 243 lb (110.2kg) SpO2 97% LMP 01/17/2023 Physical Exam Vitals and nursing note reviewed. Constitutional: Appearance: Normal appearance. HENT: Head: Normocephalic. Right Ear: Tympanic membrane normal. Ears: Comments: Left TM is erythematous at 8 out of 10 Nose: Rhinorrhea present. Mouth/Throat: Pharynx: Posterior oropharyngeal erythema present. Eyes: Extraocular Movements: Extraocular movements intact. Pupils: Pupils are equal, round, and reactive to light. Cardiovascular: Rate and Rhythm: Normal rate and regular rhythm. Pulses: Normal pulses. Heart sounds: Normal heart sounds. Pulmonary: Effort: Pulmonary effort is normal. Breath sounds: Rhonchi present. Lymphadenopathy: Cervical: Cervical adenopathy present. Skin: General: Skin is warm. Capillary Refill: Capillary refill takes 2 to 3 seconds. Neurological: General: No focal deficit present. Psychiatric: Mood and Affect: Mood normal. ASSESSMENT/PLAN: 1. Sinobronchitis - ICD9: 473.9, 490, ICD10: J32.9, J40 (primary diagnosis) -AMOXIL 875 -TESSALON PERLES -CHLORPHENERAMINE 4 MG - MOTRIN 2. Acute otitis media, left - ICD9: 382.9, ICD10: H66.92 Bertha Ibrahim [facility]12-01-2023 NoteHNO ID: [id number] Author: Marcy Khalil LPN Service: ? Author Type: LICENSED NURSE Type: Progress Notes Filed: 10/10/2023 1:09 PM Note Text: Splint to right hand/wrist, educated on use tolerated well. Marcy Khalil [facility]12-01-2023 NoteHNO ID: [id number] Author: Joseph Glez PA-C Service: ? Author Type: Physician Supervisor [place] Type: Progress Notes Filed: 10/10/2023 1:02 PM Note Text: HPI: Ramiro Lynn is a 22 year old female who presents with Wrist/forearm Injury (Right wrist/hand injury fell 1 hour ago). PAST MEDICAL HISTORY Diagnosis Date Depression Psychiatric disorder Syncope There is no problem list on file for this patient. Current Outpatient Medications Medication Sig Dispense Refill traZODone (DESYREL) 50 mg tablet take 1 tablet by mouth at bedtime if needed for sleep / insomnia medroxyPROGESTERone (DEPO-PROVERA) 150 mg/mL injection inject 1 milliliter intramuscularly every 3 MONTHS guanFACINE (INTUNIV) 1 mg ER 24 hr tablet(s) Take by mouth. DULoxetine (CYMBALTA) 30 mg capsule Take 1 capsule by mouth every afternoon. No current facility-administered medications for this visit. Social History Tobacco Use Smoking status: Never Smokeless tobacco: Never Vaping Use Vaping Use: Never used Substance Use Topics Alcohol use: Never Drug use: Never Alcohol Use: Never Tobacco Use: Never History reviewed. No pertinent family history. Review of Systems HENT: Negative. Negative for congestion and sore throat. Eyes: Negative. Respiratory: Negative for cough, shortness of breath and wheezing. Cardiovascular: Negative for chest pain. Gastrointestinal: Negative for diarrhea, nausea and vomiting. Genitourinary: Negative. Musculoskeletal: Positive for joint pain. Skin: Negative. Neurological: Negative. Endo/Heme/Allergies: Negative. Psychiatric/Behavioral: Negative. All other systems reviewed and are negative. BP 128/80 Pulse 81 Temp 98 Resp 20 SpO2 98% LMP 01/17/2023 Physical Exam Vitals and nursing note reviewed. Constitutional: General: She is not in acute distress. Appearance: Normal appearance. She is normal weight. She is not ill-appearing or toxic-appearing. HENT: Head: Normocephalic and atraumatic. Right Ear: Tympanic membrane, ear canal and external ear normal. Left Ear: Tympanic membrane, ear canal and external ear normal. Nose: Nose normal. No congestion or rhinorrhea. Mouth/Throat: Mouth: Mucous membranes are moist. Pharynx: Oropharynx is clear. No oropharyngeal exudate or posterior oropharyngeal erythema. Eyes: Extraocular Movements: Extraocular movements intact. Conjunctiva/sclera: Conjunctivae normal. Pupils: Pupils are equal, round, and reactive to light. Cardiovascular: Rate and Rhythm: Normal rate and regular rhythm. Pulses: Normal pulses. Heart sounds: Normal heart sounds. Pulmonary: Effort: Pulmonary effort is normal. Breath sounds: Normal breath sounds. Abdominal: General: Abdomen is flat. Bowel sounds are normal. Palpations: Abdomen is soft. Musculoskeletal: General: Tenderness and signs of injury present. No swelling or deformity. Normal range of motion. Cervical back: Normal range of motion and neck supple. No tenderness. Lymphadenopathy: Cervical: No cervical adenopathy. Skin: General: Skin is warm and dry. Capillary Refill: Capillary refill takes less than 2 seconds. Neurological: General: No focal deficit present. Mental Status: She is alert and oriented to person, place, and time. Psychiatric: Mood and Affect: Mood normal. Behavior: Behavior normal. Clinical Impression ICD-10-CM 1. Sprain of right wrist, initial encounter S63.501A XR WRIST INJURY 4V PA/LAT/OBL/SCAPH RIGHT PLAN: X-rays identify no acute process or fracture per my interpretation. Patient was splinted, discharged with supportive care Joseph Glez PA-C This note was generated with voice recognition software and may contain errors, including spelling, grammar, syntax and misrecognition of what was dictated, that are not fully corrected.[facility]12-01-2023 NoteHNO ID: [id number] Author: Hussein Bledsoe RT(R) Service: ? Author Type: Technologist Type: Progress Notes Filed: 10/10/2023 2:51 PM Note Text: Radiology Service Progress Note PATIENT NAME: Ramiro Lynn DATE OF SERVICE: October 10, 2023 TIME: 2:50 PM PATIENT IDENTITY VERIFICATION COMPLETED USING TWO (2) IDENTIFIERS: Name and Date of confirmed by patient verbally. FALL SCREENING: Has the patient had 2 falls in the last year or 1 fall with injury or currently using an Ambulatory Assistive Device (Walker, Cane, Wheelchair, Crutches, etc.)? Yes, Patient High Risk for Falls What interventions were put in place to prevent falls during this visit? Offered Assistance with Transfers/Clothing, Instructed Patient to Remain Seated (Not on Exam Table) Until Exam, and Increased Observations by Caregivers PATIENT GENDER DATA: Female. status: : No status: NO. PATIENT RELEVANT IMPLANT DATA REVIEWED: Not Applicable RADIOLOGY DEPARTMENT: General X-ray: Exam(s) Completed: Upper Extremity X-Ray(s): Wrist, right PERIPHERAL IV DATA: Not applicable SIGNED BY: Hussein Bledsoe RT(R) October 10, 2023 2:50 PM[facility] History of Present illness Narrative* Marcy Khalil LPN - 10/10/2023 1:09 PM EST Splint to right hand/wrist, educated on use tolerated well. Marcy Khalil LPN * Joseph Glez PA-C - 10/10/2023 1:01 PM EST HPI: Ramiro Lynn is a 22 year old female who presents with Wrist/forearm Injury (Right wrist/hand injury fell 1 hour ago). PAST MEDICAL HISTORY Diagnosis Date Depression Psychiatric disorder Syncope There is no problem list on file for this patient. Current Outpatient Medications Medication Sig Dispense Refill traZODone (DESYREL) 50 mg tablet take 1 tablet by mouth at bedtime if needed for sleep / insomnia medroxyPROGESTERone (DEPO-PROVERA) 150 mg/mL injection inject 1 milliliter intramuscularly every 3 MONTHS guanFACINE (INTUNIV) 1 mg ER 24 hr tablet(s) Take by mouth. DULoxetine (CYMBALTA) 30 mg capsule Take 1 capsule by mouth every afternoon. No current facility-administered medications for this visit. Social History Tobacco Use Smoking status: Never Smokeless tobacco: Never Vaping Use Vaping Use: Never used Substance Use Topics Alcohol use: Never Drug use: Never Alcohol Use: Never Tobacco Use: Never History reviewed. No pertinent family history. Review of Systems HENT: Negative. Negative for congestion and sore throat. Eyes: Negative. Respiratory: Negative for cough, shortness of breath and wheezing. Cardiovascular: Negative for chest pain. Gastrointestinal: Negative for diarrhea, nausea and vomiting. Genitourinary: Negative. Musculoskeletal: Positive for joint pain. Skin: Negative. Neurological: Negative. Endo/Heme/Allergies: Negative. Psychiatric/Behavioral: Negative. All other systems reviewed and are negative. BP 128/80 Pulse 81 Temp 98 Resp 20 SpO2 98% LMP 01/17/2023 Physical Exam Vitals and nursing note reviewed. Constitutional: General: She is not in acute distress. Appearance: Normal appearance. She is normal weight. She is not ill-appearing or toxic-appearing. HENT: Head: Normocephalic and atraumatic. Right Ear: Tympanic membrane, ear canal and external ear normal. Left Ear: Tympanic membrane, ear canal and external ear normal. Nose: Nose normal. No congestion or rhinorrhea. Mouth/Throat: Mouth: Mucous membranes are moist. Pharynx: Oropharynx is clear. No oropharyngeal exudate or posterior oropharyngeal erythema. Eyes: Extraocular Movements: Extraocular movements intact. Conjunctiva/sclera: Conjunctivae normal. Pupils: Pupils are equal, round, and reactive to light. Cardiovascular: Rate and Rhythm: Normal rate and regular rhythm. Pulses: Normal pulses. Heart sounds: Normal heart sounds. Pulmonary: Effort: Pulmonary effort is normal. Breath sounds: Normal breath sounds. Abdominal: General: Abdomen is flat. Bowel sounds are normal. Palpations: Abdomen is soft. Musculoskeletal: General: Tenderness and signs of injury present. No swelling or deformity. Normal range of motion. Cervical back: Normal range of motion and neck supple. No tenderness. Lymphadenopathy: Cervical: No cervical adenopathy. Skin: General: Skin is warm and dry. Capillary Refill: Capillary refill takes less than 2 seconds. Neurological: General: No focal deficit present. Mental Status: She is alert and oriented to person, place, and time. Psychiatric: Mood and Affect: Mood normal. Behavior: Behavior normal. Clinical Impression ICD-10-CM 1. Sprain of right wrist, initial encounter S63.501A XR WRIST INJURY 4V PA/LAT/OBL/SCAPH RIGHT PLAN: X-rays identify no acute process or fracture per my interpretation. Patient was splinted, discharged with supportive care Joseph Glez PA-C This note was generated with voice recognition software and may contain errors, including spelling,grammar, syntax and misrecognition of what was dictated, that are not fully corrected. [facility] History of Present illness Narrative* Hussein Bledsoe RT(R) - 10/10/2023 1:00 PM EST Radiology Service Progress Note PATIENT NAME: Ramiro Lynn DATE OF SERVICE: October 10, 2023 TIME: 2:50 PM PATIENT IDENTITY VERIFICATION COMPLETED USING TWO (2) IDENTIFIERS: Name and Date of confirmedby patient verbally. FALL SCREENING: Has the patient had 2 falls in the last year or 1 fall with injury or currently using an Ambulatory Assistive Device (Walker, Cane, Wheelchair, Crutches, etc.)? Yes, Patient High Riskfor Falls What interventions were put in place to prevent falls during this visit? Offered Assistance with Transfers/Clothing, Instructed Patient to Remain Seated (Not on Exam Table) Until Exam, and Increased Observations by Caregivers PATIENT GENDER DATA: Female. status: : No status: NO. PATIENT RELEVANT IMPLANT DATA REVIEWED: Not Applicable RADIOLOGY DEPARTMENT: General X-ray: Exam(s) Completed: Upper Extremity X- Ray(s): Wrist, right PERIPHERAL IV DATA: Not applicable SIGNED BY: RT Ron(R) October 10, 2023 2:50 PM documented in this [facility]St[facility] NoteHNO ID: [id number] Author: Note, Interface Service: ? Author Type: ? Type: Progress Notes Filed: 08/23/2023 5:59 AM Note Text: Epic Scheduled Downtime: 08/23/2023 1:00:00 AM to 08/23/2023 1:28:00 [facility]06-25-2023 Hospital Discharge instructions Patient Education 05/03/2023 23:42:13 Abdominal Pain Abdominal Pain Abdominal pain is pain in the stomach or belly area. Everyone has this pain from time to time. In many cases it goes away on its own. But abdominal pain can sometimes be due to a serious problem, such as appendicitis. So it s important to know when to get help. Causes of abdominal pain There are many possible causes of abdominal pain. Common causes in adults include: Constipation, diarrhea, or gas Stomach acid flowing back up into the esophagus (acid reflux or heartburn) Severe acid reflux, called GERD (gastroesophageal reflux disease) A sore in the lining of the stomach or small intestine (peptic ulcer) Inflammation of the gallbladder, liver, or pancreas Gallstones or kidney stones Appendicitis Intestinal blockage An internal organ pushing through a muscle or other tissue (hernia) Urinary tract infections In women, menstrual cramps, fibroids, ovarian cysts, pelvic inflammatory disease, or endometriosis Inflammation or infection of the intestines, including Crohn's disease and ulcerative colitis Irritable bowel syndrome Diagnosing the cause of abdominal pain Your healthcare provider will give you a physical exam help find the cause of your pain. If needed,you will have tests. Belly pain has many possible causes. So it can be hard to find the reason for your pain. Giving details about your pain can help. Tell your provider where and when you feel the pain, and what makes it better or worse. Also let your provider know if you have other symptoms such as: Fever Tiredness Upset stomach (nausea) Vomiting Changes in bathroom habits Blood in the stool or black, tarry stool Weight loss that you can't explain (involuntary weight loss?) Also report any family history of stomach or intestinal problems, or cancers. Tell your provider about all your alcohol use and drug use. Tell your provider about all medicines you use, including herbs, vitamins, and supplements. Treating abdominal pain Some causes of pain need emergency medical treatment right away. These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 articles, medicines, extra set of keys to the house and car, extra set of clothing and a special toy for each child oExtra freitas, checks or savings account book oImportant papers, such as social security cards, certificates, green cards, passports, work authorization and any other immigration documents, medical cards, clark driver's license, title to the car, proof of car insurance, etc. If you ever feel your safety is in danger, get out of the home, even if you did not have a chance to plan the above. Calling the police When someone has injured you or violated a restraining order, a criminal stay away-order, or an emergency protective order, then do the following: Call the police: use 911 if it is an emergency. Tell them you are in danger and you need help immediately. Let them know if you have a court order. If the police do not come quickly, call again and say, "This is my second call." Take note of the time and date of your call(s) and who you spoke with. When the police arrive, tell them only what the attacker did. Describe your injuries, how you were injured, if weapons were used, or if a restraining order was violated. Ask the police to file a report and give you a reporting number. If you do not already have a restraining order, ask the officer for an emergency protective order. This is an order that may protect you until you obtain a criminal stay away order or restraining order. Always get the police officers' names and badge numbers. If you have trouble with a strategic debriefing officer,you can complain to the officer's track supervisor. Arrest If the attacker is arrested and taken to the police station, he will probably be released with or without bail until the hearing. This may only take a few hours. Use this time to get to a safe place.Ask that a condition of his release be that he should not come near you. No arrest If the police refuse to make an arrest, you may ask to make a private citizen's arrest. Tell the officers that you fear the attacker will return and injure you unless an arrest is made. Call the Undraped Artist Model's office or the Police Department about how to follow up with your complaint. For more information, call the National Domestic Violence Hotline at 4-628-781-CVPR (3591) or visittheir website at www.[facility].Node1. They will make certain you are in a safe situation before talking with you. 0848-0305 [facility]. [address] [place] [address]. All rights reserved. This information is not intended as a substitute for professional medical care. Always follow yourhealthcare professional's instructions. Contusion:Upper Extremity You have a contusion of your upper extremity (arm, wrist, hand or fingers). This causes local pain,swelling and sometimes bruising. There are no broken bones. This injury takes a few days to a few weeks to heal. A sling may be provided for comfort and arm support. Home Care: 1) Keep your arm elevated to reduce pain and swelling. This is very important during the first 48 hours. 2) Apply an ice pack (ice cubes in a plastic bag, wrapped in a towel) over the injured area for 20 minutes every 1-2 hours the first day for pain relief. Continue this 3-4 times a day until the pain and swelling goes away. 3) You may use acetaminophen (Tylenol) or ibuprofen (Motrin, Advil) to control pain, unless anotherpain medicine was prescribed. [ NOTE : If you have chronic liver or kidney disease or ever had a stomach ulcer or GI bleeding, talk with your doctor before using these medicines.] 4) If a sling was provided, you may remove it to shower or bathe. Do not wear it for more than one week or it may cause joint stiffness. Follow Up with your doctor or this facility if you are not starting to improve within the next THREE days. [NOTE: If X-rays were taken, they will be reviewed by a radiologist. You will be notified of any new findings that may affect your care.] Get Prompt Medical Attention if any of the following occur: -- Pain or swelling increases -- Redness, warmth or drainage -- Hand or fingers becomes cold, blue, numb or tingly 5627-9351 [employer]. [address] [place] [address]. All rights reserved. This information is not intended as a substitute for professional medical care. Always follow yourhealthcare professional's instructions. Additional Information VACCINATE! IT SAVES LIVES! Members of the community who have not yet received the COVID-19 vaccine and would like to receive it can visit one of [facility] vaccine clinics. There are many vaccine clinic locations within the [facility]. For locations and available times, please visit www.gettheshot.coronavirus.[place].gov/. It is important to note that some COVID mobile vaccine clinics are held outdoors and may be canceled in rainy or stormy conditions. To learn more about pediatric vaccinations (ages 5-11), we invite you to visit the [facility] webpage. https://www.[facility].org/pages/7654-Jozbd-Xcdxoyotpcq-Dwcvfvocya-[place]ehua-Pgq stions.htmlTo learn more about the COVID-19 vaccine, we invite you to visit the CDC website for a list of frequently asked questions. https://www.cdc.gov/coronavirus/2019-ncov/vaccines/faq.html [facility] Patient Portal Access Instructions: Stay connected with your healthcare team and access your personal medical information anytime with the [facility] Patient Portal. If you would like a full copy of your medical records please contact the [facility] Medical Records Department Friday through Friday between 8a.m. and 4:30p.m. Please follow the directions below to access the portal: 1.Access the email account you provided upon registration to the [facility].2.Look for an invitation email from [facility].3.Open the email and access the invitation link: Accept Invitation to [facility]4.Fill in the required raines to create your account. Sign into [email or web address] with your username and password that you created in the above steps to stay up to date. You can then view a summary of results, a summary of your visits, and the ability to download your summaries to your computer or send the information securely to a physician. Remember that your healthcare information is confidential, so carefully consider who you will allow to register on the [facility] Patient Portal for access to your information. You can also access the [facility] Patient Portal on the [employer]. Simply click on "Health Records" under "HealthData" and then click on the [facility] logo. HOW TO SAFELY DISPOSE OF PRESCRIPTION MEDICATIONS Please use one of the following methods to safely dispose of your unused medications. 1.Use a drug disposal kit: the drug disposal pouch allows you to safely discard your old and unuseddrugs. Ask your nurse to give you one when you are discharged.2.Visit a local take-back location: Many local pharmacies and police departments have programs that collect old and unwanted prescriptiondrugs. Call your local pharmacy or go to http://bit.ly/0V0Os4a to find one close to you.3.Make use of household items: Use cat litter or old coffee grounds to dispose medications if other options arenot available. Mix your drugs with these household products, seal them in an airtight container andthrow it into the garbage. Call [facility]: [phone] to be sure your drugs can be disposed of in this way. Some medicines may require a different approach.4.Never flush your medications down the toilet. IF YOU HAVE BEEN PRESCRIBED AN OPIOIDS FOR PAIN If you have been prescribed an opioid (such as hydrocodone, oxycodone or morphine), it is critical to understand the possible side effects and risks of opioid pain medications. Even when taken as directed, opioids can have several side effects including: Tolerance, meaning you might need to take more of a medication for the same pain relief. Nausea, vomiting and/or constipation. Sleepiness, dizziness, dry mouth, confusion, depression or itching. Physical dependence, meaning you have withdrawal symptoms when a medication is stopped ? this can develop within a few days. KNOW YOUR RESPONSIBILITIES It is important to know exactly how much and how often to take the opioid pain medications you are prescribed. Never take opioids in higher amounts or more often than prescribed. Do not combine opioids with alcohol or other drugs that cause drowsiness, such as benzodiazepines, also known as benzos,including diazepam and alprazolam, muscle relaxants or sleep aids. Never sell or share prescriptionopioids. This is illegal. Store opioids in a secure place and out of reach of others (including children, family, friends and visitors). The last page(s) of this document has been signed and retained as a CHART COPY Signatures Patient Education Materials Domestic Violence CONTUSION, Upper Extremity Medication Leaflets My discharge plan and instructions have been reviewed and explained to me and I,RAMIRO LYNN understand my current condition and have read and understand these discharge instructions. I have received a written copy of the plan/instructions. If I have questions, I am aware that I should contact my doctor. Patient/Metal Bumper Signature: Date/Time: Relationship to Patient: Witness Name/Signature: Date/Time: [facility]05-07-2023 Note ORIGINAL EXAMINATION: 3 XRAY VIEWS OF THE RIGHT HAND AND WRIST each 03/16/2023 6:57 pm COMPARISON: None. HISTORY: ORDERING SYSTEM PROVIDED HISTORY: Reason for Exam: Right hand and wrist pain. FINDINGS: No acute fracture or dislocation. Carpal arcs are maintained. No aggressive osseous lesion. Incidental mild negative ulnar variance. No associated sclerosis or cystic change of the lunate. No radiopaque foreign body. IMPRESSION: No acute osseous abnormality. I have personally reviewed the images of this examination and agree with the resident's findings and interpretation. Interpreted by: Milton Wilburn Preliminary Report By: Dylan Thomas Electronically signed By Milton Wilburn Dictated Date: 03/16/2023 7:03:38 PM Prelim Date: 03/16/2023 7:06:07 PM Sign Date: 03/16/2023 7:11:54 PM Ordering Provider: [facility]05-07-2023 Note ORIGINAL EXAMINATION: TWO XRAY VIEWS OF THE RIGHT SHOULDER 03/16/2023 6:55 pm COMPARISON: Chest radiograph on 11/11/2022. HISTORY: ORDERING SYSTEM PROVIDED HISTORY: Reason for Exam: Shoulder pain. Limited range of motion. FINDINGS: No acute fracture or dislocation. Humeral head is seated appropriately within the glenoid. Coracoclavicular and acromioclavicular spaces are maintained. No acute abnormality in the included thoracic structures. IMPRESSION: No fracture or dislocation. I have personally reviewed the images of this examination and agree with the resident's findings and interpretation. Interpreted by: Milton Wilburn Preliminary Report By: Dylan Thomas Electronically signed By Milton Wilburn Dictated Date: 03/16/2023 7:02:40 PM Prelim Date: 03/16/2023 7:03:31 PM Sign Date: 03/16/2023 7:10:38 PM Ordering Provider: [facility]05-07-2023 Note ORIGINAL EXAMINATION: THREE XRAY VIEWS OF THE RIGHT ELBOW 03/16/2023 6:56 pm COMPARISON: None. HISTORY: ORDERING SYSTEM PROVIDED HISTORY: Reason for Exam: Elbow pain. Limited range of motion. FINDINGS: No acute fracture or dislocation. No elevation of the elbow fat pads to suggest effusion. No radiopaque foreign body. IMPRESSION: No acute fracture or dislocation. I have personally reviewed the images of this examination and agree with the resident's findings and interpretation. Interpreted by: Milton Wilburn Preliminary Report By: Dylan Thomas Electronically signed By Milton Wilburn Dictated Date: 03/16/2023 7:01:43 PM Prelim Date: 03/16/2023 7:02:32 PM Sign Date: 03/16/2023 7:10:08 PM Ordering Provider: [facility]05-07-2023 Note ORIGINAL EXAMINATION: 3 XRAY VIEWS OF THE RIGHT HAND AND WRIST each 03/16/2023 6:57 pm COMPARISON: None. HISTORY: ORDERING SYSTEM PROVIDED HISTORY: Reason for Exam: Right hand and wrist pain. FINDINGS: No acute fracture or dislocation. Carpal arcs are maintained. No aggressive osseous lesion. Incidental mild negative ulnar variance. No associated sclerosis or cystic change of the lunate. No radiopaque foreign body. IMPRESSION: No acute osseous abnormality. I have personally reviewed the images of this examination and agree with the resident's findings and interpretation. Interpreted by: Milton Wilburn Preliminary Report By: Dylan Thomas Electronically signed By Milton Wilburn Dictated Date: 03/16/2023 7:03:38 PM Prelim Date: 03/16/2023 7:06:07 PM Sign Date: 03/16/2023 7:11:54 PM Ordering Provider: [facility]05-07-2023 Note ORIGINAL EXAMINATION: THREE XRAY VIEWS OF THE RIGHT ELBOW 03/16/2023 6:56 pm COMPARISON: None. HISTORY: ORDERING SYSTEM PROVIDED HISTORY: Reason for Exam: Elbow pain. Limited range of motion. FINDINGS: No acute fracture or dislocation. No elevation of the elbow fat pads to suggest effusion. No radiopaque foreign body. IMPRESSION: No acute fracture or dislocation. I have personally reviewed the images of this examination and agree with the resident's findings and interpretation. Interpreted by: Milton Wilburn Preliminary Report By: Dylan Thomas Electronically signed By Milton Wilburn Dictated Date: 03/16/2023 7:01:43 PM Prelim Date: 03/16/2023 7:02:32 PM Sign Date: 03/16/2023 7:10:08 PM Ordering Provider: [facility]05-07-2023 Note ORIGINAL EXAMINATION: TWO XRAY VIEWS OF THE RIGHT SHOULDER 03/16/2023 6:55 pm COMPARISON: Chest radiograph on 11/11/2022. HISTORY: ORDERING SYSTEM PROVIDED HISTORY: Reason for Exam: Shoulder pain. Limited range of motion. FINDINGS: No acute fracture or dislocation. Humeral head is seated appropriately within the glenoid. Coracoclavicular and acromioclavicular spaces are maintained. No acute abnormality in the included thoracic structures. IMPRESSION: No fracture or dislocation. I have personally reviewed the images of this examination and agree with the resident's findings and interpretation. Interpreted by: Milton Wilburn Preliminary Report By: Dylan Thomas Electronically signed By Milton Wilburn Dictated Date: 03/16/2023 7:02:40 PM Prelim Date: 03/16/2023 7:03:31 PM Sign Date: 03/16/2023 7:10:38 PM Ordering Provider: [facility]03-23-2023 History of Present illness Narrative* Hussein Bledsoe RT(R) - 01/30/2023 9:00 AM EDT Radiology Service Progress Note PATIENT NAME: Ramiro Napoles DATE OF SERVICE: January 30, 2023 TIME: 9:11 AM PATIENT IDENTITY VERIFICATION COMPLETED USING TWO (2) IDENTIFIERS: Name and Date of confirmedby patient verbally. FALL SCREENING: Has the patient had 2 falls in the last year or 1 fall with injury or currently using an Ambulatory Assistive Device (Walker, Cane, Wheelchair, Crutches, etc.)? Yes, Patient High Riskfor Falls What interventions were put in place to prevent falls during this visit? Offered Assistance with Transfers/Clothing, Instructed Patient to Remain Seated (Not on Exam Table) Until Exam, and Increased Observations by Caregivers PATIENT GENDER DATA: Female. status: : No status: NO. PATIENT RELEVANT IMPLANT DATA REVIEWED: Not Applicable RADIOLOGY DEPARTMENT: General X-ray: Exam(s) Completed: Upper Extremity X- Ray(s): Elbow, right PERIPHERAL IV DATA: Not applicable SIGNED BY: RT Ron(R) January 30, 2023 9:11 AM [facility] Discharge instructions Patient Education 11/11/2022 10:18:49 Chest Pain, Uncertain Cause Uncertain Causes of Chest Pain Chest pain can happen for a number of reasons. Sometimes the cause can't be determined. If your condition does not seem serious, and your pain does not appear to be coming from your heart, your healthcare provider may recommend watching it closely. Sometimes the signs of a serious problem take moretime to appear. Many problems not related to your heart can cause chest pain. These include: Musculoskeletal. Costochondritis is an inflammation of the tissues around the ribs that can occur from trauma or overuse injuries, or a strain of the muscles of the chest wall Respiratory. Pneumonia, collapsed lung (pneumothorax), or inflammation of the lining of the chest and lungs (pleurisy) Gastrointestinal. Esophageal reflux, heartburn, ulcers, or gallbladder disease Anxiety and panic disorders Nerve compression and inflammation Rare miscellaneous problems such as aortic aneurysm (a swelling of the large artery coming out of the heart) or pulmonary embolism (a blood clot in the lungs) Home care After your visit, follow these recommendations: Rest today and avoid strenuous activity. Take any prescribed medicine as directed. Be aware of any recurrent chest pain and notice any changes Follow-up care Follow up with your healthcare provider if you do not start to feel better within 24 hours, or as advised. Call 911 Call 911 if any of these occur: A change in the type of pain: if it feels different, becomes more severe, lasts longer, or begins to spread into your shoulder, arm, neck, jaw or back Shortness of breath or increased pain with breathing Weakness, dizziness, or fainting Rapid heart beat Crushing sensation in your chest When to seek medical advice Call your healthcare provider right away if any of the following occur: Cough with dark colored sputum (phlegm) or blood Fever of 100.4 F (38 C) or higher, or as directed by your healthcare provider Swelling, pain or redness in one leg [phone] [facility]. [address] [place] [address], [place] [address]. All rights reserved. This information is not intended as a substitute for professional medical care. Always follow yourhealthcare professional's instructions. Follow Up Care 11/11/2022 09:15:16 With:Call Physician Referral Address:Unknown When:2-4 days With:Follow up with primary care provider Address:Unknown When:2-4 days [facility] 01-02-2023 Note Discharge Instructions Thank you for allowing [facility] to assist you with your healthcare needs. The following is importantdischarge information regarding your hospital visit. Diagnosis from Today's Visit Chest pain What to Do Next Instructions from Your Care Team Discharge Return to Work, School, or Sports (Return to Work, School, or Sports) - Ordered -- 11/11/22, 11/12/22, 11/12/22, May return to: work, 11/11/22 10:18:00 EST Post Acute Orders No qualifying data available. You Need to Schedule the Following Appointments Follow Up with Call Physician Referral When Within 2-4 days Follow Up with Follow up with primary care provider When Within 2-4 days Allergies NKA Medications Please ask your primary doctor or pharmacist before taking any other medication not listed, including over the counter drugs, herbal medications, vitamins and or supplements as they may interact withyour home medications. What How Much When Instructions Last Dose Unchanged busPIRone Two (2) times a day Unchanged escitalopram (Lexapro) Once a day Please take this list to your next doctor s visit. Bring all medications you take, including over the counter medications, herbals and other supplements with you to your doctor s visit. Patients and families are reminded to discard old lists and to update any records with all medication providers or retail pharmacies. Education Materials Uncertain Causes of Chest Pain Chest pain can happen for a number of reasons. Sometimes the cause can't be determined. If your condition does not seem serious, and your pain does not appear to be coming from your heart, your healthcare provider may recommend watching it closely. Sometimes the signs of a serious problem take moretime to appear. Many problems not related to your heart can cause chest pain. These include: Musculoskeletal. Costochondritis is an inflammation of the tissues around the ribs that can occur from trauma or overuse injuries, or a strain of the muscles of the chest wall Respiratory. Pneumonia, collapsed lung (pneumothorax), or inflammation of the lining of the chest and lungs (pleurisy) Gastrointestinal. Esophageal reflux, heartburn, ulcers, or gallbladder disease Anxiety and panic disorders Nerve compression and inflammation Rare miscellaneous problems such as aortic aneurysm (a swelling of the large artery coming out of the heart) or pulmonary embolism (a blood clot in the lungs) Home care After your visit, follow these recommendations: Rest today and avoid strenuous activity. Take any prescribed medicine as directed. Be aware of any recurrent chest pain and notice any changes Follow-up care Follow up with your healthcare provider if you do not start to feel better within 24 hours, or as advised. Call 911 Call 911 if any of these occur: A change in the type of pain: if it feels different, becomes more severe, lasts longer, or begins to spread into your shoulder, arm, neck, jaw or back Shortness of breath or increased pain with breathing Weakness, dizziness, or fainting Rapid heart beat Crushing sensation in your chest When to seek medical advice Call your healthcare provider right away if any of the following occur: Cough with dark colored sputum (phlegm) or blood Fever of 100.4 F (38 C) or higher, or as directed by your healthcare provider Swelling, pain or redness in one leg [phone] [facility]. [address] [place] [address]. All rights reserved. This information is not intended as a substitute for professional medical care. Always follow yourhealthcare professional's instructions. Additional Information VACCINATE! IT SAVES LIVES! Members of the community who have not yet received the COVID-19 vaccine and would like to receive it can visit one of [facility] vaccine clinics. There are many vaccine clinic locations within the [facility]. For locations and available times, please visit [email or web address]. It is important to note that some COVID mobile vaccine clinics are held outdoors and may be canceled in rainy orstormy conditions. To learn more about pediatric vaccinations (ages 5-11), we invite you to visit the [facility] webpage. [email or web address]/pages/[email or web address]-Wubmdoxgfyr-Vjdbxuhbgb-Frcax-Ksq stions.htmlTo learn more about the COVID-19 vaccine, we invite you to visit the [employer] website for a list of frequently asked questions. [email or web address]/[email or web address]-[email or web address] _Asked-Questions.pdf [facility] Patient Portal Access Instructions: Stay connected with your healthcare team and access your personal medical information anytime with the [facility] Patient Portal. If you would like a full copy of your medical records please contact the [facility] Medical Records Department Friday through Friday between 8a.m. and 4:30p.m. Please follow the directions below to access the portal: 1.Access the email account you provided upon registration to the [facility].2.Look for an invitation email from [facility].3.Open the email and access the invitation link: Accept Invitation to [facility]4.Fill in the required raines to create your account. Sign into [email or web address].[employer] with your username and password that you created in the above steps to stay up to date. You can then view a summary of results, a summary of your visits, and the ability to download your summaries to your computer or send the information securely to a physician. Remember that your healthcare information is confidential, so carefully consider who you will allow to register on the [facility] Patient Portal for access to your information. You can also access the [facility] Patient Portal on the [employer]. Simply click on "Health Records" under "HealthData" and then click on the [employer] logo. HOW TO SAFELY DISPOSE OF PRESCRIPTION MEDICATIONS Please use one of the following methods to safely dispose of your unused medications. 1.Use a drug disposal kit: the drug disposal pouch allows you to safely discard your old and unuseddrugs. Ask your nurse to give you one when you are discharged.2.Visit a local take-back location: Many local pharmacies and police departments have programs that collect old and unwanted prescriptiondrugs. Call your local pharmacy or go to http://[employer] Mobile.Zymetis/2T3Oa2l to find one close to you.3.Make use of household items: Use cat litter or old coffee grounds to dispose medications if other options arenot available. Mix your drugs with these household products, seal them in an airtight container andthrow it into the garbage. Call [facility]: [phone] to be sure your drugs can be disposed of in this way. Some medicines may require a different approach.4.Never flush your medications down the toilet. IF YOU HAVE BEEN PRESCRIBED AN OPIOIDS FOR PAIN If you have been prescribed an opioid (such as hydrocodone, oxycodone or morphine), it is critical to understand the possible side effects and risks of opioid pain medications. Even when taken as directed, opioids can have several side effects including: Tolerance, meaning you might need to take more of a medication for the same pain relief. Nausea, vomiting and/or constipation. Sleepiness, dizziness, dry mouth, confusion, depression or itching. Physical dependence, meaning you have withdrawal symptoms when a medication is stopped ? this can develop within a few days. KNOW YOUR RESPONSIBILITIES It is important to know exactly how much and how often to take the opioid pain medications you are prescribed. Never take opioids in higher amounts or more often than prescribed. Do not combine opioids with alcohol or other drugs that cause drowsiness, such as benzodiazepines, also known as benzos,including diazepam and alprazolam, muscle relaxants or sleep aids. Never sell or share prescriptionopioids. This is illegal. Store opioids in a secure place and out of reach of others (including children, family, friends and visitors). The last page(s) of this document has been signed and retained as a CHART COPY Signatures Patient Education Materials Chest Pain, Uncertain Cause Medication Leaflets My discharge plan and instructions have been reviewed and explained to me and IYESIKA ALEXIS Hunderstand my current condition and have read and understand these discharge instructions. I have received a written copy of the plan/instructions. If I have questions, I am aware that I should contact my doctor. Patient/Metal Bumper Signature: Date/Time: Relationship to Patient: Witness Name/Signature: Date/Time: [facility]01-02-2023 Note ORIGINAL EXAMINATION: TWO XRAY VIEWS OF THE CHEST11/11/2022 10:10 am COMPARISON: 04/26/2022 HISTORY: ORDERING SYSTEM PROVIDED HISTORY: Reason for Exam: Chest Pain FINDINGS: The heart size is normal. There is no pulmonary consolidation. No pneumothorax or pleural effusion. No aggressive osseous lesions identified. IMPRESSION: No acute radiographic findings. Interpreted by: Stephen Christina MD Preliminary Report By: Stephen Christina MD Electronically signed By Stephen Christina MD Dictated Date: 11/11/2022 10:18:42 AM Prelim Date: 11/11/2022 10:19:13 AM Sign Date: 11/11/2022 10:19:13 AM [place] [facility] [place] ORIGINAL EXAMINATION: TWO XRAY VIEWS OF THE CHEST11/11/2022 10:10 am COMPARISON: 04/26/2022 HISTORY: ORDERING SYSTEM PROVIDED HISTORY: Reason for Exam: Chest Pain FINDINGS: The heart size is normal. There is no pulmonary consolidation. No pneumothorax or pleural effusion. No aggressive osseous lesions identified. IMPRESSION: No acute radiographic findings. Interpreted by: Stephen Christina MD Preliminary Report By: Stephen Christina MD Electronically signed By Stephen Christina MD Dictated Date: 11/11/2022 10:18:42 AM Prelim Date: 11/11/2022 10:19:13 AM Sign Date: 11/11/2022 10:19:13 AM [place] [facility] [place] Discharge instructions Patient Education 10/05/2022 23:03:25 EARACHE w/o Infection (Adult) Fluid In The Middle Ear, No Infection (Adult) Earaches can happen without an infection. This can occur when air and fluid build up behind the eardrum causing pain and reduced hearing. This is called serous otitis media. It means fluid in the middle ear. It can happen when you have a cold if congestion blocks the passage that drains the middle ear (eustachian tube). It may also occur with nasal allergies, gastric acid reflux (GERD), or after a bacterial middle ear infection. The pain may come and go. You may hear clicking or popping sounds when chewing or swallowing. You may feel that your balance is off. Or you may hear ringing in the ear. It often takes from several weeks up to three months for the fluid to clear on its own. Oral pain relievers and ear drops help with pain. Decongestants and antihistamines sometimes help. This condition does not respond to antibiotics since there is no infection. Your doctor may prescribe a nasal spray to help reduce swelling in the nose and eustachian tube. This can allow the ear to drain. If there has been no improvement after three months, surgery may be used to drain the fluid and insert a small tube in the eardrum to permit continued drainage. Because the middle ear fluid can become infected, it is important to watch for signs of an ear infection which may develop later. These signs include ear pain, fever, or drainage from the ear. Home Care: You may use acetaminophen (Tylenol) or ibuprofen (Motrin, Advil) to control pain, unless another medicine was prescribed. [NOTE: If you have chronic liver or kidney disease or ever had a stomach ulcer or GI bleeding, talk with your doctor before using these medicines.] (Aspirin should never be usedin anyone under 18 years of age who is ill with a fever. It may cause severe liver damage.) You may use nhso-mam-qwzhigr decongestants such as pseudoephedrine (Sudafed). You may use medications such as guaifenesin (Mucinex) to thin mucus and promote drainage. Follow Up with your doctor or as advised if you are not feeling better after three days. Get Prompt Medical Attention if any of the following occur: Ear pain gets worse or does not start to improve after three days of treatment Fever of 100.4 F (38 C) or higher, or as directed by your healthcare provider Fluid or blood draining from the ear Headache or sinus pain Stiff neck Unusual drowsiness or confusion [id number] [facility]. [address] [place] [address]. All rights reserved. This information is not intended as a substitute for professional medical care. Always follow yourhealthcare professional's instructions. Follow Up Care 10/05/2022 22:51:37 With:[facility] Address: [address] [place] [address]- Business (1) When:2-4 days With:Follow up with primary care provider Address:Unknown When:2-4 days [facility] 11-26-2022 Note Discharge Instructions Thank you for allowing [facility] to assist you with your healthcare needs. The following is importantdischarge information regarding your hospital visit. Diagnosis from Today's Visit Earache Sinus congestion Ear pain What to Do Next Instructions from Your Care Team No qualifying data available. Post Acute Orders No qualifying data available. You Need to Schedule the Following Appointments Follow Up with [facility] When Within 2-4 days Where: [address] [place] [id number]- Business (1) Follow Up with Follow up with primary care provider When Within 2-4 days Allergies NKA Medications Please ask your primary doctor or pharmacist before taking any other medication not listed, including over the counter drugs, herbal medications, vitamins and or supplements as they may interact withyour home medications. What How Much When Why Instructions Last Dose New cefdinir (cefdinir 300 mg oral capsule) 1 cap by mouth Every 12 hours Earache Sinus congestion Duration: 7 Days Printed Prescription New guaiFENesin (Mucinex 600 mg oral tablet, extended release) 1 tab(s) by mouth Every 12 hours as needed for Congestion Earache Sinus congestion Duration: 10 Days Printed Prescription New pseudoephedrine (Sudafed 12-Hour 120 mg oral tablet, extended release) 1 tab(s) by mouth Every 12 hours as needed for for cold symptoms Earache Sinus congestion Duration: 10 Days Printed Prescription Please take this list to your next doctor s visit. Bring all medications you take, including over the counter medications, herbals and other supplements with you to your doctor s visit. Patients and families are reminded to discard old lists and to update any records with all medication providers or retail pharmacies. Education Materials Fluid In The Middle Ear, No Infection (Adult) Earaches can happen without an infection. This can occur when air and fluid build up behind the eardrum causing pain and reduced hearing. This is called serous otitis media. It means fluid in the middle ear. It can happen when you have a cold if congestion blocks the passage that drains the middle ear (eustachian tube). It may also occur with nasal allergies, gastric acid reflux (GERD), or after a bacterial middle ear infection. The pain may come and go. You may hear clicking or popping sounds when chewing or swallowing. You may feel that your balance is off. Or you may hear ringing in the ear. It often takes from several weeks up to three months for the fluid to clear on its own. Oral pain relievers and ear drops help with pain. Decongestants and antihistamines sometimes help. This condition does not respond to antibiotics since there is no infection. Your doctor may prescribe a nasal spray to help reduce swelling in the nose and eustachian tube. This can allow the ear to drain. If there has been no improvement after three months, surgery may be used to drain the fluid and insert a small tube in the eardrum to permit continued drainage. Because the middle ear fluid can become infected, it is important to watch for signs of an ear infection which may develop later. These signs include ear pain, fever, or drainage from the ear. Home Care: You may use acetaminophen (Tylenol) or ibuprofen (Motrin, Advil) to control pain, unless another medicine was prescribed. [NOTE: If you have chronic liver or kidney disease or ever had a stomach ulcer or GI bleeding, talk with your doctor before using these medicines.] (Aspirin should never be usedin anyone under 18 years of age who is ill with a fever. It may cause severe liver damage.) You may use vhvd-ndb-iitkdhv decongestants such as pseudoephedrine (Sudafed). You may use medications such as guaifenesin (Mucinex) to thin mucus and promote drainage. Follow Up with your doctor or as advised if you are not feeling better after three days. Get Prompt Medical Attention if any of the following occur: Ear pain gets worse or does not start to improve after three days of treatment Fever of 100.4 F (38 C) or higher, or as directed by your healthcare provider Fluid or blood draining from the ear Headache or sinus pain Stiff neck Unusual drowsiness or confusion [phone] [facility]. [address] [place] [address], [place] [address]. All rights reserved. This information is not intended as a substitute for professional medical care. Always follow yourhealthcare professional's instructions. Additional Information VACCINATE! IT SAVES LIVES! Members of the community who have not yet received the COVID-19 vaccine and would like to receive it can visit one of [facility] vaccine clinics. There are many vaccine clinic locations within the [facility]. For locations and available times, please visit [email or web address]. It is important to note that some COVID mobile vaccine clinics are held outdoors and may be canceled in rainy orstormy conditions. To learn more about pediatric vaccinations (ages 5-11), we invite you to visit the [facility] webpage. [email or web address]/pages/[email or web address]-Aylfo-Pscasjfzfyv-Solmumhcfu-Jrudu-Iry stions.htmlTo learn more about the COVID-19 vaccine, we invite you to visit the [facility] website for a list of frequently asked questions. [email or web address] _[email or web address] [facility] Patient Portal Access Instructions: Stay connected with your healthcare team and access your personal medical information anytime with the [facility] Patient Portal. If you would like a full copy of your medical records please contact the [facility] Medical Records Department Friday through Friday between 8a.m. and 4:30p.m. Please follow the directions below to access the portal: 1.Access the email account you provided upon registration to the [facility].2.Look for an invitation email from [facility].3.Open the email and access the invitation link: Accept Invitation to [facility]4.Fill in the required raines to create your account. Sign into [email or web address].[employer] with your username and password that you created in the above steps to stay up to date. You can then view a summary of results, a summary of your visits, and the ability to download your summaries to your computer or send the information securely to a physician. Remember that your healthcare information is confidential, so carefully consider who you will allow to register on the [facility] Patient Portal for access to your information. You can also access the [facility] Patient Portal on the [employer]. Simply click on "Health Records" under "HealthData" and then click on the [employer] logo. HOW TO SAFELY DISPOSE OF PRESCRIPTION MEDICATIONS Please use one of the following methods to safely dispose of your unused medications. 1.Use a drug disposal kit: the drug disposal pouch allows you to safely discard your old and unuseddrugs. Ask your nurse to give you one when you are discharged.2.Visit a local take-back location: Many local pharmacies and police departments have programs that collect old and unwanted prescriptiondrugs. Call your local pharmacy or go to http://[employer] Mobile.Zymetis/6Q2Gh0k to find one close to you.3.Make use of household items: Use cat litter or old coffee grounds to dispose medications if other options arenot available. Mix your drugs with these household products, seal them in an airtight container andthrow it into the garbage. Call [facility]: [phone] to be sure your drugs can be disposed of in this way. Some medicines may require a different approach.4.Never flush your medications down the toilet. IF YOU HAVE BEEN PRESCRIBED AN OPIOIDS FOR PAIN If you have been prescribed an opioid (such as hydrocodone, oxycodone or morphine), it is critical to understand the possible side effects and risks of opioid pain medications. Even when taken as directed, opioids can have several side effects including: Tolerance, meaning you might need to take more of a medication for the same pain relief. Nausea, vomiting and/or constipation. Sleepiness, dizziness, dry mouth, confusion, depression or itching. Physical dependence, meaning you have withdrawal symptoms when a medication is stopped ? this can develop within a few days. KNOW YOUR RESPONSIBILITIES It is important to know exactly how much and how often to take the opioid pain medications you are prescribed. Never take opioids in higher amounts or more often than prescribed. Do not combine opioids with alcohol or other drugs that cause drowsiness, such as benzodiazepines, also known as benzos,including diazepam and alprazolam, muscle relaxants or sleep aids. Never sell or share prescriptionopioids. This is illegal. Store opioids in a secure place and out of reach of others (including children, family, friends and visitors). The last page(s) of this document has been signed and retained as a CHART COPY Signatures Patient Education Materials EARACHE w/o Infection (Adult) Medication Leaflets My discharge plan and instructions have been reviewed and explained to me and IYESIKA ALEXIS Hunderstand my current condition and have read and understand these discharge instructions. I have received a written copy of the plan/instructions. If I have questions, I am aware that I should contact my doctor. Patient/Metal Bumper Signature: Date/Time: Relationship to Patient: Witness Name/Signature: Date/Time: [facility]10-[facility] History of Present illness Narrative * Marva Yanes LPN - 09/06/2022 11:25 AM EDT Patient fitted for crutches, patient instructed on proper uses of crutches. Patient demonstrated proper use of crutches.Marva Yanes LPN * Jordon Mariee DO - 09/06/2022 10:53 AM EDT Images from the original note were not included. Ramiro Napoles is a 21 year old female who presents with Laceration (Dropped glass cup on rightfoot, 930am 09/06, 1.0cm,tetnus up to date) Patient presents for acute laceration on the anterior part of the right foot. Cut that foot when dropped a glass cup on the foot, 1 cm laceration. Tetanus is up-to-date, had some bleeding, put pressure on it and took NSAIDs. No history of blood thinners, no prior injury to the foot. Some burning pain worse on walking, no fevers, chills, GI/ symptoms Laceration History reviewed. No pertinent past medical history. There is no problem list on file for this patient. Current Outpatient Medications Medication Sig Dispense Refill busPIRone (BUSPAR) 10 mg tablet Take 10 mg by mouth three times daily. escitalopram oxalate (LEXAPRO) 10 mg tablet Take 10 mg by mouth once daily. hydrOXYzine HCl (ATARAX) 25 mg tablet take 2 tablets by mouth once daily at bedtime if needed No current facility-administered medications for this visit. Social History Tobacco Use Smoking status: Never Smokeless tobacco: Never Vaping Use Vaping Use: Never used Alcohol Use: Not on file Tobacco Use: Never History reviewed. No pertinent family history. Review of Systems Constitutional: Negative for chills and fever. Respiratory: Negative for cough, sputum production and shortness of breath. Cardiovascular: Negative for chest pain. Gastrointestinal: Negative for diarrhea, nausea and vomiting. Genitourinary: Negative for dysuria. Skin: Negative for itching and rash. BP 129/89 Pulse 89 Temp 97.3 Resp 16 Wt 247 lb (112.0kg) SpO2 98% LMP 08/26/2022 Physical Exam Constitutional: General: She is not in acute distress. Appearance: She is normal weight. She is not toxic-appearing. HENT: Head: Normocephalic and atraumatic. Cardiovascular: Rate and Rhythm: Normal rate and regular rhythm. Pulses: Normal pulses. Heart sounds: Normal heart sounds. No murmur heard. No friction rub. Pulmonary: Effort: Pulmonary effort is normal. No respiratory distress. Breath sounds: Normal breath sounds. No stridor. Musculoskeletal: Feet: Feet: Comments: 1 cm linear laceration on the anterior part of the right foot. Subcutaneous fat is exposed, dorsalis pedis pulses normal. No signs of tendon, arterial bleeding. Range of motion in the toes intact, some slight limitation in dorsi plantarflexion due to pain on the wound. Foot is otherwise warm and well-perfused Neurological: Mental Status: She is alert. ASSESSMENT/PLAN: 1. Laceration of right foot, initial encounter - ICD9: 892.0, ICD10: S91.311A -Acute laceration on the anterior part of the right foot, no signs of tendon, nerve, arterial damage. Foot is well-perfused Right foot laceration was anesthetized using lidocaine 1% without epinephrine. It was cleaned usingpovidone/iodine, rinsed with sterile normal saline. Sutured using 5-0 Ethilon. [address] were put in place. The wound was then again cleaned, bacitracin applied and covered. Keep wound clean and dry for 24 hours, then leave open to the air unless doing something that can get it dirty. Return to the clinic in 7-10 days for suture removal. -Given patient has a lot of stairs in the house and difficulty with sitting still, will give pair of crutches to help with limiting weightbearing. Educated patient to avoid rubbing on the wound, be cautious when putting on socks or cleaning the wound. - Go to ER if symptoms worsen. Follow-up with PCP in 1 week - JHONY Mariee documented [facility] History of Present illness Narrative* Kevon Tillman APRN.DEMETRIA - 10/03/2021 7:03 PM EST DATE OF SERVICE: 10/02/2021 HISTORY OF PRESENT ILLNESS: The patient is a 20-year-old female presenting to [facility] today for cough, congestion, bilateral ear pain, and having some chest tightness, shortness of breath. Symptoms originally started 2 weeks ago. No known COVID exposure. She reports that she has done 2 rapid COVID tests at home which both came back negative. There have been no fevers. No nausea, vomiting, or diarrhea. PAST MEDICAL HISTORY: Depression. ALLERGIES: BLUE DYE NO. 1. MEDICATIONS: 1. Zoloft. 2. Depo-Provera shot. PHYSICAL EXAMINATION: Blood pressure 157/90, pulse 104, respiration rate 23, temperature 97.8, pulse oximetry 99%. General: Well-appearing, nontoxic, no apparent distress. Cardiovascular: Regular rate and rhythm, no murmurs. Respiratory: Lung sounds clear to auscultation bilaterally, no respiratory distress. No wheezing, rales, or rhonchi. Non-congested cough present. HEENT: Bilateral TMs clear, noninjected. Nasal mucosa erythema, edema, clear rhinorrhea. Posterior pharynx postnasal drip. No tonsillar hypertrophy or exudates present. Patient has bilateral maxillary sinus tenderness, left greater than right. CLINICAL IMPRESSION: Acute sinusitis. PLAN: Prescriptions for Augmentin and albuterol sent to pharmacy. Discussed Tylenol, ibuprofen, increased oral hydration, finishing antibiotic until complete. She is agreeable with plan, has no other questions or concerns. Kevon Tillman CNP /[id number] [facility] File#: [id number] END OF DOCUMENT / CHANGE LOG FOLLOWS Last Edited By Elec. Signed By Kevon Tillman CNP #Kevon Candelaria CNP #LEVI on 10/07/2021 09:22 ET on 10/07/2021 09:22 ET Revision Number - 2 ^^^ Verified/Reviewed by 10/07/21921 [facility] PATIENT NAME: RAMIRO NAPOLES [address] [place] MEDICAL REC #: [id number] [place] [id number] [facility] REPORT [facility]YSICIAN documented in this encounterSt. [facility] History of Present illness Narrative* Nila Nevarez APRN.CNP - 06/20/2021 1:25 PM EDT DATE OF SERVICE: 06/20/2021 CHIEF COMPLAINT: A 20-year-old female with chief complaint of right hand and wrist pain with range of motion and when waking up. HISTORY OF PRESENT ILLNESS: A 20-year-old female who presents to [facility] with complaints of right hand and wrist pain with any range of motion and when she wakes up in the morning. She denies any injury. She states that the pain sometimes shoots into the base of the wrist with movement. She states that these symptoms may go on for 2 weeks. She has been moving her sons car seat in and out of the car more lately than usual the last 2 weeks, and this is when she started noticing the pain. She denies any numbness or tingling to that right hand. She has done no self-treatment measures. REVIEW OF SYSTEMS: She denies any ecchymotic areas. She denies any soft tissue swelling. She states that most of her pain is in the 2nd, 3rd, and 4th metacarpals, and sometimes it will shoot to the base of that wrist. She states that she is able to make a fist. She denies any pain in her forearm. Denies any numbness or tingling. She denies that this wakes her up in the middle of the night. She denies any weakness with that right hand. All other system are addressed and negative. ALLERGIES: BLUE DYE. MEDICATIONS: 1. Zoloft. 2. Omeprazole. 3. Depo shot. PAST MEDICAL HISTORY: Depression. SOCIAL HISTORY: Nontobacco or alcohol user. PHYSICAL EXAMINATION: Vital Signs: 100/68. 96, 16, 97.9, 98% on room air. She reports her pain as an 8 out of 10. General: She is in no acute distress. Her right hand has positive sensation. Capillary refill less than 3, and a strong radial pulse, and it is equal bilaterally. There is no ecchymosis or soft tissue swelling noted to the metacarpals or the wrist. There is negative Tinel, negative Phalen test. Flexion and extension of that right wrist did produce a little bit of pain on the 2nd, 3rd, and 4th metacarpals, and any medial or lateral movement of that right hand did produce that same pain. No clicking, popping, or crepitus was noted. Hand strength was 5/5 and equal bilaterally. TESTS: I did do a right hand x-ray. There was a comparison film of that right hand from March 13, 2021. I interpreted the x-ray today as no acute or obvious bone injury. It did look similar to the film back on March 132020, which there was no fracture there as well. She had that x-ray done because she slammed her hand in a freezer door. IMPRESSION: Right wrist sprain, pending radiologist review. PLAN: I put her on a wrist brace on that right hand. I do not want her sleeping in it to avoid any stiffness. She should take it off during the day once and gently do some range of motion. Ice it, Tylenol and Motrin for discomfort. Diagnosis instructions were given. She is going to follow up if she is no better. Patient agreed and understood the plan. Nila Nevarez CNP [facility]/[id number] [facility] File#: [id number] END OF DOCUMENT / CHANGE LOG FOLLOWS Last Edited By Randal. Signed By Nila Nevarez CNP #[email or web address] Nila Nevarez CNP #[email or web address] on 07/04/2021 09:17 ET on 07/04/2021 09:17 ET Revision Number - 2 ^^^ Verified/Reviewed by 07/04/21916 [facility] PATIENT NAME: RAMIRO NAPOLES [address] [place] MEDICAL REC #: [id number] [place] [address] [facility] RE[facility] documented in this encounterSt. [facility] History of Present illness Narrative* Steve Ellsworth MD - 06/11/2021 7:18 AM EDT DATE OF SERVICE: 06/09/2021 REASON FOR VISIT: Burning sensation of the abdomen and right wrist pain. HISTORY OF PRESENT ILLNESS: This is a 20-year-old female presented with burning sensation in the upper part of her abdomen for the last 3 days. She denied any pain coming up her chest or throat. No radiation of the pain. No history of vomiting or diarrhea. Patient stated that she has been on vacation and has been eating a lot of junk food and fried food. No fever or chills. Appetite is normal. She also has pain in the right wrist. Patient stated that she injured this wrist 2 months ago. She was seen at another [facility] and had an x-ray done. I checked the report. It was unremarkable. She was prescribed with the wrist brace and was told to follow at work health and safety office because it was a work-related injury. She did not follow up at that place, but she stated that she took off the brace too early and now the pain has been persistent, although she can move and use her wrist, but it is sometimes painful. No other problem at this visit. REVIEW OF SYSTEMS: Review of other systems normal. PAST MEDICAL HISTORY, FAMILY HISTORY, AND SOCIAL HISTORY: Reviewed. ALLERGIES: NKA. MEDICATIONS: 1. Zoloft. 2. Depo shot. PHYSICAL EXAMINATION: She is awake, alert, not in distress. No dyspnea. Temperature 97.8, blood pressure 122/85, pulse 80, respirations 16, pulse oximetry 97% on room air. Pain score 5/10. HEENT: Unremarkable. Chest: Clear to auscultation. Heart: Regular rate and rhythm. Abdomen: Soft. She has mild discomfort in epigastric area, but no tenderness, no guarding, no rebound tenderness. Liver and spleen were not palpable. Bowel sounds were active. Right wrist: Examination of the right wrist: There was no swelling or deformity. She has mild tenderness on the dorsal aspect of the wrist. Full range of motion of the wrist. ASSESSMENT: 1. Gastritis. 2. Right wrist plan. PLAN: Clinical plan was discussed with patient in detail. I explained to her that the burning symptom is most likely gastritis due to hyperacidity in her stomach. I gave her Prilosec 40 mg 1 capsule daily for 1 months, instructed her to watch her diet, avoid any greasy food or spicy food, avoid any big meals, and not to lie down after eating. She needs to follow with her family doctor for evaluation and care. If there is no improvement, she may need further workup with a farm reporter. Regarding the wrist, I explained to her that it appears that she has ongoing pain from her previous injury. She should go back to put on the wrist brace. Because this is a work-related injury, she needs to follow up at the work health and safety office for continuity of care and further evaluation and recommendations as needed. I want her to call and get an appointment to be seen at the work health and safety office as soon as possible, not to do any heavy duty, and use her wrist brace again. Patient understood and agreed. Her questions were answered to her satisfaction. Steve Ellsworth MD PP/[id number] [facility] File#: [id number] END OF DOCUMENT / CHANGE LOG FOLLOWS Last Edited By Elec. Signed By Steve Ellsworth MD #[email or web address] Steve Ellsworth MD #PAWPR on 06/13/2021 13:38 ET on 06/13/2021 13:38 ET Revision Number - 2 ^^^ Verified/Reviewed by 06/13/21 1338 [facility] PATIENT NAME: RAMIRO NAPOLES [address] [place] MEDICAL REC #: [id number] [place] [address] [facility] REPORT [facility] PHYSICIAN documented in this encounterSt. [facility]05-[facility] History of Present illness Narrative* Roxanne Jerome MD - 03/15/2021 2:27 AM EDT DATE OF SERVICE: 03/13/2021 HISTORY OF PRESENT ILLNESS: This is a 20-year-old female with apparently a work-related injury. She worked at [employer] and apparently today at around 2:30 her hand accidentally got shut in a commercial metal freezer. It crushed her right hand and she is having pain in her hand around the 4th and 5th knuckles that shoots up her arm. She is unable to move her fingers due to the amount of pain she is having and thus came in for further assessment. PAST MEDICAL/SURGICAL HISTORY: 1. Depression. 2. [place] tooth surgery. HABITS: No alcohol. No smoking. FAMILY HISTORY: High blood pressure, stroke. ALLERGIES: None. CURRENT MEDICATIONS: 1. Zoloft. 2. Iron. REVIEW OF SYSTEMS: No fever or chills. No bladder or bowel dysfunction. She is just essentially having pain in her knuckles and says it is more in the 4th and 5th knuckles that is causing her pain, and that is causing her to be unable to move and sharepoint admin. PHYSICAL EXAMINATION: Blood pressure 108/80, pulse 92, respiratory rate 16, temperature 97.8, pulse oximetry 100% on room air. The patient has pain more in the 3rd, 4th, and 5th metacarpals. There is just minimal bruising and swelling, and just diffuse pain there. It limits her range of motion, flexion, and extension of the digits due to pain there. Wrist has full range of motion. X-ray reviewed by myself did not reveal any definite fracture of the 3rd, 4th, and 5th metacarpals which is essentially where the patient is having pain. Await radiologist's read. DIAGNOSIS: Right hand crush injury. Right metacarpal splint was administered by the nurse to stabilize this. Light-duty restrictions, not to use her hand for a few days was recommended. She will follow up with Work Health and Safety for further management. [id number] are recommended for pain. The patient agrees with plan, has no further questions. MD LEONARDO Zuniga/[id number] [facility] File#: [id number] END OF DOCUMENT / CHANGE LOG FOLLOWS Last Edited By Elec. Signed By Roxanne Jerome MD #IBRKH Roxanne Jerome MD #IBRKH on 03/19/2021 08:32 ET on 03/19/2021 08:32 ET Revision Number - 2 ^^^ Verified/Reviewed by 03/19/21 0832 [facility] PATIENT NAME: RAMIRO NAPOLES [address] [place] MEDICAL REC #: [id number] [place] [address] [facility] RE[facility] PHYSICIAN documented in this encounterSt. [facility]11[facility] History of Present illness Narrative* Bertha Lei, DO - 10/06/2020 11:36 PM EST DATE OF SERVICE: 10/06/2020 HISTORY OF PRESENT ILLNESS: An 19-year-old female, nasal congestion, facial pain. Symptoms started October 02. She is 21 weeks . She presents now for further evaluation. ALLERGIES: No known drug allergies. PAST MEDICAL HISTORY: Positive for throat surgery, teeth surgery. Nonsmoker, nondrinker. FAMILY HISTORY: Positive for high blood pressure, stroke. SOCIAL HISTORY: Unremarkable. PHYSICAL EXAMINATION: She is 21 weeks . Weight is 210 pounds. Blood pressure 128/80, pulse 78, respirations 18, temperature is 98.6, pulse oximetry is 97%. HEENT: Sinuses are grossly positive. Pharynx is positive for erythema, negative for exudate. Neck is supple with positive anterior, negative posterior cervical lymphadenopathy. Heart has a regular rate and rhythm. Lungs are clear. Extremities and neurologic were grossly intact. IMPRESSION: Sinusitis. PLAN: The patient is placed on Amoxil 875 mg twice a day with food, rest, fluids, finish all medicines. Follow in 7 to 10 days, sooner if complications or problems arise. Bertha Lei DO /[id number] [facility] File#: [id number] END OF DOCUMENT / CHANGE LOG FOLLOWS Last Edited By Randal. Signed By Bertha Lei Lisa D DO #VAULI on 10/07/2020 14:06 ET on 10/07/2020 14:06 ET Revision Number - 2 ^^^ Verified/Reviewed by 10/07/20 140[facility] PATIENT NAME: RAMIRO NAPOLES [address] [place] MEDICAL REC #: [id number] [place] [address] [facility] REPORT [facility] PHYSICIAN documented in this encounterSt. [facility] HospitalEvaluation + Plan note No data available for this section [facility] Evaluation + Plan note Future Appointments Appointment Date:03/26/2023 09:00:00 AM Scheduled Provider:MICHELLE CHRISTINA Location:[facility] Appointment Type: Wellness Female [facility] Evaluation + Plan note Future Appointments Appointment Date:11/19/2023 09:00:00 AM Scheduled Provider:MICHELLE CHRISTINA Location:[facility] Appointment Type: Wellness Annual Future Scheduled Tests Laboratory* Chlamydia trachomatis PCR 04/25/23 * N. gonorrhoeae PCR 04/25/23 * Trichomonas Amplification 04/25/23 [facility] Evaluation note* Diagnosis Laceration of right foot, initial encounter- Primary documented in this encounter [facility] note* Diagnosis Sprain of right wrist, initial encounter- Primary documented in this encounter [facility] note* Diagnosis Sinobronchitis- Primary Unspecified sinusitis (chronic) documented in this encounter [facility] note* Diagnosis Sprain of ligament of right ankle, initial encounter- Primary Sprain of right knee, unspecified ligament, initial encounter Sprain of ligament of right ankle, initial encounter Sprain of right knee, unspecified ligament, initial encounter documented in this encounter [facility] note* Diagnosis Sprain of ligament of right ankle, initial encounter Sprain of right knee, unspecified ligament, initial encounter [facility]* Diagnosis Fall, initial encounter [facility]* Diagnosis Sprain of right wrist, initial encounter documented in this encounter [facility] note* Diagnosis Pain in joint of right elbow Pain in joint, upper arm [facility]* Diagnosis Acute pain of right knee- Primary [facility]* Diagnosis Vomiting and diarrhea- Primary documented in this encounter [facility] note* Diagnosis Acute nonintractable headache, unspecified headache type- Primary Acute pain of right knee Left elbow pain Pain in joint, upper arm Alcoholic intoxication without complication (CMS/HCC) (HCC) documented in this encounter [facility] note* Diagnosis Unspecified hydronephrosis [facility]* Diagnosis Amenorrhea, unspecified [facility]* Diagnosis Unspecified hydronephrosis [facility] No data available for this section [facility] Discharge instructions* Attachments The following attachments cannot be sent through Care Everywhere. * Headache Discharge Instructions, Adult (Thai) [facility] No data available for this section [facility] Reason for referral (narrative)* Diagnostic Procedure Only (Routine) - Closed Specialty Diagnoses / Procedures Referred By Contac t Referred To Contact XR IMAGING Diagnoses Sprain of right wrist, initial encounter Procedures XR WRIST INJURY 4V PA/LAT/OBL/SCAPH RIGHT RADEX WRIST COMPLETE MINIMUM 3 VIEWS Joseph Glez PA-C [address] [place] [address] [place] [address] Referral ID Status Reason Start Date Expiration Date V isits Requested Visits Authorized [id number] Closed Auto-Generate d Referral 10/10/2023 11/08/2024 1 1 [facility] for referral (narrative)* Diagnostic Procedure Only (Routine) - Closed Specialty Diagnoses / Procedures Referred By Contac t Referred To Contact XR IMAGING Diagnoses Sprain of ligament of right ankle, initial encounter Procedures XR ANKLE GENERAL 3V AP/LAT/OBL RIGHT RADEX ANKLE COMPLETE MINIMUM 3 VIEWS Shirley Sherwood MD [address] [address] [place] [address] Referral ID Status Reason Start Date Expiration Date V isits Requested Visits Authorized [id number] Closed Auto-Generate d Referral 03/19/2024 04/18/2025 1 1 * Diagnostic Procedure Only (Routine) - Closed Specialty Diagnoses / Procedures Referred By Contac t Referred To Contact XR IMAGING Diagnoses Sprain of right knee, unspecified ligament, initial encounter Procedures XR KNEE LIMITED 2V AP/LAT RIGHT RADIOLOGIC EXAMINATION KNEE 1/2 VIEWS Shirley Sherwood MD [address] [facility] [address] [place] [address] [place] [address] Referral ID Status Reason Start Date Expiration Date V isits Requested Visits Authorized [id number] Closed Auto-Generate d Referral 03/19/2024 04/18/2025 1 1 [facility] for referral (narrative)* Diagnostic Procedure Only (Routine) - Closed Specialty Diagnoses / Procedures Referred By Contac t Referred To Contact XR IMAGING Diagnoses Sprain of right knee, unspecified ligament, initial encounter Procedures XR KNEE LIMITED 2V AP/LAT RIGHT RADIOLOGIC EXAMINATION KNEE 1/2 VIEWS Shirley Sherwood MD [address] [facility] [address] [place] [address] [place] [address] Referral ID Status Reason Start Date Expiration Date V isits Requested Visits Authorized [id number] Closed Auto-Generate d Referral 03/19/2024 04/18/2025 1 1 * Diagnostic Procedure Only (Routine) - Closed Specialty Diagnoses / Procedures Referred By Contac t Referred To Contact XR IMAGING Diagnoses Sprain of ligament of right ankle, initial encounter Procedures XR ANKLE GENERAL 3V AP/LAT/OBL RIGHT RADEX ANKLE COMPLETE MINIMUM 3 VIEWS Shirley Sherwood MD [address] [facility] [address] [place] [address] [place] [address] Referral ID Status Reason Start Date Expiration Date V isits Requested Visits Authorized [id number] Closed Auto-Generate d Referral 03/19/2024 04/18/2025 1 1 [facility] for referral (narrative)* Diagnostic Procedure Only (Routine) - Closed Specialty Diagnoses / Procedures Referred By Contac t Referred To Contact XR IMAGING Diagnoses Fall, initial encounter Procedures XR TIBIA FIBULA 2V AP/LAT LEFT RADIOLOGIC EXAMINATION TIBIA & FIBULA 2 VIEWS Bertha Lei, DO [address] [place] [address] [place] [address] Referral ID Status Reason Start Date Expiration Date V isits Requested Visits Authorized [id number] Closed Auto-Generate d Referral 11/24/2023 12/23/2024 1 1 * Diagnostic Procedure Only (Routine) - Closed Specialty Diagnoses / Procedures Referred By Contac t Referred To Contact XR IMAGING Diagnoses Fall, initial encounter Procedures XR FEMUR DISTAL 2V AP/LAT LEFT RADIOLOGIC EXAMINATION FEMUR MINIMUM 2 VIEWS Bertha Lei, DO [address] [facility] [address] [place] [address] [place] [address] Referral ID Status Reason Start Date Expiration Date V isits Requested Visits Authorized [id number] Closed Auto-Generate d Referral 11/24/2023 12/23/2024 1 1 [facility] for referral (narrative)* Diagnostic Procedure Only (Routine) - Closed Specialty Diagnoses / Procedures Referred By Contac t Referred To Contact XR IMAGING Diagnoses Sprain of right wrist, initial encounter Procedures XR WRIST INJURY 4V PA/LAT/OBL/SCAPH RIGHT RADEX WRIST COMPLETE MINIMUM 3 VIEWS Joseph Glez PA-C [address] [place] [address] [place] [address] Referral ID Status Reason Start Date Expiration Date V isits Requested Visits Authorized [id number] Closed Auto-Generate d Referral 10/10/2023 11/08/2024 1 1 [facility] for referral (narrative)* Diagnostic Procedure Only (Routine) - Closed Specialty Diagnoses / Procedures Referred By Contac t Referred To Contact XR IMAGING Diagnoses Pain in joint of right elbow Procedures XR ELBOW SPECIAL VIEWS AP/LAT/OTHER RIGHT RADEX ELBOW COMPLETE MINIMUM 3 VIEWS Steve Ellsworth MD [address] [place] [address] [place] [address] Referral ID Status Reason Start Date Expiration Date V isits Requested Visits Authorized [id number] Closed Auto-Generate d Referral 01/30/2023 02/29/2024 1 1 [facility] for visit Narrative* Diagnostic Procedure Only (Routine) - Closed Specialty Diagnoses / Procedures Referred By Contac t Referred To Contact XR IMAGING Diagnoses Sprain of ligament of right ankle, initial encounter Procedures XR ANKLE GENERAL 3V AP/LAT/OBL RIGHT RADEX ANKLE COMPLETE MINIMUM 3 VIEWS Shirley Sherwood MD [address] [facility] [address] [place] [address] [place] [address] Referral ID Status Reason Start Date Expiration Date V isits Requested Visits Authorized [id number] Closed Auto-Generate d Referral 03/19/2024 04/18/2025 1 1 [facility] for visit Narrative* Diagnostic Procedure Only (Routine) - Closed Specialty Diagnoses / Procedures Referred By Contac t Referred To Contact XR IMAGING Diagnoses Fall, initial encounter Procedures XR TIBIA FIBULA 2V AP/LAT LEFT RADIOLOGIC EXAMINATION TIBIA & FIBULA 2 VIEWS Bertha Lei, [address] [facility] [address] [place] [address] [place] [address] Referral ID Status Reason Start Date Expiration Date V isits Requested Visits Authorized [id number] Closed Auto-Generate d Referral 11/24/2023 12/23/2024 1 1 [facility] for visit Narrative* Diagnostic Procedure Only (Routine) - Closed Specialty Diagnoses / Procedures Referred By Contac t Referred To Contact XR IMAGING Diagnoses Sprain of right wrist, initial encounter Procedures XR WRIST INJURY 4V PA/LAT/OBL/SCAPH RIGHT RADEX WRIST COMPLETE MINIMUM 3 VIEWS Joseph Glez PA-C [address] [place] [address] [place] [address] Referral ID Status Reason Start Date Expiration Date V isits Requested Visits Authorized [id number] Closed Auto-Generate d Referral 10/10/2023 11/08/[address] Procedure Only (Routine) - Closed Specialty Diagnoses / Procedures Referred By Contac t Referred To Contact XR IMAGING Diagnoses Pain in joint of right elbow Procedures XR ELBOW SPECIAL VIEWS AP/LAT/OTHER RIGHT RADEX ELBOW COMPLETE MINIMUM 3 VIEWS Steve Ellsworth MD [address] [place] [address] [place] [address] Referral ID Status Reason Start Date Expiration Date V isits Requested Visits Authorized [id number] Closed Auto-Generate d Referral 01/30/2023 02/29/[address] [facility] Summary Purpose Family History No Family History Records FoundNo Family History Records Found No data available for this section No Family History Records FoundNo Family History Records FoundNo Family History Records Found No data available for this section No Family History Records Found No data available for this section No Family History Records FoundNo Family History Records Found Advance Directives No Advanced Directives Records FoundNo Advanced Directives Records FoundNo Advanced Directives Records FoundNo Advanced Directives Records FoundNo Advanced Directives Records FoundNo Advanced Directives Records FoundNo Advanced Directives Records FoundNo Advanced Directives Records Found Additional Source Comments Source Comments (unrecognize d section and content) In the event this informatio n is protected by the Federal Confidentiality of Alcohol and Drug Abuse Patient Records regulations: The Federal rules restrict any use of the information to criminally investigate or prosecute any alcohol or drug abuse patient.[facility] the event this information is protected by the Federal Confidentiality of Alcohol and Drug Abuse Patient Records regulations: The Federal rules restrict any use of the information to criminally investigate or prosecute any alcohol or drug abuse patient.[facility] the event this information is protected by the Federal Confidentiality of Alcohol and Drug Abuse Patient Records regulations: The Federal rules restrict any use of the information to criminally investigate or prosecute any alcohol or drug abuse patient.[facility] the event this information is protected by the Federal Confidentiality of Alcohol and Drug Abuse Patient Records regulations: The Federal rules restrict any use of the information to criminally investigate or prosecute any alcohol or drug abuse patient.[facility] the event this information is protected by the Federal Confidentiality of Alcohol and Drug Abuse Patient Records regulations: The Federal rules restrict any use of the information to criminally investigate or prosecute any alcohol or drug abuse patient.[facility] the event this information is protected by the Federal Confidentiality of Alcohol and Drug Abuse Patient Records regulations: The Federal rules restrict any use of the information to criminally investigate or prosecute any alcohol or drug abuse patient.[facility] the event this information is protected by the Federal Confidentiality of Alcohol and Drug Abuse Patient Records regulations: The Federal rules restrict any use of the information to criminally investigate or prosecute any alcohol or drug abuse patient.[facility] the event this information is protected by the Federal Confidentiality of Alcohol and Drug Abuse Patient Records regulations: The Federal rules restrict any use of the information to criminally investigate or prosecute any alcohol or drug abuse patient.[facility] the event this information is protected by the Federal Confidentiality of Alcohol and Drug Abuse Patient Records regulations: The Federal rules restrict any use of the information to criminally investigate or prosecute any alcohol or drug abuse patient.[facility] the event this information is protected by the Federal Confidentiality of Alcohol and Drug Abuse Patient Records regulations: The Federal rules restrict any use of the information to criminally investigate or prosecute any alcohol or drug abuse patient.[facility] the event this information is protected by the Federal Confidentiality of Alcohol and Drug Abuse Patient Records regulations: The Federal rules restrict any use of the information to criminally investigate or prosecute any alcohol or drug abuse patient.[facility] the event this information is protected by the Federal Confidentiality of Alcohol and Drug Abuse Patient Records regulations: The Federal rules restrict any use of the information to criminally investigate or prosecute any alcohol or drug abuse patient.[facility] the event this information is protected by the Federal Confidentiality of Alcohol and Drug Abuse Patient Records regulations: The Federal rules restrict any use of the information to criminally investigate or prosecute any alcohol or drug abuse patient.[facility] the event this information is protected by the Federal Confidentiality of Alcohol and Drug Abuse Patient Records regulations: The Federal rules restrict any use of the information to criminally investigate or prosecute any alcohol or drug abuse patient.[facility] the event this information is protected by the Federal Confidentiality of Alcohol and Drug Abuse Patient Records regulations: The Federal rules restrict any use of the information to criminally investigate or prosecute any alcohol or drug abuse patient.[facility] INFORMATION SOURCE (unrecogn ized section and content) DATE CREATED AUTHOR 2021 [facility] [place] DATE CREATED AUTHOR AUTHOR'S ORGANIZ ATION 09/04/2022 [facility] DATE CREATED AUTHOR AUTHOR'S ORGANIZ ATION 11/08/2023 [facility] ([place]) DATE CREATED AUTHOR AUTHOR'S ORGANIZ ATION 03/21/2024 [facility] DATE CREATED AUTHOR AUTHOR'S ORGANIZ ATION 09/15/2024 [facility] DATE CREATED AUTHOR AUTHOR'S ORGANIZ ATION 09/08/2025 [facility] DATE CREATED AUTHOR AUTHOR'S ORGANIZ ATION 09/18/2025 [facility] DATE CREATED AUTHOR AUTHOR'S ORGANIZ ATION 09/22/2025 [facility] Reason for Visit (unrecogniz ed section and content) Reason Comments Laceration Dropped glass cup on right foot, 930am 09/06, 1.0cm,tetnus up to date Reason Comments Wrist/forearm Injury Right wrist/hand in jury fell 1 hour ago Reason Comments Cough Started 5 days ago P roductive Breathing Problem Started 5 days ago S OB Sore Throat Started 5 days ago Ear Problem Clogged ears Started 5 days ago Reason Comments right ankle injury S/p fall down the st eps weeks ago worse this last week right knee injury Pt states she fell d own the stairs 2 weeks ago and hyperextended her right knee. Reason Comments Minor Injuries (Sprains, Str ains, Minor Joint Pain) I fell down my stairs last night and my right knee is sore to the touch, tight and hard to walk up stairs. - slid down stairs lastnight. Hard to walk up an down stairs Reason Comments Vomiting Reason Comments Headache Pt to ED via car w/ fiance for intoxication & [place]ER[place]. Care Team (unrecognized sect ion and content) Care Team Personnel Name: PHYSICIAN, NONE Position: Physician Member Role: Primary Care Physician Name: HOME GERARD MD Position: ED Physician Member Role: ED Physician Address: Address: [facility] [address] [place] [address] Care Team Related Persons Name: LAITH ANSARI Name: HOA LYNN Address: Home [address] [place] [address] Name: YADIRA NAPOLES JR Address: Home [address] [place] [phone] [place] Address: Temporary [address] [place] [phone] Care Team Personnel Name: PHYSICIAN, NONE Position: Physician Member Role: Primary Care Physician Name: Anaid Martinez RN Position: RN Member Role: ED RN Name: STEPHEN VOGEL DO Position: ED Physician Member Role: ED Physician Address: Address: [facility] [address] [place] [address] Care Team Related Persons Name: LAITH ANSARI Name: HOA LYNN Address: [address] [place] [address] Name: YADIRA NAPOLES JR Address: Home [address] [place] [phone] [place] Address: [address] [phone] Care Team Personnel Name: MICHELLE CHRISTINA ANHYDROUS [employer]MONIA PRODUCTION SUPERVISOR-PLANT ENGINEERING MANAGER Position: P4 Advanced Practice Nurse Member Role: Primary Care Physician Address: Address: [facility] [place], [place] [id number] [place] [address] Care Team Related Persons Name: LAITH ANSARI Patient Care team informatio n (unrecognized section and content) Stacker Operator Relationship Specialty Start Date End Date Michelle Christina APRN.CNP PCP - General 02/03/23 Care Team Personnel Name: MICHELLE CHRISTINA APRN-PLANT ENGINEERING MANAGER Position: P4 Advanced Criminal Justice Faculty Member Role: Primary Care Physician Address: Address: [address] [place] [phone] [place] [address] Care Team Related Persons Name: LAITH LYNN Scheduled Active and Recently Administ ered Medications (unrecognized section and content) Medication Order 12/17/2024 12/18/2024 12/19/2024 ketorolac (Toradol) injection 30 mg (COMPLETED) 30 mg, IntraVENous, Once, On 12/19/24 at 0950, For 1 dose 1001 (Given - Provid er: Neyda Hines RN) lactated ringers bolus 1,000 mL (COMPLETED) 1,000 mL, IntraVENous, at 1,000 mL/hr, Administer over 1 Hours, Once, On 12/19/24 at 1410, For 1 dose 1413 (New Bag - Prov ider: Bibi Cruz RN)1505 (Stopped - Provider: Neyda Hines RN) lactated ringers bolus 2,000 mL (COMPLETED) 2,000 mL, IntraVENous, at 2,000 mL/hr, Administer over 1 Hours, Once, On 12/19/24 at 0950, For 1 dose 1001 (New Bag - Prov ider: Neyda Hines RN)1220 (Stopped - Provider: Neyda Hines RN) prochlorperazine (Compazine) injection 5 mg (COMPLETED) 5 mg, IntraVENous, Once, On 12/19/24 at 0950, For 1 dose 1001 (Given - Provid er: Neyda Hines RN) Scheduled Medication Order 04/05/2025 04/06/2025 04/07/2025 acetaminophen (Tylenol) tablet 650 mg (COMPLETED) 650 mg, Oral, Once, On Kimberlee 04/07/25 at 0210, For 1 dose, Maximum dose of acetaminophen is 4000 mg from all sources in 24 hours. 0214 (Given - Provid er: Keely Winston) ibuprofen tablet 600 mg (COMPLETED) 600 mg, Oral, Once, On Kimberlee 04/07/25 at 0000, For 1 dose 0001 (Given - Provid er: Soila Mas RN) sodium chloride 0.9 % bolus 1,000 mL (COMPLETED) 1,000 mL, IntraVENous, at 1,000 mL/hr, Administer over 1 Hours, Once, On Kimberlee 04/07/25 at 0015, For 1 dose 0023 (New Bag - Prov ider: Soila Mas RN)0123 (Stopped - Provider: Soila Mas RN) FOR RECORDS PERTAINING TO PATIENTS WHO ARE OR HAVE BEEN ENROLLED IN A CHEMICAL DEPENDENCY/SUBSTANCEABUSE PROGRAM, SOME INFORMATION MAY BE OMITTED. This clinical summary was aggregated from multiple sources. Caution should be exercised in using it in the provision of clinical care. This summary normalizes information from multiple sources, and as a consequence, information in this document may materially change the coding, format and clinical context of patient data. In addition, data may be omitted in some cases. CLINICAL DECISIONS SHOULD BE BASED ON THE PRIMARY CLINICAL RECORDS. [employer] [facility]. provides no warranty or guarantee of the accuracy or completeness of information in this document.
[2025-10-13 18:08] LABS: Ca Oxalate, Dihydrate 90 % (.); Ca Oxalate, Monohydrate 10 % (.)
== END | disposition home or self-care (01) ==
PROVIDERS: Referring Provider Urology; Visit Provider Urology
DX: N20.1 Calculus of ureter (principal)
CPT/HCPCS: 82360; 88300